=== PATIENT | male | born 1940 | race Caucasian/White ===

== ENCOUNTER → 2018-03-07 13:10 | Outpatient (CLI) | payer MEDICARE, OTHER, SELFPAY ==
[2018-03-07 13:33] LABS: Add Manual Diff / Slide Review NO; Basophils Percent Auto 0.7 % (0-2); Eosinophils Percent Auto 2.9 % (2-4); Hematocrit 34.6 % (41-53); Hemoglobin 11.5 g/dL (13.5-17.5); Lymphocytes Percent Auto 14.9 % (25-40); Mean Corpuscular HGB Conc 33.3 % (30-36); Mean Corpuscular Hemoglobin 30.5 PG (26-34); Mean Corpuscular Volume 91.7 fL (80-100); Monocytes Percent Auto 7.5 % (3-14); Neutrophils Absolute Auto 5100 /uL (3000-5900); Platelet Count 141 X10^3/uL (150-400); Red Blood Cell Count 3.77 X10^6/uL (4.5-5.9); White Blood Cell Count 6.9 X10^3/uL (4.5-11.0)
[2018-03-07 13:42] LABS: Alanine Aminotransferase 25 IU/L (21-72); Albumin 4.3 g/dL (3.5-5.0); Albumin Globulin Ratio 1.4 (1.0-2.8); Alkaline Phosphatase 73 U/L (38-126); Aspartate Aminotransferase 18 IU/L (17-59); BUN Creatinine Ratio 27.7 (6-22); Bilirubin Total 0.7 mg/dL (0.2-1.3); Calcium 9.2 mg/dL (8.4-10.2); Estimated Glomerular Filt Rate 23.9 mL/min (>60); Glucose 133 mg/dL (80-110); HEMOLYSIS < 15 (0-50); Potassium 4.5 mmol/L (3.4-5.1); Sodium 145 mmol/L (137-145); Total Protein 7.3 g/dL (6.3-8.2)
[2018-03-07 14:12] LABS: Prostate Specific Antigen 0.075 ng/mL (0.10-4.00)
== END ==
PROVIDERS: PCP Family Medicine; Visit Provider Internal Medicine Hematology & Oncology
DX: R31.9 Hematuria, unspecified (principal); N13.9 Obstructive and reflux uropathy, unspecified
CPT/HCPCS: 36415; 80053; 84153; 85025

== ENCOUNTER → 2018-04-08 15:14 | Outpatient (CLI) | payer MEDICARE, OTHER, SELFPAY ==
--- NOTE | 2018-04-08 | DI.RAD.S_ITS ---
PROCEDURE: XR CHEST 2V INDICATIONS: 77 year-old male with cough for 2 months. TECHNIQUE: 2 views of the chest were acquired. COMPARISON: [facility], , XR CHEST 2V, 02/22/2018, 10:40. [facility], , CHEST 2 VIEW, 05/31/2017, 7:49. [facility], CR, CHEST 2 VIEW, 12/27/2016, 9:33. FINDINGS: Surgical changes and devices: None. Lungs and pleura: No pleural effusions or pneumothorax. Lungs are clear. Mediastinum: Mediastinal contours are normal. Cardiomegaly is unchanged. There is aortic atherosclerosis. Bones and chest wall: No suspicious bony abnormalities. Soft tissues appear unremarkable. IMPRESSION: Cardiomegaly as before, without acute cardiopulmonary disease. Dictated by: Adam Contreras M.D. on 04/08/2018 at 16:34 Approved by: Adam Contreras M.D. on 04/08/2018 at 16:35
== END ==
PROVIDERS: PCP Family Medicine; Visit Provider Internal Medicine Cardiovascular Disease
DX: R05 Cough (principal); I51.7 Cardiomegaly
CPT/HCPCS: 71046

== ENCOUNTER → 2018-04-11 14:07 | Outpatient (CLI) | payer MEDICARE, OTHER, SELFPAY ==
[2018-04-11 14:25] LABS: Add Manual Diff / Slide Review NO; Basophils Percent Auto 0.9 % (0-2); Eosinophils Percent Auto 4.8 % (2-4); Hematocrit 31.7 % (41-53); Hemoglobin 10.6 g/dL (13.5-17.5); Lymphocytes Percent Auto 17.6 % (25-40); Mean Corpuscular HGB Conc 33.6 % (30-36); Mean Corpuscular Hemoglobin 30.9 PG (26-34); Mean Corpuscular Volume 92.1 fL (80-100); Monocytes Percent Auto 8.4 % (3-14); Neutrophils Absolute Auto 4300 /uL (3000-5900); Neutrophils Percent Auto 68.3 % (50-75); Platelet Count 183 X10^3/uL (150-400); Red Blood Cell Count 3.44 X10^6/uL (4.5-5.9); Red Cell Distribution Width 16.5 % (11.6-14.8); White Blood Cell Count 6.3 X10^3/uL (4.5-11.0)
[2018-04-11 14:40] LABS: Alanine Aminotransferase 26 IU/L (21-72); Albumin 4.3 g/dL (3.5-5.0); Albumin Globulin Ratio 1.5 (1.0-2.8); Alkaline Phosphatase 74 U/L (38-126); Aspartate Aminotransferase 22 IU/L (17-59); BUN Creatinine Ratio 26.7 (6-22); Bilirubin Total 0.7 mg/dL (0.2-1.3); Blood Urea Nitrogen 72 mg/dL (9-20); Carbon Dioxide 21 mmol/L (22-32); Chloride 109 mmol/L (98-107); Estimated Glomerular Filt Rate 22.9 mL/min (>60); Globulin 2.9 g/dL (1.7-4.1); Glucose 143 mg/dL (80-110); HEMOLYSIS < 15 (0-50); Potassium 4.9 mmol/L (3.4-5.1); Sodium 143 mmol/L (137-145); Total Protein 7.2 g/dL (6.3-8.2)
[2018-04-11 15:13] LABS: Prostate Specific Antigen < 0.064 ng/mL (0.10-4.00)
== END ==
PROVIDERS: PCP Family Medicine; Visit Provider Nurse Practitioner Gerontology
DX: C61 Malignant neoplasm of prostate (principal)
CPT/HCPCS: 36415; 80053; 84153; 85025

== ENCOUNTER → 2018-05-30 13:09 | Outpatient (CLI) | payer MEDICARE, OTHER, SELFPAY ==
[2018-05-30 13:35] LABS: Add Manual Diff / Slide Review NO; Basophils Percent Auto 0.7 % (0-2); Eosinophils Percent Auto 4.4 % (2-4); Hematocrit 32.1 % (41-53); Hemoglobin 10.7 g/dL (13.5-17.5); Lymphocytes Percent Auto 16.9 % (25-40); Mean Corpuscular HGB Conc 33.2 % (30-36); Mean Corpuscular Hemoglobin 30.7 PG (26-34); Mean Corpuscular Volume 92.4 fL (80-100); Monocytes Percent Auto 6.5 % (3-14); Neutrophils Absolute Auto 4900 /uL (3000-5900); Neutrophils Percent Auto 71.5 % (50-75); Platelet Count 170 X10^3/uL (150-400); Red Blood Cell Count 3.48 X10^6/uL (4.5-5.9); Red Cell Distribution Width 16.5 % (11.6-14.8); White Blood Cell Count 6.9 X10^3/uL (4.5-11.0)
[2018-05-30 14:09] LABS: Alanine Aminotransferase 19 IU/L (21-72); Albumin 4.5 g/dL (3.5-5.0); Albumin Globulin Ratio 1.5 (1.0-2.8); Alkaline Phosphatase 72 U/L (38-126); Aspartate Aminotransferase 21 IU/L (17-59); BUN Creatinine Ratio 23.2 (6-22); Bilirubin Total 0.7 mg/dL (0.2-1.3); Blood Urea Nitrogen 79 mg/dL (9-20); Calcium 9.3 mg/dL (8.4-10.2); Carbon Dioxide 21 mmol/L (22-32); Chloride 108 mmol/L (98-107); Estimated Glomerular Filt Rate 17.6 mL/min (>60); Glucose 119 mg/dL (80-110); HEMOLYSIS < 15 (0-50); Potassium 4.5 mmol/L (3.4-5.1); Sodium 144 mmol/L (137-145); Total Protein 7.5 g/dL (6.3-8.2)
[2018-05-30 14:44] LABS: Prostate Specific Antigen < 0.064 ng/mL (0.10-4.00)
[2018-05-30 14:56] LABS: Thyroid Stimulating Hormone 2.71 uIU/mL (0.47-4.68)
== END ==
PROVIDERS: PCP Family Medicine; Visit Provider Nurse Practitioner Gerontology
DX: C61 Malignant neoplasm of prostate (principal); C79.9 Secondary malignant neoplasm of unspecified site; R53.83 Other fatigue
CPT/HCPCS: 36415; 80053; 84153; 84443; 85025

== ENCOUNTER → 2018-06-07 12:47 | Outpatient (CLI) | payer MEDICARE, OTHER, SELFPAY ==
--- NOTE | 2018-06-07 | DI.CT.S_ITS ---
PROCEDURE: CT KIDNEY URETER BLADDER (KUB) INDICATIONS: Hydronephrosis. TECHNIQUE: Noncontrast 5 mm thick sections acquired from the diaphragms to the symphysis. 5 mm thick coronal and sagittal reformats were then performed. For radiation dose reduction, the following was used: automated exposure control, adjustment of mA and/or kV according to patient size. COMPARISON: [facility], CT, KIDNEY/ URETER/BLADDER, 12/14/2016, 10:35. [facility], CT, KIDNEY/ URETER/BLADDER, 08/20/2017, 5:47. FINDINGS: Image quality: Excellent. Lung bases: Lung bases are clear. Heart size is mildly enlarged. Urinary system: There is a right ureteral stent with the proximal coil in the right renal pelvis and the distal coil in the pelvis. No hydronephrosis in the right or left kidney. No renal stones. There is renal cortical thinning bilaterally. Mild nonspecific perinephric stranding is redemonstrated, decreased on the right. There are small bilateral renal cysts. The urinary bladder is nondistended with suggestion of wall thickening. There is associated mild fat stranding. Other solid organs: Noncontrast evaluation of the liver demonstrates no focal lesions. There are a few small dependent calcified gallstones in the gallbladder without gallbladder wall thickening. Pancreas is normal in contours. Spleen is normal in size. No adrenal nodules. Peritoneum and bowel: Unenhanced bowel loops demonstrate normal wall thickness and caliber. There is colonic diverticulosis without acute diverticulitis. No free fluid or air. Nodes and vessels: No retroperitoneal or mesenteric adenopathy by size criteria. 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 Abdominal wall: No ventral hernias. Pelvis: No free pelvic fluid. No inguinal hernias or adenopathy. Postsurgical changes are demonstrated at the base of the right inguinal canal. Bones: No suspicious bony lesions. No vertebral body compression fractures. IMPRESSION: 1. Right ureteral stent demonstrated without evidence of hydronephrosis. 2. Probable bladder wall thickening although evaluation is limited by nondistention. Findings are suggestive of an infectious or inflammatory cystitis. Recommend correlation with urinalysis. 3. 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 Dictated by: Preston Parmar M.D. on 06/07/2018 at 16:03 Approved by: Preston Parmar M.D. on 06/07/2018 at 16:21
== END ==
PROVIDERS: PCP Family Medicine; Visit Provider Urology
DX: N13.30 Unspecified hydronephrosis (principal); I71.4 Abdominal aortic aneurysm, without rupture; Z96.0 Presence of urogenital implants
CPT/HCPCS: 74176

== ENCOUNTER → 2018-07-01 14:08 | Outpatient (CLI) | payer MEDICARE, OTHER, SELFPAY ==
[2018-07-01 14:43] LABS: Add Manual Diff / Slide Review NO; Basophils Percent Auto 0.6 % (0-2); Eosinophils Percent Auto 3.9 % (2-4); Hematocrit 34.8 % (41-53); Hemoglobin 11.9 g/dL (13.5-17.5); Lymphocytes Percent Auto 18.8 % (25-40); Mean Corpuscular HGB Conc 34.1 % (30-36); Mean Corpuscular Volume 90.8 fL (80-100); Monocytes Percent Auto 7.4 % (3-14); Neutrophils Absolute Auto 4300 /uL (3000-5900); Neutrophils Percent Auto 69.3 % (50-75); Platelet Count 171 X10^3/uL (150-400); Red Blood Cell Count 3.83 X10^6/uL (4.5-5.9); Red Cell Distribution Width 15.3 % (11.6-14.8); White Blood Cell Count 6.2 X10^3/uL (4.5-11.0)
[2018-07-01 14:51] LABS: Alanine Aminotransferase 26 IU/L (21-72); Albumin 4.5 g/dL (3.5-5.0); Albumin Globulin Ratio 1.5 (1.0-2.8); Alkaline Phosphatase 76 U/L (38-126); Aspartate Aminotransferase 23 IU/L (17-59); BUN Creatinine Ratio 21.6 (6-22); Bilirubin Total 0.5 mg/dL (0.2-1.3); Blood Urea Nitrogen 67 mg/dL (9-20); Calcium 9.7 mg/dL (8.4-10.2); Carbon Dioxide 23 mmol/L (22-32); Chloride 108 mmol/L (98-107); Estimated Glomerular Filt Rate 19.5 mL/min (>60); Globulin 3.1 g/dL (1.7-4.1); Glucose 145 mg/dL (80-110); HEMOLYSIS < 15 (0-50); Potassium 4.3 mmol/L (3.4-5.1); Sodium 146 mmol/L (137-145); Total Protein 7.6 g/dL (6.3-8.2)
[2018-07-01 15:22] LABS: Prostate Specific Antigen < 0.064 ng/mL (0.10-4.00)
== END ==
PROVIDERS: PCP Family Medicine; Visit Provider Nurse Practitioner Gerontology
DX: C61 Malignant neoplasm of prostate (principal)
CPT/HCPCS: 36415; 80053; 84153; 85025

== ENCOUNTER → 2018-08-23 08:35 | Outpatient (CLI) | payer MEDICARE, OTHER, SELFPAY ==
[2018-08-23 08:56] LABS: Add Manual Diff / Slide Review NO; Basophils Percent Auto 0.6 % (0-2); Eosinophils Percent Auto 3.2 % (2-4); Hematocrit 33.3 % (41-53); Hemoglobin 11.1 g/dL (13.5-17.5); Lymphocytes Percent Auto 11.1 % (25-40); Mean Corpuscular HGB Conc 33.3 % (30-36); Mean Corpuscular Hemoglobin 31.1 PG (26-34); Mean Corpuscular Volume 93.4 fL (80-100); Monocytes Percent Auto 6.5 % (3-14); Neutrophils Absolute Auto 5600 /uL (3000-5900); Neutrophils Percent Auto 78.6 % (50-75); Platelet Count 152 X10^3/uL (150-400); Red Blood Cell Count 3.56 X10^6/uL (4.5-5.9); Red Cell Distribution Width 15.3 % (11.6-14.8); White Blood Cell Count 7.1 X10^3/uL (4.5-11.0)
[2018-08-23 09:58] LABS: HEMOLYSIS < 15 (0-50)
[2018-08-23 10:06] LABS: Alanine Aminotransferase 20 IU/L (21-72); Albumin 4.5 g/dL (3.5-5.0); Albumin Globulin Ratio 1.5 (1.0-2.8); Alkaline Phosphatase 72 U/L (38-126); Aspartate Aminotransferase 23 IU/L (17-59); BUN Creatinine Ratio 23.8 (6-22); Bilirubin Total 0.6 mg/dL (0.2-1.3); Blood Urea Nitrogen 81 mg/dL (9-20); Calcium 9.1 mg/dL (8.4-10.2); Carbon Dioxide 18 mmol/L (22-32); Chloride 111 mmol/L (98-107); Estimated Glomerular Filt Rate 17.5 mL/min (>60); Globulin 3.1 g/dL (1.7-4.1); Glucose 169 mg/dL (80-110); Potassium 4.7 mmol/L (3.4-5.1); Sodium 146 mmol/L (137-145); Total Protein 7.6 g/dL (6.3-8.2)
== END ==
PROVIDERS: PCP Family Medicine
DX: C61 Malignant neoplasm of prostate (principal)
CPT/HCPCS: 36415; 80053; 84153; 85025

== ENCOUNTER 2018-08-31 07:23 | Observation (INO) | payer MEDICARE, OTHER, SELFPAY ==
[2018-08-31] VITALS (10 sets, daily range): BP systolic 140–164; BP diastolic 54–87; PULSE 56–79; RESP 14–18; TEMP 36.3–37.3; O2SAT 97–99; BMI 31.0
[2018-08-31 07:53] LABS: Add Manual Diff / Slide Review NO; Basophils Percent Auto 0.5 % (0-2); Eosinophils Percent Auto 4.8 % (2-4); Hematocrit 33.5 % (41-53); Hemoglobin 11.4 g/dL (13.5-17.5); Lymphocytes Percent Auto 16.5 % (25-40); Mean Corpuscular HGB Conc 33.9 % (30-36); Mean Corpuscular Hemoglobin 31.1 PG (26-34); Mean Corpuscular Volume 91.7 fL (80-100); Monocytes Percent Auto 7.6 % (3-14); Neutrophils Absolute Auto 4300 /uL (3000-5900); Neutrophils Percent Auto 70.6 % (50-75); Platelet Count 166 X10^3/uL (150-400); Red Blood Cell Count 3.65 X10^6/uL (4.5-5.9); White Blood Cell Count 6.2 X10^3/uL (4.5-11.0)
--- NOTE | 2018-08-31 07:53 | ED_ITS ---
HPI - Abdominal Pain General Chief Complaint: Abdominal Pain Stated Complaint: blood in bowel movement this morning Time Seen by Provider: 08/31/18 07:34 Source: patient Mode of arrival: ambulatory Limitations: no limitations History of Present Illness HPI narrative: Patient is an 78-year-old male who presents with above bloody bowel movement. He said he had 1 very large bloody bowel movement this morning. He is on Coumadin for atrial fibrillation and has history of prostate cancer. He denies any abdominal pain, nausea, vomiting, dizziness, lightheadedness or syncope. He said he was extremely tired yesterday but thought it was due to multiple errands. He denies any fever or chills. He states he had a colonoscopy this year with Dr. Mcclure 01/21/2018 in he had 2 polyps removed MD complaint: other (Rectal bleeding) Related Data Home Medications Medication Instructions Recorded Confirmed ASPIRIN (Aspirin Low Dose) 81 mg PO QDAY #0 12/11/10 08/31/18 glipizide [Glucotrol XL] 20 [place] [facility] [place] 12/11/10 08/31/18 [COLETTE KRILL] 500 mg PO QDAY #0 07/10/17 08/31/18 [VITAMIN C W/ALONA HIP] 1,000 mg PO QDAY #0 07/10/17 08/31/18 allopurinol 100 mg PO QDAY #0 07/10/17 08/31/18 vitamin B complex [B 1 tab PO QDAY #0 07/10/17 08/31/18 Complex-Vitamin B12] VITAMIN D (Vitamin D3) 1,000 units PO QDAY #0 08/20/17 08/31/18 calcium citrate 600 mg PO BID #0 08/20/17 08/31/18 coenzyme Q10 [Co Q-10] 100 mg PO QDAY #0 08/20/17 08/31/18 warfarin [Coumadin] 5 mg PO QDAY #0 08/20/17 08/31/18 insulin glargine [Lantus U-100 20 unit SQ Q DAY #0 12/11/17 08/31/18 Insulin] furosemide [Lasix] 60 mg PO BID #0 01/08/18 08/31/18 rosuvastatin [Crestor] 5 mg PO QDAY #0 01/08/18 08/31/18 hydrocodone-acetaminophen 1 - 2 tab PO Q6HP PRN #0 01/21/18 08/27/18 amlodipine [Norvasc] 10 mg PO DAILY 03/08/18 08/31/18 terazosin 3 mg PO QDAY 08/31/18 08/31/18 Previous Rx's Medication Instructions Recorded alprazolam [Xanax] 0.5 mg PO QDAYP PRN #30 tab 12/11/17 bicalutamide [Casodex] 50 mg PO QDAY #30 tab 12/11/17 Allergies Allergy/AdvReac Type Severity Reaction Status Date / Time codeine Allergy Unknown NAUSEA Verified 06/04/18 13:13 Iodine and Iodide Containing Allergy Unknown Verified 06/04/18 13:13 Produc [IODINE AND IODIDE CONTAINING PRODUC] iohexol Allergy Unknown Verified 06/04/18 13:13 Review of Systems Review of Systems All systems reviewed & are unremarkable except as noted in HPI and below Constitutional Denies chills, Denies fever(s), Denies lethargy and Denies weakness Eyes Denies change in vision, Denies eye discharge, Denies irritation and Denies loss of vision Cardiovascular Denies chest pain, Denies irregular heart rhythm, Denies lightheadedness, Denies palpitations, Denies dyspnea, Denies dyspnea on exertion and Denies orthopnea Respiratory Denies cough, Denies dyspnea, Denies dyspnea on exertion and Denies wheezing Gastrointestinal Gastrointestinal: Reports as per HPI Genitourinary Denies hematuria, Denies flank pain, Denies urinary incontinence and Denies urinary urgency Musculoskeletal Denies back pain, Denies muscle weakness, Denies numbness and Denies tingling Integumentary/Breasts Denies pruritus, Denies erythema, Denies rash and Denies wounds Neurologic Denies loss of vision, Denies numbness, Denies tingling and Denies weakness Endocrine Denies palpitations Allergic/Immunologic Denies wheezing PFSH Medical History Atrial fibrillation (Acute) Chronic renal insufficiency (Acute) Diabetes (Acute) Prostate cancer (Acute) Surgical History S/P ureteral stent placement (Acute) Social History Smoking Status: Never smoker alcohol intake: never substance use type: does not use Exam Initial Vital Signs Initial Vital Signs: Vital Signs Temperature 98 F 08/31/18 07:33 Pulse Rate 72 08/31/18 07:33 Respiratory Rate 14 08/31/18 07:33 Blood Pressure 156/57 H 08/31/18 07:33 Pulse Oximetry 99 08/31/18 07:33 GENERAL: Well-appearing, well-nourished and in no acute distress. HEENT: Head atraumatic,EOMI, pupils reactive, face symmetric, moist mucous membranes CARDIOVASCULAR: Regular rate and rhythm without murmurs, rubs or gallops. RESPIRATORY: Breath sounds equal bilaterally, no wheezes rales or rhonchi. ABDOMEN: Soft, nontender. Normoactive bowel sounds all 4 quadrants. No guarding or rebound. RECTAL: Grossly positive EXTREMITIES: Normal range of motion, no clubbing or edema. Neurovascularly intact NEUROLOGICAL: Alert and oriented x4.Normal gait and speech. SKIN: Warm, dry, no laceration, no petechiae, no rashes or lesions. Course Orders Ordered: ED Orders 08/31/18 07:45 Complete Blood Count AUTO DIFF Stat Comprehensive Metabolic Panel Stat Fresh Frozen Plasma Stat Lactate (Lactic Acid) Stat Lipase Stat Partial Thromboplastin Time Stat Prothrombin Time INR Stat Type and Screen Stat EKG-12 Lead Stat 08/31/18 09:00 Urine Microscopic Stat Discontinued Medications Pantoprazole Sodium (Protonix) 40 mg IV NOW ONE Stop: 08/31/18 07:46 Last Admin: 08/31/18 08:17 Dose: 40 mg Phytonadione (Mephyton) 5 mg PO NOW ONE Stop: 08/31/18 08:18 Last Admin: 08/31/18 08:23 Dose: 5 mg Vital Signs - 8 hr 08/31/18 07:33 08/31/18 08:20 08/31/18 09:19 Temperature 98 F 97.4 F L Pulse Rate 72 75 72 Respiratory Rate 14 16 16 Blood Pressure 156/57 H 164/59 H Blood Pressure [Left Arm] 147/87 H Pulse Oximetry 99 97 08/31/18 09:25 Temperature Pulse Rate 72 Respiratory Rate 18 Blood Pressure Blood Pressure [Left Arm] 145/54 H Pulse Oximetry 97 MDM - Abdominal Pain Lab Data Attestation: I reviewed the patient's lab results. Result diagrams: 08/31/18 07:45 08/31/18 07:45 Lab Results 08/31/18 08/31/18 08/31/18 Range/Units 07:45 07:45 07:45 WBC 6.2 (4.5-11.0) X10^3/uL RBC 3.65 L (4.5-5.9) X10^6/uL Hgb 11.4 L (13.5-17.5) g/dL Hct 33.5 L (41-53) % MCV 91.7 (80-100) fL MCH 31.1 (26-34) PG MCHC 33.9 (30-36) % RDW 15.0 H (11.6-14.8) % Plt Count 166 (150-400) X10^3/uL Neut % (Auto) 70.6 (50-75) % Lymph % (Auto) 16.5 L (25-40) % [place] % (Auto) 7.6 (3-14) % Eos % (Auto) 4.8 H (2-4) % Baso % (Auto) 0.5 (0-2) % Neut # (Auto) 4300 (1945-6705) /uL PT 24.2 H (10.1-12.7) SECONDS INR 2.2 H (0.9-1.3) APTT 40 H (26.4-36.2) SECONDS Sodium (137-145) mmol/L Potassium (3.4-5.1) mmol/L Chloride (98-107) mmol/L Carbon Dioxide (22-32) mmol/L BUN (9-20) mg/dL Creatinine (0.66-1.25) mg/dL Estimated GFR (>60) mL/min BUN/Creatinine Ratio (6-22) Glucose (80-110) mg/dL Lactate 0.8 (0.7-2.1) mmol/L Calcium (8.4-10.2) mg/dL Total Bilirubin (0.2-1.3) mg/dL AST (17-59) IU/L ALT (21-72) IU/L Alkaline Phosphatase (38-126) U/L Total Protein (6.3-8.2) g/dL Albumin (3.5-5.0) g/dL Globulin (1.7-4.1) g/dL Albumin/Globulin Ratio (1.0-2.8) Lipase (23-300) U/L Urine RBC (0-5/HPF) Urine WBC (0-5/HPF) Ur Squamous Epith Cells Urine Bacteria (None) Ur Culture Indicated? Micro UA Comment Blood Type Antibody Screen 08/31/18 08/31/18 08/31/18 Range/Units 07:45 07:45 09:00 WBC (4.5-11.0) X10^3/uL RBC (4.5-5.9) X10^6/uL Hgb (13.5-17.5) g/dL Hct (41-53) % MCV (80-100) fL MCH (26-34) PG MCHC (30-36) % RDW (11.6-14.8) % Plt Count (150-400) X10^3/uL Neut % (Auto) (50-75) % Lymph % (Auto) (25-40) % [place] % (Auto) (3-14) % Eos % (Auto) (2-4) % Baso % (Auto) (0-2) % Neut # (Auto) (6828-4565) /uL PT (10.1-12.7) SECONDS INR (0.9-1.3) APTT (26.4-36.2) SECONDS Sodium 146 H (137-145) mmol/L Potassium 4.3 (3.4-5.1) mmol/L Chloride 111 H (98-107) mmol/L Carbon Dioxide 21 L (22-32) mmol/L BUN 68 H (9-20) mg/dL Creatinine 3.40 H (0.66-1.25) mg/dL Estimated GFR 17.5 L (>60) mL/min BUN/Creatinine Ratio 20.0 (6-22) Glucose 97 (80-110) mg/dL Lactate (0.7-2.1) mmol/L Calcium 9.2 (8.4-10.2) mg/dL Total Bilirubin 0.6 (0.2-1.3) mg/dL AST 22 (17-59) IU/L ALT 26 (21-72) IU/L Alkaline Phosphatase 85 (38-126) U/L Total Protein 7.4 (6.3-8.2) g/dL Albumin 4.4 (3.5-5.0) g/dL Globulin 3.0 (1.7-4.1) g/dL Albumin/Globulin Ratio 1.5 (1.0-2.8) Lipase 123 (23-300) U/L Urine RBC 5-10/hpf H (0-5/HPF) Urine WBC 0-1/hpf (0-5/HPF) Ur Squamous Epith Cells 0-1 /hpf Urine Bacteria None seen (None) Ur Culture Indicated? Cult not indicated Micro UA Comment Not Reportable Blood Type A Positive Antibody Screen Negative Point of care testing: Urine Dip Bedside Urine Glucose Negative Bedside Urine Bilirubin - Negative Bedside Urine Ketone - Negative Urine Specific [place] 1.015 Bedside Urine Occult Blood ++ Bedside Urine pH 6.0 Bedside Urine Protein ++ 100 Bedside Urine Urobilinogen - Negative Bedside Urine Nitrite - Negative Bedside Urine Leukocytes - Negative Esterase MDM Narrative Medical decision making narrative: Renal insufficiency is stable, not on dialysis. He is given FFP and vitamin K. no indication for Kcentra at this time. He is hemodynamically stable. Only 1 bloody bowel movement. I have spoken with Dr. Garcia who agrees to admission. No surgery consult at this time will monitor. Discharge Plan Departure Patient Disposition: Admitted As Inpatient Clinical Impression: Acute GI bleeding Admit Date/Time: 08/31/18 09:19 Admit Provider: Dago Garcia
--- NOTE | 2018-08-31 07:55 | PC.NURSE ---
had one episode of dark blood with stool, alot no other associated sxs. takes coumadin for afib, dose decrease last week.
[2018-08-31 08:02] LABS: INR 2.2 (0.9-1.3); Prothrombin Time 24.2 SECONDS (10.1-12.7)
[2018-08-31 08:04] LABS: PTT Partial Thromboplastin Tim 40 SECONDS (26.4-36.2)
[2018-08-31 08:05] LABS: Lactate (Lactic Acid) 0.8 mmol/L (0.7-2.1)
[2018-08-31 08:06] LABS: Alanine Aminotransferase 26 IU/L (21-72); Albumin 4.4 g/dL (3.5-5.0); Albumin Globulin Ratio 1.5 (1.0-2.8); Alkaline Phosphatase 85 U/L (38-126); Aspartate Aminotransferase 22 IU/L (17-59); Bilirubin Total 0.6 mg/dL (0.2-1.3); Blood Urea Nitrogen 68 mg/dL (9-20); Calcium 9.2 mg/dL (8.4-10.2); Carbon Dioxide 21 mmol/L (22-32); Chloride 111 mmol/L (98-107); Estimated Glomerular Filt Rate 17.5 mL/min (>60); Glucose 97 mg/dL (80-110); HEMOLYSIS < 15 (0-50); Lipase 123 U/L (23-300); Potassium 4.3 mmol/L (3.4-5.1); Sodium 146 mmol/L (137-145); Total Protein 7.4 g/dL (6.3-8.2)
[2018-08-31] MEDS: PANTOPRAZOLE 40 MG VIAL IV (08:17)
[2018-08-31] MEDS: PHYTONADIONE (VIT K1) 5 MG TABLET PO (08:23)
[2018-08-31 09:02] LABS: Bacteria Urine None Seen
[2018-08-31 09:19] LABS: Culture Indicated Urine Cult Not Indicated; RBC Urine 5-10/HPF (0-5/HPF); Squamous Epithelial Cell Urine 0-1 /HPF; WBC Urine 0-1/HPF (0-5/HPF)
--- NOTE | 2018-08-31 13:03 | PC.ADMIT ---
[email or web address] Tiffany Frank Admission Note: The patient,Noel Allen,78 y/o, was given written information regarding hospital policies, unit procedures and contact persons. Patient's smoking status: Never smoker. Vital Signs - 8 hr 08/31/18 07:33 08/31/18 08:20 08/31/18 09:19 Temperature 98 F 97.4 F L Pulse Rate 72 75 72 Respiratory Rate 14 16 16 Blood Pressure 156/57 H 164/59 H Blood Pressure [Left Arm] 147/87 H Pulse Oximetry 99 97 08/31/18 09:25 08/31/18 09:38 08/31/18 11:30 Temperature 97.6 F 99.2 F Pulse Rate 72 74 71 Respiratory Rate 18 16 17 Blood Pressure 149/69 H 159/74 H Blood Pressure [Left Arm] 145/54 H Pulse Oximetry 97 Rec'd pt from ED at 1000 via stretcher with FFP infusing to patent PIV. VSS. Afebrile. Denying pain. Completed admission assessment and updated med list per pt and . Oriented to room, environment, fall risk, call light. Pt and verbalize understanding. Called to Dr. Umana's office and left message with senior receptionist notifying MD of pt's arrival.
[2018-08-31 14:47] LABS: Hematocrit 31.9 % (41-53); Hemoglobin 10.9 g/dL (13.5-17.5)
--- NOTE | 2018-08-31 15:06 | P.HP_ITS ---
History of Present Illness Date Patient Seen: 08/31/18 Time Patient Seen: 14:47 Chief complaint: blood in bowel movement this morning Narrative: Was in usual state of health until this morning when he had the urge to defecate. Passed a fair volume of stool and only when he wiped he realized that there was clear red on the paper and looking in the toilet noticed a volume of maroon dark red stool. There is no pain involved with a bowel movement no abdominal pain of any kind does not recall anything like this before. He is on warfarin for AFib. Had a colonoscopy within the last year or so that showed no evident cause for this. He was evaluated in the emergency room found with a fairly typical H and H for him with a history of mild anemia chronically. Otherwise evaluation showed no significant findings. He is referred for admission for evidence of GI bleed. It has been a few hours since he came in and he has had 1 more bowel movement which is described as brown, small quantity, weakly positive for guaiac. He continues to feel well no particular concerns at this time. No family history contributes to this admission. Patient History Medical History Anticoagulation adequate with anticoagulant therapy (Acute) BPH loc w urin obs/LUTS (Acute) Edema leg (Acute) Gout (Acute) Hyperlipidemia (Acute) Hypertension (Acute) Obesity (Acute) Atrial fibrillation (Chronic) Chronic kidney disease (CKD) stage G4/A1, severely decreased glomerular filtration rate (GFR) between 15-29 mL/min/1.73 square meter and albuminuria creatinine ratio less than 30 mg/g (Chronic) Diabetes (Chronic) Prostate cancer (Chronic) Surgical History S/P ureteral stent placement (Chronic) Family & Social History Social History: household members spouse Prior Living Arrangements House Safety & Behavioral: Feels Safe in Current Yes Environment Been Physically Hurt or No Threatened By a Person Suicidal Ideation Description None Tobacco & Substance use: Smoking Status Never smoker alcohol intake never Meds Home Medications Medication Instructions Recorded Confirmed Type aspirin [Aspir-81] 81 mg PO BEDTIME #0 12/11/10 08/31/18 History glipizide [Glucotrol XL] 10 mg PO BIDWM #0 12/11/10 08/31/18 History [COLETTE KRILL] 500 mg PO QDAY #0 07/10/17 08/31/18 History [VITAMIN C W/ALONA HIP] 1,000 mg PO QDAY #0 07/10/17 08/31/18 History allopurinol 100 mg PO QDAY #0 07/10/17 08/31/18 History vitamin B complex [B 1 tab PO QDAY #0 07/10/17 08/31/18 History Complex-Vitamin B12] VITAMIN D (Vitamin D3) 1,000 units PO QDAY #0 08/20/17 08/31/18 History calcium citrate 600 mg PO BID #0 08/20/17 08/31/18 History coenzyme Q10 [Co Q-10] 100 mg PO QDAY #0 08/20/17 08/31/18 History warfarin [Coumadin] 2.5 mg PO QDAY #0 08/20/17 08/31/18 History alprazolam [Xanax] 0.5 mg PO QDAYP PRN #30 tab 12/11/17 08/31/18 Rx bicalutamide [Casodex] 50 mg PO QDAY #30 tab 12/11/17 08/31/18 Rx insulin glargine [Lantus U-100 20 unit SQ Q DAY #0 12/11/17 08/31/18 History Insulin] furosemide [Lasix] 40 mg PO DAILY #0 01/08/18 08/31/18 History rosuvastatin [Crestor] 5 mg PO BEDTIME #0 01/08/18 08/31/18 History amlodipine [Norvasc] 10 mg PO DAILY 03/08/18 08/31/18 History Lupron Depot See Label Instructions .ROUTE 08/31/18 08/31/18 History .COMPLEX furosemide [Lasix] 20 mg PO DAILY 08/31/18 08/31/18 History terazosin 1 mg PO BID 08/31/18 08/31/18 History Allergies Allergy/AdvReac Type Severity Reaction Status Date / Time codeine Allergy Unknown NAUSEA Verified 06/04/18 13:13 Iodine and Iodide Containing Allergy Unknown Verified 06/04/18 13:13 Produc [IODINE AND IODIDE CONTAINING PRODUC] iohexol Allergy Unknown Verified 06/04/18 13:13 Review of Systems Review of Systems All systems reviewed & are unremarkable except as noted in HPI and below Constitutional Constitutional: Reports system reviewed and no additional complaints, except as documented Gastrointestinal Gastrointestinal: Reports hematochezia Exam Vital Signs (past 8 hours): - 08/31/18 07:33 08/31/18 08:20 08/31/18 09:19 Temperature 98 F 97.4 F L Pulse Rate 72 75 72 Respiratory Rate 14 16 16 Blood Pressure 156/57 H 164/59 H Blood Pressure [Left Arm] 147/87 H Pulse Oximetry 99 97 08/31/18 09:25 08/31/18 09:38 08/31/18 11:30 Temperature 97.6 F 99.2 F Pulse Rate 72 74 71 Respiratory Rate 18 16 17 Blood Pressure 149/69 H 159/74 H Blood Pressure [Left Arm] 145/54 H Pulse Oximetry 97 Oxygen Delivery Method Room Air Narrative Exam Narrative: Healthy appearing obese male lying quietly in bed. O awake appropriate. H EENT normocephalic atraumatic. Pupils equal round and reactive to light extraocular movements intact. Oropharynx benign neck benign without jugular venous distension knee intact pulses chest is clear to auscultation heart has a an irregular rate without murmur abdomen is soft nontender nondistended normoactive bowel tones no organomegaly or mass extremities with 1 + edema neurologically nonfocal Objective Labs Result Diagrams: 08/31/18 07:45 08/31/18 07:45 Labs: Laboratory Results - last 24 hr 08/31/18 08/31/18 08/31/18 07:45 07:45 07:45 WBC 6.2 RBC 3.65 L Hgb 11.4 L Hct 33.5 L MCV 91.7 MCH 31.1 MCHC 33.9 RDW 15.0 H Plt Count 166 Neut % (Auto) 70.6 Lymph % (Auto) 16.[address] [place] % (Auto) 7.6 Eos % (Auto) 4.8 H Baso % (Auto) 0.5 Neut # (Auto) 4300 PT 24.2 H INR 2.2 H APTT 40 H Sodium Potassium Chloride Carbon Dioxide BUN Creatinine Estimated GFR BUN/Creatinine Ratio Glucose Lactate 0.8 Calcium Total Bilirubin AST ALT Alkaline Phosphatase Total Protein Albumin Globulin Albumin/Globulin Ratio Lipase Urine RBC Urine WBC Ur Squamous Epith Cells Urine Bacteria Ur Culture Indicated? Micro UA Comment Nasal Screen MRSA (PCR) Blood Type Antibody Screen 08/31/18 08/31/18 08/31/18 07:45 07:45 09:00 WBC RBC Hgb Hct MCV MCH MCHC RDW Plt Count Neut % (Auto) Lymph % (Auto) [place] % (Auto) Eos % (Auto) Baso % (Auto) Neut # (Auto) PT INR APTT Sodium 146 H Potassium 4.3 Chloride 111 H Carbon Dioxide 21 L BUN 68 H Creatinine 3.40 H Estimated GFR 17.5 L BUN/Creatinine Ratio 20.0 Glucose 97 Lactate Calcium 9.2 Total Bilirubin 0.6 AST 22 ALT 26 Alkaline Phosphatase 85 Total Protein 7.4 Albumin 4.4 Globulin 3.0 Albumin/Globulin Ratio 1.5 Lipase 123 Urine RBC 5-10/hpf H Urine WBC 0-1/hpf Ur Squamous Epith Cells 0-1 /hpf Urine Bacteria None seen Ur Culture Indicated? Cult not indicated Micro UA Comment Not Reportable Nasal Screen MRSA (PCR) Blood Type A Positive Antibody Screen Negative 08/31/18 10:00 WBC RBC Hgb Hct MCV MCH MCHC RDW Plt Count Neut % (Auto) Lymph % (Auto) [place] % (Auto) Eos % (Auto) Baso % (Auto) Neut # (Auto) PT INR APTT Sodium Potassium Chloride Carbon Dioxide BUN Creatinine Estimated GFR BUN/Creatinine Ratio Glucose Lactate Calcium Total Bilirubin AST ALT Alkaline Phosphatase Total Protein Albumin Globulin Albumin/Globulin Ratio Lipase Urine RBC Urine WBC Ur Squamous Epith Cells Urine Bacteria Ur Culture Indicated? Micro UA Comment Nasal Screen MRSA (PCR) Negative for mrsa Blood Type Antibody Screen Assessment & Plan (1) Lower gastrointestinal bleed: Problem details: Acute and apparently substantial blood loss but no significant change in H&H on admission and 6 hr later down 2 or 3 points. One additional bowel movement since admission that was guaiac positive but not grossly bloody. Will continue to follow labs for now consider general surgery consult if levels dropped significantly. Current visit: Yes Status: Acute (2) Atrial fibrillation: Problem details: Stable currently, sounds like his beta-blaine was stopped recently but his rate is okay today. Current visit: Yes Status: Chronic (3) Anticoagulation adequate: Problem details: Has been reversed due to above with associated risks. Reviewed with patient. Will hold for now. Current visit: Yes Status: Chronic (4) Diabetes type 2, controlled: Problem details: Historically well controlled will follow sugars here. Current visit: Yes Status: Chronic Plan: Assessment/Plan Narrative: Will start PPI, allow him to have full liquid diet follow labs consult as needed. Reviewed code status with him in detail he prefers full code. Time Spent With Patient Time with patient: Greater than 35 minutes Quality VTE Deep Vein Thrombosis/Pulmonary Embolism Present on Admission: No
--- NOTE | 2018-08-31 16:27 | PT.IIE ---
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 (08/31/18) Surgical History (Last Updated 08/31/18 @ 14:52 by Dago Garcia MD) S/P ureteral stent placement (Chronic) Medical History (Last Updated 08/31/18 @ 14:55 by Dago Garcia MD) Anticoagulation adequate with anticoagulant therapy (Acute) BPH loc w urin obs/LUTS (Acute) Edema leg (Acute) Gout (Acute) Hyperlipidemia (Acute) Hypertension (Acute) Obesity (Acute) Atrial fibrillation (Chronic) Chronic kidney disease (CKD) stage G4/A1, severely decreased glomerular filtration rate (GFR) between 15-29 mL/min/1.73 square meter and albuminuria creatinine ratio less than 30 mg/g (Chronic) Diabetes (Chronic) Prostate cancer (Chronic) Physical Therapy Inpatient Evaluation/Re-Eval M1 PT/OT-IP Prior Functional Status Start: 08/31/18 16:26 Freq: NEEDED Status: Active Protocol: Document 08/31/18 16:27 [facility] (Rec: 08/31/18 16:33 [facility] [email or web address]) Medical Review Prior Functional Status Medical History Reviewed Yes Mobility and Gait indep. community ambulator without device Activities of Daily Living and IADL's indep. I/ADLs Social History Household Members spouse Living Arrangements House Number of Floors (Floors) Two Floors Number of Stairs To Enter/Railing? 3 SE rail L ascending Home Environment Tub/Shower Home Equipment Grab Bars In Shower Employment Status Retired Additional Social History Comment able to assist some if needed upon d/c. M2 PT-IP Current Condition Start: 08/31/18 16:26 Freq: NEEDED Status: Active Protocol: Document 08/31/18 16:27 [facility] (Rec: 08/31/18 16:33 [facility] [email or web address]) Physical Therapy Current Condition Current Condition Evaluation Date 08/31/18 Treatment Diagnosis blood in stool, impaired activity tolerance Onset Date 08/31/18 Precautions Other Precautions Chemo precautions M3 PT-IP Subjective Start: 08/31/18 16:26 Freq: NEEDED Status: Active Protocol: Document 08/31/18 16:27 [facility] (Rec: 08/31/18 16:33 [facility] [email or web address]) Subjective Physical Therapy Visit Type Type Initial Evaluation Visit Start Time 14:02 Visit Stop Time 14:27 Total Visit Minutes 25 Number of DIRECTOR OF STUDENT AFFAIRS Visits 0 Physical Therapy Visit Comments Patient Comments pt states that he normally gets around pretty well. Therapy Pain Assessment Pain Present Pain Present Denied Pain M4 PT-IP Mobility and Gait Start: 08/31/18 16:26 Freq: NEEDED Status: Active Protocol: Document 08/31/18 16:27 [facility] (Rec: 08/31/18 16:33 [facility] [email or web address]) PT-Bed Mobility Assessment Supine to Sit Supine to Sit Independent Scooting Scooting to Edge of Bed Independent PT-Transfer Assessment Sit to and From Stand Sit to and from Stand Standby Assistance Equipment Transfer Assistive Device Gait Belt Front Wheeled Walker Transfers Transfer Destination Chair Transfer Technique Stand Step Pivot Transfer Ability Level of Assist Standby Assistance Gait Assessment Gait Gait Assistance Required: Standby Assistance Distance (Feet) 200 Assistive Devices Assistive Device Gait Belt Front Wheeled Walker Gait Deviations General Gait Pattern Flexed Trunk Wide Based Gait Factors Limiting Gait Function Factors Limiting Gait Function Decreased Activity Tolerance Decreased Strength Comments Gait Comments O2 saturation 97% and HR 110 bpm after gait. PT-Balance Assessment Sitting Balance and Reactions Static Sitting Balance Ability Good Dynamic Sitting Balance Ability Good Standing Balance and Reactions Static Standing Balance Ability Good Dynamic Standing Balance Ability Fair Device Used FWW M5 PT-IP Objective Assessments Start: 08/31/18 16:26 Freq: NEEDED Status: Active Protocol: Document 08/31/18 16:27 [facility] (Rec: 08/31/18 16:33 [facility] [email or web address]) Orientation Orientation/Cognition Level of Alertness Alert Language Function Ability No Deficits Noted Memory Description No Deficits Noted Gross Range of Motion Lower Extremity ROM Assessment Within Functional Limits Strength Lower Extremity Strength Assessment Within Functional Limits Coordination Assessment Gross Coordination Gross Coordination WNL Muscle Tone Muscle Tone WNL Yes M6 PT-IP Treatment Start: 08/31/18 16:26 Freq: NEEDED Status: Active Protocol: Document 08/31/18 16:27 [facility] (Rec: 08/31/18 16:33 [facility] [email or web address]) Physical Therapy Treatment Education Education Provided Safety M7 PT-IP Assessment and Plan Start: 08/31/18 16:26 Freq: NEEDED Status: Active Protocol: Document 08/31/18 16:27 [facility] (Rec: 08/31/18 16:33 [facility] [email or web address]) PT Summary Assessment and Plan Potential Rehabilitation Potential Good Status of Condition at Evaluation Stable Summary Impairments Gait Activity Tolerance Assessment Summary Pt used a FWW this session for ambulation 200 ft, minimal fatigue but does progressively get more forward flexed posture as distance increases. Pt was not comfortable progressing to no AD with gait . Pt will need to perform stairs and ambulation with or without least restrictive device prior to d/c. No c/o dizziness, lightheadedness or abdominal discomfort. Expect pt to be able to d/c home when medically stable. Goals Gait Goal Standby Assistance Gait Distance 300 Other Goals up/down 3 steps with L ascending rail and SBA. Frequency of Treatment Frequency Of Treatment Once a Day Treatment Plan Physical Therapy Treatment Plan Gait Training Therapeutic Exercise Recommendations To Nursing Amount of Assist Needed Standby Assistance 1 Person Assist Discharge Recommendations PT Discharge Recommendations Home with Assistance Equipment Needed for Home Before possibly FWW or SPC pending Discharge follow up PT sessions.
[2018-08-31] MEDS: glipiZIDE XL 5 MG TAB 10 MG PO (17:23)
[2018-08-31] MEDS: ASPIRIN EC 81 MG TABLET PO (20:07)
[2018-08-31] MEDS: CALCIUM CITRATE 200 MG TABLET 600 MG PO (20:07)
[2018-08-31] MEDS: ROSUVASTATIN 10 MG TABLET 5 MG PO (20:08)
[2018-08-31] MEDS: TERAZOSIN 1 MG CAPSULE PO (20:08)
[2018-08-31 20:18] LABS: Hematocrit 30.6 % (41-53); Hemoglobin 10.5 g/dL (13.5-17.5)
--- NOTE | 2018-08-31 22:36 | PC.NURSE ---
RISSA shift: BMx1, light brown. no evidence of blood in stool. VSS. Tolerating full liquid diet.
[2018-09-01] VITALS: O2SAT 97
[2018-09-01 03:00] VITALS: BP 147/77; PULSE 61; RESP 16; TEMP 36.6; O2SAT 94
[2018-09-01 06:15] LABS: Add Manual Diff / Slide Review NO; Basophils Percent Auto 0.5 % (0-2); Eosinophils Percent Auto 4.8 % (2-4); Hematocrit 33.1 % (41-53); Hemoglobin 11.2 g/dL (13.5-17.5); Lymphocytes Percent Auto 13.2 % (25-40); Mean Corpuscular Hemoglobin 31.2 PG (26-34); Mean Corpuscular Volume 91.9 fL (80-100); Monocytes Percent Auto 7.4 % (3-14); Neutrophils Absolute Auto 4700 /uL (3000-5900); Neutrophils Percent Auto 74.1 % (50-75); Platelet Count 160 X10^3/uL (150-400); Red Cell Distribution Width 15.4 % (11.6-14.8); White Blood Cell Count 6.3 X10^3/uL (4.5-11.0)
[2018-09-01 06:17] LABS: INR 1.7 (0.9-1.3); Prothrombin Time 18.9 SECONDS (10.1-12.7)
[2018-09-01 06:25] LABS: BUN Creatinine Ratio 18.7 (6-22); Blood Urea Nitrogen 58 mg/dL (9-20); Calcium 9.4 mg/dL (8.4-10.2); Carbon Dioxide 21 mmol/L (22-32); Chloride 112 mmol/L (98-107); Estimated Glomerular Filt Rate 19.5 mL/min (>60); Glucose 91 mg/dL (80-110); HEMOLYSIS < 15 (0-50); Potassium 4.4 mmol/L (3.4-5.1); Sodium 145 mmol/L (137-145)
[2018-09-01 07:30] VITALS: BP 124/80; PULSE 63; RESP 16; TEMP 36.3; O2SAT 97
[2018-09-01 09:00] VITALS: O2SAT 97
[2018-09-01] MEDS: glipiZIDE XL 5 MG TAB 10 MG PO (09:24)
[2018-09-01] MEDS: AMLODIPINE 5 MG TABLET 10 MG PO (09:25)
[2018-09-01] MEDS: ALLOPURINOL 100 MG TABLET PO (09:25)
[2018-09-01] MEDS: BICALUTAMIDE 50 MG TABLET PO (09:25)
[2018-09-01] MEDS: CHOLECALCIFEROL (VITAMIN D3) 1,000 UNIT TABLET 1000 UNIT PO (09:26)
[2018-09-01] MEDS: CALCIUM CITRATE 200 MG TABLET 600 MG PO (09:26)
[2018-09-01] MEDS: FUROSEMIDE 40 MG TABLET PO (09:26)
[2018-09-01] MEDS: VITAMIN B COMPLEX 1 CAPSULE 1 CAP PO (09:27)
[2018-09-01] MEDS: INSULIN GLARGINE 100 UNIT/ML 3ML PEN 20 UNIT SUBCUT (09:28)
[2018-09-01] MEDS: TERAZOSIN 1 MG CAPSULE PO (09:28)
--- NOTE | 2018-09-01 11:44 | PM.DS.1 ---
History of Present Illness Chief complaint: blood in bowel movement this morning Narrative: See H&P Discharge Providers Date of admission: 08/31/18 09:19 Primary care physician: Max Crowell MD Consults: 08/31/18 10:10 Consult to Physician Routine Comment: Consulting Provider: Dago Garcia Reason for consultation: admission Has provider been notified: Yes 08/31/18 14:37 Consult to Physical Therapy Evaluate & Treat Comment: Physician Instructions: Evaluate and Treat Discharge provider: Dago Garcia MD Discharge Date: 09/01/18 Summary Discharge Diagnosis: Large GI bleed suspicious for lower GI source. Single episode, stable hematocrit. Suspect a benign source. History of atrial fibrillation on anticoagulation and rate control Anticoagulation with therapeutic INR Hypertension stable during this hospitalization. Diabetes type 2 historically well controlled Prostate cancer currently under treatment Chronic kidney disease stage 4 Hospital Course: Admitted after a single episode of large maroon stool, but no other symptoms has felt roughly at baseline throughout hospitalization no particular pain breathing has been okay appetite been okay has been up and around without any issues. Did receive some IV fluids the warfarin was held his protime has dropped a bit. No further episodes of same sort of stool although the 1st stool after admission was guaiac positive. Status at Discharge Cognitive/behavioral status at discharge: No changes Functional status at discharge: uses cane/walker Time Spent with Patient Greater than 30 minutes Exam Vital Signs (past 8 hours): - 09/01/18 07:30 09/01/18 09:00 Temperature 97.4 F L Pulse Rate 63 Respiratory Rate 16 Blood Pressure 124/80 Pulse Oximetry 97 97 Oxygen Delivery Method Room Air Oxygen Flow Rate 0 Narrative Exam Narrative: Appearing well sitting up in a chair. Objective Labs Result Diagrams: 09/01/18 05:49 09/01/18 05:49 Labs: Laboratory Results - last 24 hr 08/31/18 08/31/18 09/01/18 14:20 20:05 05:49 WBC 6.3 RBC 3.60 L Hgb 10.9 L 10.5 L 11.2 L Hct 31.9 L 30.6 L 33.1 L MCV 91.9 MCH 31.2 MCHC 34.0 RDW 15.4 H Plt Count 160 Neut % (Auto) 74.1 Lymph % (Auto) 13.2 L [place] % (Auto) 7.4 Eos % (Auto) 4.8 H Baso % (Auto) 0.5 Neut # (Auto) 4700 PT INR Sodium Potassium Chloride Carbon Dioxide BUN Creatinine Estimated GFR BUN/Creatinine Ratio Glucose Calcium 09/01/18 09/01/18 05:49 05:49 WBC RBC Hgb Hct MCV MCH MCHC RDW Plt Count Neut % (Auto) Lymph % (Auto) [place] % (Auto) Eos % (Auto) Baso % (Auto) Neut # (Auto) PT 18.9 H D INR 1.7 H Sodium 145 Potassium 4.4 Chloride 112 H Carbon Dioxide 21 L BUN 58 H Creatinine 3.10 H Estimated GFR 19.5 L BUN/Creatinine Ratio 18.7 Glucose 91 Calcium 9.4 Discharge Plan Discharge Plan Patient Disposition: Home Discharge comment: To hold coumadin until with HEAVEN Crowell, this week Discharge Med Rec/Prescriptions Prescriptions: Continue glipizide [Glucotrol XL] 10 MG tablet extended release 24hr 10 mg PO BIDWM Qty: 0 RF: 0 aspirin [Aspir-81] 81 mg Tablet,Delayed Release (Dr/Ec) 81 mg PO BEDTIME Qty: 0 RF: 0 allopurinol 100 MG tablet 100 mg PO QDAY Qty: 0 RF: 0 vitamin B complex [B Complex-Vitamin B12] 1 EACH tablet 1 tab PO QDAY Qty: 0 RF: 0 [VITAMIN C W/[place] HIP] 1,000 mg PO QDAY Qty: 0 RF: 0 [COLETTE KRILL] 500 mg PO QDAY Qty: 0 RF: 0 calcium citrate 200 MG tablet 600 mg PO BID Qty: 0 RF: 0 VITAMIN D (Vitamin D3) 1,000 units PO QDAY Qty: 0 RF: 0 coenzyme Q10 [Co Q-10] 100 MG capsule 100 mg PO QDAY Qty: 0 RF: 0 insulin glargine [Lantus U-100 Insulin] 100 UNIT/1 ML solution 20 unit SQ Q DAY Qty: 0 RF: 0 alprazolam [Xanax] 0.5 MG tablet 0.5 mg PO QDAYP PRNQty: 30 RF: 1 bicalutamide [Casodex] 50 MG tablet 50 mg PO QDAY Qty: 30 RF: 6 furosemide [Lasix] 20 MG tablet 40 mg PO DAILY Qty: 0 RF: 0 rosuvastatin [Crestor] 5 MG tablet 5 mg PO BEDTIME Qty: 0 RF: 0 amlodipine [Norvasc] 5 mg Tablet 10 mg PO DAILY RF: 0 terazosin 1 MG capsule 1 mg PO BID RF: 0 furosemide [Lasix] 20 mg Tablet 20 mg PO DAILY RF: 0 Lupron [place] See Label Instructions .ROUTE .COMPLEX RF: 0 Discontinued warfarin [Coumadin] 5 MG tablet 2.5 mg PO QDAY Qty: 0 RF: 0 Follow up/Referrals: aMx Crowell MD [Primary Care Provider] - 1 Day Provider Discharge Instructions Diet: Diet as Tolerated Skin/Wound/Dressing Care Report to your healthcare provider any signs of infection, such as:: chills, fever, night sweats, increased pain and unusual drainage Discharge Data Primary Care Provider: Max Crowell Attending Provider: Dago Garcia Admit Date/Time: 08/31/18 09:19 Quality VTE Deep Vein Thrombosis/Pulmonary Embolism Present on Admission: No
[2018-09-01 12:00] VITALS: BP 144/66; PULSE 66; RESP 16; TEMP 36.5; O2SAT 99
--- NOTE | 2018-09-01 12:18 | PT.IPTN ---
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 (08/31/18) Physical Therapy Treatment Note M2 PT-IP Current Condition Start: 08/31/18 16:26 Freq: NEEDED Status: Active Protocol: Document 08/31/18 16:27 [facility] (Rec: 08/31/18 16:33 [facility] [email or web address]) Physical Therapy Current Condition Current Condition Evaluation Date 08/31/18 Treatment Diagnosis blood in stool, impaired activity tolerance Onset Date 08/31/18 Precautions Other Precautions Chemo precautions M3 PT-IP Subjective Start: 08/31/18 16:26 Freq: NEEDED Status: Active Protocol: Document 09/01/18 09:38 [facility] (Rec: 09/01/18 12:18 [facility] [id number]) Subjective Physical Therapy Visit Type Type Treatment Note Visit Start Time 09:38 Visit Stop Time 10:02 Total Visit Minutes 19 Number of PHOTOCOPIER TECHNICIAN Visits 1 Physical Therapy Visit Comments Patient Comments Pt states he feel more comfortable using FWW and uses 4WW when outside in yard and shop when he needs to. M4 PT-IP Mobility and Gait Start: 08/31/18 16:26 Freq: NEEDED Status: Active Protocol: Document 09/01/18 09:38 [facility] (Rec: 09/01/18 12:18 [facility] [id number]) PT-Bed Mobility Assessment Scooting Scooting to Edge of Bed Independent PT-Transfer Assessment Sit to and From Stand Sit to and from Stand Standby Assistance Equipment Transfer Assistive Device Gait Belt Front Wheeled Walker Transfers Transfer Destination Chair Transfer Ability Level of Assist Standby Assistance Gait Assessment Gait Gait Assistance Required: Standby Assistance Distance (Feet) 300 Assistive Devices Assistive Device Gait Belt Front Wheeled Walker Gait Deviations General Gait Pattern Flexed Trunk Wide Based Gait Factors Limiting Gait Function Factors Limiting Gait Function Decreased Activity Tolerance Decreased Strength Stair Climbing Assessment Evaluation Level of Assist On Stairs Standby Assistance Devices Stair Climbing Assistive Devices Left Railing Technique/Endurance Stair Climbing Direction Ascend and Descend Stair Climbing Technique Step Over Step Step to Step Number of Steps Climbed 3 Query Text: Stair Climbing Set # Repetitions (reps) 2 Comments Stair Climbing Comments Pt able to maneuver stairs SBA with use of left ascending rail. Pt used step over for ascending and step to for descending. Daughter present. PT-Balance Assessment Sitting Balance and Reactions Static Sitting Balance Ability Good Dynamic Sitting Balance Ability Good Standing Balance and Reactions Static Standing Balance Ability Good Dynamic Standing Balance Ability Fair M5 PT-IP Objective Assessments Start: 08/31/18 16:26 Freq: NEEDED Status: Active Protocol: Document 08/31/18 16:27 [facility] (Rec: 08/31/18 16:33 [facility] [email or web address]) Orientation Orientation/Cognition Level of Alertness Alert Language Function Ability No Deficits Noted Memory Description No Deficits Noted Gross Range of Motion Lower Extremity ROM Assessment Within Functional Limits Strength Lower Extremity Strength Assessment Within Functional Limits Coordination Assessment Gross Coordination Gross Coordination WNL Muscle Tone Muscle Tone WNL Yes M6 PT-IP Treatment Start: 08/31/18 16:26 Freq: NEEDED Status: Active Protocol: Document 08/31/18 16:27 [facility] (Rec: 08/31/18 16:33 [facility] [email or web address]) Physical Therapy Treatment Education Education Provided Safety M7 PT-IP Assessment and Plan Start: 08/31/18 16:26 Freq: NEEDED Status: Active Protocol: Document 09/01/18 09:38 [facility] (Rec: 09/01/18 12:18 [facility] [id number]) PT Summary Assessment and Plan Potential Status of Condition at Evaluation Stable Summary Impairments Gait Activity Tolerance Assessment Summary Pt able to increase gait to 300ft w/o rest breaks and had good posture throughout session. Pt was able to trial stairs successfully SBA. Pt is SBA for all transfers and gait. Daughter present for entire tx. Spoke with PT as per pt goals and pt seems able to d/c home when medically stable and is able to ambulate with nursing. Pt d/c'd from PT. Goals Gait Goal Standby Assistance Gait Distance 300 Other Goals up/down 3 steps with L ascending rail and SBA. Frequency of Treatment Frequency Of Treatment Discharge Treatment Plan Physical Therapy Treatment Plan Gait Training Therapeutic Exercise Recommendations To Nursing Amount of Assist Needed Standby Assistance 1 Person Assist Discharge Recommendations PT Discharge Recommendations Home with Assistance Equipment Needed for Home Before possibly FWW or SPC pending Discharge follow up PT sessions.
--- NOTE | 2018-09-01 12:25 | PC.NURSE ---
Pt sitting up in chair and visiting with family. Pt states he feels ready to go home and Dr. Garcia has written his discharge. Removed IV . No changes to current home med list except Pt is to hold Coumadin until his follow up with Dr. Crowell next week. Pt denies further questions and was taken out to POV with family and all belongings.
== END 2018-09-01 12:36 | disposition home or self-care (01) ==
LOC: ED 09:00 → AC 09-01 06:29 → ICU 08-04 12:14
PROVIDERS: Admitting Provider Family Medicine; Emergency Provider Emergency Medicine; PCP Family Medicine; Visit Provider Family Medicine
DX: R10.9 Unspecified abdominal pain (principal); K92.2 Gastrointestinal hemorrhage, unspecified; N18.4 Chronic kidney disease, stage 4 (severe); I12.9 Hypertensive chronic kidney disease with stage 1 through stage 4 chronic kidney disease, or unspecified chronic kidney disease; E11.22 Type 2 diabetes mellitus with diabetic chronic kidney disease; Z79.4 Long term (current) use of insulin; I48.2 Chronic atrial fibrillation; Z79.01 Long term (current) use of anticoagulants
CPT/HCPCS: 36415; 36430; 36591; 80048; 80053; 81003; 81015; 82962; 83605; 83690; 85014; 85018; 85025; 85610; 85730; 86850; 86900; 86901; 86927; 87797; 93005; 96374; 97116; 97161; 99283; 99285; G0378; P9016; C9113

== ENCOUNTER → 2018-10-28 08:48 | Outpatient (CLI) | payer MEDICARE, OTHER, SELFPAY ==
[2018-08-31 10:00] VITALS: BMI 31.0
[2018-10-28 10:56] LABS: BUN Creatinine Ratio 21.2 (6-22); Blood Urea Nitrogen 91 mg/dL (9-20); Calcium 8.9 mg/dL (8.4-10.2); Carbon Dioxide 16 mmol/L (22-32); Chloride 113 mmol/L (98-107); Estimated Glomerular Filt Rate 13.4 mL/min (>60); Glucose 189 mg/dL (80-110); HEMOLYSIS < 15 (0-50); Potassium 4.9 mmol/L (3.4-5.1); Sodium 145 mmol/L (137-145)
== END ==
PROVIDERS: PCP Family Medicine; Visit Provider Internal Medicine
DX: N18.4 Chronic kidney disease, stage 4 (severe) (principal)
CPT/HCPCS: 36415; 80048

== ENCOUNTER → 2018-11-07 09:35 | Outpatient (CLI) | payer MEDICARE, OTHER, SELFPAY ==
[2018-08-31 10:00] VITALS: BMI 31.0
--- NOTE | 2018-11-07 | DI.RAD.S_ITS ---
PROCEDURE: XR CHEST 2V INDICATIONS: COUGH TECHNIQUE: 2 views of the chest were acquired. COMPARISON: [facility], CR, XR CHEST 2V, 04/08/2018, 15:01. [facility], CR, XR CHEST 2V, 02/22/2018, 10:40. FINDINGS: Surgical changes and devices: None. Lungs and pleura: No pleural effusions or pneumothorax. Lungs are edematous, hyperexpanded. Mediastinum: Mediastinal contours are normal. Heart size is mildly enlarged. Bones and chest wall: No suspicious bony abnormalities. Soft tissues appear unremarkable. IMPRESSION: COPD, chronic CHF pattern. Dictated by: Kiko Fatima M.D. on 11/07/2018 at 12:20 Approved by: Kiko Fatima M.D. on 11/07/2018 at 12:21
[2018-11-07 10:09] LABS: Add Manual Diff / Slide Review NO; Basophils Absolute Auto 0 /uL (0-100); Basophils Percent Auto 0.3 % (0-2); Eosinophils Absolute Auto 200 /uL (0-450); Eosinophils Percent Auto 1.5 % (2-4); Hematocrit 28.5 % (41-53); Hemoglobin 9.4 g/dL (13.5-17.5); Lymphocytes Absolute Auto 700 /uL (1100-4500); Lymphocytes Percent Auto 6.2 % (25-40); Mean Corpuscular HGB Conc 33.1 % (30-36); Mean Corpuscular Hemoglobin 30.8 PG (26-34); Mean Corpuscular Volume 93.1 fL (80-100); Monocytes Absolute Auto 800 /uL (0-900); Monocytes Percent Auto 7.7 % (3-14); Neutrophils Absolute Auto 8800 /uL (1500-7000); Neutrophils Percent Auto 84.3 % (50-75); Platelet Count 182 X10^3/uL (150-400); Red Blood Cell Count 3.06 X10^6/uL (4.5-5.9); Red Cell Distribution Width 15.2 % (11.6-14.8); White Blood Cell Count 10.5 X10^3/uL (4.5-11.0)
[2018-11-07 10:17] LABS: Alanine Aminotransferase 18 IU/L (21-72); Albumin 4.3 g/dL (3.5-5.0); Albumin Globulin Ratio 1.3 (1.0-2.8); Alkaline Phosphatase 70 U/L (38-126); Aspartate Aminotransferase 18 IU/L (17-59); BUN Creatinine Ratio 20.2 (6-22); Bilirubin Total 0.8 mg/dL (0.2-1.3); Blood Urea Nitrogen 93 mg/dL (9-20); Carbon Dioxide 15 mmol/L (22-32); Chloride 110 mmol/L (98-107); Estimated Glomerular Filt Rate 12.4 mL/min (>60); Globulin 3.3 g/dL (1.7-4.1); Glucose 131 mg/dL (80-110); HEMOLYSIS < 15 (0-50); Phosphorous 4.3 mg/dL (2.3-3.7); Sodium 140 mmol/L (137-145); Total Protein 7.6 g/dL (6.3-8.2)
== END ==
PROVIDERS: Family Provider Family Medicine; PCP Family Medicine; Visit Provider Internal Medicine
DX: N18.4 Chronic kidney disease, stage 4 (severe) (principal); N17.9 Acute kidney failure, unspecified; R05 Cough
CPT/HCPCS: 36415; 71046; 80053; 84100; 85025

== ENCOUNTER 2018-11-11 14:53 | Emergency (ER) | payer MEDICARE, OTHER, SELFPAY ==
[2018-08-31 10:00] VITALS: BMI 31.0
[2018-11-11 14:58] VITALS: BP 159/65; PULSE 54; RESP 22; O2SAT 96
--- NOTE | 2018-11-11 15:10 | DI.RAD.S_ITS ---
PROCEDURE: XR CHEST 1V INDICATIONS: chest pain TECHNIQUE: One view of the chest was acquired. COMPARISON: [facility], CR, XR CHEST 2V, 11/07/2018, 11:44. [facility], CR, XR CHEST 2V, 04/08/2018, 15:01. FINDINGS: Surgical changes and devices: None. Lungs and pleura: Lungs are mildly edematous. No pleural effusions or pneumothorax. Mediastinum: Mediastinal contours appear normal. Heart size is globally enlarged, chronically. Bones and chest wall: No suspicious bony lesions. Overlying soft tissues appear unremarkable. IMPRESSION: Chronic CHF pattern with probable mild acute exacerbation. Dictated by: Kiko Fatima M.D. on 11/11/2018 at 15:57 Approved by: Kiko Fatima M.D. on 11/11/2018 at 15:59
--- NOTE | 2018-11-11 15:29 | ED_ITS ---
Pediatric Review of Systems All systems ED: reviewed and negative except as stated Constitutional: Denies fever Cardiovascular: Reports edema and dyspnea on exertion; Denies chest pain and syncope Respiratory: Reports cough, dyspnea and sputum production (clear); Denies wheezing and stridor Gastrointestinal: Denies abdominal pain, nausea, vomiting, diarrhea and constipation Genitourinary: Reports other (still makes urine); Denies dysuria Musculoskeletal: Reports back pain (started with cough) [facility] Medical History Anticoagulation adequate with anticoagulant therapy (Acute) BPH loc w urin obs/LUTS (Acute) Edema leg (Acute) Gout (Acute) Hyperlipidemia (Acute) Hypertension (Acute) Obesity (Acute) Atrial fibrillation (Chronic) Chronic kidney disease (CKD) stage G4/A1, severely decreased glomerular filtration rate (GFR) between 15-29 mL/min/1.73 square meter and albuminuria creatinine ratio less than 30 mg/g (Chronic) Diabetes (Chronic) Prostate cancer (Chronic) Surgical History S/P ureteral stent placement (Chronic) Social History household members: spouse Smoking Status: Never smoker alcohol intake: never substance use type: does not use Pediatric Exam GENERAL: Alert and oriented x three, well-nourished, well-appearing male in mild distress. HEENT: Head normocephalic, atraumatic, EOMI, pupils reactive, face symmetric, moist mucous membranes, nares are clear. NECK: Supple, full range of motion CARDIOVASCULAR: Bradycardic but regular rate and rhythm without murmurs, rubs or gallops. RESPIRATORY: Breath sounds equal bilaterally, no wheezes rales or rhonchi. No tachypnea, no accessory muscle use. ABDOMEN: Soft, nontender. Normoactive bowel sounds all 4 quadrants. No guarding or rebound, rigidity, no mass : No CVA tenderness EXTREMITIES: Normal range of motion, no clubbing. 2+ pulses bilateral lower extremities. Neurovascularly intact NEUROLOGICAL: Cranial nerves II through XII grossly intact. Moving all extremities SKIN: Warm, dry, no petechiae, no rashes or lesions. Initial Vital Signs Initial Vital Signs: Vital Signs Pulse Rate 54 L 11/11/18 14:58 Respiratory Rate 22 11/11/18 14:58 Blood Pressure 159/65 H 11/11/18 14:58 Pulse Oximetry 96 11/11/18 14:58 General Limitations: no limitations Course Orders Ordered: ED Orders 11/11/18 15:10 XR chest 1V Stat EKG-12 Lead Stat 11/11/18 15:35 BNP [B Type Natriuretic Peptide] Stat Complete Blood Count AUTO DIFF Stat Comprehensive Metabolic Panel Stat Lipase Stat Partial Thromboplastin Time Stat Prothrombin Time INR Stat Troponin & CK Cardiac Panel Stat Discontinued Medications Furosemide (Lasix) 80 mg IV NOW ONE Stop: 11/11/18 17:45 Last Admin: 11/11/18 17:57 Dose: 80 mg Metolazone (Metolazone) 5 mg PO NOW ONE Stop: 11/11/18 17:51 Last Admin: 11/11/18 17:56 Dose: 5 mg Vital Signs - 8 hr 11/11/18 14:58 11/11/18 17:27 11/11/18 17:28 Pulse Rate 54 L 52 L 54 L Respiratory Rate 22 16 Blood Pressure 159/65 H Blood Pressure [Right Arm] 137/51 L Pulse Oximetry 96 93 94 11/11/18 18:28 Pulse Rate 55 L Respiratory Rate 19 Blood Pressure Blood Pressure [Right Arm] 135/49 L Pulse Oximetry 93 Medical Decision Making Lab Data Lab results reviewed: Yes I reviewed the patient's lab results. Result diagrams: 11/11/18 15:35 11/11/18 15:35 Lab Results 11/11/18 11/11/18 11/11/18 Range/Units 15:35 15:35 15:35 WBC 9.6 (4.5-11.0) X10^3/uL RBC 3.07 L (4.5-5.9) X10^6/uL Hgb 9.2 L (13.5-17.5) g/dL Hct 28.1 L (41-53) % MCV 91.6 (80-100) fL MCH 30.0 (26-34) PG MCHC 32.7 (30-36) % RDW 15.2 H (11.6-14.8) % Plt Count 245 (150-400) X10^3/uL Neut % (Auto) 80.3 H (50-75) % Lymph % (Auto) 9.1 L (25-40) % Major % (Auto) 6.6 (3-14) % Eos % (Auto) 3.1 (2-4) % Baso % (Auto) 0.9 (0-2) % Neut # (Auto) 7700 H (5161-2167) /uL Lymph # (Auto) 900 L (5106-7232) /uL Major # (Auto) 600 (0-900) /uL Eos # (Auto) 300 (0-450) /uL Baso # (Auto) 100 (0-100) /uL PT 26.8 H (10.1-12.7) SECONDS INR 2.3 H (0.9-1.3) APTT 38 H (26.4-36.2) SECONDS Sodium 140 (137-145) mmol/L Potassium 4.5 (3.4-5.1) mmol/L Chloride 109 H (98-107) mmol/L Carbon Dioxide 15 L (22-32) mmol/L BUN 102 H (9-20) mg/dL Creatinine 4.50 H (0.66-1.25) mg/dL Estimated GFR 12.7 L (>60) mL/min BUN/Creatinine Ratio 22.7 H (6-22) Glucose 165 H (80-110) mg/dL Calcium 9.0 (8.4-10.2) mg/dL Total Bilirubin 0.6 (0.2-1.3) mg/dL AST 20 (17-59) IU/L ALT 19 L (21-72) IU/L Alkaline Phosphatase 77 (38-126) U/L Total Creatine Kinase 66 (55-170) U/L CK-MB (CK-2) TNP CK-MB (CK-2) Rel Index TNP Troponin I 0.015 (0.01-0.034) ng/mL B-Natriuretic Peptide 1500 H (<100) Total Protein 7.6 (6.3-8.2) g/dL Albumin 4.4 (3.5-5.0) g/dL Globulin 3.2 (1.7-4.1) g/dL Albumin/Globulin Ratio 1.4 (1.0-2.8) Lipase 188 (23-300) U/L Imaging Data Chest x-ray: Radiologist's impression: [address] [address] XRay Report Signed Patient: Noel Allen HMR#: [id number] : 8Acct:[id number] Age/Sex: 78 / MDate of Service: 11/11/18 Loc: ED Accession Number: [id number] Procedure: XR chest 1V Ordering Provider: Marta Gabriel D.O. PROCEDURE: XR CHEST 1V INDICATIONS: chest pain TECHNIQUE: One view of the chest was acquired. COMPARISON: [facility], CR, XR CHEST 2V, 11/07/2018, 11:44. [facility], CR, XR CHEST 2V, 04/08/2018, 15:01. FINDINGS: Surgical changes and devices: None. Lungs and pleura: Lungs are mildly edematous. No pleural effusions or pneumothorax. Mediastinum: Mediastinal contours appear normal. Heart size is globally enlarged, chronically. Bones and chest wall: No suspicious bony lesions. Overlying soft tissues appear unremarkable. IMPRESSION: Chronic CHF pattern with probable mild acute exacerbation. Dictated by: Kiko Fatima M.D. on 11/11/2018 at 15:57 Approved by: Kiko Fatima M.D. on 11/11/2018 at 15:59 ECG Data Attestation: I personally reviewed and interpreted this ECG as follows: Prior ECG tracings: available for review Interpretation: Sinus bradycardia with a 1st degree AV block. Occasional supraventricular beat, there does appear to be p wave with majority of QRS complexes so would not call afib. Patient has nonspecific ST change. Rate of 52 with a P are interval of 317, QRS of 100 and QTC of 433. Patient is a prior EKG from 08/31/2018 that shows atrial fibrillation with no ST changes. [facility] Narrative Medical decision making narrative: Patient's BNP is 1500 ice expect congestive heart failure although more related to his renal function. His creatinine is stable at baseline but he does have end-stage renal disease. Patient's troponin is negative, EKG does not show any new changes. His electrolytes are in normal range he is slightly down from his baseline from earlier in the year but consistent with his most recent lab. Patient was ambulated here in the emergency department a but ambulatory oxygen was 93%. I spoke with Nephrology, he sees Dr. Reynolds through [facility]. I spoke with Dr. Anderson , they recommend giving a additional dose of Lasix in the department he is currently on 80 mg b.i.d. and adding metolazone 5 mg 3 days and then changing to every other day. And they would like to see the patient in the office. Discussed with patient and plan for discharge home but to return if he is having any worsening symptoms as he does have some mild pulmonary edema on his chest x-ray. Discharge Plan Departure Patient Disposition: Home Clinical Impression: Acute exacerbation of congestive heart failure, End-stage renal disease (ESRD) Instructions: DI for Heart Failure Activity Restrictions/Additional Instructions: Follow-up with your hse manager this week, call tomorrow for an appointment. Continue your Lasix 80 mg twice daily. Your prescription was sent to [facility] in [place]. Start metolazone 5 mg once daily x3 days then began taking it once every other day. return to the emergency department for worsening symptoms, increasing shortness of breath, chest pressure or pain, lightheadedness, passing out, persistent vomiting, worsening swelling or or other new or concerning symptoms. Prescriptions: New metolazone 5 mg tablet 5 mg PO DAILY Qty: 14 RF: 0 No Action aspirin [Aspir-81] 81 mg Tablet,Delayed Release (Dr/Ec) 81 mg PO BEDTIME Qty: 0 RF: 0 allopurinol 100 MG tablet 100 mg PO DAILY Qty: 0 RF: 0 vitamin B complex [B Complex-Vitamin B12] 1 EACH tablet 1 tab PO DAILY Qty: 0 RF: 0 [VITAMIN C W/ALONA HIP] 1,000 mg PO DAILY Qty: 0 RF: 0 cholecalciferol (vitamin D3) [Vitamin D3] 1,000 unit Capsule 1,000 unit PO DAILY Qty: 0 RF: 0 coenzyme Q10 [Co Q-10] 100 MG capsule 100 mg PO DAILY Qty: 0 RF: 0 furosemide [Lasix] 20 MG tablet 80 mg PO BID Qty: 0 RF: 0 rosuvastatin [Crestor] 5 MG tablet 5 mg PO BEDTIME Qty: 0 RF: 0 terazosin 1 MG capsule 1 mg PO QAM RF: 0 furosemide [Lasix] 20 mg Tablet 20 mg PO DAILY RF: 0 Lupron Depot See Label Instructions .ROUTE .COMPLEX RF: 0 azithromycin 250 mg tablet 1 dose PO DIRECTED RF: 0 glipizide 10 mg tablet 10 mg PO BID RF: 0 levofloxacin 250 mg tablet 250 mg PO DAILY RF: 0 triamcinolone acetonide 0.1 % cream 1 applic Topical DIRECTED RF: 0 bisoprolol fumarate 5 mg tablet 5 mg PO DAILY RF: 0 amlodipine 10 mg tablet 10 mg PO DAILY RF: 0 hydrocortisone 2.5 % cream 1 applic Topical BID-TID RF: 0 warfarin 1 mg tablet 4 mg PO DAILY RF: 0 insulin detemir U-100 [Levemir U-100 Insulin] 100 unit/mL solution 20 units subcut QAM RF: 0 bicalutamide [Casodex] 50 MG tablet 50 mg PO DAILY RF: 0 terazosin 1 mg Capsule 2 mg PO BEDTIME RF: 0 calcium carbonate-vitamin D3 [Calcium 600 + D(3)] 600-125 mg-unit Tablet 1 tab PO BID RF: 0 [id number] [MegaKrill] 402-69-74-50 mg Capsule 1 tab PO DAILY RF: 0 Referrals: Raphael Cardozo MD [Non-Staff] - Max Crowell MD [Primary Care Provider] -
[2018-11-11 15:45] LABS: Add Manual Diff / Slide Review NO; Basophils Absolute Auto 100 /uL (0-100); Basophils Percent Auto 0.9 % (0-2); Eosinophils Absolute Auto 300 /uL (0-450); Eosinophils Percent Auto 3.1 % (2-4); Hemoglobin 9.2 g/dL (13.5-17.5); Lymphocytes Absolute Auto 900 /uL (1100-4500); Lymphocytes Percent Auto 9.1 % (25-40); Mean Corpuscular HGB Conc 32.7 % (30-36); Mean Corpuscular Volume 91.6 fL (80-100); Monocytes Absolute Auto 600 /uL (0-900); Monocytes Percent Auto 6.6 % (3-14); Neutrophils Absolute Auto 7700 /uL (1500-7000); Neutrophils Percent Auto 80.3 % (50-75); Platelet Count 245 X10^3/uL (150-400); Red Blood Cell Count 3.07 X10^6/uL (4.5-5.9); Red Cell Distribution Width 15.2 % (11.6-14.8); White Blood Cell Count 9.6 X10^3/uL (4.5-11.0)
[2018-11-11 15:48] LABS: Hematocrit 28.1 % (41-53)
[2018-11-11 15:57] LABS: INR 2.3 (0.9-1.3); Prothrombin Time 26.8 SECONDS (10.1-12.7)
[2018-11-11 15:59] LABS: PTT Partial Thromboplastin Tim 38 SECONDS (26.4-36.2)
[2018-11-11 16:08] LABS: Alanine Aminotransferase 19 IU/L (21-72); Albumin 4.4 g/dL (3.5-5.0); Albumin Globulin Ratio 1.4 (1.0-2.8); Alkaline Phosphatase 77 U/L (38-126); Aspartate Aminotransferase 20 IU/L (17-59); BUN Creatinine Ratio 22.7 (6-22); Bilirubin Total 0.6 mg/dL (0.2-1.3); Blood Urea Nitrogen 102 mg/dL (9-20); Carbon Dioxide 15 mmol/L (22-32); Chloride 109 mmol/L (98-107); Creatine Kinase 66 U/L (55-170); Estimated Glomerular Filt Rate 12.7 mL/min (>60); Globulin 3.2 g/dL (1.7-4.1); Glucose 165 mg/dL (80-110); HEMOLYSIS < 15 (0-50); Lipase 188 U/L (23-300); Potassium 4.5 mmol/L (3.4-5.1); Sodium 140 mmol/L (137-145); Total Protein 7.6 g/dL (6.3-8.2)
[2018-11-11 16:20] LABS: Troponin I 0.015 ng/mL (0.01-0.034)
[2018-11-11 16:22] LABS: B Type Natriuretic Peptide 1500 (<100)
[2018-11-11 17:27] VITALS: PULSE 52; O2SAT 93
[2018-11-11 17:28] VITALS: BP 137/51; PULSE 54; RESP 16; O2SAT 94
[2018-11-11] MEDS: metOLazone 2.5 MG TABLET 5 MG PO (17:56)
[2018-11-11] MEDS: FUROSEMIDE 100 MG/10 ML VIAL 80 MG IV (17:57)
[2018-11-11 18:28] VITALS: BP 135/49; PULSE 55; RESP 19; O2SAT 93
== END 2018-11-11 19:00 | disposition home or self-care (01) ==
PROVIDERS: Emergency Provider Emergency Medicine; Family Provider Family Medicine; PCP Family Medicine
DX: I50.9 Heart failure, unspecified (principal); N18.6 End stage renal disease
CPT/HCPCS: 36591; 71045; 80053; 82550; 82962; 83690; 83880; 84484; 85025; 85610; 85730; 93005; 96374; 99283; 99285; J1940

== ENCOUNTER 2018-11-30 04:00 | Emergency (ER) | payer MEDICARE, OTHER, SELFPAY ==
[2018-08-31 10:00] VITALS: BMI 31.0
[2018-11-30 04:10] VITALS: BP 170/80; PULSE 58; RESP 18; TEMP 36.6; O2SAT 99; BMI 29.4
--- NOTE | 2018-11-30 04:13 | DI.RAD.S_ITS ---
PROCEDURE: XR CHEST 1V INDICATIONS: Dyspnea TECHNIQUE: One view of the chest was acquired. COMPARISON: [facility], CR, XR CHEST 1V, 11/11/2018, 15:20. FINDINGS: Surgical changes and devices: Interval placement of right IJ dialysis catheter with the tip at the cavoatrial junction. Lungs and pleura: Lungs are clear. No pleural effusions or pneumothorax. Mediastinum: Mediastinal contours appear normal. Heart size is enlarged, chronic. No significant central venous congestion. Bones and chest wall: No suspicious bony lesions. Overlying soft tissues appear unremarkable. IMPRESSION: 1. No acute process. 2. Chronic cardiomegaly. 3. Right IJ dialysis catheter in position. Dictated by: Jessica Rodriguez M.D. on 11/30/2018 at 8:28 Approved by: Jessica Rodriguez M.D. on 11/30/2018 at 8:29
--- NOTE | 2018-11-30 04:13 | ED.SOB ---
HPI - SOB/Dyspnea General Chief Complaint: Shortness of Breath/Dyspnea Stated Complaint: ringing in ears, trouble speaking Time Seen by Provider: 11/30/18 04:01 Source: patient Mode of arrival: ambulatory Limitations: no limitations History of Present Illness The patient has apnea. He has been on a CPAP unit for 2 years. He has had trouble breathing the last couple nights. He is having no chest pain. He arrives here after awakening with the mask in place, feeling like he could not breathe. He was able take the mask off and caught his 's name, he was able to talk. However, he tells me he felt he could not talk initially and was somewhat confused. His thought he was confused. He is alert and oriented now. There are no motor or sensory deficits. He has no cough, or fever. He denies headache. He has no visual changes. He has no history of stroke or TIA. He is anticoagulated for AFib. He has not been having palpitations or syncopal type episodes. He has no history of stroke or TIA. He does have renal failure and has been on dialysis for a short period of time. He did undergo dialysis yesterday. He feels well at this time, after arriving by EMS from home. Related Data Home Medications Medication Instructions Recorded Confirmed aspirin [Aspir-81] 81 mg PO BEDTIME #0 12/11/10 11/30/18 [VITAMIN C W/ALONA HIP] 1,000 mg PO DAILY #0 07/10/17 11/11/18 allopurinol 100 mg PO DAILY #0 07/10/17 11/30/18 vitamin B complex [B 1 tab PO DAILY #0 07/10/17 11/11/18 Complex-Vitamin B12] cholecalciferol (vitamin D3) 5,000 unit PO DAILY #0 08/20/17 11/11/18 [Vitamin D3] coenzyme Q10 [Co Q-10] 100 mg PO DAILY #0 08/20/17 11/11/18 furosemide [Lasix] 40 mg PO QAM #0 01/08/18 11/11/18 rosuvastatin [Crestor] 5 mg PO BEDTIME #0 01/08/18 11/11/18 Lupron Depot See Rx Instructions .ROUTE .COMPLEX 08/31/18 11/11/18 furosemide [Lasix] 20 mg PO QPM 08/31/18 11/11/18 terazosin 1 mg PO QAM 08/31/18 11/11/18 amlodipine 5 mg PO DAILY 11/11/18 11/30/18 azithromycin 1 dose PO DIRECTED 11/11/18 11/11/18 bicalutamide [Casodex] 50 mg PO DAILY 11/11/18 11/30/18 bisoprolol fumarate 10 mg PO DAILY 11/11/18 11/30/18 calcium carbonate-vitamin D3 1 tab PO BID 11/11/18 11/30/18 [Calcium 600 + D(3)] glipizide 10 mg PO QAM 11/11/18 11/11/18 hydrocortisone 1 applic TOPICAL BID-TID 11/11/18 11/30/18 insulin detemir U-100 [Levemir 20 units SUBCUT QAM 11/11/18 11/11/18 U-100 Insulin] [id number] 1 tab PO DAILY 11/11/18 11/11/18 [MegaKrill] levofloxacin 250 mg PO DAILY 11/11/18 11/11/18 terazosin 2 mg PO BID 11/11/18 11/11/18 triamcinolone acetonide 1 applic TOPICAL DIRECTED 11/11/18 11/11/18 warfarin 5 mg PO DAILY 11/11/18 11/11/18 ascorbic acid (vitamin C) 250 mg PO DAILY 11/30/18 11/30/18 Previous Rx's Medication Instructions Recorded metolazone 5 mg PO DAILY #14 tab 11/11/18 Allergies Allergy/AdvReac Type Severity Reaction Status Date / Time codeine Allergy Unknown NAUSEA Verified 11/30/18 04:40 Iodine and Iodide Containing Allergy Unknown Verified 11/30/18 04:40 Produc [IODINE AND IODIDE CONTAINING PRODUC] iohexol Allergy Unknown Verified 11/30/18 04:40 Review of Systems Review of Systems ROS Unobtainable: All systems reviewed & are unremarkable except as noted in HPI and below Constitutional Denies chills, Denies fever(s), Denies lethargy and Denies weakness Eyes Denies change in vision, Denies eye discharge, Denies dry eyes, Denies irritation and Denies loss of vision ENT Ears, Nose, Mouth, and Throat: Denies change in voice, Denies neck pain, Denies disequilibrium and Denies sore throat Cardiovascular Denies chest pain, Denies irregular heart rhythm, Denies lightheadedness, Denies palpitations, Reports dyspnea and Denies orthopnea Respiratory Denies cough, Reports dyspnea, Denies wheezing and Reports other (Dyspnea has resolved.) Gastrointestinal Gastrointestinal: Denies abdominal pain, Denies change in bowel habits, Denies diarrhea, Denies nausea and Denies vomiting Musculoskeletal Denies neck pain and Denies numbness Integumentary/Breasts Denies pruritus, Denies erythema, Denies rash and Denies wounds Neurologic Reports as per HPI, Denies abnormal movements, Denies abnormal speech, Denies behavioral changes, Denies loss of vision, Denies numbness, Denies sensory deficit, Denies disequilibrium and Denies weakness Psychiatric Denies behavioral changes Endocrine Denies palpitations Allergic/Immunologic Denies wheezing [facility] Medical History Anticoagulation adequate with anticoagulant therapy (Acute) BPH loc w urin obs/LUTS (Acute) Edema leg (Acute) Gout (Acute) Hyperlipidemia (Acute) Hypertension (Acute) Obesity (Acute) Atrial fibrillation (Chronic) Chronic kidney disease (CKD) stage G4/A1, severely decreased glomerular filtration rate (GFR) between 15-29 mL/min/1.73 square meter and albuminuria creatinine ratio less than 30 mg/g (Chronic) Diabetes (Chronic) Prostate cancer (Chronic) Surgical History S/P ureteral stent placement (Chronic) Social History household members: spouse Smoking Status: Never smoker alcohol intake: never substance use type: does not use Social History household members: spouse Smoking Status: Never smoker alcohol intake: never substance use type: does not use Exam Initial Vital Signs Initial Vital Signs: Vital Signs Temperature 97.8 F 11/30/18 04:10 Pulse Rate 58 L 11/30/18 04:10 Respiratory Rate 18 11/30/18 04:10 Blood Pressure 170/80 H 11/30/18 04:10 Pulse Oximetry 99 11/30/18 04:10 Const General: cooperative and well developed Nutritional Appearance: well nourished Orientation: alert, awake, oriented x3 and not confused [facility] Head: normocephalic and atraumatic Nose: external nose normal Mouth: oral mucosae normal and moist mucous membranes Throat: posterior oropharynx normal, tonsils normal and uvula midline Eyes General: appearance normal, both eyes and all related structures Eyelids: eyelids normal Conjunctivae: conjunctivae normal Sclera: sclerae normal Pupils: PERRL EOM: EOM intact bilaterally Neck Neck: No JVD Lymphatic: No lymphadenopathy Chest Chest: normal inspection of the chest Resp Effort & Inspection: normal respiratory effort, able to speak in complete sentences and no respiratory distress Auscultation: clear to auscultation bilaterally, no rales, no rhonchi and no wheezes Cardio Rate: regular rate Rhythm: regular rhythm Heart Sounds: S1 normal, S2 normal, no click, no gallops, no murmurs and no rubs Pulses: normal peripheral pulses GI Inspection: non-distended Palpation: soft, no hepatosplenomegaly, No guarding and No tender Auscultation: normal bowel sounds Skin General: no rashes or lesions noted and No petechiae Neuro General: alert, oriented x3, gait normal and no focal motor deficits Speech: speech normal Extrem General: full ROM, no clubbing, cyanosis or edema, no pedal edema and no calf tenderness Scores NIH Stroke Scale Level of Conciousness: Alert, keenly responsive Ask month/age: Answers both questions correctly. Open/close eyes, close hand: Performs both tasks correctly Best gaze horizontal: Normal Visual wilde: No visual loss Facial palsy: Normal symetrical movement Left arm drift: No drift for full 10 sec Right arm drift: No drift for full 10 sec Left leg drift: No drift for full 10 sec Right leg drift: No drift for full 10 sec Limb ataxia: Absent Sensory on face/arms/legs: Normal, no sensory loss Best language: No aphasia, normal Dysarthria: Normal Extinction or inattention: No abnormality Total NIH Stroke scale score: 0 Course Orders Ordered: ED Orders 11/30/18 04:13 XR chest 1V Stat EKG-12 Lead Stat 11/30/18 04:15 CT head/brain wo con Stat 11/30/18 04:16 Complete Blood Count AUTO DIFF Stat Comprehensive Metabolic Panel Stat Lipase Stat Magnesium Stat Partial Thromboplastin Time Stat Prothrombin Time INR Stat Troponin & CK Cardiac Panel Stat Vital Signs - 8 hr 11/30/18 04:10 11/30/18 05:33 Temperature 97.8 F Pulse Rate 58 L 58 L Respiratory Rate 18 16 Blood Pressure 170/80 H Blood Pressure [Right Arm] 151/60 H Pulse Oximetry 99 100 MDM - SOB/Dyspnea Lab Data Result diagrams: 11/30/18 04:16 11/30/18 04:16 Lab Results 11/30/18 11/30/18 11/30/18 Range/Units 04:16 04:16 04:16 WBC 5.9 (4.5-11.0) X10^3/uL RBC 3.45 L (4.5-5.9) X10^6/uL Hgb 10.6 L (13.5-17.5) g/dL Hct 31.8 L (41-53) % MCV 92.2 (80-100) fL MCH 30.6 (26-34) PG MCHC 33.2 (30-36) % RDW 15.5 H (11.6-14.8) % Plt Count 134 L (150-400) X10^3/uL Neut % (Auto) 66.4 (50-75) % Lymph % (Auto) 17.4 L (25-40) % [place] % (Auto) 10.8 (3-14) % Eos % (Auto) 4.5 H (2-4) % Baso % (Auto) 0.9 (0-2) % Neut # (Auto) 3900 (1278-5203) /uL Lymph # (Auto) 1000 L (6353-6869) /uL [place] # (Auto) 600 (0-900) /uL Eos # (Auto) 300 (0-450) /uL Baso # (Auto) 100 (0-100) /uL PT 18.8 H (10.1-12.7) SECONDS INR 1.6 H (0.9-1.3) APTT 30 D (26.4-36.2) SECONDS Sodium 138 (137-145) mmol/L Potassium 3.9 (3.4-5.1) mmol/L Chloride 96 L (98-107) mmol/L Carbon Dioxide 31 (22-32) mmol/L BUN 18 (9-20) mg/dL Creatinine 2.30 H (0.66-1.25) mg/dL Estimated GFR 27.5 L (>60) mL/min BUN/Creatinine Ratio 7.8 (6-22) Glucose 115 H (80-110) mg/dL Calcium 9.2 (8.4-10.2) mg/dL Magnesium (1.6-2.3) mg/dL Total Bilirubin 0.5 (0.2-1.3) mg/dL AST 29 (17-59) IU/L ALT 34 (21-72) IU/L Alkaline Phosphatase 77 (38-126) U/L Total Creatine Kinase 32 L (55-170) U/L CK-MB (CK-2) TNP CK-MB (CK-2) Rel Index TNP Troponin I 0.037 H (0.01-0.034) ng/mL Total Protein 7.2 (6.3-8.2) g/dL Albumin 4.2 (3.5-5.0) g/dL Globulin 3.0 (1.7-4.1) g/dL Albumin/Globulin Ratio 1.4 (1.0-2.8) Lipase 94 (23-300) U/L 11/30/18 Range/Units 04:16 WBC (4.5-11.0) X10^3/uL RBC (4.5-5.9) X10^6/uL Hgb (13.5-17.5) g/dL Hct (41-53) % MCV (80-100) fL MCH (26-34) PG MCHC (30-36) % RDW (11.6-14.8) % Plt Count (150-400) X10^3/uL Neut % (Auto) (50-75) % Lymph % (Auto) (25-40) % [place] % (Auto) (3-14) % Eos % (Auto) (2-4) % Baso % (Auto) (0-2) % Neut # (Auto) (8846-3343) /uL Lymph # (Auto) (2882-2931) /uL [place] # (Auto) (0-900) /uL Eos # (Auto) (0-450) /uL Baso # (Auto) (0-100) /uL PT (10.1-12.7) SECONDS INR (0.9-1.3) APTT (26.4-36.2) SECONDS Sodium (137-145) mmol/L Potassium (3.4-5.1) mmol/L Chloride (98-107) mmol/L Carbon Dioxide (22-32) mmol/L BUN (9-20) mg/dL Creatinine (0.66-1.25) mg/dL Estimated GFR (>60) mL/min BUN/Creatinine Ratio (6-22) Glucose (80-110) mg/dL Calcium (8.4-10.2) mg/dL Magnesium 1.9 (1.6-2.3) mg/dL Total Bilirubin (0.2-1.3) mg/dL AST (17-59) IU/L ALT (21-72) IU/L Alkaline Phosphatase (38-126) U/L Total Creatine Kinase (55-170) U/L CK-MB (CK-2) CK-MB (CK-2) Rel Index Troponin I (0.01-0.034) ng/mL Total Protein (6.3-8.2) g/dL Albumin (3.5-5.0) g/dL Globulin (1.7-4.1) g/dL Albumin/Globulin Ratio (1.0-2.8) Lipase (23-300) U/L Imaging Data Chest x-ray: Attestation: I personally reviewed and interpreted this imaging study as follows: My impression: Normal, no acute findings. CT scan - head: Radiologist's impression: Mild diffuse atrophy, no acute findings. ECG Data Attestation: I personally reviewed and interpreted this ECG as follows: (Normal sinus rhythm rate 61 bpm. First-degree AV block. Moderate ST depression, possibly related to motion artifact. No acute ST elevation. No significant ectopy.) Discharge Plan Departure Patient Disposition: Home Clinical Impression: Acute dyspnea, Obstructive sleep apnea of adult Discharge Date/Time: 11/30/18 05:51 Interventions: ED Discharge Assessment Last Done: 11/30/18 05:51 Activity Restrictions/Additional Instructions: No obvious reason for your event earlier tonight at home were found. Your clinical findings Rosi no evidence of infection, breathing problems, cardiac problems, or stroke when he arrived. Respiratory therapy evaluated her CPAP machine, no abnormalities were noted. I would suggest she follow-up with her doctor, and consider follow-up with your sleep apnea specialist. Return to the ER as needed. Prescriptions: No Action aspirin [Aspir-81] 81 mg Tablet,Delayed Release (Dr/Ec) 81 mg PO BEDTIME Qty: 0 RF: 0 allopurinol 100 MG tablet 100 mg PO DAILY Qty: 0 RF: 0 vitamin B complex [B Complex-Vitamin B12] 1 EACH tablet 1 tab PO DAILY Qty: 0 RF: 0 [VITAMIN C W/ALONA HIP] 1,000 mg PO DAILY Qty: 0 RF: 0 cholecalciferol (vitamin D3) [Vitamin D3] 1,000 unit Capsule 5,000 unit PO DAILY Qty: 0 RF: 0 coenzyme Q10 [Co Q-10] 100 MG capsule 100 mg PO DAILY Qty: 0 RF: 0 furosemide [Lasix] 20 MG tablet 40 mg PO QAM Qty: 0 RF: 0 rosuvastatin [Crestor] 5 MG tablet 5 mg PO BEDTIME Qty: 0 RF: 0 terazosin 1 MG capsule 1 mg PO QAM RF: 0 furosemide [Lasix] 20 mg Tablet 20 mg PO QPM RF: 0 Lupron Depot See Rx Instructions .ROUTE .COMPLEX RF: 0 ascorbic acid (vitamin C) 250 mg PO DAILY RF: 0 azithromycin 250 mg tablet 1 dose PO DIRECTED RF: 0 glipizide 10 mg tablet 10 mg PO QAM RF: 0 levofloxacin 250 mg tablet 250 mg PO DAILY RF: 0 triamcinolone acetonide 0.1 % cream 1 applic Topical DIRECTED RF: 0 bisoprolol fumarate 5 mg tablet 10 mg PO DAILY RF: 0 amlodipine 10 mg tablet 5 mg PO DAILY RF: 0 hydrocortisone 2.5 % cream 1 applic Topical BID-TID RF: 0 warfarin 1 mg tablet 5 mg PO DAILY RF: 0 Levemir U-100 Insulin 100 unit/mL solution 20 units subcut QAM RF: 0 bicalutamide [Casodex] 50 MG tablet 50 mg PO DAILY RF: 0 terazosin 1 mg Capsule 2 mg PO BID RF: 0 Calcium 600 + D(3) 600-125 mg-unit Tablet 1 tab PO BID RF: 0 [id number] [MegaKrill] 830-07-72-50 mg Capsule 1 tab PO DAILY RF: 0 metolazone 5 mg tablet 5 mg PO DAILY Qty: 14 RF: 0 Referrals: Max Crowell MD [Primary Care Provider] -
--- NOTE | 2018-11-30 04:15 | DI.CT.S_ITS ---
PROCEDURE: CT HEAD/BRAIN WO CON INDICATIONS: Confusion upon awakening. Anticoagulated. TECHNIQUE: Noncontrast 4.5 mm thick angled axial sections acquired from the foramen magnum to the vertex, with coronal and sagittal reformats. For radiation dose reduction, the following was used: automated exposure control, adjustment of mA and/or kV according to patient size. COMPARISON: None. FINDINGS: Image quality: Excellent. CSF spaces: Basal cisterns are patent. No extra-axial fluid collections. The ventricles are symmetric in size and shape. Brain: No intracranial bleeds or masses. There is cerebral volume loss for age, with resultant ventricular and sulcal prominence. There are periventricular and deep white matter chronic small vessel ischemic changes. 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 There is mild to moderate intracranial internal carotid artery atherosclerosis. Skull and face: Calvarium and visualized facial bones appear intact, without suspicious lesions. Sinuses: Visualized sinuses and mastoids are clear. IMPRESSION: 1. No CT evidence of acute intracranial process. 2. Age-related and chronic microvascular ischemic changes in the white matter. Preliminary interpretation is consistent with final interpretation. Dictated by: Jessica Rodriguez M.D. on 11/30/2018 at 8:23 Approved by: Jessica Rodriguez M.D. on 11/30/2018 at 8:28
[2018-11-30 04:38] LABS: Add Manual Diff / Slide Review NO; Basophils Absolute Auto 100 /uL (0-100); Basophils Percent Auto 0.9 % (0-2); Eosinophils Absolute Auto 300 /uL (0-450); Eosinophils Percent Auto 4.5 % (2-4); Hematocrit 31.8 % (41-53); Hemoglobin 10.6 g/dL (13.5-17.5); INR 1.6 (0.9-1.3); Lymphocytes Absolute Auto 1000 /uL (1100-4500); Lymphocytes Percent Auto 17.4 % (25-40); Mean Corpuscular HGB Conc 33.2 % (30-36); Mean Corpuscular Hemoglobin 30.6 PG (26-34); Mean Corpuscular Volume 92.2 fL (80-100); Monocytes Absolute Auto 600 /uL (0-900); Monocytes Percent Auto 10.8 % (3-14); Neutrophils Absolute Auto 3900 /uL (1500-7000); Neutrophils Percent Auto 66.4 % (50-75); Platelet Count 134 X10^3/uL (150-400); Prothrombin Time 18.8 SECONDS (10.1-12.7); Red Blood Cell Count 3.45 X10^6/uL (4.5-5.9); Red Cell Distribution Width 15.5 % (11.6-14.8); White Blood Cell Count 5.9 X10^3/uL (4.5-11.0)
[2018-11-30 04:43] LABS: Alanine Aminotransferase 34 IU/L (21-72); Albumin 4.2 g/dL (3.5-5.0); Albumin Globulin Ratio 1.4 (1.0-2.8); Alkaline Phosphatase 77 U/L (38-126); Aspartate Aminotransferase 29 IU/L (17-59); BUN Creatinine Ratio 7.8 (6-22); Bilirubin Total 0.5 mg/dL (0.2-1.3); Blood Urea Nitrogen 18 mg/dL (9-20); Calcium 9.2 mg/dL (8.4-10.2); Carbon Dioxide 31 mmol/L (22-32); Chloride 96 mmol/L (98-107); Creatine Kinase 32 U/L (55-170); Estimated Glomerular Filt Rate 27.5 mL/min (>60); Glucose 115 mg/dL (80-110); HEMOLYSIS < 15 (0-50); Lipase 94 U/L (23-300); Potassium 3.9 mmol/L (3.4-5.1); Sodium 138 mmol/L (137-145); Total Protein 7.2 g/dL (6.3-8.2)
[2018-11-30 04:55] LABS: Troponin I 0.037 ng/mL (0.01-0.034)
[2018-11-30 04:56] LABS: Magnesium 1.9 mg/dL (1.6-2.3)
[2018-11-30 05:17] LABS: PTT Partial Thromboplastin Tim 30 SECONDS (26.4-36.2)
--- NOTE | 2018-11-30 05:30 | PC.NURSE ---
Pt's brought pt's Bipap machine from home. Pt applied the mask of the Bipap effectively and RT called to evaluate whether the machine is working effective. Able to hear the air flow/pressure and pt reports the air pressure/flow via mask.
[2018-11-30 05:33] VITALS: BP 151/60; PULSE 58; RESP 16; O2SAT 100
== END 2018-11-30 05:51 | disposition home or self-care (01) ==
PROVIDERS: Emergency Provider Emergency Medicine; Family Provider Family Medicine; PCP Family Medicine
DX: G47.33 Obstructive sleep apnea (adult) (pediatric) (principal); R06.00 Dyspnea, unspecified; R41.0 Disorientation, unspecified; Z79.01 Long term (current) use of anticoagulants; I48.91 Unspecified atrial fibrillation
CPT/HCPCS: 36591; 70450; 71045; 80053; 82550; 83690; 83735; 84484; 85025; 85610; 85730; 93005; 99283; 99285; 99291

== ENCOUNTER → 2018-12-09 15:49 | Outpatient (CLI) | payer MEDICARE, OTHER, SELFPAY ==
[2018-08-31 10:00] VITALS: BMI 31.0
[2018-12-09 16:19] LABS: Add Manual Diff / Slide Review NO; Basophils Absolute Auto 100 /uL (0-100); Basophils Percent Auto 0.9 % (0-2); Eosinophils Absolute Auto 200 /uL (0-450); Eosinophils Percent Auto 2.6 % (2-4); Hematocrit 35.4 % (41-53); Hemoglobin 11.8 g/dL (13.5-17.5); Lymphocytes Absolute Auto 1000 /uL (1100-4500); Lymphocytes Percent Auto 14.3 % (25-40); Mean Corpuscular HGB Conc 33.2 % (30-36); Mean Corpuscular Volume 93.4 fL (80-100); Monocytes Absolute Auto 500 /uL (0-900); Monocytes Percent Auto 7.1 % (3-14); Neutrophils Absolute Auto 5300 /uL (1500-7000); Neutrophils Percent Auto 75.1 % (50-75); Platelet Count 125 X10^3/uL (150-400); Red Blood Cell Count 3.79 X10^6/uL (4.5-5.9); Red Cell Distribution Width 16.5 % (11.6-14.8); White Blood Cell Count 7.1 X10^3/uL (4.5-11.0)
[2018-12-09 16:40] LABS: Alanine Aminotransferase 34 IU/L (21-72); Albumin 4.4 g/dL (3.5-5.0); Albumin Globulin Ratio 1.6 (1.0-2.8); Alkaline Phosphatase 80 U/L (38-126); Aspartate Aminotransferase 26 IU/L (17-59); BUN Creatinine Ratio 8.1 (6-22); Bilirubin Total 0.6 mg/dL (0.2-1.3); Blood Urea Nitrogen 17 mg/dL (9-20); Calcium 8.9 mg/dL (8.4-10.2); Carbon Dioxide 29 mmol/L (22-32); Chloride 97 mmol/L (98-107); Estimated Glomerular Filt Rate 30.5 mL/min (>60); Globulin 2.8 g/dL (1.7-4.1); Glucose 136 mg/dL (80-110); Sodium 137 mmol/L (137-145); Total Protein 7.2 g/dL (6.3-8.2)
[2018-12-09 17:37] LABS: HEMOLYSIS < 15 (0-50); Prostate Specific Antigen 0.109 ng/mL (0.10-4.00)
== END ==
PROVIDERS: PCP Family Medicine
DX: C61 Malignant neoplasm of prostate (principal); C79.9 Secondary malignant neoplasm of unspecified site
CPT/HCPCS: 36415; 80053; 84153; 85025

== ENCOUNTER → 2018-12-23 15:28 | Outpatient (REF) | payer MEDICARE, OTHER, SELFPAY ==
[2018-08-31 10:00] VITALS: BMI 31.0
[2018-12-23 15:50] LABS: INR 1.5 (0.9-1.3); Prothrombin Time 17.9 SECONDS (10.1-12.7)
== END ==
LOC: LAB 15:28
PROVIDERS: PCP Family Medicine; Visit Provider Family Medicine
DX: Z79.01 Long term (current) use of anticoagulants (principal)
CPT/HCPCS: 85610

== ENCOUNTER → 2019-01-07 14:22 | Outpatient (REF) | payer MEDICARE, OTHER, SELFPAY ==
[2018-08-31 10:00] VITALS: BMI 31.0
[2019-01-07 15:18] LABS: INR 1.8 (0.9-1.3); Prothrombin Time 20.8 SECONDS (10.1-12.7)
== END ==
LOC: LAB 14:22
PROVIDERS: PCP Family Medicine; Visit Provider Family Medicine
DX: Z79.01 Long term (current) use of anticoagulants (principal)
CPT/HCPCS: 85610

== ENCOUNTER → 2019-01-28 07:57 | Outpatient (CLI) | payer MEDICARE, OTHER, SELFPAY ==
[2018-08-31 10:00] VITALS: BMI 31.0
--- NOTE | 2019-01-28 | DI.NM.S_ITS ---
PROCEDURE: NM WANDA PERF SPECT R&S PHARM Rest and pharmacological stress myocardial perfusion SPECT with gated imaging and ejection fraction RADIOPHARMACEUTICAL: 23.9 mCi Tc-99m tetrafosmin IV at rest and 25.3 mCi Tc-99m tetrafosmin IV at peak effect of pharmacological stress. [id number]-[id number] was performed. INDICATIONS: SYNCOPE AND COLLAPSE TECHNIQUE: Radiopharmaceutical was injected at peak stress test, and also at rest. SPECT images were obtained. SPECT myocardial perfusion images were displayed in short axis, horizontal long axis, and vertical long axis views. Gated images were reviewed using [employer] software. COMPARISON: This study was compared to the report of the prior stress test on08/05/2013. CARDIAC STRESS: A pharmacologic stress test was performed under the supervision of an attending staff, using an infusion of Lexiscan. Hemodynamic data: There is normal blood pressure and heart rate response to pharmacologic stress. Symptoms: The patient denied anginal chest pain. Aminophylline: Not used. EKG: Baseline sinus rhythm with first-degree AV block. No diagnostic changes of ischemia; no ectopy. FINDINGS: Raw data: There is good myocardial uptake of radiotracer. No significant motion artifacts. Wlos-to-nzsyb ratio is 0.33 (normal is less than 0.38 for tetrafosmin tracer). Left ventricle function: Gated images demonstrate normal left ventricular wall thickening. No segmental wall motion abnormalities. No transient ischemic dilation; TID is 0.84 (normal less than 1.3). Left ventricle resting end diastolic volume is 132 mL. Left ventricle stress ejection fraction is 73%; normal range is above 45%. Myocardial perfusion: There is a tiny perfusion defect in the apical inferolateral wall both on supine rest and stress images which completely resolves on prone imaging, consistent with artifact. Otherwise normal distribution of activity in the eft ventricular myocardium without fixed or reversible perfusion defects. IMPRESSION: Normal pharmacological myocardial perfusion study with no evidence of ischemia or scar. The previous study on 08/05/2013 was an exercise perfusion study which did not show any ischemia or scar either. Dictated by: Parker Knowles M.D. on 01/30/2019 at 21:38 Approved by: Parker Knowles M.D. on 01/30/2019 at 21:46
--- NOTE | 2019-01-28 09:34 | PM.TREADMILL ---
Cardiac Stress Test Report Referral & Results Date Patient Seen: 01/28/19 Requesting provider: Lul Tsang Indication: Syncope and collapse Rest ECG: Unremarkable Procedure Note: After both written and verbal informed consent the patient had an IV started by the diagnostic imaging RN and then was hooked up to the treadmill monitoring system. The patient was placed on the treadmill at 1 mile an hour with no elevation and was then injected with the Romi scan material. The Cardiolite was then immediately administered. The patient spent an additional 2-3 minutes on the treadmill before being returned to the [facility] in the supine position. The patient had a normal response to all infused materials. Impression: Normal response as above Please see perfusion imaging for details regarding possible ischemia Please note: Actual ECG tracings can be found in the PACS system.
== END ==
PROVIDERS: PCP Family Medicine; Visit Provider Internal Medicine Cardiovascular Disease
DX: R55 Syncope and collapse (principal)
CPT/HCPCS: 78452; 93016; 93017; 93018; A9502; J2785

== ENCOUNTER → 2019-02-06 10:11 | Outpatient (REF) | payer MEDICARE, OTHER, SELFPAY ==
[2018-08-31 10:00] VITALS: BMI 31.0
[2019-02-06 10:22] LABS: INR 1.5 (0.9-1.3); Prothrombin Time 17.5 SECONDS (10.1-12.7)
== END ==
LOC: LAB 10:11
PROVIDERS: PCP Family Medicine; Visit Provider Family Medicine
DX: Z79.01 Long term (current) use of anticoagulants (principal)
CPT/HCPCS: 85610

== ENCOUNTER → 2019-03-06 06:43 | Outpatient (CLI) | payer MEDICARE, OTHER, SELFPAY ==
[2018-08-31 10:00] VITALS: BMI 31.0
--- NOTE | 2019-03-06 | DI.ECHO.S_ITS ---
[facility] +---------+ : : [address] : [place] : : : : [id number] : : : : Phone: [phone]---------+ Echocardiogram Report + + :Name: KAYLIN JEFFRIES Study Date: 03/06/2019 Height: 76 in : :[facility] Weight: 240 lb : : Gender: Male BSA: 2.4 m2 : :: 1940 Age: 78 yrs BP: 132/40 mmHg: :Reason For Study: Pericarditis : :Ordering Physician: Jeyson He : :Hayde Performed By: Carrie Elaine : :Referring: Lul Tsang : + + Interpretation Summary The left ventricle is grossly normal size.The ejection fraction is estimated to be 60-65%. The right ventricle is grossly normal size. The right ventricular systolic function is normal. There is a pacemaker lead in the right ventricle. There is mild to moderate mitral regurgitation. Compared to the prior echo study, there has been no change in the severity of mitral regurgitation. There is mild tricuspid regurgitation. The right ventricular systolic pressure is estimated to be at least 48 mmHg based on an estimated right atrial pressure of 15 mm Hg. The ascending aorta is mildly enlarged. There is a trivial pericardial effusion noted. This is decreased compared to the previous study. There are no echocardiographic indications of cardiac tamponade. Procedure: A two-dimensional transthoracic echocardiogram with color flow and Doppler was performed. The study quality was technically adequate. Comparison is made with the echocardiogram of 02-12-19. The patient was in atrial flutter with heart rates between 56-64 bpm during the exam. Left Ventricle: The left ventricle is grossly normal size. Left ventricular wall thickness is mildly increased. There is no thrombus. The ejection fraction is estimated to be 60-65%. There has been no significant change since the previous study. There are no focal wall motion abnormalities. MV E/A: 5.4 Med Peak E' Elmer: 10.4 cm/sec E/E' med: 14.2. Right Ventricle: The right ventricle is grossly normal size. There is a pacemaker lead in the right ventricle. The right ventricular systolic function is normal. Atria: The left atrium is severely dilated. The left atrium has mildly increased in size since the prior echo exam. The right atrium is mildly dilated. The interatrial septum is intact with no evidence for an atrial septal defect. Mitral Valve: There is mild mitral annular calcification. There is mild to moderate mitral regurgitation. Compared to the prior echo study, there has been no change in the severity of mitral regurgitation. Aortic Valve: The aortic valve is trileaflet. The aortic valve opens well. The aortic valve is slightly calcified. There is no aortic valve stenosis. There is trace aortic regurgitation. Tricuspid Valve: The tricuspid valve is normal. There is mild tricuspid regurgitation. The right ventricular systolic pressure is estimated to be at least 48 mmHg based on an estimated right atrial pressure of 15 mm Hg. Pulmonic Valve: The pulmonic valve is not well seen, but is grossly normal. There is trace pulmonic regurgitation. Great Vessels: The aortic root is normal size. The ascending aorta is mildly enlarged. The aortic arch is at the upper limits of normal in size. The IVC is dilated (diameter is greater than 2.1 cm) and it collapses less than 50% with a sniff. This suggests a high right atrial pressure of 15 mm Hg. Pericardium/ Pleura There is a trivial pericardial effusion noted. This is decreased compared to the previous study. There are no echocardiographic indications of cardiac tamponade. There is no pleural effusion. MMode/2D Measurements & Calculations LVIDd: 5.4 cm Ao root diam: 3.9 cm LVIDs: 3.1 cm Aortic Jxn: 2.7 cm FS: 42.9 % asc Aorta Diam: 3.7 cm EPSS: 0.54 cm Ao Arch Diam (Prox Trans): 3.3 cm IVSd: 1.3 cm LVPWd: 0.95 cm LV bro. diameter/BSA (cm/m^2): 2.2 LV sys. diameter/BSA (cm/m^2): 1.3 LA dimension: 5.2 cm RA long axis: 7.2 cm LA A2 area: 34.0 cm2 RA area: 28.5 cm2 LA A4 area: 35.6 cm2 RA vol: 96.2 ml LA length (vol): 7.2 cm RA : 40.2 ml/m2 LA vol: 141.8 ml IVC diam: 2.2 cm LA vol index: 59.2 ml/m2 RVDd major: 6.7 cm RVD1 (basal): 4.2 cm RVD2 (mid): 3.2 cm Doppler Measurements & Calculations Ao V2 max: 158.1 cm/sec MV E max elmer: 147.9 cm/sec Ao V2 mean: 104.7 cm/sec MV A max elmer: 27.4 cm/sec Ao max P.0 mmHg MV E/A: 5.4 Ao mean P.4 mmHg Med Peak E' Elmer: 10.4 cm/sec Ao V2 VTI: 37.9 cm E/E' med: 14.2 Lat Peak E' Elmer: 12.0 cm/sec E/E' lat: 12.3 E/e' average: 13.3 MV dec time: 0.21 sec MV P1/2t: 63.5 msec TR max elmer: 285.0 cm/sec MV P1/2t max elmer: 149.5 cm/sec TR max P.5 mmHg MVA(P1/2t): 3.5 cm2 PA V2 max: 98.3 cm/sec PA V2 mean: 72.6 cm/sec PA mean P.3 mmHg PA Accel Time: 0.15 sec Reading Physician:LISA
[2019-03-06 17:44] LABS: INR 1.1 (0.9-1.3); Prothrombin Time 12.4 SECONDS (10.1-12.7)
== END ==
PROVIDERS: PCP Family Medicine; Visit Provider Internal Medicine Cardiovascular Disease
DX: I08.1 Rheumatic disorders of both mitral and tricuspid valves (principal); I31.1 Chronic constrictive pericarditis; I48.91 Unspecified atrial fibrillation; I77.89 Other specified disorders of arteries and arterioles; Z95.0 Presence of cardiac pacemaker; Z79.01 Long term (current) use of anticoagulants
CPT/HCPCS: 36415; 85610; 93306

== ENCOUNTER → 2019-04-01 08:52 | Outpatient (ROUT) | payer MEDICARE, OTHER, SELFPAY ==
[2018-08-31 10:00] VITALS: BMI 31.0
[2019-04-01 08:58] LABS: INR 1.3 (0.9-1.3); Prothrombin Time 15.4 SECONDS (10.1-12.7)
== END ==
PROVIDERS: PCP Family Medicine; Visit Provider Family Medicine
DX: I48.91 Unspecified atrial fibrillation (principal)
CPT/HCPCS: 85610

== ENCOUNTER → 2019-04-08 09:30 | Outpatient (ROUT) | payer MEDICARE, OTHER, SELFPAY ==
[2018-08-31 10:00] VITALS: BMI 31.0
[2019-04-08 10:09] LABS: INR 1.4 (0.9-1.3); Prothrombin Time 16.1 SECONDS (10.1-12.7)
== END ==
PROVIDERS: PCP Family Medicine; Visit Provider Family Medicine
DX: I48.91 Unspecified atrial fibrillation (principal)
CPT/HCPCS: 85610

== ENCOUNTER → 2019-04-29 11:12 | Outpatient (ROUT) | payer MEDICARE, OTHER, SELFPAY ==
[2018-08-31 10:00] VITALS: BMI 31.0
[2019-04-29 11:25] LABS: INR 1.4 (0.9-1.3); Prothrombin Time 16.5 SECONDS (10.1-12.7)
== END ==
PROVIDERS: PCP Family Medicine; Visit Provider Family Medicine
DX: I48.91 Unspecified atrial fibrillation (principal)
CPT/HCPCS: 85610

== ENCOUNTER → 2019-06-12 10:15 | Outpatient (ROUT) | payer MEDICARE, OTHER, SELFPAY ==
[2018-08-31 10:00] VITALS: BMI 31.0
[2019-06-12 10:38] LABS: INR 1.3 (0.9-1.3); Prothrombin Time 15.5 SECONDS (10.1-12.7)
== END ==
PROVIDERS: PCP Family Medicine; Visit Provider Family Medicine
DX: I48.91 Unspecified atrial fibrillation (principal)
CPT/HCPCS: 85610

== ENCOUNTER → 2019-09-30 10:22 | Outpatient (ROUT) | payer MEDICARE, OTHER, SELFPAY ==
[2018-08-31 10:00] VITALS: BMI 31.0
[2019-09-30 11:12] LABS: INR 1.5 (0.9-1.3); Prothrombin Time 17.5 SECONDS (10.1-12.7)
== END ==
PROVIDERS: PCP Family Medicine; Visit Provider Family Medicine
DX: I48.91 Unspecified atrial fibrillation (principal)
CPT/HCPCS: 85610

== ENCOUNTER → 2019-11-06 11:51 | Outpatient (ROUT) | payer MEDICARE, OTHER, SELFPAY ==
[2018-08-31 10:00] VITALS: BMI 31.0
[2019-11-06 12:03] LABS: INR 1.5 (0.9-1.3); Prothrombin Time 17.7 SECONDS (10.1-12.7)
== END ==
PROVIDERS: PCP Family Medicine; Visit Provider Family Medicine
DX: I48.91 Unspecified atrial fibrillation (principal)
CPT/HCPCS: 85610

== ENCOUNTER → 2020-03-04 07:38 | Outpatient (CLI) | payer MEDICARE, OTHER, SELFPAY ==
[2018-08-31 10:00] VITALS: BMI 31.0
[2020-03-04 08:29] LABS: Cholesterol 139 mg/dL (140-199); HDL Cholesterol 27 mg/dL (40-60); LDL Cholesterol Calculated 85 mg/dL (<100); Triglycerides 134 mg/dL (35-150)
== END ==
PROVIDERS: PCP Family Medicine; Referring Provider Internal Medicine Cardiovascular Disease; Visit Provider Internal Medicine Cardiovascular Disease
DX: E78.5 Hyperlipidemia, unspecified (principal)
CPT/HCPCS: 36415; 80061

== ENCOUNTER → 2020-03-18 10:43 | Outpatient (CLI) | payer MEDICARE, OTHER, SELFPAY ==
[2018-08-31 10:00] VITALS: BMI 31.0
[2020-03-18 12:54] LABS: INR 1.8 (0.9-1.3)
== END ==
PROVIDERS: PCP Family Medicine; Referring Provider Family Medicine; Visit Provider Family Medicine
DX: I48.91 Unspecified atrial fibrillation (principal)
CPT/HCPCS: 36415; 85610

== ENCOUNTER → 2020-04-22 11:04 | Outpatient (ROUT) | payer MEDICARE, OTHER, SELFPAY ==
[2018-08-31 10:00] VITALS: BMI 31.0
[2020-04-22 11:45] LABS: INR 1.7 (0.9-1.3); Prothrombin Time 19.1 SECONDS (10.1-12.7)
== END ==
PROVIDERS: PCP Family Medicine; Visit Provider Family Medicine
DX: I48.91 Unspecified atrial fibrillation (principal)
CPT/HCPCS: 85610

== ENCOUNTER → 2020-06-03 10:16 | Outpatient (ROUT) | payer MEDICARE, OTHER, SELFPAY ==
[2018-08-31 10:00] VITALS: BMI 31.0
[2020-06-03 10:31] LABS: INR 1.6 (0.9-1.3); Prothrombin Time 18.8 SECONDS (10.1-12.7)
== END ==
PROVIDERS: PCP Family Medicine; Visit Provider Family Medicine
DX: I48.91 Unspecified atrial fibrillation (principal)
CPT/HCPCS: 85610

== ENCOUNTER → 2020-07-01 10:33 | Outpatient (ROUT) | payer MEDICARE, OTHER, SELFPAY ==
[2018-08-31 10:00] VITALS: BMI 31.0
[2020-07-01 10:56] LABS: INR 1.9 (0.9-1.3); Prothrombin Time 21.5 SECONDS (10.1-12.7)
== END ==
PROVIDERS: PCP Family Medicine; Visit Provider Family Medicine
DX: I48.91 Unspecified atrial fibrillation (principal)
CPT/HCPCS: 85610

== ENCOUNTER → 2020-08-24 12:33 | Outpatient (CLI) | payer MEDICARE, OTHER, SELFPAY ==
[2018-08-31 10:00] VITALS: BMI 31.0
--- NOTE | 2020-08-24 12:36 | DI.US.S_ITS ---
PROCEDURE: US CAROTID DOPPLER BI INDICATIONS: OCCLUSION AND STENOSIS OF BILATERAL CAROTID ARTERIES TECHNIQUE: Color and pulse Doppler interrogation was performed of both carotid systems, with image documentation and velocity measurements. COMPARISON: [facility], , CAROTID ARTERY DOPPLER BIL, 08/05/2013, 10:33. FINDINGS: Stenosis calculations are based on SRU (Society of Radiologists in Ultrasound) criteria. The flow velocities and the arterial waveforms are normal within both carotid arterial systems. Atherosclerotic plaque is seen on both sides. The estimated degree of internal carotid artery stenosis is less than 50%. Antegrade flow is confirmed within both vertebral arteries. IMPRESSION: No hemodynamically significant stenosis is seen. No significant change from the prior. Atherosclerotic plaque is noted bilaterally. Dictated by: Rufus Worthy M.D. on 08/24/2020 at 12:58 Approved by: Rufus Worthy M.D. on 08/24/2020 at 12:59
== END ==
PROVIDERS: PCP Family Medicine; Referring Provider Internal Medicine Cardiovascular Disease; Visit Provider Internal Medicine Cardiovascular Disease
DX: I65.23 Occlusion and stenosis of bilateral carotid arteries (principal)
CPT/HCPCS: 93880

== ENCOUNTER → 2020-09-06 10:05 | Outpatient (ROUT) | payer MEDICARE, OTHER, SELFPAY ==
[2018-08-31 10:00] VITALS: BMI 31.0
[2020-09-06 10:31] LABS: INR 1.5 (0.9-1.3); Prothrombin Time 16.6 SECONDS (10.1-12.7)
== END ==
PROVIDERS: PCP Family Medicine; Visit Provider Family Medicine
DX: I48.91 Unspecified atrial fibrillation (principal)
CPT/HCPCS: 85610

== ENCOUNTER → 2020-09-30 14:21 | Outpatient (ROUT) | payer MEDICARE, OTHER, SELFPAY ==
[2018-08-31 10:00] VITALS: BMI 31.0
[2020-09-30 14:44] LABS: Prothrombin Time 34.1 SECONDS (10.1-12.7)
== END ==
PROVIDERS: PCP Family Medicine; Visit Provider Family Medicine
DX: I48.91 Unspecified atrial fibrillation (principal)
CPT/HCPCS: 85610

== ENCOUNTER → 2020-10-11 13:02 | Outpatient (CLI) | payer MEDICARE, OTHER, SELFPAY ==
[2018-08-31 10:00] VITALS: BMI 31.0
[2020-10-11 13:56] LABS: COVID19 -Nasal RAPID Negative (Negative)
== END ==
PROVIDERS: Visit Provider Physician Assistant
DX: Z01.812 Encounter for preprocedural laboratory examination (principal); Z20.828 Contact with and (suspected) exposure to other viral communicable diseases
CPT/HCPCS: 87635; C9803

== ENCOUNTER → 2020-11-08 13:10 | Outpatient (CLI) | payer MEDICARE, OTHER, SELFPAY ==
[2018-08-31 10:00] VITALS: BMI 31.0
[2020-11-08 15:09] LABS: COVID19 -Nasal RAPID Negative (Negative)
== END ==
PROVIDERS: PCP Student in an Organized Health Care Education/Training Program; Visit Provider Physician Assistant
DX: Z20.822 Contact with and (suspected) exposure to COVID-19 (principal)
CPT/HCPCS: 87635; C9803

== ENCOUNTER → 2020-11-09 09:39 | Outpatient (CLI) | payer MEDICARE, OTHER, SELFPAY ==
[2018-08-31 10:00] VITALS: BMI 31.0
--- NOTE | 2020-11-09 09:43 | DI.NM.S_ITS ---
PROCEDURE: NM WANDA PERF SPECT R&S PHARM Rest and pharmacological stress myocardial perfusion SPECT with gated imaging and ejection fraction RADIOPHARMACEUTICAL: 14.0 mCi Tc-99m tetrafosmin IV at rest and 25.4 mCi Tc-99m tetrafosmin IV at peak effect of pharmacological stress. Mza-cna-fzmtlmlf was performed. INDICATIONS: Shortness of breath TECHNIQUE: Radiopharmaceutical was injected at peak stress test, and also at rest. SPECT images were obtained. SPECT myocardial perfusion images were displayed in short axis, horizontal long axis, and vertical long axis views. Gated images were reviewed using [email or web address] software. COMPARISON: None. CARDIAC STRESS: A pharmacologic stress test was performed under the supervision of an attending staff, using an infusion of lexiscan 0.4mg IV X1. Hemodynamic data: There is normal blood pressure and heart rate response to pharmacologic stress. Symptoms: The patient denied anginal chest pain. Aminophylline: none EKG: No diagnostic changes of ischemia with lexiscan; occasional PVCs at rest. FINDINGS: Raw data: There is good myocardial uptake of radiotracer. No significant motion artifacts. Jtep-yr-gywkv ratio is 0.37 (normal is less than 0.38 for tetrafosmin tracer). Left ventricle function: Gated images demonstrate normal left ventricular wall thickening. No segmental wall motion abnormalities. No transient ischemic dilation; TID is 1.12 (normal less than 1.3). Left ventricle resting end diastolic volume is 201 mL. Left ventricle stress ejection fraction is 57%; normal range is above 45%. Myocardial perfusion: There are a midly intense fixed inferior and moderately intense apical defects that are probably attenuation artifacts but old prior infarction can't be excluded. Prone imaging couldn't be done due physical limitations. IMPRESSION: Low risk, possibly normal pharmaceutical nuclear stress test. 1) There are a midly intense fixed inferior and moderately intense apical defects that are possibly attenuation artifacts but old prior infarction can't be excluded. Prone imaging couldn't be done due physical limitations. 2) Enlarged left ventricle (resting EDV 201cc) with normal wall motion and normal systolic function (EF post stress 57%). 3) No ECG evidence of ischemia. 4) No angina during the study. 5) Compared to the nuclear stress test 01/28/2019, the defects described above are more prominent on this study but prone images are not available on this study for complete comparison. Dictated by: Pamela Bergman MD on 11/09/2020 at 16:38 Approved by: Pamela Bergman MD on 11/09/2020 at 16:43
--- NOTE | 2020-11-09 09:44 | DI.ECHO.S_ITS ---
[facility]---------+ [facility] +---------+ : : [address] : [place] : : : : [id number] : : : : Phone: [phone] : : [phone] +---------+ Echocardiogram Report + + :Name: KAYLIN JEFFRIES Study Date: 11/09/2020 Height: 76 in : :[facility] ReadingLocation: Weight: 257 lb : : Gender: Male BSA: 2.5 m2 : :: 1940 Age: 80 yrs BP: 170/89 mmHg: :Reason For Study: SHORTNESS OF BREATH : :Ordering Physician: ABIEL, : :EMMETT Performed By: Zaria Clay : :Referring: EMMETT BEEBE : + + Interpretation Summary 1) Mildly enlarged left ventricle (LVEDD 6.5cm) with normal systolic function (EF 55-60%). 2) The right ventricle is mildly dilated. The right ventricular systolic function is normal. There is a pacemaker lead in the right ventricle. 3) There is mild to moderate mitral regurgitation. 4) The right ventricular systolic pressure is estimated to be at least 48 mmHg based on an estimated right atrial pressure of 8 mm Hg. 5) Hypertension present during the study (BP 170/89mmHg). 6) Compared to the Echo done 03/06/2019, no significant change. Procedure: A two-dimensional transthoracic echocardiogram with color flow and Doppler was performed. The study quality was technically adequate. Comparison is made with the echocardiogram of 03/06/2019. The patient has a paced rhythm. The patient had frequent PVCs during the exam. The heart rate ranged between 48-76 bpm during the study. Left Ventricle: The estimated left ventricular end diastolic volume is 133 ml. The left ventricle is mildly dilated. There is mild concentric left ventricular hypertrophy. The ejection fraction is estimated to be 55-60%. Diastolic function could not be accurately assessed due to paced rhythm. Right Ventricle: The right ventricle is mildly dilated. There is a pacemaker lead in the right ventricle. The right ventricular systolic function is normal. Atria: The left atrium is moderately dilated. The right atrium is severely dilated. There is no Doppler evidence for an interatrial shunt. Mitral Valve: The mitral valve leaflets appear mildly thickened, but open well. There is mild mitral annular calcification. There is mild to moderate mitral regurgitation. Aortic Valve: The aortic valve is slightly calcified. The aortic valve is trileaflet. The aortic valve opens well. There is no aortic valve stenosis. No aortic regurgitation is present. Tricuspid Valve: The right ventricular systolic pressure is estimated to be at least 48 mmHg based on an estimated right atrial pressure of 8 mm Hg. There is mild tricuspid regurgitation. Pulmonic Valve: The pulmonic valve leaflets are thin and pliable; valve motion is normal. There is trace pulmonic regurgitation. Great Vessels: The aortic root is normal size. The ascending aorta is at the upper limits of normal in size. The IVC is of normal diameter and collapses less than 50% with a sniff. This suggests a right atrial pressure of 8 mm Hg. Pericardium/ Pleura There is no pericardial effusion. There is no pleural effusion. MMode/2D Measurements & Calculations LVIDd: 6.5 cm LVOT diam: 2.2 cm LVIDs: 4.6 cm Ao root diam: 3.8 cm FS: 28.8 % asc Aorta Diam: 3.8 cm EPSS: 1.3 cm Ao Arch Diam (Prox Trans): 3.3 cm IVSd: 1.1 cm LVPWd: 1.1 cm LV bro. diameter/BSA (cm/m^2): 2.6 LV sys. diameter/BSA (cm/m^2): 1.9 LA A2 area: 27.4 cm2 RA long axis: 7.3 cm LA A4 area: 32.7 cm2 RA area: 34.6 cm2 LA length (vol): 7.5 cm RA vol: 140.3 ml LA vol: 101.2 ml RA : 56.9 ml/m2 LA vol index: 41.0 ml/m2 IVC diam: 1.9 cm RVD1 (basal): 4.1 cm TAPSE: 2.0 cm Doppler Measurements & Calculations Ao V2 max: 149.4 cm/sec LVOT Max Elmer: 83.2 cm/sec Ao V2 mean: 101.5 cm/sec LV V1 max P.8 mmHg Ao max P.9 mmHg LV V1 VTI: 17.9 cm Ao mean P.6 mmHg LAW(I,D): 2.2 cm2 Ao V2 VTI: 30.5 cm LAW(V,D): 2.1 cm2 sev ratio: 0.58 LAW indexed to BSA (cm^2/m^2): 0.88 MV E max elmer: 145.8 cm/sec TR max elmer: 315.0 cm/sec MV A max elmer: 51.3 cm/sec TR max P.7 mmHg MV E/A: 2.8 PA V2 max: 65.5 cm/sec Med Peak E' Elmer: 7.7 cm/sec PA V2 mean: 45.7 cm/sec E/E' med: 18.9 PA mean P.94 mmHg Lat Peak E' Elmer: 11.8 cm/sec PA pr(Accel): 27.6 mmHg E/E' lat: 12.3 E/e' average: 15.6 MV dec time: 0.17 sec MR ERO: 0.32 cm2 MR PISA: 4.7 cm2 SV(LVOT): 66.0 ml MR flow rate: 174.6 cm3/sec MR PISA radius: 0.87 cm Reading Physician:09:31 AM
--- NOTE | 2020-11-09 15:17 | PM.TREADMILL ---
Cardiac Stress Test Report Referral & Results Date Patient Seen: 11/09/20 Time Patient Seen: 15:17 Requesting provider: Llu Tsang Indication: shortness of breath Rest ECG: sinus rhythm with frequent PVCs Procedure Note: After Lexiscan injection had minimal dyspnea; No chest discomfort No significant ST changes on ECG after Lexiscan injection No ectopy Impression: Normal lexiscan stress test Please note: Actual ECG tracings can be found in the PACS system.
== END ==
PROVIDERS: PCP Student in an Organized Health Care Education/Training Program; Referring Provider Internal Medicine Cardiovascular Disease; Visit Provider Internal Medicine Cardiovascular Disease
DX: I08.1 Rheumatic disorders of both mitral and tricuspid valves (principal); R06.02 Shortness of breath; Z95.0 Presence of cardiac pacemaker
CPT/HCPCS: 78452; 93017; 93306; A9502; J2785; M1145

== ENCOUNTER → 2020-12-02 08:49 | Outpatient (CLI) | payer MEDICARE, OTHER, SELFPAY ==
[2020-11-11 11:16] VITALS: BMI 31.0
--- NOTE | 2020-12-02 | DI.CT.S_ITS ---
PROCEDURE: CT ANGIO ABDOMEN PELVIS INDICATIONS: generalized abdominal pain TECHNIQUE: Patient was pre-medicated for iodine allergy prior to the examination. After the administration of intravenous contrast, 2.5 mm sections acquired from the diaphragm to the iliac crests. 10 mm maximum intensity projection (MIP) coronal and sagittal reformats were then performed. For radiation dose reduction, the following was used: automated exposure control. COMPARISON: None. FINDINGS: Image quality: Excellent. Extravascular tissues: Lung bases are clear. Heart size is enlarged. There is calcification of the coronary vasculature. Liver is normal in size and enhancement. Gallbladder is within normal limits . Biliary system is non dilated. Pancreas enhances normally. Spleen is normal in size and enhancement. No adrenal nodules. Kidneys are moderately atrophic bilaterally, and are otherwise normal in size and enhancement, without hydronephrosis. Non-opacified bowel loops demonstrate normal wall thickness and caliber. No free fluid or air. No retroperitoneal or mesenteric adenopathy. No ventral hernias. No suspicious bony abnormalities. No vertebral body compression fractures. Abdominal aorta: A 38 mm diameter saccular aneurysm of the infrarenal abdominal aorta is present. Mesenteric arteries: There is a moderate calcific origin stenosis of the celiac artery origin. There is a mild calcific origin stenosis of the superior mesenteric artery origin. Inferior mesenteric artery demonstrates a high-grade calcific origin stenosis. Renal arteries: There are 3 left renal arteries, the superior 2 of which are adjacent, and demonstrate moderate to high-grade calcific origin stenosis. The inferior left renal artery is grossly patent. There are 3 right renal arteries, each of which demonstrate high-grade calcific origin stenosis. IMPRESSION: 1. Mesenteric and renal artery origin stenosis as described above. 2. Non oral contrast enhanced evaluation of the bowel demonstrates no evidence of wall thickening to indicate active ischemia. 3. Small hiatal hernia. 4. Cardiomegaly. Coronary artery disease. 5. Infrarenal abdominal aortic aneurysm. Dictated by: Kindra Ramirez M.D. on 12/02/2020 at 15:59 Approved by: Kindra Ramirez M.D. on 12/02/2020 at 16:02
[2020-12-02 09:30] LABS: Alanine Aminotransferase 22 IU/L (<50); Albumin 4.6 g/dL (3.5-5.0); Albumin Globulin Ratio 1.4 (1.0-2.8); Alkaline Phosphatase 85 U/L (38-126); Aspartate Aminotransferase 24 IU/L (17-59); BUN Creatinine Ratio 10.1 (6-22); Bilirubin Total 0.7 mg/dL (0.2-1.3); Blood Urea Nitrogen 45 mg/dL (9-20); Calcium 9.2 mg/dL (8.4-10.2); Carbon Dioxide 29 mmol/L (22-32); Chloride 101 mmol/L (98-107); Estimated Glomerular Filt Rate 12.8 mL/min (>60); Globulin 3.4 g/dL (1.7-4.1); Glucose 198 mg/dL (80-110); HEMOLYSIS < 15 (0-50); Sodium 140 mmol/L (137-145)
[2020-12-02 09:32] LABS: Potassium 5.8 mmol/L (3.4-5.1)
== END ==
PROVIDERS: Internal Medicine Hematology & Oncology; PCP Student in an Organized Health Care Education/Training Program; Referring Provider Internal Medicine Nephrology; Visit Provider Internal Medicine Nephrology
DX: C61 Malignant neoplasm of prostate (principal); C79.9 Secondary malignant neoplasm of unspecified site; R10.84 Generalized abdominal pain; I71.4 Abdominal aortic aneurysm, without rupture; I70.1 Atherosclerosis of renal artery; K44.9 Diaphragmatic hernia without obstruction or gangrene; I25.10 Atherosclerotic heart disease of native coronary artery without angina pectoris; I51.7 Cardiomegaly
CPT/HCPCS: 36415; 74174; 80053; Q9967

== ENCOUNTER → 2020-12-30 10:06 | Outpatient (ROUT) | payer MEDICARE, OTHER, SELFPAY ==
[2020-11-11 11:16] VITALS: BMI 31.0
[2020-12-30 10:18] LABS: INR 1.8 (0.9-1.3); Prothrombin Time 20.5 SECONDS (10.1-12.7)
== END ==
PROVIDERS: PCP Student in an Organized Health Care Education/Training Program; Visit Provider Nurse Practitioner Family
DX: I48.91 Unspecified atrial fibrillation (principal)
CPT/HCPCS: 85610

== ENCOUNTER → 2021-02-08 09:53 | Outpatient (ROUT) | payer MEDICARE, OTHER, SELFPAY ==
[2020-11-11 11:16] VITALS: BMI 31.0
[2021-02-08 10:15] LABS: INR 1.5 (0.9-1.3); Prothrombin Time 16.7 SECONDS (10.1-12.7)
== END ==
PROVIDERS: PCP Student in an Organized Health Care Education/Training Program
DX: I48.91 Unspecified atrial fibrillation (principal)
CPT/HCPCS: 85610

== ENCOUNTER → 2021-03-31 12:01 | Outpatient (ROUT) | payer MEDICARE, OTHER, SELFPAY ==
[2020-11-11 11:16] VITALS: BMI 31.0
[2021-03-31 12:07] LABS: INR 1.5 (0.9-1.3); Prothrombin Time 16.8 SECONDS (10.1-12.7)
== END ==
PROVIDERS: PCP Student in an Organized Health Care Education/Training Program; Visit Provider Family Medicine
DX: Z79.01 Long term (current) use of anticoagulants (principal); I48.91 Unspecified atrial fibrillation
CPT/HCPCS: 85610

== ENCOUNTER 2021-04-15 17:45 | Emergency (ER) | payer MEDICARE, OTHER, SELFPAY ==
[2020-11-11 11:16] VITALS: BMI 31.0
--- NOTE | 2021-04-15 18:10 | DI.RAD.S_ITS ---
PROCEDURE: XR RIBS LT MIN 3V W CXR1V INDICATIONS: fell into the easy chair arm. one week ago. TECHNIQUE: Two views of the left ribs were acquired, along with a single view chest. COMPARISON: [facility], CR, XR CHEST 2 VIEWS, 02/11/2019, 6:46. FINDINGS: Surgical changes and devices: A leadless pacer device is redemonstrated. Bones and chest wall: There are mildly displaced fractures of the left 8th and 9th ribs anterolaterally. No suspicious bony lesions. Overlying soft tissues appear unremarkable. Lungs and pleura: No evidence of pneumothorax. There is asymmetric mild blunting of the left costophrenic angle suggestive of small left pleural effusion. There is hyperinflation of the lungs with flattening of the hemidiaphragms compatible with COPD. There are linear opacities in the lung bases likely representing atelectasis. Mediastinum: Mediastinal contours are unchanged. Heart size is enlarged. IMPRESSION: 1. Mildly displaced fractures of the left 8th and 9th ribs. 2. Suspected small left pleural effusion. 3. Probable bibasilar atelectasis. 4. Findings compatible with COPD redemonstrated. Dictated by: Preston Parmar M.D. on 04/15/2021 at 20:40 Approved by: Preston Parmar M.D. on 04/15/2021 at 20:43
[2021-04-15 18:12] VITALS: BP 162/72; PULSE 54; RESP 18; TEMP 35.9; O2SAT 97; BMI 30.4
--- NOTE | 2021-04-15 22:07 | ED.CHESTPAIN ---
HPI - Chest Pain General Chief Complaint: Chest Pain Stated Complaint: lt rib pain s/p fall last week Time Seen by Provider: 04/15/21 18:02 Source: patient Mode of arrival: Family Vehicle Limitations: no limitations History of Present Illness HPI narrative: 80-year-old male nonsmoker with history of hypertension, AFib on anticoagulation presents with his in the chief complaint of some left-sided rib pain after a ground level fall a few days ago. He absolutely is certain that he did not strike his head and has no neck or back pain. He has full recall of the event and has had no altered sensorium, focal neurologic findings or symptoms other than left-sided rib pain. He denies any shortness of breath or hemoptysis. He has no abdominal pain,, dysuria or blood. his pain is worse with motion and deep breaths. Improves with rest. It is sharp and stabbing, moderate in intensity and has been present since his fall Related Data Home Medications Medication Instructions Recorded Confirmed aspirin 81 mg tablet,delayed 81 mg PO BEDTIME #0 12/11/10 01/20/21 release (Aspir-) [VITAMIN C W/ALONA HIP] 1,000 mg PO DAILY #0 07/10/17 01/20/21 allopurinol 100 mg tablet 100 mg PO DAILY #0 07/10/17 01/20/21 vitamin B complex (B 1 tab PO DAILY #0 07/10/17 01/20/21 Complex-Vitamin B12) cholecalciferol (vitamin D3) 25 5,000 unit PO DAILY #0 08/20/17 01/20/21 mcg (1,000 unit) capsule (Vitamin D3) coenzyme Q10 100 mg capsule (Co 100 mg PO DAILY #0 08/20/17 01/20/21 Q-10) rosuvastatin 5 mg tablet (Crestor) 5 mg PO BEDTIME #0 01/08/18 01/20/21 Lupron Depot See Rx Instructions .ROUTE .COMPLEX 08/31/18 01/20/21 terazosin 1 mg capsule 1 mg PO BID 08/31/18 01/20/21 calcium carbonate-vitamin D3 600 1 tab PO BID 11/11/18 01/20/21 mg-125 unit tablet (Calcium) glipizide 10 mg tablet 10 mg PO QAM 11/11/18 01/20/21 hydrocortisone 2.5 % topical cream 1 applic TOPICAL BID-TID 11/11/18 01/20/21 insulin detemir U-100 100 unit/mL 20 units SUBCUT QAM 11/11/18 01/20/21 subcutaneous solution krill 1 tab PO DAILY 11/11/18 01/20/21 rqi-he-0-luw-gem-vksoemtttjbpz 300 mg-90 mg-24 mg-50 mg capsule (MegaKrill) triamcinolone acetonide 0.1 % 1 applic TOPICAL DIRECTED 11/11/18 01/20/21 topical cream warfarin 1 mg tablet 5 mg PO DAILY 11/11/18 01/20/21 ascorbic acid (vitamin C) 250 mg PO DAILY 11/30/18 01/20/21 citalopram 10 mg tablet 20 mg DAILY 12/11/18 01/20/21 lisinopril 10 mg tablet 10 mg PO BID 12/11/18 01/20/21 amlodipine 5 mg tablet 5 mg DAILY 10/28/20 01/20/21 Previous Rx's Medication Instructions Recorded bicalutamide 50 mg tablet (Casodex) 50 mg PO DAILY #90 tab 11/06/19 Allergies Allergy/AdvReac Type Severity Reaction Status Date / Time codeine Allergy Unknown NAUSEA Verified 01/07/19 14:55 Iodine and Iodide Containing Allergy Unknown Verified 01/07/19 14:55 Produc [IODINE AND IODIDE CONTAINING PRODUC] iohexol Allergy Unknown Verified 01/07/19 14:55 Review of Systems Review of Systems Narrative: GENERAL: Denies chills, fatigue, malaise, fever, sweats. HEENT: Denies sinus pain, ear pain, sore throat, difficulty swallowing, dizziness. RESPIRATORY: Denies dyspnea, cough, wheezing, hemoptysis, sputum. CARDIOVASCULAR: admits to left lower chest wall pain but denies, palpitations, orthopnea, edema, GASTROINTESTINAL: Denies nausea, vomiting, abdominal pain, diarrhea, constipation, melena. : Denies dysuria, frequency, incontinence, hematuria, urinary retention. MUSCULOSKELETAL: denies weakness, joint pain, or bony pain SKIN: Denies rash, skin lesions, or other NEUROLOGIC: Denies weakness, headache, numbness, change in speech, confusion, seizures, incoordination. PSYCHIATRIC: No concerning psychosocial issues. 12 point review of systems is negative except for those stated above Patient History Medical History Anticoagulation adequate with anticoagulant therapy Atrial fibrillation 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, severely decreased glomerular filtration rate (GFR) between 15-29 mL/min/1.73 square meter and albuminuria creatinine ratio less than 30 mg/g Complex sleep apnea syndrome Diabetes Edema leg Excessive daytime sleepiness Gout Hyperlipidemia Hypertension Obesity Obstructive sleep apnea of adult Prostate cancer Surgical History S/P ureteral stent placement Social History household members: spouse Smoking Status: Never smoker alcohol intake: never substance use type: does not use Smoking Status: Never smoker alcohol intake frequency: 0-2 drinks per day Substance Use Type: does not use Exam Narrative Exam Narrative: GENERAL: [80] year old patient appears stated age. Well-developed patient, in mild distress.GCS 15 HEAD: Atraumatic. Normocephalic. EYES: Pupils equal round and reactive. Extraocular motions intact. No scleral icterus. No injection or drainage. ENT: Nose without bleeding, purulent drainage. Throat without erythema, tonsillar hypertrophy or exudate. Airway patent. NECK: Trachea midline. Non tender CARDIOVASCULAR: Regular rate and rhythm without murmurs, gallops, or rubs. RESPIRATORY: Clear to auscultation. Breath sounds equal bilaterally. No wheezes, rales, or rhonchi. good work of breathing, left-sided rib pain tender to palpation, no significant swelling, ecchymosis crepitance or subcutaneous emphysema GASTROINTESTINAL: Abdomen soft, non-tender, nondistended. EXTREMITIES: No edema or joint tenderness. BACK: Nontender without deformity or crepitance. No flank tenderness. NEURO: AOx3. SKIN: No rash or erythema of visible areas Initial Vital Signs Initial Vital Signs: Vital Signs Temperature 96.7 F L 04/15/21 18:12 Pulse Rate 54 L 04/15/21 18:12 Respiratory Rate 18 04/15/21 18:12 Blood Pressure 162/72 H 04/15/21 18:12 Pulse Oximetry 97 04/15/21 18:12 Course Orders Ordered: Discontinued Medications Hydrocodone Bitart/Acetaminophen (Hydrocodone/Acet 5/325 Prepack) 1 bottle [facility] [place] SEEINSTR ONE Stop: 04/15/21 22:14 Last Admin: 04/15/21 22:21 Dose: 1 bottle Documented by: ROBBIN Vital Signs Vital signs: Vital Signs - 8 hr 04/15/21 18:12 Temperature 96.7 F L Pulse Rate 54 L Respiratory Rate 18 Blood Pressure 162/72 H Pulse Oximetry 97 MDM - Chest Pain Medical Records Data Medical records narrative: anticoagulated patient with mechanical fall and left-sided rib pain. He admits that he feels quite well on the whole and complains only of some pain. He has no shortness of breath or fatigue. He is adamant he did not strike his head therefore head CT not ordered and trauma not activated. He is given return precautions and questions answered to his apparent satisfaction Imaging Data Chest x-ray: Radiologist's Impression: Noel Allen 80 M 1940 [address] [id number] ReportSigned Patient: Noel Allen R#: [id number]: 1940cct:[id number]/Sex: 80 / MDate of Service: 04/15/21Loc: EDAccession Number: [id number] Procedure: XR ribs LT min 3V w CXR1V Ordering Provider: Milton Mix D.O. PROCEDURE: XR RIBS LT MIN 3V W CXR1V INDICATIONS: fell into the easy chair arm. one week ago. TECHNIQUE: Two views of the left ribs were acquired, along with a single view chest. COMPARISON: Located Within [facility], , XR CHEST 2 VIEWS, 02/11/2019, 6:46. FINDINGS: Surgical changes and devices: A leadless pacer device is redemonstrated. Bones and chest wall: There are mildly displaced fractures of the left 8th and 9th ribs anterolaterally. No suspicious bony lesions. Overlying soft tissues appear unremarkable. Lungs and pleura: No evidence of pneumothorax. There is asymmetric mild blunting of the left costophrenic angle suggestive of small left pleural effusion. There is hyperinflation of the lungs with flattening of the hemidiaphragms compatible with COPD. There are linear opacities in the lung bases likely representing atelectasis. Mediastinum: Mediastinal contours are unchanged. Heart size is enlarged. IMPRESSION: 1. Mildly displaced fractures of the left 8th and 9th ribs. 2. Suspected small left pleural effusion. 3. Probable bibasilar atelectasis. 4. Findings compatible with COPD redemonstrated. Dictated by: Preston Parmar M.D. on 04/15/2021 at 20:40 Approved by: Preston Parmar M.D. on 04/15/2021 at 20:43 Discharge Plan Departure Patient Disposition: Home Clinical Impression: Fracture, ribs Qualifiers: Encounter type: initial encounter Fracture type: closed Laterality: left Qualified Code(s): S22.42XA - Multiple fractures of ribs, left side, initial encounter for closed fracture Instructions: DI for Rib Fracture Activity Restrictions/Additional Instructions: *You have been diagnosed with [fall with minimally displaced left 8th and 9th rib fracture] *What to do: *Please continue to take your regular medications as directed. [ ] New medication prescriptions sent to your pharmacy: [ ] [ ] New medication written as a paper prescription [ x] No new medications given *Please follow up with your primary care provider in 2-3 days, call for an appointment. Let them know you were seen in the Emergency Department and that we ask that you be seen in follow up. We will electronically transmit a record of today's note if your PCP is in our system *If you do not have a primary care provider please contact the [facility] Resource line at [phone]. They will ask some questions about your medical history and help get you set up with a doctor in the community. *Return to Emergency Department if you should have any new, worsening or concerning symptoms, such as [fever greater than 101 F, shaking chills, worsening pain, persistent vomiting or other bothersome symptoms] You have been prescribed narcotic medications. While on these medications you cannot drive or operate heavy machinery. Additionally you cannot sign legal documents or perform any duties such as this. Many people get constipated on narcotic medications so it would be advisable to discuss stool softeners with the pharmacist when you order picker your prescription. Please understand that we cannot provide further refills of narcotics or controlled substances through the ED and your pain management will need to be through your Primary Care Provider Prescriptions: No Action aspirin [Aspir-81] 81 mg Tablet,Delayed Release (Dr/Ec) 81 mg PO BEDTIME Qty: 0 RF: 0 allopurinol 100 MG tablet 100 mg PO DAILY Qty: 0 RF: 0 vitamin B complex [B Complex-Vitamin B12] 1 EACH tablet 1 tab PO DAILY Qty: 0 RF: 0 [VITAMIN C W/ALONA HIP] 1,000 mg PO DAILY Qty: 0 RF: 0 cholecalciferol (vitamin D3) [Vitamin D3] 1,000 unit Capsule 5,000 unit PO DAILY Qty: 0 RF: 0 coenzyme Q10 [Co Q-10] 100 MG capsule 100 mg PO DAILY Qty: 0 RF: 0 rosuvastatin [Crestor] 5 MG tablet 5 mg PO BEDTIME Qty: 0 RF: 0 citalopram 10 mg Tablet 20 mg DAILY RF: 0 lisinopril 10 mg Tablet 10 mg PO BID RF: 0 bicalutamide [Casodex] 50 MG tablet 50 mg PO DAILY Qty: 90 RF: 3 amlodipine 5 mg tablet 5 mg DAILY RF: 0 terazosin 1 MG capsule 1 mg PO BID RF: 0 Lupron Depot See Rx Instructions .ROUTE .COMPLEX RF: 0 ascorbic acid (vitamin C) 250 mg PO DAILY RF: 0 glipizide 10 mg tablet 10 mg PO QAM RF: 0 triamcinolone acetonide 0.1 % cream 1 applic Topical DIRECTED RF: 0 hydrocortisone 2.5 % cream 1 applic Topical BID-TID RF: 0 warfarin 1 mg tablet 5 mg PO DAILY RF: 0 Levemir U-100 Insulin 100 unit/mL solution 20 units subcut QAM RF: 0 Calcium 600 + D(3) 600-125 mg-unit Tablet 1 tab PO BID RF: 0 ertmg-ewzcf-7-hui-mci-dvjqdn [MegaKrill] 296-41-19-50 mg Capsule 1 tab PO DAILY RF: 0 Referrals: Mandy Bright MD [Primary Care Provider] -
[2021-04-15 22:09] VITALS: BP 156/68; PULSE 59; RESP 20; O2SAT 97
[2021-04-15] MEDS: HYDROCODONE/ACET 5/325 PREPACK 1 BOTTLE MISC (22:21)
== END 2021-04-15 22:27 | disposition home or self-care (01) ==
PROVIDERS: Emergency Provider Emergency Medicine; PCP Student in an Organized Health Care Education/Training Program
DX: S22.42XA Multiple fractures of ribs, left side, initial encounter for closed fracture (principal); W18.30XA Fall on same level, unspecified, initial encounter; Z79.01 Long term (current) use of anticoagulants
CPT/HCPCS: 71101; 99283

== ENCOUNTER → 2021-05-05 09:39 | Outpatient (ROUT) | payer MEDICARE, OTHER, SELFPAY ==
[2020-11-11 11:16] VITALS: BMI 31.0
[2021-05-05 09:45] LABS: INR 2.6 (0.9-1.3); Prothrombin Time 29.8 SECONDS (10.1-12.7)
== END ==
PROVIDERS: PCP Student in an Organized Health Care Education/Training Program; Visit Provider Family Medicine
DX: I48.91 Unspecified atrial fibrillation (principal)
CPT/HCPCS: 85610

== ENCOUNTER → 2021-05-19 10:13 | Outpatient (ROUT) | payer MEDICARE, OTHER, SELFPAY ==
[2020-11-11 11:16] VITALS: BMI 31.0
[2021-05-19 10:21] LABS: INR 2.2 (0.9-1.3)
== END ==
PROVIDERS: PCP Student in an Organized Health Care Education/Training Program; Visit Provider Family Medicine
DX: Z79.01 Long term (current) use of anticoagulants (principal)
CPT/HCPCS: 85610

== ENCOUNTER → 2021-07-12 11:22 | Outpatient (ROUT) | payer MEDICARE, OTHER, SELFPAY ==
[2020-11-11 11:16] VITALS: BMI 31.0
[2021-07-12 12:34] LABS: INR 1.7 (0.9-1.3)
== END ==
PROVIDERS: PCP Student in an Organized Health Care Education/Training Program; Visit Provider Family Medicine
DX: Z79.01 Long term (current) use of anticoagulants (principal)
CPT/HCPCS: 85610

== ENCOUNTER 2021-07-26 08:51 | Emergency (ER) | payer MEDICARE, OTHER, SELFPAY ==
[2020-11-11 11:16] VITALS: BMI 31.0
[2021-07-26] VITALS (8 sets, daily range): BP systolic 160–193; BP diastolic 72–86; PULSE 49–59; RESP 13–32; TEMP 36.1; O2SAT 97–98; BMI 31.1
--- NOTE | 2021-07-26 09:14 | ED_ITS ---
HPI - General Adult General Chief complaint: GI Bleed Stated complaint: RECTAL BLEEDING Time Seen by Provider: 07/26/21 08:56 Source: patient Mode of arrival: Ambulatory Limitations: no limitations History of Present Illness HPI narrative: 81-year-old Male. History of AFib. Has a pacemaker in place. Is on Coumadin. Insulin-dependent diabetic. End-stage renal disease on dialysis. Receives dialysis Sunday. Received a full dialysis treatment yesterday. Last colonoscopy approximately 5 years ago. Had 2 polyps removed. Here for evaluation because he woke up this morning with blood in his adult diaper. He states that it was not coming from his urine. He still produces a small amount a urine on a daily basis. Had a bowel movement yesterday he states was somewhat hard but had no blood in it. Has not had a bowel movement since the event overnight. Abdominal pain. No nausea vomiting. No fevers. No headache. No lightheadedness. No chest pain. No shortness of breath Related Data Home Medications Medication Instructions Recorded Confirmed aspirin 81 mg tablet,delayed 81 mg PO BEDTIME #0 12/11/10 07/07/21 release (Aspir-) [VITAMIN C W/ALONA HIP] 1,000 mg PO DAILY #0 07/10/17 07/07/21 allopurinol 100 mg tablet 100 mg PO DAILY #0 07/10/17 07/07/21 vitamin B complex (B 1 tab PO DAILY #0 07/10/17 07/07/21 Complex-Vitamin B12) cholecalciferol (vitamin D3) 25 5,000 unit PO DAILY #0 08/20/17 07/07/21 mcg (1,000 unit) capsule (Vitamin D3) coenzyme Q10 100 mg capsule (Co 100 mg PO DAILY #0 08/20/17 07/07/21 Q-10) rosuvastatin 5 mg tablet (Crestor) 5 mg PO BEDTIME #0 01/08/18 07/07/21 Lupron Depot See Rx Instructions .ROUTE .COMPLEX 08/31/18 07/07/21 terazosin 1 mg capsule 1 mg PO BID 08/31/18 07/07/21 calcium carbonate-vitamin D3 600 1 tab PO BID 11/11/18 07/07/21 mg-125 unit tablet (Calcium) glipizide 10 mg tablet 10 mg PO QAM 11/11/18 07/07/21 hydrocortisone 2.5 % topical cream 1 applic TOPICAL BID-TID 11/11/18 07/07/21 insulin detemir U-100 100 unit/mL 20 units SUBCUT QAM 11/11/18 07/07/21 subcutaneous solution krill 1 tab PO DAILY 11/11/18 07/07/21 cjl-aq-5-dge-lfu-ppebqdshdybrr 300 mg-90 mg-24 mg-50 mg capsule (MegaKrill) triamcinolone acetonide 0.1 % 1 applic TOPICAL DIRECTED 11/11/18 07/07/21 topical cream warfarin 1 mg tablet 5 mg PO DAILY 11/11/18 07/07/21 ascorbic acid (vitamin C) 250 mg PO DAILY 11/30/18 07/07/21 citalopram 10 mg tablet 20 mg DAILY 12/11/18 07/07/21 lisinopril 10 mg tablet 10 mg PO BID 12/11/18 07/07/21 amlodipine 5 mg tablet 5 mg DAILY 10/28/20 07/07/21 alprazolam 0.25 mg tablet 0.25 mg PO Q OTHER DAY 07/07/21 07/07/21 Previous Rx's Medication Instructions Recorded bicalutamide 50 mg tablet (Casodex) 50 mg PO DAILY #90 tab 11/06/19 Allergies Allergy/AdvReac Type Severity Reaction Status Date / Time codeine Allergy Unknown NAUSEA Verified 07/26/21 09:18 Iodine and Iodide Containing Allergy Unknown Verified 07/26/21 09:18 Produc [IODINE AND IODIDE CONTAINING PRODUC] iohexol Allergy Unknown Verified 07/26/21 09:18 Review of Systems Constitutional Constitutional: Reports as per HPI and Reports system reviewed and no additional complaints, except as documented Cardiovascular Cardiovascular: Reports system reviewed and no additional complaints, except as documented Respiratory Respiratory: Reports system reviewed and no additional complaints, except as documented Gastrointestinal Gastrointestinal: Reports system reviewed and no additional complaints, except as documented Genitourinary Genitourinary: Reports system reviewed and no additional complaints, except as documented Integumentary/Breasts Skin/Breast: Reports system reviewed and no additional complaints, except as documented Neurologic Neurologic: Reports system reviewed and no additional complaints, except as documented Hematologic/Lymphatic On Anticoagulants: Yes Patient History Medical History Anticoagulation adequate with anticoagulant therapy Atrial fibrillation 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, severely decreased glomerular filtration rate (GFR) between 15-29 mL/min/1.73 square meter and albuminuria creatinine ratio less than 30 mg/g Complex sleep apnea syndrome Diabetes Edema leg Excessive daytime sleepiness Gout Hyperlipidemia Hypertension Obesity Obstructive sleep apnea of adult Prostate cancer Surgical History S/P ureteral stent placement Social History household members: spouse Smoking Status: Never smoker alcohol intake: never substance use type: does not use Smoking Status: Never smoker alcohol intake frequency: 0-2 drinks per day Substance Use Type: does not use Exam Initial Vital Signs Initial Vital Signs: Vital Signs Temperature 97.0 F L 07/26/21 09:05 Pulse Rate 59 L 07/26/21 09:05 Respiratory Rate 18 07/26/21 09:05 Blood Pressure 193/82 H 07/26/21 09:05 Pulse Oximetry 97 07/26/21 09:05 Const General: cooperative, healthy appearing and comfortable Limitations: mental status not altered HENMT Head: normal to inspection and normocephalic Resp Effort & Inspection: normal respiratory effort Auscultation: clear to auscultation bilaterally Cardio Rate: regular rate Rhythm: regular rhythm GI Inspection: normal to inspection Palpation: soft, No firm and No tender Rectal Exam: heme positive stool and hemorrhoids (Internal hemorrhoid) Skin General: no rashes or lesions noted Neuro General: patient alert and patient awake Extrem General: normal to inspection Psych Appearance: grossly normal and well kempt Course Orders Ordered: ED Orders 07/26/21 09:10 Complete Blood Count AUTO DIFF Stat Comprehensive Metabolic Panel Stat Prothrombin Time INR Stat Type and Screen Stat Vital Signs Vital signs: Vital Signs - 8 hr 07/26/21 09:05 Temperature 97.0 F L Pulse Rate 59 L Respiratory Rate 18 Blood Pressure 193/82 H Pulse Oximetry 97 Medical Decision Making Lab Data Lab results reviewed: Yes I reviewed the patient's lab results. Result diagrams: 07/26/21 09:10 07/26/21 09:10 Labs: Lab Results 07/26/21 07/26/21 07/26/21 Range/Units 09:10 09:10 09:10 WBC 6.5 (4.5-11.0) X10^3/uL RBC 3.75 L (4.5-5.9) X10^6/uL Hgb 12.2 L (13.5-17.5) g/dL Hct 36.9 L (41-53) % MCV 98.5 (80-100) fL MCH 32.7 (26-34) PG MCHC 33.2 (30-36) % RDW 15.3 H (11.6-14.8) % Plt Count 135 L (150-400) X10^3/uL Neut % (Auto) 74.9 (50-75) % Lymph % (Auto) 13.9 L (25-40) % [place] % (Auto) 7.6 (3-14) % Eos % (Auto) 2.9 (2-4) % Baso % (Auto) 0.7 (0-2) % Neut # (Auto) 4800 (5664-7495) /uL Lymph # (Auto) 900 L (6752-6087) /uL [place] # (Auto) 500 (0-900) /uL Eos # (Auto) 200 (0-450) /uL Baso # (Auto) 0 (0-100) /uL PT 37.1 H (10.1-12.7) SECONDS INR 3.2 H (0.9-1.3) Sodium 138 (137-145) mmol/L Potassium 4.4 (3.4-5.1) mmol/L Chloride 99 (98-107) mmol/L Carbon Dioxide 28 (22-32) mmol/L BUN 37 H (9-20) mg/dL Creatinine 4.74 H (0.66-1.25) mg/dL Estimated GFR 11.8 L (>60) mL/min BUN/Creatinine Ratio 7.8 (6-22) Glucose 93 (80-110) mg/dL Calcium 9.0 (8.4-10.2) mg/dL Total Bilirubin 0.6 (0.2-1.3) mg/dL AST 26 (17-59) IU/L ALT 21 (<50) IU/L Alkaline Phosphatase 88 (38-126) U/L Total Protein 7.7 (6.3-8.2) g/dL Albumin 4.6 (3.5-5.0) g/dL Globulin 3.1 (1.7-4.1) g/dL Albumin/Globulin Ratio 1.5 (1.0-2.8) Blood Type Antibody Screen 07/26/21 Range/Units 09:10 WBC (4.5-11.0) X10^3/uL RBC (4.5-5.9) X10^6/uL Hgb (13.5-17.5) g/dL Hct (41-53) % MCV (80-100) fL MCH (26-34) PG MCHC (30-36) % RDW (11.6-14.8) % Plt Count (150-400) X10^3/uL Neut % (Auto) (50-75) % Lymph % (Auto) (25-40) % [place] % (Auto) (3-14) % Eos % (Auto) (2-4) % Baso % (Auto) (0-2) % Neut # (Auto) (2302-4753) /uL Lymph # (Auto) (3341-7941) /uL [place] # (Auto) (0-900) /uL Eos # (Auto) (0-450) /uL Baso # (Auto) (0-100) /uL PT (10.1-12.7) SECONDS INR (0.9-1.3) Sodium (137-145) mmol/L Potassium (3.4-5.1) mmol/L Chloride (98-107) mmol/L Carbon Dioxide (22-32) mmol/L BUN (9-20) mg/dL Creatinine (0.66-1.25) mg/dL Estimated GFR (>60) mL/min BUN/Creatinine Ratio (6-22) Glucose (80-110) mg/dL Calcium (8.4-10.2) mg/dL Total Bilirubin (0.2-1.3) mg/dL AST (17-59) IU/L ALT (<50) IU/L Alkaline Phosphatase (38-126) U/L Total Protein (6.3-8.2) g/dL Albumin (3.5-5.0) g/dL Globulin (1.7-4.1) g/dL Albumin/Globulin Ratio (1.0-2.8) Blood Type A Positive Antibody Screen Negative MDM Narrative Medical decision making narrative: Patient is not hypotensive. His INR today is 3.2. Will have him decrease his Coumadin from 6 a day to 5 a day. He will get another INR check in 2 weeks by his primary doctor. He does have what appears to be an internal hemorrhoid. Not anemic. No indication for admission to the hospital. Will have him continue his Coumadin secondary to his underlying issues. He was given return precautions and follow-up instructions. He expres sed understanding agreement. Discharge Plan Departure Patient Disposition: Home Clinical Impression: Rectal bleeding, Internal hemorrhoid Instructions: DI for Hemorrhoids, DI for Rectal Bleeding Activity Restrictions/Additional Instructions: Will have you continue your Coumadin however decrease it to 5 mg a day. Have your INR checked again in 2 weeks. Recommend you contact the [facility] at the number provided below for a follow-up. I would not be surprised if you continue to have some rectal bleeding over the next couple days. Return to the emergency department for any new or worsening symptoms. Prescriptions: No Action aspirin [Aspir-81] 81 mg Tablet,Delayed Release (Dr/Ec) 81 mg PO BEDTIME Qty: 0 RF: 0 allopurinol 100 MG tablet 100 mg PO DAILY Qty: 0 RF: 0 vitamin B complex [B Complex-Vitamin B12] 1 EACH tablet 1 tab PO DAILY Qty: 0 RF: 0 [VITAMIN C W/ALONA HIP] 1,000 mg PO DAILY Qty: 0 RF: 0 cholecalciferol (vitamin D3) [Vitamin D3] 1,000 unit Capsule 5,000 unit PO DAILY Qty: 0 RF: 0 coenzyme Q10 [Co Q-10] 100 MG capsule 100 mg PO DAILY Qty: 0 RF: 0 rosuvastatin [Crestor] 5 MG tablet 5 mg PO BEDTIME Qty: 0 RF: 0 citalopram 10 mg Tablet 20 mg DAILY RF: 0 lisinopril 10 mg Tablet 10 mg PO BID RF: 0 bicalutamide [Casodex] 50 MG tablet 50 mg PO DAILY Qty: 90 RF: 3 amlodipine 5 mg tablet 5 mg DAILY RF: 0 alprazolam 0.25 mg Tablet 0.25 mg PO Q OTHER DAY RF: 0 terazosin 1 MG capsule 1 mg PO BID RF: 0 Lupron Depot See Rx Instructions .ROUTE .COMPLEX RF: 0 ascorbic acid (vitamin C) 250 mg PO DAILY RF: 0 glipizide 10 mg tablet 10 mg PO QAM RF: 0 triamcinolone acetonide 0.1 % cream 1 applic Topical DIRECTED RF: 0 hydrocortisone 2.5 % cream 1 applic Topical BID-TID RF: 0 warfarin 1 mg tablet 5 mg PO DAILY RF: 0 Levemir U-100 Insulin 100 unit/mL solution 20 units subcut QAM RF: 0 Calcium 600 + D(3) 600-125 mg-unit Tablet 1 tab PO BID RF: 0 hqigt-caerx-8-kjz-qmw-wlznun [MegaKrill] 374-87-15-50 mg Capsule 1 tab PO DAILY RF: 0 Referrals: Radha Loza MD [Physician] - Emmett Escalera MD [Primary Care Provider] -
[2021-07-26 09:29] LABS: Add Manual Diff / Slide Review NO; Basophils Absolute Auto 0 /uL (0-100); Basophils Percent Auto 0.7 % (0-2); Eosinophils Absolute Auto 200 /uL (0-450); Eosinophils Percent Auto 2.9 % (2-4); Hematocrit 36.9 % (41-53); Hemoglobin 12.2 g/dL (13.5-17.5); INR 3.2 (0.9-1.3); Lymphocytes Absolute Auto 900 /uL (1100-4500); Lymphocytes Percent Auto 13.9 % (25-40); Mean Corpuscular HGB Conc 33.2 % (30-36); Mean Corpuscular Hemoglobin 32.7 PG (26-34); Mean Corpuscular Volume 98.5 fL (80-100); Monocytes Absolute Auto 500 /uL (0-900); Monocytes Percent Auto 7.6 % (3-14); Neutrophils Absolute Auto 4800 /uL (1500-7000); Neutrophils Percent Auto 74.9 % (50-75); Platelet Count 135 X10^3/uL (150-400); Prothrombin Time 37.1 SECONDS (10.1-12.7); Red Blood Cell Count 3.75 X10^6/uL (4.5-5.9); Red Cell Distribution Width 15.3 % (11.6-14.8); White Blood Cell Count 6.5 X10^3/uL (4.5-11.0)
[2021-07-26 09:33] LABS: Alanine Aminotransferase 21 IU/L (<50); Albumin 4.6 g/dL (3.5-5.0); Albumin Globulin Ratio 1.5 (1.0-2.8); Alkaline Phosphatase 88 U/L (38-126); Aspartate Aminotransferase 26 IU/L (17-59); BUN Creatinine Ratio 7.8 (6-22); Bilirubin Total 0.6 mg/dL (0.2-1.3); Blood Urea Nitrogen 37 mg/dL (9-20); Carbon Dioxide 28 mmol/L (22-32); Chloride 99 mmol/L (98-107); Estimated Glomerular Filt Rate 11.8 mL/min (>60); Globulin 3.1 g/dL (1.7-4.1); Glucose 93 mg/dL (80-110); HEMOLYSIS < 15 (0-50); Potassium 4.4 mmol/L (3.4-5.1); Sodium 138 mmol/L (137-145); Total Protein 7.7 g/dL (6.3-8.2)
== END 2021-07-26 10:49 | disposition home or self-care (01) ==
PROVIDERS: Emergency Provider Emergency Medicine; PCP Family Medicine
DX: K64.8 Other hemorrhoids (principal); K62.5 Hemorrhage of anus and rectum
CPT/HCPCS: 36415; 80053; 85025; 85610; 86850; 86900; 86901; 99283

== ENCOUNTER → 2021-08-04 13:55 | Outpatient (ROUT) | payer MEDICARE, OTHER, SELFPAY ==
[2020-11-11 11:16] VITALS: BMI 31.0
[2021-08-04 14:08] LABS: INR 3.2 (0.9-1.3); Prothrombin Time 37.1 SECONDS (10.1-12.7)
== END ==
PROVIDERS: PCP Family Medicine; Visit Provider Family Medicine
DX: Z79.01 Long term (current) use of anticoagulants (principal)
CPT/HCPCS: 85610

== ENCOUNTER → 2021-08-09 10:55 | Outpatient (CLI) | payer MEDICARE, OTHER, SELFPAY ==
[2020-11-11 11:16] VITALS: BMI 31.0
[2021-08-09 12:19] LABS: Bilirubin Urine UA NEGATIVE (NEGATIVE); Color Urine UA YELLOW; Glucose Urine UA NEGATIVE (Negative); Ketones Urine UA NEGATIVE (NEGATIVE); Leukocyte Esterase Urine UA 3+ (NEGATIVE); Nitrite Urine UA NEGATIVE (Negative); Occult Blood Urine UA 3+ (Negative); Protein Urine UA 2+ (Negative); Urobilinogen Urine UA 0.2 E.U./dL (0.2); pH Urine UA 7.5 (4.5-8.0)
[2021-08-09 12:26] LABS: Appearance Urine UA CLOUDY
[2021-08-09 12:27] LABS: Bacteria Urine None Seen; RBC Urine 10-30/HPF (0-5/HPF); WBC Urine 10-30/HPF (0-5/HPF)
[2021-08-09 12:28] LABS: Culture Indicated Urine Specimen Cultured
== END ==
PROVIDERS: PCP Family Medicine; Referring Provider Internal Medicine Nephrology; Visit Provider Internal Medicine Nephrology
DX: R30.0 Dysuria (principal)
CPT/HCPCS: 81001; 87077; 87086; 87186

== ENCOUNTER → 2021-09-12 14:15 | Outpatient (ROUT) | payer MEDICARE, OTHER, SELFPAY ==
[2020-11-11 11:16] VITALS: BMI 31.0
[2021-09-12 14:30] LABS: Prothrombin Time 23.1 SECONDS (10.1-12.7)
== END ==
PROVIDERS: PCP Family Medicine; Visit Provider Family Medicine
DX: Z79.01 Long term (current) use of anticoagulants (principal)
CPT/HCPCS: 85610

== ENCOUNTER → 2021-11-14 16:03 | Outpatient (ROUT) | payer MEDICARE, OTHER, SELFPAY ==
[2020-11-11 11:16] VITALS: BMI 31.0
[2021-11-14 16:15] LABS: INR 2.3 (0.9-1.3)
== END ==
PROVIDERS: PCP Family Medicine; Visit Provider Family Medicine
DX: I48.91 Unspecified atrial fibrillation (principal); Z79.01 Long term (current) use of anticoagulants
CPT/HCPCS: 85610

== ENCOUNTER → 2021-12-21 10:09 | Outpatient (CLI) | payer MEDICARE, OTHER, SELFPAY ==
[2020-11-11 11:16] VITALS: BMI 31.0
--- NOTE | 2021-12-21 10:12 | DI.RAD.S_ITS ---
PROCEDURE: XR CHEST 2V INDICATIONS: COUGH TECHNIQUE: 2 views of the chest were acquired. COMPARISON: [facility], CR, XR CHEST 2 VIEWS, 02/11/2019, 6:46. FINDINGS: Surgical changes and devices: pvc monitor. Lungs and pleura: Mild central bronchial wall thickening. Prominence of the central pulmonary vasculature. Mild increased interstitial prominence. No pleural effusions or pneumothorax. Mediastinum: Mediastinal contours are normal. Heart size is normal. Bones and chest wall: No suspicious bony abnormalities. Soft tissues appear unremarkable. IMPRESSION: 1. Mild central pulmonary vascular and bilateral lung interstitial prominence concerning for CHF. Please correlate with clinical and laboratory data. 2. Central bronchial wall thickening which could be due to pulmonary edema or bronchitis. Dictated by: Priscilla Constantino MD, PhD on 12/21/2021 at 11:31 Approved by: Priscilla Constantino MD, PhD on 12/21/2021 at 11:33
== END ==
PROVIDERS: PCP Family Medicine; Referring Provider Internal Medicine Nephrology; Visit Provider Internal Medicine Nephrology
DX: R05.9 Cough, unspecified (principal)
CPT/HCPCS: 71046

== ENCOUNTER 2022-03-14 14:38 | Emergency (ER) | payer MEDICARE, OTHER, SELFPAY ==
[2022-03-08 14:55] VITALS: BMI 31.0
[2022-03-14] VITALS (19 sets, daily range): BP systolic 139–180; BP diastolic 66–96; PULSE 68–95; RESP 24; TEMP 38.1; O2SAT 85–100; BMI 31.0
--- NOTE | 2022-03-14 15:21 | DI.RAD.S_ITS ---
PROCEDURE: XR CHEST 2V INDICATIONS: shortness of breath TECHNIQUE: 2 views of the chest were acquired. COMPARISON: [facility], CR, XR CHEST 2 VIEWS, 02/11/2019, 6:46. FINDINGS: Surgical changes and devices: Lead-less cardiac pacer. Lungs and pleura: There is mild cephalization of pulmonary vasculature. No pleural effusions or pneumothorax. Mediastinum: Mediastinal contours are normal. Heart is enlarged. Bones and chest wall: No suspicious bony abnormalities. Soft tissues appear unremarkable. IMPRESSION: Cardiomegaly with mild cephalization of pulmonary vasculature concerning for CHF. Dictated by: Priscilla Constantino MD, PhD on 03/14/2022 at 16:48 Approved by: Priscilla Constantino MD, PhD on 03/14/2022 at 16:49
[2022-03-14 15:36] LABS: COVID19 -Nasal RAPID POSITIVE (Negative)
[2022-03-14 15:52] LABS: Add Manual Diff / Slide Review NO; Basophils Absolute Auto 0 /uL (0-100); Basophils Percent Auto 0.4 % (0-2); Eosinophils Absolute Auto 200 /uL (0-450); Eosinophils Percent Auto 3.6 % (2-4); Hematocrit 29.6 % (41-53); Lymphocytes Absolute Auto 300 /uL (1100-4500); Lymphocytes Percent Auto 5.4 % (25-40); Mean Corpuscular HGB Conc 33.7 % (30-36); Mean Corpuscular Hemoglobin 30.7 PG (26-34); Mean Corpuscular Volume 91.2 fL (80-100); Monocytes Absolute Auto 500 /uL (0-900); Monocytes Percent Auto 8.1 % (3-14); Neutrophils Absolute Auto 4700 /uL (1500-7000); Neutrophils Percent Auto 82.5 % (50-75); Platelet Count 164 X10^3/uL (150-400); Red Blood Cell Count 3.24 X10^6/uL (4.5-5.9); White Blood Cell Count 5.7 X10^3/uL (4.5-11.0)
[2022-03-14 15:54] LABS: INR 2.3 (0.9-1.3); Prothrombin Time 26.5 SECONDS (10.1-12.7)
[2022-03-14 15:58] LABS: Alanine Aminotransferase 12 IU/L (<50); Albumin 4.3 g/dL (3.5-5.0); Albumin Globulin Ratio 1.3 (1.0-2.8); Alkaline Phosphatase 86 U/L (38-126); Aspartate Aminotransferase 19 IU/L (17-59); BUN Creatinine Ratio 4.7 (6-22); Bilirubin Total 0.7 mg/dL (0.2-1.3); Blood Urea Nitrogen 15 mg/dL (9-20); Calcium 8.2 mg/dL (8.4-10.2); Carbon Dioxide 28 mmol/L (22-32); Chloride 97 mmol/L (98-107); Estimated Glomerular Filt Rate 18 mL/min (>60); Globulin 3.4 g/dL (1.7-4.1); Glucose 129 mg/dL (80-110); HEMOLYSIS < 15 (0-50); Potassium 3.4 mmol/L (3.4-5.1); Sodium 135 mmol/L (137-145); Total Protein 7.7 g/dL (6.3-8.2)
[2022-03-14 16:22] LABS: NT-proBNP (BNP-Adult 18+) 53400 pg/mL (<450)
--- NOTE | 2022-03-14 17:06 | ED_ITS ---
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 He has had subjective low-grade fever and increasing fatigue and weakness which has progressed to the point of requiring assistance to even get out of the chair at home. He was hoping that after going to d ialysis today he would feel much better however, if anything he felt worse. He states that normally after a full run of dialysis he is able to go home and walking. And today he could not even get out the chair. He has had nausea but denies any vomiting, he has had poor appetite and minimal oral intake. He becomes significantly short of breath with minimal exertion and will eventually stabilize to a pulse ox in the mid 90s. He is fully vaccinated against COVID and denies any obvious exposures Related Data Home Medications Medication Instructions Recorded Confirmed aspirin 81 mg tablet,delayed 81 mg PO BEDTIME #0 12/11/10 03/14/22 release (Aspir-) allopurinol 100 mg tablet 100 mg PO PRN PRN #0 07/10/17 03/14/22 vitamin B complex (B 1 tab PO DAILY #0 07/10/17 03/14/22 Complex-Vitamin B12) coenzyme Q10 100 mg capsule (Co 100 mg PO DAILY #0 08/20/17 03/14/22 Q-10) rosuvastatin 5 mg tablet (Crestor) 5 mg PO BEDTIME #0 01/08/18 03/14/22 terazosin 1 mg capsule 1 mg PO BID 08/31/18 03/14/22 calcium carbonate-vitamin D3 600 1 tab PO BID 11/11/18 03/14/22 mg-125 unit tablet (Calcium) glipizide 10 mg tablet 10 mg PO QAM 11/11/18 03/14/22 insulin detemir U-100 100 unit/mL [address] [facility] 11/11/18 03/14/22 subcutaneous solution warfarin 1 mg tablet 4 mg PO DAILY 11/11/18 03/14/22 amlodipine 5 mg tablet 5 mg DAILY 10/28/20 03/14/22 alprazolam 0.25 mg tablet 0.25 mg PO Q OTHER DAY 07/07/21 03/14/22 albuterol sulfate 90 mcg/actuation 90 mcg INHALATION PRN 03/14/22 aerosol inhaler carvedilol 6.25 mg tablet 6.25 mg PO BID 03/14/22 03/14/22 guaifenesin 100 mg/5 mL oral mg 03/14/22 liquid (Siltussin SA) pantoprazole 40 mg tablet,delayed 40 mg PO 03/14/22 release Previous Rx's Medication Instructions Recorded bicalutamide 50 mg tablet (Casodex) 50 mg PO DAILY #90 tab 10/06/21 Allergies Allergy/AdvReac Type Severity Reaction Status Date / Time codeine Allergy Unknown NAUSEA Verified 03/14/22 15:21 Iodine and Iodide Containing Allergy Unknown Verified 03/14/22 15:21 Produc [IODINE AND IODIDE CONTAINING PRODUC] iohexol Allergy Unknown Verified 03/14/22 15:21 Review of Systems <Milton Mix DO - Last Filed: 03/19/22 04:07> Review of Systems Narrative: GENERAL: See HPI HEENT: Denies sinus pain, ear pain, sore throat, difficulty swallowing, dizziness. RESPIRATORY: See HPI CARDIOVASCULAR: See HPI GASTROINTESTINAL: Denies nausea, vomiting, abdominal pain, diarrhea, constipation, melena. : See HPI MUSCULOSKELETAL: denies weakness, joint pain, or bony pain SKIN: Denies rash, skin lesions, or other NEUROLOGIC: Denies weakness, headache, numbness, change in speech, confusion, seizures, incoordination. PSYCHIATRIC: No concerning psychosocial issues. 12 point review of systems is negative except for those stated above Patient History <Milton Mix DO - Last Filed: 03/19/22 04:07> Medical History Anticoagulation adequate with anticoagulant therapy Atrial fibrillation 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, severely decreased glomerular fi ltration rate (GFR) between 15-29 mL/min/1.73 square meter and albuminuria creatinine ratio less than 30 mg/g Complex sleep apnea syndrome Diabetes Edema leg Excessive daytime sleepiness Gout Hyperlipidemia Hypertension Obesity Obstructive sleep apnea of adult Prostate cancer Surgical History S/P ureteral stent placement Social History household members: spouse Smoking Status: Never smoker alcohol intake: never substance use type: does not use Smoking Status: Never smoker alcohol intake frequency: 0-2 drinks per day Substance Use Type: does not use Exam <Milton Mix DO - Last Filed: 03/19/22 04:07> Narrative Exam Narrative: GENERAL: [81] year old patient appears stated age. Well-developed patient, in mild distress. Minimal exertion results in increased work of breathing and hy poxemia that eventually resolves with time HEAD: Atraumatic. Normocephalic. EYES: Pupils equal round and reactive. Extraocular motions intact. No scleral icterus. No injection or drainage. ENT: Nose without bleeding, purulent drainage. Throat without erythema, tonsillar hypertrophy or exudate. Airway patent. NECK: Trachea midline. Non tender CARDIOVASCULAR: Regular rate and rhythm without murmurs, gallops, or rubs. RESPIRATORY: No significant work of breathing at rest, however faint crackles noted in bilateral bases. As stated above, minimal exertion results in increased shortness of breath GASTROINTESTINAL: Abdomen soft, non-tender, nondistended. EXTREMITIES: No edema or joint tenderness. BACK: Nontender without deformity or crepitance. No flank tenderness. NEURO: AOx3. SKIN: No rash or erythema of visible areas Initial Vital Signs Initial Vital Signs: Vital Signs Temperature 100.6 F H 03/14/22 15:19 Pulse Rate 95 H 03/14/22 15:19 Respiratory Rate 24 03/14/22 15:19 Blood Pressure 139/96 H 03/14/22 15:19 Pulse Oximetry 94 03/14/22 15:19 <Essie Reeves MD - Last Filed: 03/15/22 01:49> Initial Vital Signs Initial Vital Signs: Vital Signs Temperature 100.6 F H 03/14/22 15:19 Pulse Rate 95 H 03/14/22 15:19 Respiratory Rate 24 03/14/22 15:19 Blood Pressure 139/96 H 03/14/22 15:19 Pulse Oximetry 94 03/14/22 15:19 Course <Milton Mix DO - Last Filed: 03/19/22 04:07> Course Course Narrative: Patient requires significant assistance to get out of the wheelchair, this is a significant departure from his baseline Orders Ordered: ED Orders 03/14/22 15:18 COVID19 -Nasal RAPID/Pre-Proc Stat 03/14/22 15:21 XR chest 2V Stat Measure peak expiratory flow ONCE RT Consult Eval and Treat Now Vital Signs Vital signs: Vital Signs - 8 hr 03/14/22 18:00 03/14/22 18:01 03/14/22 18:30 Pulse Rate 79 80 80 Respiratory Rate Blood Pressure 141/66 H 161/74 H Pulse Oximetry 93 93 94 03/14/22 19:00 03/14/22 19:30 03/14/22 19:31 Pulse Rate 73 83 75 Respiratory Rate Blood Pressure 161/82 H 164/71 H Pulse Oximetry 95 94 94 03/14/22 21:25 03/14/22 21:30 03/14/22 21:33 Pulse Rate 69 71 73 Respiratory Rate Blood Pressure 161/71 H Pulse Oximetry 88 L 85 L 91 03/14/22 22:00 03/14/22 22:30 03/14/22 22:31 Pulse Rate 68 87 86 Respiratory Rate Blood Pressure 162/74 H 152/76 H 152/76 H Pulse Oximetry 94 99 99 03/14/22 23:00 03/14/22 23:30 03/15/22 00:00 Pulse Rate 75 80 76 Respiratory Rate 24 Blood Pressure Pulse Oximetry 100 99 97 <Essie Reeves MD - Last Filed: 03/15/22 01:49> Orders Ordered: ED Orders 03/14/22 15:18 COVID19 -Nasal RAPID/Pre-Proc Stat 03/14/22 15:21 XR chest 2V Stat Measure peak expiratory flow ONCE RT Consult Eval and Treat Now Vital Signs Vital signs: Vital Signs - 8 hr 03/14/22 18:00 03/14/22 18:01 03/14/22 18:30 Pulse Rate 79 80 80 Respiratory Rate Blood Pressure 141/66 H 161/74 H Pulse Oximetry 93 93 94 03/14/22 19:00 03/14/22 19:30 05/31/22 19:31 Pulse Rate 73 83 75 Respiratory Rate Blood Pressure 161/82 H 164/71 H Pulse Oximetry 95 94 94 03/14/22 21:25 03/14/22 21:30 03/14/22 21:33 Pulse Rate 69 71 73 Respiratory Rate Blood Pressure 161/71 H Pulse Oximetry 88 L 85 L 91 03/14/22 22:00 03/14/22 22:30 03/14/22 22:31 Pulse Rate 68 87 86 Respiratory Rate Blood Pressure 162/74 H 152/76 H 152/76 H Pulse Oximetry 94 99 99 03/14/22 23:00 03/14/22 23:30 03/15/22 00:00 Pulse Rate 75 80 76 Respiratory Rate 24 Blood Pressure Pulse Oximetry 100 99 97 MDM - SOB/Dyspnea <Milton Mix DO - Last Filed: 03/19/22 04:07> Lab Data Result diagrams: 03/14/22 13:38 03/14/22 13:38 Labs: Lab Results 03/14/22 03/14/22 03/14/22 Range/Units 13:38 13:38 13:38 WBC 5.7 (4.5-11.0) X10^3/uL RBC 3.24 L (4.5-5.9) X10^6/uL Hgb 10.0 L (13.5-17.5) g/dL Hct 29.6 L (41-53) % MCV 91.2 (80-100) fL MCH 30.7 (26-34) PG MCHC 33.7 (30-36) % RDW 17.0 H (11.6-14.8) % Plt Count 164 (150-400) X10^3/uL Neut % (Auto) 82.5 H (50-75) % Lymph % (Auto) 5.4 L (25-40) % [place] % (Auto) 8.1 (3-14) % Eos % (Auto) 3.6 (2-4) % Baso % (Auto) 0.4 (0-2) % Neut # (Auto) 4700 (7893-0271) /uL Lymph # (Auto) 300 L (5079-8861) /uL [place] # (Auto) 500 (0-900) /uL Eos # (Auto) 200 (0-450) /uL Baso # (Auto) 0 (0-100) /uL PT 26.5 H (10.1-12.7) SECONDS INR 2.3 H (0.9-1.3) Sodium 135 L (137-145) mmol/L Potassium 3.4 (3.4-5.1) mmol/L Chloride 97 L (98-107) mmol/L Carbon Dioxide 28 (22-32) mmol/L BUN 15 (9-20) mg/dL Creatinine 3.21 H (0.66-1.25) mg/dL Estimated GFR 18 L (>60) mL/min BUN/Creatinine Ratio 4.7 L (6-22) Glucose 129 H (80-110) mg/dL Lactate (0.7-2.1) mmol/L Calcium 8.2 L (8.4-10.2) mg/dL Total Bilirubin 0.7 (0.2-1.3) mg/dL AST 19 (17-59) IU/L ALT 12 (<50) IU/L Alkaline Phosphatase 86 (38-126) U/L NT-Pro-B Natriuret Pep 76867 H (<450) pg/mL Total Protein 7.7 (6.3-8.2) g/dL Albumin 4.3 (3.5-5.0) g/dL Globulin 3.4 (1.7-4.1) g/dL Albumin/Globulin Ratio 1.3 (1.0-2.8) SARS-CoV-2 (PCR) (Negative) 03/14/22 03/14/22 Range/Units 13:38 15:18 WBC (4.5-11.0) X10^3/uL RBC (4.5-5.9) X10^6/uL Hgb (13.5-17.5) g/dL Hct (41-53) % MCV (80-100) fL MCH (26-34) PG MCHC (30-36) % RDW (11.6-14.8) % Plt Count (150-400) X10^3/uL Neut % (Auto) (50-75) % Lymph % (Auto) (25-40) % [place] % (Auto) (3-14) % Eos % (Auto) (2-4) % Baso % (Auto) (0-2) % Neut # (Auto) (4559-8996) /uL Lymph # (Auto) (5651-0386) /uL [place] # (Auto) (0-900) /uL Eos # (Auto) (0-450) /uL Baso # (Auto) (0-100) /uL PT (10.1-12.7) SECONDS INR (0.9-1.3) Sodium (137-145) mmol/L Potassium (3.4-5.1) mmol/L Chloride (98-107) mmol/L Carbon Dioxide (22-32) mmol/L BUN (9-20) mg/dL Creatinine (0.66-1.25) mg/dL Estimated GFR (>60) mL/min BUN/Creatinine Ratio (6-22) Glucose (80-110) mg/dL Lactate 1.0 (0.7-2.1) mmol/L Calcium (8.4-10.2) mg/dL Total Bilirubin (0.2-1.3) mg/dL AST (17-59) IU/L ALT (<50) IU/L Alkaline Phosphatase (38-126) U/L NT-Pro-B Natriuret Pep (<450) pg/mL Total Protein (6.3-8.2) g/dL Albumin (3.5-5.0) g/dL Globulin (1.7-4.1) g/dL Albumin/Globulin Ratio (1.0-2.8) SARS-CoV-2 (PCR) Positive H (Negative) Point of Care Testing Glucose POC 107 Imaging Data Chest x-ray: Radiologist's Impression: [address] [address] XRay Report Signed Patient: Noel Allen MR#: [id number] : 1940 Acct:[id number] Age/Sex: 81 / M Date of Service: 03/14/22 Loc: ED Accession Number: [id number] ?? Procedure: XR chest 2V Ordering Provider: Milton Mix D.O. PROCEDURE:? XR CHEST 2V ? INDICATIONS:? shortness of breath ? TECHNIQUE:? 2 views of the chest were acquired.? ? COMPARISON:? Merged With [facility], CR, XR CHEST 2 VIEWS, 02/11/2019, 6:46. ? FINDINGS:? ? Surgical changes and devices:? Lead-less cardiac pacer. ? Lungs and pleura:? There is mild cephalization of pulmonary vasculature.? No pleural effusions or pneumothorax.? ? Mediastinum:? Mediastinal contours are normal.? Heart is enlarged. ? Bones and chest wall:? No suspicious bony abnormalities.? Soft tissues appear unremarkable.? ? IMPRESSION:? Cardiomegaly with mild cephalization of pulmonary vasculature concerning for CHF. ? ? Dictated by: Priscilla Constantino MD, PhD on 03/14/2022 at 16:48 ? ? Approved by: Priscilla Constantino MD, PhD on 03/14/2022 at 16:49 ? MDM Narrative Medical decision making narrative: Patient with multiple comorbidities his had gradually increasing symptoms over what sounds like about 1 week. He is found to be COVID positive other lab evaluation is largely at his baseline. He is not in any significant respiratory distress or requiring supplemental oxygen while at rest but is sufficiently de conditioned that he is remarkably we can requiring 2 person assistance to even get out of wheelchair, furthermore minimal exertion creates rather impressive shortness of breath and hypoxemia that does resolve over a few minutes. He is unable to go home as this is a significant change from his baseline, as he does not require supplemental oxygen typical COVID therapies such as steroids, remdesivir and others are not employed. Patient does require hospitalization for stabilization of his condition, however secondary to our institutional policy against the admission of dialysis patients he will require transfer. as of 1899 - calls placed to [facility] (no beds), [facility] (boarding 13, no beds) , [facility] (no beds), [facility] (tentative acceptance by Dr. Collins, but no beds) 1944 - care signed out to Dr. Reeves for final disposition <Essie Reeves MD - Last Filed: 03/15/22 01:49> Lab Data Labs: Lab Results 03/14/22 03/14/22 03/14/22 Range/Units 13:38 13:38 13:38 WBC 5.7 (4.5-11.0) X10^3/uL RBC 3.24 L (4.5-5.9) X10^6/uL Hgb 10.0 L (13.5-17.5) g/dL Hct 29.6 L (41-53) % MCV 91.2 (80-100) fL MCH 30.7 (26-34) PG MCHC 33.7 (30-36) % RDW 17.0 H (11.6-14.8) % Plt Count 164 (150-400) X10^3/uL Neut % (Auto) 82.5 H (50-75) % Lymph % (Auto) 5.4 L (25-40) % [place] % (Auto) 8.1 (3-14) % Eos % (Auto) 3.6 (2-4) % Baso % (Auto) 0.4 (0-2) % Neut # (Auto) 4700 (9147-3133) /uL Lymph # (Auto) 300 L (4765-5439) /uL [place] # (Auto) 500 (0-900) /uL Eos # (Auto) 200 (0-450) /uL Baso # (Auto) 0 (0-100) /uL PT 26.5 H (10.1-12.7) SECONDS INR 2.3 H (0.9-1.3) Sodium 135 L (137-145) mmol/L Potassium 3.4 (3.4-5.1) mmol/L Chloride 97 L (98-107) mmol/L Carbon Dioxide 28 (22-32) mmol/L BUN 15 (9-20) mg/dL Creatinine 3.21 H (0.66-1.25) mg/dL Estimated GFR 18 L (>60) mL/min BUN/Creatinine Ratio 4.7 L (6-22) Glucose 129 H (80-110) mg/dL Lactate (0.7-2.1) mmol/L Calcium 8.2 L (8.4-10.2) mg/dL Total Bilirubin 0.7 (0.2-1.3) mg/dL AST 19 (17-59) IU/L ALT 12 (<50) IU/L Alkaline Phosphatase 86 (38-126) U/L NT-Pro-B Natriuret Pep 28592 H (<450) pg/mL Total Protein 7.7 (6.3-8.2) g/dL Albumin 4.3 (3.5-5.0) g/dL Globulin 3.4 (1.7-4.1) g/dL Albumin/Globulin Ratio 1.3 (1.0-2.8) SARS-CoV-2 (PCR) (Negative) 03/14/22 03/14/22 Range/Units 13:38 15:18 WBC (4.5-11.0) X10^3/uL RBC (4.5-5.9) X10^6/uL Hgb (13.5-17.5) g/dL Hct (41-53) % MCV (80-100) fL MCH (26-34) PG MCHC (30-36) % RDW (11.6-14.8) % Plt Count (150-400) X10^3/uL Neut % (Auto) (50-75) % Lymph % (Auto) (25-40) % [place] % (Auto) (3-14) % Eos % (Auto) (2-4) % Baso % (Auto) (0-2) % Neut # (Auto) (0590-7331) /uL Lymph # (Auto) (4731-6236) /uL [place] # (Auto) (0-900) /uL Eos # (Auto) (0-450) /uL Baso # (Auto) (0-100) /uL PT (10.1-12.7) SECONDS INR (0.9-1.3) Sodium (137-145) mmol/L Potassium (3.4-5.1) mmol/L Chloride (98-107) mmol/L Carbon Dioxide (22-32) mmol/L BUN (9-20) mg/dL Creatinine (0.66-1.25) mg/dL Estimated GFR (>60) mL/min BUN/Creatinine Ratio (6-22) Glucose (80-110) mg/dL Lactate 1.0 (0.7-2.1) mmol/L Calcium (8.4-10.2) mg/dL Total Bilirubin (0.2-1.3) mg/dL AST (17-59) IU/L ALT (<50) IU/L Alkaline Phosphatase (38-126) U/L NT-Pro-B Natriuret Pep (<450) pg/mL Total Protein (6.3-8.2) g/dL Albumin (3.5-5.0) g/dL Globulin (1.7-4.1) g/dL Albumin/Globulin Ratio (1.0-2.8) SARS-CoV-2 (PCR) Positive H (Negative) Point of Care Testing Glucose POC 107 MDM Narrative Medical decision making narrative: Patient with multiple comorbidities his had gradually increasing symptoms over what sounds like about 1 week. He is found to be COVID positive other lab evaluation is largely at his baseline. He is not in any significant respiratory distress or requiring supplemental oxygen while at rest but is sufficiently deconditioned that he is remarkably we can requiring 2 person assistance to even get out of wheelchair, furthermore minimal exertion creates rather impressive shortness of breath and hypoxemia that does resolve over a few minutes. He is unable to go home as this is a significant change from his baseline, as he does not require supplemental oxygen typical COVID therapies such as steroids, remdesivir and others are not employed. Patient does require hospitalization for stabilization of his condition, however secondary to our institutional policy against the admission of dialysis patients he will require transfer. as of 1899 - calls placed to [facility] (no beds), [facility] (no beds), [facility] (tentative acceptance by Dr. Collins, but no beds) 1944 - care signed out to Dr. Reeves for final disposition Patient was eventually transferred to [facility] at 1:00 a.m.. He is in stable condition at time of transfer. Discharge Plan Departure Patient Disposition: [facility] Clinical Impression: Weakness, Dialysis patient, COVID, COVID-19 Prescriptions: No Action aspirin [Aspir-81] 81 mg Tablet,Delayed Release (Dr/Ec) 81 mg PO BEDTIME Qty: 0 0RF allopurinol 100 MG tablet 100 mg PO PRN PRN (Reason: Gout) Qty: 0 0RF Label Comments: not taken in a while vitamin B complex [B Complex-Vitamin B12] 1 EACH tablet 1 tab PO DAILY Qty: 0 0RF coenzyme Q10 [Co Q-10] 100 MG capsule 100 mg PO DAILY Qty: 0 0RF rosuvastatin [Crestor] 5 MG tablet 5 mg PO BEDTIME Qty: 0 0RF amlodipine 5 mg tablet 5 mg DAILY 0RF alprazolam 0.25 mg Tablet 0.25 mg PO Q OTHER DAY 0RF Label Comments: taken only at dialysis bicalutamide [Casodex] 50 MG tablet 50 mg PO DAILY Qty: 90 3RF terazosin 1 MG capsule 1 mg PO BID 0RF Label Comments: takes 1 mg in am, 2 mg in PM glipizide 10 mg tablet 10 mg PO QAM 0RF Label Comments: TK 1 T PO BID warfarin 1 mg tablet 4 mg PO DAILY 0RF Rx Instructions: Take 6mg on Mon, Wed, Fri and 5mg on Sun, , , Saturdays Levemir U-100 Insulin 100 unit/mL solution 20 units subcut QAM 0RF Label Comments: INJECT 20 UNITS QAM Calcium 600 + D(3) 600-125 mg-unit Tablet 1 tab PO BID 0RF carvedilol 6.25 mg tablet 6.25 mg PO BID 0RF Label Comments: TAKE 1 TABLET BY MOUTH TWICE DAILY guaifenesin [Siltussin SA] 100 mg/5 mL liquid 0RF Label Comments: take 5ml Q12hrs for cough pantoprazole 40 mg tablet,delayed release (DR/EC) 40 mg PO 0RF albuterol sulfate 90 mcg/actuation HFA aerosol inhaler 90 mcg INHALATION PRN (Reason: Shortness Of Breath Or Wheezing) 0RF Label Comments: INHALE 1 TO 2 PUFFS INTO THE LUNGS EVERY 4 HOURS WHILE AWAKE Referrals: Emmett Escalera MD [Primary Care Provider] -
--- NOTE | 2022-03-14 18:51 | PC.NURSE ---
Provider Dr. Mix asked me to try and get this patient transferred. [facility] and [facility] patient on their transfer list. I called [facility] at 1814 and placed this patient on their transfer list. I called [facility] at 1822 and placed this patient on their transfer list. I called [facility] at 1834 and placed this patient on their transfer list I called [facility] at 1839 and they said their transfer list was full and to call back at 2300. This was passed on to the overnight LITIGATION CLAIM REPRESENTATIVE. I called [facility] at 1846 and placed this patient on their list. I called [facility] and placed this patient on their list at 1855
[2022-03-15] VITALS: PULSE 76; RESP 24; O2SAT 97
== END 2022-03-15 00:47 | disposition short-term general hospital (02) ==
PROVIDERS: Emergency Medicine; Emergency Provider Emergency Medicine; PCP Family Medicine
DX: U07.1 COVID-19 (principal); R53.1 Weakness; N18.6 End stage renal disease; Z99.2 Dependence on renal dialysis
CPT/HCPCS: 36415; 71046; 80053; 82962; 83605; 83880; 85025; 85610; 87635; 99284; C9803

== ENCOUNTER 2022-03-21 13:48 | Emergency (ER) | payer MEDICARE, OTHER, SELFPAY ==
[2022-03-08 14:55] VITALS: BMI 31.0
[2022-03-21] VITALS (25 sets, daily range): BP systolic 135–183; BP diastolic 63–77; PULSE 50–68; RESP 19–31; TEMP 35.9; O2SAT 91–100
--- NOTE | 2022-03-21 14:03 | DI.RAD.S_ITS ---
PROCEDURE: XR CHEST 1V INDICATIONS: suspected sepsis TECHNIQUE: One view of the chest was acquired. COMPARISON: [facility], CR, XR CHEST 2V, 03/14/2022, 15:48. [facility], CR, XR CHEST 2V, 12/21/2021, 10:02. [facility], CR, XR CHEST 1V, 11/30/2018, 4:18. FINDINGS: Surgical changes and devices: None. Lungs and pleura: Mild bilateral interstitial prominence. No pleural effusions or pneumothorax. Mediastinum: Mediastinal contours appear normal. Heart size is moderately increased. Bones and chest wall: No suspicious bony lesions. Overlying soft tissues appear unremarkable. Moderate right shoulder joint degeneration. IMPRESSION: 1. Moderate cardiomegaly and mild bilateral interstitial prominence suspicious for mild pulmonary edema. Dictated by: Jill Brandt M.D. on 03/21/2022 at 15:41 Approved by: Jill Brandt M.D. on 03/21/2022 at 15:42
--- NOTE | 2022-03-21 14:23 | ED_ITS ---
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 Patient makes little to no urine, type 2 diabetes on insulin, AFib and recent COVID infection. Patient was hospitalized at [facility] he states he was on oxygen, was discharged home off oxygen never was intubated and is unsure if he received antivirals. Since then he has felt ?icky? and describes himself as feeling ?icky or just sick today.Patient has been afebrile he denies headache, no chest pain or shortness of breath. He had some nausea and had reported vomiting after dialysis today. He was able to complete his dialysis today. Patient has had bowel movements, no diarrhea, no black or bloody stools. He makes minimal to no urine. No dysuria with a small amount he makes. Patient denies new or worsening swelling of his extremities. He does have a history of a leg, he has had cardiac stents, he has a pacemaker but no cardiac ablations in the past. Patient's states his mentation is at his normal baseline. Related Data Home Medications Medication Instructions Recorded Confirmed aspirin 81 mg tablet,delayed 81 mg PO BEDTIME ##0 12/11/10 03/14/22 release (Aspir-) allopurinol 100 mg tablet 100 mg PO PRN PRN Gout ##0 07/10/17 03/14/22 vitamin B complex (B 1 tab PO DAILY ##0 07/10/17 03/14/22 Complex-Vitamin B12) coenzyme Q10 100 mg capsule (Co 100 mg PO DAILY ##0 08/20/17 03/14/22 Q-10) rosuvastatin 5 mg tablet (Crestor) 5 mg PO BEDTIME ##0 01/08/18 03/14/22 terazosin 1 mg capsule 1 mg PO BID 08/31/18 03/14/22 calcium carbonate-vitamin D3 600 1 tab PO BID 11/11/18 03/14/22 mg-125 unit tablet (Calcium) glipizide 10 mg tablet 10 mg PO QAM 11/11/18 03/14/22 insulin detemir U-100 100 unit/mL 20 units SUBCUT QAM 11/11/18 03/14/22 subcutaneous solution warfarin 1 mg tablet 4 mg PO DAILY 11/11/18 03/14/22 amlodipine 5 mg tablet 5 mg DAILY 10/28/20 03/14/22 alprazolam 0.25 mg tablet 0.25 mg PO Q OTHER DAY 07/07/21 03/14/22 albuterol sulfate 90 mcg/actuation 90 mcg inhalation PRN Shortness Of 03/14/22 aerosol inhaler Breath Or Wheezing carvedilol 6.25 mg tablet 6.25 mg PO BID 03/14/22 03/14/22 guaifenesin 100 mg/5 mL oral mg 03/14/22 liquid (Siltussin SA) pantoprazole 40 mg tablet,delayed 40 mg PO 03/14/22 release Previous Rx's Medication Instructions Recorded bicalutamide 50 mg tablet (Casodex) 50 mg PO DAILY prostate cancer #90 10/06/21 tabs Allergies Allergy/AdvReac Type Severity Reaction Status Date / Time codeine Allergy Unknown NAUSEA Verified 03/14/22 15:21 Iodine and Iodide Containing Allergy Unknown Verified 03/14/22 15:21 Produc [IODINE AND IODIDE CONTAINING PRODUC] iohexol Allergy Unknown Verified 03/14/22 15:21 Review of Systems <Marta Gabriel DO - Last Filed: 03/25/22 17:04> Review of Systems ROS Unobtainable: All systems reviewed & are unremarkable except as noted in HPI and below Patient History <Marta Gabriel DO - Last Filed: 03/25/22 17:04> Medical History Anticoagulation adequate with anticoagulant therapy Atrial fibrillation 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, severely decreased glomerular filtr ation rate (GFR) between 15-29 mL/min/1.73 square meter and albuminuria creatinine ratio less than 30 mg/g Complex sleep apnea syndrome Diabetes Edema leg Excessive daytime sleepiness Gout Hyperlipidemia Hypertension Obesity Obstructive sleep apnea of adult Prostate cancer Surgical History S/P ureteral stent placement Social History household members: spouse Smoking Status: Never smoker alcohol intake: never substance use type: does not use Smoking Status: Never smoker alcohol intake frequency: 0-2 drinks per day Substance Use Type: does not use Exam <DO Valorie Yancey Last Filed: 03/25/22 17:04> Narrative Exam Narrative: GENERAL: Alert and oriented x three, elderly obese male in mild distress. HEENT: Head normocephalic, atraumatic, EOMI, pupils reactive, face symmetric, moist mucous membranes NECK: Supple, full range of motion CARDIOVASCULAR: Bradycardic but regular rate and rhythm without murmurs, rubs or gallops. No JVD. Mild swelling bilateral lower extremities. RESPIRATORY: Breath sounds equal bilaterally, no wheezes rales or rhonchi. ABDOMEN: Soft, nontender. Normoactive bowel sounds all 4 quadrants. No guarding or rebound, rigidity, no mass : No CVA tenderness EXTREMITIES: Normal range of motion, no clubbing or edema. Neurovascularly intact NEUROLOGICAL: Cranial nerves II through XII grossly intact. Moving all extremities SKIN: Warm, dry, no petechiae, no rashes or lesions. Initial Vital Signs Initial Vital Signs: Vital Signs Temperature 96.7 F L 03/21/22 13:53 Pulse Rate 60 03/21/22 13:53 Respiratory Rate 22 03/21/22 13:53 Blood Pressure 166/77 H 03/21/22 13:53 Pulse Oximetry 94 03/21/22 13:53 Oxygen Delivery Method 03/21/22 13:53 <Milton Mix DO - Last Filed: 03/22/22 05:05> Initial Vital Signs Initial Vital Signs: Vital Signs Temperature 96.7 F L 03/21/22 13:53 Pulse Rate 60 03/21/22 13:53 Respiratory Rate 22 03/21/22 13:53 Blood Pressure 166/77 H 03/21/22 13:53 Pulse Oximetry 94 03/21/22 13:53 Oxygen Delivery Method 03/21/22 13:53 Course <DO Valorie Yancey Last Filed: 03/25/22 17:04> Orders Ordered: Discontinued Medications Albuterol (Albuterol Hfa Mdi 60 Puff/8 Gm Inhaler) 2 puff INH RTQ4HR PRN PRN Reason: Shortness Of Breath Last Admin: 03/21/22 21:17 Dose: 2 puff Documented By: TIM Amlodipine Besylate (Amlodipine 5 Mg Tablet) 5 mg PO DAILY [facility] Aspirin (Aspirin 81 Mg Chew Tab) 81 mg PO DAILY [facility] Atorvastatin Calcium (Atorvastatin 20 Mg Tablet) 40 mg PO NOW ONE Stop: 03/21/22 21:01 Last Admin: 03/21/22 21:04 Dose: 40 mg Documented By: MLM Bicalutamide (Bicalutamide 50 Mg Tablet) 50 mg PO DAILY [facility] Carvedilol (Carvedilol 3.125 Mg Tablet) 6.25 mg PO BID [facility] Last Admin: 03/21/22 21:04 Dose: 6.25 mg Documented By: MLMelba Glipizide (Glipizide Xl 2.5 Mg Tab) 10 mg PO NOW ONE Stop: 03/21/22 20:09 Last Admin: 03/22/22 05:03 Dose: Not Given Documented By: HUYEN Insulin Glargine (Insulin Glargine 100 Unit/Ml 3ml Pen) 20 unit SUBCUT DAILY [facility] Ondansetron HCl (Ondansetron 4 Mg/2 Ml Inj) 4 mg IV NOW ONE Stop: 03/21/22 15:45 Last Admin: 03/21/22 16:08 Dose: 4 mg Documented By: MLM Pantoprazole Sodium (Pantoprazole Dr 40 Mg Tablet) 40 mg PO 0700 [facility] Terazosin HCl (Terazosin 1 Mg Capsule) 2 mg PO BID [facility] Last Admin: 03/21/22 21:05 Dose: 2 mg Documented By: MLMelba Warfarin Sodium (Warfarin 2 Mg Tablet) 4 mg PO DAILY [facility] Reevaluation(s) Reevaluation #1: Patient feels unwell still but states he just feels icky. He has had occasional drops into the upper 80s in the room. He does not express any chest pain or shortness of breath. Patient and I reviewed his findings today. Consultations Consultation #1: Dr. Justina Wolff at [facility] accepts for transfer. Discussed todays findings. Possibility of PE seemed less likely patient has been therapeutic on warfarin since Jun 2021. Deferred PE study currently. Time: 19:10 Vital Signs Vital signs: Vital Signs - 8 hr 03/21/22 21:00 03/21/22 21:04 03/21/22 21:30 Pulse Rate 62 51 L 51 L Respiratory Rate 20 22 Blood Pressure 145/75 H 145/75 H 175/72 H Pulse Oximetry 99 03/21/22 22:00 03/21/22 22:01 03/21/22 22:30 Pulse Rate 50 L 54 L 51 L Respiratory Rate 21 19 20 Blood Pressure 153/69 H 168/70 H Pulse Oximetry 03/21/22 23:17 03/21/22 23:30 03/22/22 00:00 Pulse Rate 52 L 53 L 53 L Respiratory Rate 21 20 Blood Pressure 155/69 H 135/63 Pulse Oximetry 97 96 95 03/22/22 00:01 03/22/22 00:30 03/22/22 00:31 Pulse Rate 52 L 51 L 50 L Respiratory Rate 20 17 Blood Pressure 141/67 H 144/65 H Pulse Oximetry 95 92 86 L 03/22/22 01:00 03/22/22 01:01 03/22/22 01:30 Pulse Rate 51 L 50 L 50 L Respiratory Rate 18 17 22 Blood Pressure 145/68 H Pulse Oximetry 97 96 95 03/22/22 01:31 03/22/22 02:00 03/22/22 02:01 Pulse Rate 50 L 52 L 51 L Respiratory Rate 17 17 18 Blood Pressure 144/64 H 137/68 Pulse Oximetry 98 96 96 03/22/22 02:30 03/22/22 02:31 03/22/22 03:00 Pulse Rate 53 L 52 L 50 L Respiratory Rate 19 19 19 Blood Pressure 130/61 Pulse Oximetry 97 97 96 03/22/22 03:01 03/22/22 03:30 03/22/22 04:00 Pulse Rate 51 L 56 L 59 L Respiratory Rate 18 19 27 H Blood Pressure 124/59 L Pulse Oximetry 96 96 96 03/22/22 04:01 Pulse Rate 60 Respiratory Rate 22 Blood Pressure 162/68 H Pulse Oximetry 96 <Milton Mix DO - Last Filed: 03/22/22 05:05> Orders Ordered: Discontinued Medications Albuterol (Albuterol Hfa Mdi 60 Puff/8 Gm Inhaler) 2 puff INH RTQ4HR PRN PRN Reason: Shortness Of Breath Last Admin: 03/21/22 21:17 Dose: 2 puff Documented By: TIM Amlodipine Besylate (Amlodipine 5 Mg Tablet) 5 mg PO DAILY [facility] Aspirin (Aspirin 81 Mg Chew Tab) 81 mg PO DAILY [facility] Atorvastatin Calcium (Atorvastatin 20 Mg Tablet) 40 mg PO NOW ONE Stop: 03/21/22 21:01 Last Admin: 03/21/22 21:04 Dose: 40 mg Documented By: MLMelba Bicalutamide (Bicalutamide 50 Mg Tablet) 50 mg PO DAILY [facility] Carvedilol (Carvedilol 3.125 Mg Tablet) 6.25 mg PO BID [facility] Last Admin: 03/21/22 21:04 Dose: 6.25 mg Documented By: ITZEL Glipizide (Glipizide Xl 2.5 Mg Tab) 10 mg PO NOW ONE Stop: 03/21/22 20:09 Last Admin: 03/22/22 05:03 Dose: Not Given Documented By: HUYEN Insulin Glargine (Insulin Glargine 100 Unit/Ml 3ml Pen) 20 unit SUBCUT DAILY [facility] Ondansetron HCl (Ondansetron 4 Mg/2 Ml Inj) 4 mg IV NOW ONE Stop: 03/21/22 15:45 Last Admin: 03/21/22 16:08 Dose: 4 mg Documented By: ITZEL Pantoprazole Sodium (Pantoprazole Dr 40 Mg Tablet) 40 mg PO 0700 [facility] Terazosin HCl (Terazosin 1 Mg Capsule) 2 mg PO BID [facility] Last Admin: 03/21/22 21:05 Dose: 2 mg Documented By: ITZEL Warfarin Sodium (Warfarin 2 Mg Tablet) 4 mg PO DAILY [facility] Vital Signs Vital signs: Vital Signs - 8 hr 03/21/22 21:00 03/21/22 21:04 03/21/22 21:30 Pulse Rate 62 51 L 51 L Respiratory Rate 20 22 Blood Pressure 145/75 H 145/75 H 175/72 H Pulse Oximetry 99 03/21/22 22:00 03/21/22 22:01 03/21/22 22:30 Pulse Rate 50 L 54 L 51 L Respiratory Rate 21 19 20 Blood Pressure 153/69 H 168/70 H Pulse Oximetry 03/21/22 23:17 03/21/22 23:30 03/22/22 00:00 Pulse Rate 52 L 53 L 53 L Respiratory Rate 21 20 Blood Pressure 155/69 H 135/63 Pulse Oximetry 97 96 95 03/22/22 00:01 03/22/22 00:30 03/22/22 00:31 Pulse Rate 52 L 51 L 50 L Respiratory Rate 20 17 Blood Pressure 141/67 H 144/65 H Pulse Oximetry 95 92 86 L 03/22/22 01:00 03/22/22 01:01 03/22/22 01:30 Pulse Rate 51 L 50 L 50 L Respiratory Rate 18 17 22 Blood Pressure 145/68 H Pulse Oximetry 97 96 95 03/22/22 01:31 03/22/22 02:00 03/22/22 02:01 Pulse Rate 50 L 52 L 51 L Respiratory Rate 17 17 18 Blood Pressure 144/64 H 137/68 Pulse Oximetry 98 96 96 03/22/22 02:30 03/22/22 02:31 03/22/22 03:00 Pulse Rate 53 L 52 L 50 L Respiratory Rate 19 19 19 Blood Pressure 130/61 Pulse Oximetry 97 97 96 03/22/22 03:01 03/22/22 03:30 03/22/22 04:00 Pulse Rate 51 L 56 L 59 L Respiratory Rate 18 19 27 H Blood Pressure 124/59 L Pulse Oximetry 96 96 96 03/22/22 04:01 Pulse Rate 60 Respiratory Rate 22 Blood Pressure 162/68 H Pulse Oximetry 96 MDM - Nausea/Vomiting/Diarrhea <Marta Gabriel, DO - Last Filed: 03/25/22 17:04> Lab Data Result diagrams: 03/21/22 14:10 03/21/22 14:10 Labs: Lab Results 03/21/22 03/21/22 03/21/22 Range/Units 14:03 14:10 14:10 WBC 8.0 (4.5-11.0) X10^3/uL RBC 3.75 L (4.5-5.9) X10^6/uL Hgb 11.3 L (13.5-17.5) g/dL Hct 34.1 L (41-53) % MCV 90.8 (80-100) fL MCH 30.1 (26-34) PG MCHC 33.1 (30-36) % RDW 17.8 H (11.6-14.8) % Plt Count 161 (150-400) X10^3/uL Neut % (Auto) 80.3 H (50-75) % Lymph % (Auto) 9.0 L (25-40) % Cowley % (Auto) 6.0 (3-14) % Eos % (Auto) 4.5 H (2-4) % Baso % (Auto) 0.2 (0-2) % Neut # (Auto) 6500 (7451-5771) /uL Lymph # (Auto) 700 L (0178-6554) /uL Cowley # (Auto) 500 (0-900) /uL Eos # (Auto) 400 (0-450) /uL Baso # (Auto) 0 (0-100) /uL PT (10.1-12.7) SECONDS INR (0.9-1.3) Sodium 135 L (137-145) mmol/L Potassium 3.3 L (3.4-5.1) mmol/L Chloride 97 L (98-107) mmol/L Carbon Dioxide 29 (22-32) mmol/L BUN 22 H (9-20) mg/dL Creatinine 3.15 H (0.66-1.25) mg/dL Estimated GFR 19 L (>60) mL/min BUN/Creatinine Ratio 7.0 (6-22) Glucose 105 (80-110) mg/dL Lactate 1.1 (0.7-2.1) mmol/L Calcium 7.6 L (8.4-10.2) mg/dL Total Bilirubin 0.5 (0.2-1.3) mg/dL AST 26 (17-59) IU/L ALT 20 (<50) IU/L Alkaline Phosphatase 79 (38-126) U/L Total Creatine Kinase (55-170) U/L CK-MB (CK-2) CK-MB (CK-2) Rel Index Troponin I (0.01-0.034) ng/mL NT-Pro-B Natriuret Pep (<450) pg/mL Total Protein 7.2 (6.3-8.2) g/dL Albumin 3.9 (3.5-5.0) g/dL Globulin 3.3 (1.7-4.1) g/dL Albumin/Globulin Ratio 1.2 (1.0-2.8) Lipase 224 (23-300) U/L Procalcitonin 0.18 (<0.5) ng/mL Chlamy pneumoniae PCR (Not Detect) Adenovirus (PCR) (Not Detect) B. pertussis DNA (PCR) (Not Detecte) B.parapertussis DNA PCR (Not Detecte) Coronavirus OC43 (PCR) (Not Detect) Coronavirus HKU1 (PCR) (Not Detect) Coronavirus 229E (PCR) (Not Detect) SARS-CoV-2 (PCR) (Negative) Coronavirus NL63 (PCR) (Not Detect) Human Metapneumovir PCR (Not Detect) Influenza Type A (PCR) (Not Detect) Influenza Type B (PCR) (Not Detect) M. pneumoniae (PCR) (Not Detect) Parainfluenza 1 (PCR) (Not Detect) Parainfluenza 2 (PCR) (Not Detect) Parainfluenza 3 (PCR) (Not Detect) Parainfluenza 4 (PCR) (Not Detect) RSV (PCR) (Not Detect) Entero/Rhino (PCR) (Not Detect) 03/21/22 03/21/22 03/21/22 Range/Units 14:10 14:10 16:00 WBC (4.5-11.0) X10^3/uL RBC (4.5-5.9) X10^6/uL Hgb (13.5-17.5) g/dL Hct (41-53) % MCV (80-100) fL MCH (26-34) PG MCHC (30-36) % RDW (11.6-14.8) % Plt Count (150-400) X10^3/uL Neut % (Auto) (50-75) % Lymph % (Auto) (25-40) % Cowley % (Auto) (3-14) % Eos % (Auto) (2-4) % Baso % (Auto) (0-2) % Neut # (Auto) (2173-2775) /uL Lymph # (Auto) (1193-2392) /uL Cowley # (Auto) (0-900) /uL Eos # (Auto) (0-450) /uL Baso # (Auto) (0-100) /uL PT 32.9 H D (10.1-12.7) SECONDS INR 2.9 H (0.9-1.3) Sodium (137-145) mmol/L Potassium (3.4-5.1) mmol/L Chloride (98-107) mmol/L Carbon Dioxide (22-32) mmol/L BUN (9-20) mg/dL Creatinine (0.66-1.25) mg/dL Estimated GFR (>60) mL/min BUN/Creatinine Ratio (6-22) Glucose (80-110) mg/dL Lactate (0.7-2.1) mmol/L Calcium (8.4-10.2) mg/dL Total Bilirubin (0.2-1.3) mg/dL AST (17-59) IU/L ALT (<50) IU/L Alkaline Phosphatase (38-126) U/L Total Creatine Kinase 30 L (55-170) U/L CK-MB (CK-2) TNP CK-MB (CK-2) Rel Index TNP Troponin I 0.031 (0.01-0.034) ng/mL NT-Pro-B Natriuret Pep 59817 H (<450) pg/mL Total Protein (6.3-8.2) g/dL Albumin (3.5-5.0) g/dL Globulin (1.7-4.1) g/dL Albumin/Globulin Ratio (1.0-2.8) Lipase (23-300) U/L Procalcitonin (<0.5) ng/mL Chlamy pneumoniae PCR (Not Detect) Adenovirus (PCR) (Not Detect) B. pertussis DNA (PCR) (Not Detecte) B.parapertussis DNA PCR (Not Detecte) Coronavirus OC43 (PCR) (Not Detect) Coronavirus HKU1 (PCR) (Not Detect) Coronavirus 229E (PCR) (Not Detect) SARS-CoV-2 (PCR) Positive H (Negative) Coronavirus NL63 (PCR) (Not Detect) Human Metapneumovir PCR (Not Detect) Influenza Type A (PCR) (Not Detect) Influenza Type B (PCR) (Not Detect) M. pneumoniae (PCR) (Not Detect) Parainfluenza 1 (PCR) (Not Detect) Parainfluenza 2 (PCR) (Not Detect) Parainfluenza 3 (PCR) (Not Detect) Parainfluenza 4 (PCR) (Not Detect) RSV (PCR) (Not Detect) Entero/Rhino (PCR) (Not Detect) 03/21/22 Range/Units 18:00 WBC (4.5-11.0) X10^3/uL RBC (4.5-5.9) X10^6/uL Hgb (13.5-17.5) g/dL Hct (41-53) % MCV (80-100) fL MCH (26-34) PG MCHC (30-36) % RDW (11.6-14.8) % Plt Count (150-400) X10^3/uL Neut % (Auto) (50-75) % Lymph % (Auto) (25-40) % Cowley % (Auto) (3-14) % Eos % (Auto) (2-4) % Baso % (Auto) (0-2) % Neut # (Auto) (5214-9558) /uL Lymph # (Auto) (5875-7796) /uL Cowley # (Auto) (0-900) /uL Eos # (Auto) (0-450) /uL Baso # (Auto) (0-100) /uL PT (10.1-12.7) SECONDS INR (0.9-1.3) Sodium (137-145) mmol/L Potassium (3.4-5.1) mmol/L Chloride (98-107) mmol/L Carbon Dioxide (22-32) mmol/L BUN (9-20) mg/dL Creatinine (0.66-1.25) mg/dL Estimated GFR (>60) mL/min BUN/Creatinine Ratio (6-22) Glucose (80-110) mg/dL Lactate (0.7-2.1) mmol/L Calcium (8.4-10.2) mg/dL Total Bilirubin (0.2-1.3) mg/dL AST (17-59) IU/L ALT (<50) IU/L Alkaline Phosphatase (38-126) U/L Total Creatine Kinase (55-170) U/L CK-MB (CK-2) CK-MB (CK-2) Rel Index Troponin I (0.01-0.034) ng/mL NT-Pro-B Natriuret Pep (<450) pg/mL Total Protein (6.3-8.2) g/dL Albumin (3.5-5.0) g/dL Globulin (1.7-4.1) g/dL Albumin/Globulin Ratio (1.0-2.8) Lipase (23-300) U/L Procalcitonin (<0.5) ng/mL Chlamy pneumoniae PCR Not detected (Not Detect) Adenovirus (PCR) Not detected (Not Detect) B. pertussis DNA (PCR) Not detected (Not Detecte) B.parapertussis DNA PCR Not detected (Not Detecte) Coronavirus OC43 (PCR) Not detected (Not Detect) Coronavirus HKU1 (PCR) Not detected (Not Detect) Coronavirus 229E (PCR) Not detected (Not Detect) SARS-CoV-2 (PCR) Detected H (Negative) Coronavirus NL63 (PCR) Not detected (Not Detect) Human Metapneumovir PCR Not detected (Not Detect) Influenza Type A (PCR) Not detected (Not Detect) Influenza Type B (PCR) Not detected (Not Detect) M. pneumoniae (PCR) Not detected (Not Detect) Parainfluenza 1 (PCR) Not detected (Not Detect) Parainfluenza 2 (PCR) Not detected (Not Detect) Parainfluenza 3 (PCR) Not detected (Not Detect) Parainfluenza 4 (PCR) Not detected (Not Detect) RSV (PCR) Not detected (Not Detect) Entero/Rhino (PCR) Not detected (Not Detect) Imaging Data CT scan - abdomen/pelvis: Radiologist's Impression: [place] [address] CT Scan Report Signed Patient: Noel Allen MR#: [id number] : 1940 Acct:[id number] Age/Sex: 81 / M Date of Service: 03/21/22 Loc: ED Accession Number: [id number] ?? Procedure: CT kidney ureter bladder (KUB) Ordering Provider: Marta Gabriel D.O. PROCEDURE:? CT KIDNEY URETER BLADDER (KUB) ? INDICATIONS:? n/v ? TECHNIQUE:? Axial sections were acquired from the lung bases to the pubic symphysis.? Coronal and sagittal reformats were performed.? For radiation dose reduction, the following was used: ?automated exposure control, adjustment of mA and/or kV according to patient size.? ? COMPARISON:? [facility], CT, CT KIDNEY URETER BLADDER (KUB), 06/07/2018, 12:45. ? FINDINGS:? Image quality:? Excellent.? ? Lung bases:? Unremarkable.? ? Heart:? N mildly enlarged, as before. ? URINARY: Right Kidney:? There is severe right renal atrophy, increased in extent when compared with the CT from 2018. No hydronephrosis or nephrolithiasis.? There is an intermediate density cystic lesion at the upper pole of the right kidney which measures 1.3 cm in diameter.? Right Ureter:? No hydroureter or nephrolithiasis. ? Left Kidney:? There is severe left renal atrophy, increased in extent from 2018. No nephrolithiasis or hydronephrosis. Left Ureter:? No hydroureter or ureterolithiasis.? ? Bladder:? The bladder is decompressed.? No bladder stones. ? ABDOMEN: Liver:? Unremarkable.? ? Gallbladder:? Trace sludge is layered in the gallbladder fundus.? No gallbladder wall thickening or pericholecystic fluid.? ? Biliary ducts:? Unremarkable.? ? Pancreas:? Unremarkable.? ? Spleen:? Unremarkable.? ? Adrenal Glands:? Unremarkable.? ? ? Stomach and Bowel:? Stomach, small bowel loops, and colon are unremarkable.? There are scattered sigmoid diverticula. No evidence for diverticulitis.? The appendix is thin walled. Peritoneum:? No abnormal intraperitoneal fluid.? No free air.? ? Ventral Wall: ? No hernia.? Abdominal Nodes:? No enlarged retroperitoneal or mesenteric lymph nodes.? Vessels:? Inferior vena cava is normal in size.? There is fusiform dilatation of the abdominal aorta measuring 3.6 cm in diameter (measured 3.[address] dated June 07, 2018).? Scattered atheromatous calcifications are present throughout the aorta and iliac arteries. ? PELVIS: Pelvic Organs:? Unremarkable.? ? Pelvic Nodes: Unremarkable. Miscellaneous: No inguinal hernias are seen. ? ? ? Bones:? Unremarkable. ? IMPRESSION:? ? 1. No hydronephrosis, nephrolithiasis, ureterolithiasis, or hydroureter. ? 2. Hyperdense renal cystic lesion at the upper pole of the right kidney which is new when compared with the [address] CT.? Consider nonemergent ultrasound of this region to further characterize this finding and exclude cystic neoplasm. ? 3.? No acute intra-abdominal findings.? Diverticulosis.? No acute diverticulitis.? Normal appendix. ? ? ? Dictated by: Emily Montemayor M.D. on 03/21/2022 at 16:35 ? ? Approved by: Emily Montemayor M.D. on 03/21/2022 at 16:42?? Chest x-ray: Radiologist's Impression: [address] [address] XRay Report Signed Patient: Noel Allen MR#: [id number] : 1940 Acct:[id number] Age/Sex: 81 / M Date of Service: 03/21/22 Loc: ED Accession Number: [id number] ?? Procedure: XR chest 1V Ordering Provider: Marta Gabriel D.O. PROCEDURE:? XR CHEST 1V ? INDICATIONS:? suspected sepsis ? TECHNIQUE:? One view of the chest was acquired.? ? COMPARISON:? [facility], CR, XR CHEST 2V, 03/14/2022, 15:48.? [facility], CR, XR CHEST 2V, 12/21/2021, 10:02.? [facility], CR, XR CHEST 1V, 11/30/2018, 4:18. ? FINDINGS:? ? Surgical changes and devices:? None.? ? Lungs and pleura:? Mild bilateral interstitial prominence.? No pleural effusions or pneumothorax.? ? Mediastinum:? Mediastinal contours appear normal.? Heart size is moderately increased.? ? Bones and chest wall:? No suspicious bony lesions.? Overlying soft tissues appear unremarkable.? Moderate right shoulder joint degeneration. ? IMPRESSION:? ? 1. Moderate cardiomegaly and mild bilateral interstitial prominence suspicious for mild pulmonary edema. ? ? Dictated by: Jill Brandt M.D. on 03/21/2022 at 15:41 ? ? Approved by: Jill Brandt M.D. on 03/21/2022 at 15:42?? ECG Data Attestation: I personally reviewed and interpreted this ECG as follows: Prior ECG tracings: available for review Interpretation: Flutter, rate 59 QRS of 94 QTC [address] No acute ST changes noted. Patient has prior EKG from 11/30/[address] changes. He has priors with atrial f ib and flutter on intermittently. MDM Narrative Medical decision making narrative: This is an 81-year-old male with end-stage renal disease who was able to complete his dialysis today but developed nausea and vomiting at the end of dialysis. He has felt ? Icky and really does not have any other positive review of symptoms otherwise. Patient's labs show baseline renal function with normal electrolytes which is expected post dialysis. Troponin is not elevated initially, he does not describe shortness breath chest x-ray shows interstitial prominence possible pulmonary edema in BNP is elevated but also not unexpected i n a renal failure patient but patient may be fluid overloaded as part of his issues, he has been hypoxic intermittently, he had a recent COVID infection was seen at [facility] so was not intubated states he was on oxygen but was discharged home without it. He continues to feel unwell but has not had tachypnea, been hypertensive in the 160 range. Bradycardic with occasional atrial flutter he is appropriately anticoagulated on warfarin and has been rate controlled. Patient was COVID positive on initial rapid swab but did patient has known recent infection in the past week so could still be related to covid. Respiratory panel with more sensitive PCR Is pending. PE was considered but INR is therapeutic since Jun 2021 making it seem less likely. He does have new possible renal carcinoma on CT which needs work up and patient was made aware. Patient transferred secondary to lack of dialysis available at our facility and hypoxia. Beds are very limited regionally. Called all local facilities including [facility], [place], [place], , [facility]. [facility] did accept and I spoke with Dr. Justina Wolff. I did review patient's DNR status with him and his and he is DNR/DNI but open to medical treatment but no heroic measures. <Milton Mix, - Last Filed: 03/22/22 05:05> Lab Data Labs: Lab Results 03/21/22 03/21/22 03/21/22 Range/Units 14:03 14:10 14:10 WBC 8.0 (4.5-11.0) X10^3/uL RBC 3.75 L (4.5-5.9) X10^6/uL Hgb 11.3 L (13.5-17.5) g/dL Hct 34.1 L (41-53) % MCV 90.8 (80-100) fL MCH 30.1 (26-34) PG MCHC 33.1 (30-36) % RDW 17.8 H (11.6-14.8) % Plt Count 161 (150-400) X10^3/uL Neut % (Auto) 80.3 H (50-75) % Lymph % (Auto) 9.0 L (25-40) % Cowley % (Auto) 6.0 (3-14) % Eos % (Auto) 4.5 H (2-4) % Baso % (Auto) 0.2 (0-2) % Neut # (Auto) 6500 (8575-8208) /uL Lymph # (Auto) 700 L (2733-1987) /uL Cowley # (Auto) 500 (0-900) /uL Eos # (Auto) 400 (0-450) /uL Baso # (Auto) 0 (0-100) /uL PT (10.1-12.7) SECONDS INR (0.9-1.3) Sodium 135 L (137-145) mmol/L Potassium 3.3 L (3.4-5.1) mmol/L Chloride 97 L (98-107) mmol/L Carbon Dioxide 29 (22-32) mmol/L BUN 22 H (9-20) mg/dL Creatinine 3.15 H (0.66-1.25) mg/dL Estimated GFR 19 L (>60) mL/min BUN/Creatinine Ratio 7.0 (6-22) Glucose 105 (80-110) mg/dL Lactate 1.1 (0.7-2.1) mmol/L Calcium 7.6 L (8.4-10.2) mg/dL Total Bilirubin 0.5 (0.2-1.3) mg/dL AST 26 (17-59) IU/L ALT 20 (<50) IU/L Alkaline Phosphatase 79 (38-126) U/L Total Creatine Kinase (55-170) U/L CK-MB (CK-2) CK-MB (CK-2) Rel Index Troponin I (0.01-0.034) ng/mL NT-Pro-B Natriuret Pep (<450) pg/mL Total Protein 7.2 (6.3-8.2) g/dL Albumin 3.9 (3.5-5.0) g/dL Globulin 3.3 (1.7-4.1) g/dL Albumin/Globulin Ratio 1.2 (1.0-2.8) Lipase 224 (23-300) U/L Procalcitonin 0.18 (<0.5) ng/mL Chlamy pneumoniae PCR (Not Detect) Adenovirus (PCR) (Not Detect) B. pertussis DNA (PCR) (Not Detecte) B.parapertussis DNA PCR (Not Detecte) Coronavirus OC43 (PCR) (Not Detect) Coronavirus HKU1 (PCR) (Not Detect) Coronavirus 229E (PCR) (Not Detect) SARS-CoV-2 (PCR) (Negative) Coronavirus NL63 (PCR) (Not Detect) Human Metapneumovir PCR (Not Detect) Influenza Type A (PCR) (Not Detect) Influenza Type B (PCR) (Not Detect) M. pneumoniae (PCR) (Not Detect) Parainfluenza 1 (PCR) (Not Detect) Parainfluenza 2 (PCR) (Not Detect) Parainfluenza 3 (PCR) (Not Detect) Parainfluenza 4 (PCR) (Not Detect) RSV (PCR) (Not Detect) Entero/Rhino (PCR) (Not Detect) 03/21/22 03/21/22 03/21/22 Range/Units 14:10 14:10 16:00 WBC (4.5-11.0) X10^3/uL RBC (4.5-5.9) X10^6/uL Hgb (13.5-17.5) g/dL Hct (41-53) % MCV (80-100) fL MCH (26-34) PG MCHC (30-36) % RDW (11.6-14.8) % Plt Count (150-400) X10^3/uL Neut % (Auto) (50-75) % Lymph % (Auto) (25-40) % Cowley % (Auto) (3-14) % Eos % (Auto) (2-4) % Baso % (Auto) (0-2) % Neut # (Auto) (5975-1839) /uL Lymph # (Auto) (1277-6142) /uL Cowley # (Auto) (0-900) /uL Eos # (Auto) (0-450) /uL Baso # (Auto) (0-100) /uL PT 32.9 H D (10.1-12.7) SECONDS INR 2.9 H (0.9-1.3) Sodium (137-145) mmol/L Potassium (3.4-5.1) mmol/L Chloride (98-107) mmol/L Carbon Dioxide (22-32) mmol/L BUN (9-20) mg/dL Creatinine (0.66-1.25) mg/dL Estimated GFR (>60) mL/min BUN/Creatinine Ratio (6-22) Glucose (80-110) mg/dL Lactate (0.7-2.1) mmol/L Calcium (8.4-10.2) mg/dL Total Bilirubin (0.2-1.3) mg/dL AST (17-59) IU/L ALT (<50) IU/L Alkaline Phosphatase (38-126) U/L Total Creatine Kinase 30 L (55-170) U/L CK-MB (CK-2) TNP CK-MB (CK-2) Rel Index TNP Troponin I 0.031 (0.01-0.034) ng/mL NT-Pro-B Natriuret Pep 43679 H (<450) pg/mL Total Protein (6.3-8.2) g/dL Albumin (3.5-5.0) g/dL Globulin (1.7-4.1) g/dL Albumin/Globulin Ratio (1.0-2.8) Lipase (23-300) U/L Procalcitonin (<0.5) ng/mL Chlamy pneumoniae PCR (Not Detect) Adenovirus (PCR) (Not Detect) B. pertussis DNA (PCR) (Not Detecte) B.parapertussis DNA PCR (Not Detecte) Coronavirus OC43 (PCR) (Not Detect) Coronavirus HKU1 (PCR) (Not Detect) Coronavirus 229E (PCR) (Not Detect) SARS-CoV-2 (PCR) Positive H (Negative) Coronavirus NL63 (PCR) (Not Detect) Human Metapneumovir PCR (Not Detect) Influenza Type A (PCR) (Not Detect) Influenza Type B (PCR) (Not Detect) M. pneumoniae (PCR) (Not Detect) Parainfluenza 1 (PCR) (Not Detect) Parainfluenza 2 (PCR) (Not Detect) Parainfluenza 3 (PCR) (Not Detect) Parainfluenza 4 (PCR) (Not Detect) RSV (PCR) (Not Detect) Entero/Rhino (PCR) (Not Detect) 03/21/22 Range/Units 18:00 WBC (4.5-11.0) X10^3/uL RBC (4.5-5.9) X10^6/uL Hgb (13.5-17.5) g/dL Hct (41-53) % MCV (80-100) fL MCH (26-34) PG MCHC (30-36) % RDW (11.6-14.8) % Plt Count (150-400) X10^3/uL Neut % (Auto) (50-75) % Lymph % (Auto) (25-40) % Cowley % (Auto) (3-14) % Eos % (Auto) (2-4) % Baso % (Auto) (0-2) % Neut # (Auto) (3641-1208) /uL Lymph # (Auto) (4187-0013) /uL Cowley # (Auto) (0-900) /uL Eos # (Auto) (0-450) /uL Baso # (Auto) (0-100) /uL PT (10.1-12.7) SECONDS INR (0.9-1.3) Sodium (137-145) mmol/L Potassium (3.4-5.1) mmol/L Chloride (98-107) mmol/L Carbon Dioxide (22-32) mmol/L BUN (9-20) mg/dL Creatinine (0.66-1.25) mg/dL Estimated GFR (>60) mL/min BUN/Creatinine Ratio (6-22) Glucose (80-110) mg/dL Lactate (0.7-2.1) mmol/L Calcium (8.4-10.2) mg/dL Total Bilirubin (0.2-1.3) mg/dL AST (17-59) IU/L ALT (<50) IU/L Alkaline Phosphatase (38-126) U/L Total Creatine Kinase (55-170) U/L CK-MB (CK-2) CK-MB (CK-2) Rel Index Troponin I (0.01-0.034) ng/mL NT-Pro-B Natriuret Pep (<450) pg/mL Total Protein (6.3-8.2) g/dL Albumin (3.5-5.0) g/dL Globulin (1.7-4.1) g/dL Albumin/Globulin Ratio (1.0-2.8) Lipase (23-300) U/L Procalcitonin (<0.5) ng/mL Chlamy pneumoniae PCR Not detected (Not Detect) Adenovirus (PCR) Not detected (Not Detect) B. pertussis DNA (PCR) Not detected (Not Detecte) B.parapertussis DNA PCR Not detected (Not Detecte) Coronavirus OC43 (PCR) Not detected (Not Detect) Coronavirus HKU1 (PCR) Not detected (Not Detect) Coronavirus 229E (PCR) Not detected (Not Detect) SARS-CoV-2 (PCR) Detected H (Negative) Coronavirus NL63 (PCR) Not detected (Not Detect) Human Metapneumovir PCR Not detected (Not Detect) Influenza Type A (PCR) Not detected (Not Detect) Influenza Type B (PCR) Not detected (Not Detect) M. pneumoniae (PCR) Not detected (Not Detect) Parainfluenza 1 (PCR) Not detected (Not Detect) Parainfluenza 2 (PCR) Not detected (Not Detect) Parainfluenza 3 (PCR) Not detected (Not Detect) Parainfluenza 4 (PCR) Not detected (Not Detect) RSV (PCR) Not detected (Not Detect) Entero/Rhino (PCR) Not detected (Not Detect) MDM Narrative Medical decision making narrative: This is an 81-year-old male with end-stage renal disease who was able to co mplete his dialysis today but developed nausea and vomiting at the end of dialysis. He has felt ? Icky and really does not have any other positive review of symptoms otherwise. Patient's labs show baseline renal function with normal electrolytes which is expected post dialysis. Troponin is not elevated initially, he does not describe shortness breath chest x-ray shows interstitial prominence possible pulmonary edema in BNP is elevated but also not unexpected in a renal failure patient but patient may be fluid overloaded as part of his issues, he has been hypoxic intermittently, he had a recent COVID infection was seen at [facility] so was not intubated states he was on oxygen but was discharged home without it. He continues to feel unwell but has not had tachypnea, been hypertensive in the 160 range. Bradycardic with occasional atrial flutter he is appropriately anticoagulated on warfarin and has been rate controlled. Patient was COVID positive on initial rapid swab but did patient has known recent infection in the past week so could still be related to covid. Respiratory panel with more sensitive PCR Is pending. PE was considered but INR is therapeutic since Jun 2021 making it seem less likely. He does have new possible renal carcinoma on CT which needs work up and patient was made aware. Patient transferred secondary to lack of dialysis available at our facility and hypoxia. Beds are very limited regionally. Called all local facilities including [facility], [place], [facility], [facility]. [facility] did accept and I spoke with Dr. Justina Wolff. I did review patient's DNR status with him and his and he is DNR/DNI but open to medical treatment but no heroic measures. [1930] (Dominguez) Patient received in sign out from [Harvey]. I have reviewed the clinical course and performed an independent history and physical exam. Patient has been accepted as [facility], pending bed availability [id number] - call from [facility]. Bed is available. [facility] contacted <Milton Mix DO - Last Filed: 03/22/22 05:05> Critical Care Time Critical Care Time: Yes Total Critical Care Time: 30 Attestation: The high probability of a clinically significant, sudden or life threatening deterioration of the [CV] system(s) required my full and direct attention, intervention and personal management. The aggregate critical care time was [30] minutes. This time is in addition to time spent performing reported procedures b ut includes the following: [x] Data Review and interpretation [x] Patient assessment and monitoring of vital signs [x] Documentation x[] Medication orders and management Discharge Plan Departure Patient Disposition: [facility] Clinical Impression: CHF (congestive heart failure), Hypoxia, Mass of right kidney, ESRD (end stage renal disease) on dialysis Prescriptions: No Action aspirin [Aspir-81] 81 mg Tablet,Delayed Release (Dr/Ec) 81 mg PO BEDTIME Qty: 0 allopurinol 100 MG tablet 100 mg PO PRN PRN (Reason: Gout) Qty: 0 Label Comments: not taken in a while vitamin B complex [B Complex-Vitamin B12] 1 EACH tablet 1 tab PO DAILY Qty: 0 coenzyme Q10 [Co Q-10] 100 MG capsule 100 mg PO DAILY Qty: 0 rosuvastatin [Crestor] 5 MG tablet 5 mg PO BEDTIME Qty: 0 amlodipine 5 mg tablet 5 mg DAILY alprazolam 0.25 mg Tablet 0.25 mg PO Q OTHER DAY Label Comments: taken only at dialysis bicalutamide [Casodex] 50 MG tablet 50 mg PO DAILY Qty: 90 3RF terazosin 1 MG capsule 1 mg PO BID Label Comments: takes 1 mg in am, 2 mg in PM glipizide 10 mg tablet 10 mg PO QAM Label Comments: TK 1 T PO BID warfarin 1 mg tablet 4 mg PO DAILY Rx Instructions: Take 6mg on Mon, Wed, Fri and 5mg on Sun, , , Saturdays Levemir U-100 Insulin 100 unit/mL solution 20 units subcut QAM Label Comments: INJECT 20 UNITS QAM Calcium 600 + D(3) 600-125 mg-unit Tablet 1 tab PO BID carvedilol 6.25 mg tablet 6.25 mg PO BID Label Comments: TAKE 1 TABLET BY MOUTH TWICE DAILY guaifenesin [Siltussin SA] 100 mg/5 mL liquid Label Comments: take 5ml Q12hrs for cough pantoprazole 40 mg tablet,delayed release (DR/EC) 40 mg PO albuterol sulfate 90 mcg/actuation HFA aerosol inhaler 90 mcg INHALATION PRN (Reason: Shortness Of Breath Or Wheezing) Label Comments: INHALE 1 TO 2 PUFFS INTO THE LUNGS EVERY 4 HOURS WHILE AWAKE Referrals: Emmett Escalera MD [Primary Care Provider] -
[2022-03-21 14:37] LABS: Add Manual Diff / Slide Review NO; Basophils Absolute Auto 0 /uL (0-100); Basophils Percent Auto 0.2 % (0-2); Eosinophils Absolute Auto 400 /uL (0-450); Eosinophils Percent Auto 4.5 % (2-4); Hematocrit 34.1 % (41-53); Hemoglobin 11.3 g/dL (13.5-17.5); Lymphocytes Absolute Auto 700 /uL (1100-4500); Mean Corpuscular HGB Conc 33.1 % (30-36); Mean Corpuscular Hemoglobin 30.1 PG (26-34); Mean Corpuscular Volume 90.8 fL (80-100); Monocytes Absolute Auto 500 /uL (0-900); Neutrophils Absolute Auto 6500 /uL (1500-7000); Neutrophils Percent Auto 80.3 % (50-75); Platelet Count 161 X10^3/uL (150-400); Red Blood Cell Count 3.75 X10^6/uL (4.5-5.9); Red Cell Distribution Width 17.8 % (11.6-14.8)
[2022-03-21 14:42] LABS: INR 2.9 (0.9-1.3); Prothrombin Time 32.9 SECONDS (10.1-12.7)
[2022-03-21 14:49] LABS: Alanine Aminotransferase 20 IU/L (<50); Albumin 3.9 g/dL (3.5-5.0); Albumin Globulin Ratio 1.2 (1.0-2.8); Alkaline Phosphatase 79 U/L (38-126); Aspartate Aminotransferase 26 IU/L (17-59); Bilirubin Total 0.5 mg/dL (0.2-1.3); Blood Urea Nitrogen 22 mg/dL (9-20); Calcium 7.6 mg/dL (8.4-10.2); Carbon Dioxide 29 mmol/L (22-32); Chloride 97 mmol/L (98-107); Estimated Glomerular Filt Rate 19 mL/min (>60); Globulin 3.3 g/dL (1.7-4.1); Glucose 105 mg/dL (80-110); Potassium 3.3 mmol/L (3.4-5.1); Sodium 135 mmol/L (137-145); Total Protein 7.2 g/dL (6.3-8.2)
[2022-03-21 14:50] LABS: HEMOLYSIS < 15 (0-50); Lipase 224 U/L (23-300)
[2022-03-21 15:03] LABS: Procalcitonin 0.18 ng/mL (<0.5)
[2022-03-21 15:05] LABS: Creatine Kinase 30 U/L (55-170)
[2022-03-21 15:18] LABS: NT-proBNP (BNP-Adult 18+) 29400 pg/mL (<450); Troponin I 0.031 ng/mL (0.01-0.034)
--- NOTE | 2022-03-21 15:33 | DI.CT.S_ITS ---
PROCEDURE: CT KIDNEY URETER BLADDER (KUB) INDICATIONS: n/v TECHNIQUE: Axial sections were acquired from the lung bases to the pubic symphysis. Coronal and sagittal reformats were performed. For radiation dose reduction, the following was used: automated exposure control, adjustment of mA and/or kV according to patient size. COMPARISON: [facility], CT, CT KIDNEY URETER BLADDER (KUB), 06/07/2018, 12:45. FINDINGS: Image quality: Excellent. Lung bases: Unremarkable. Heart: N mildly enlarged, as before. URINARY: Right Kidney: There is severe right renal atrophy, increased in extent when compared with the CT from 2018. No hydronephrosis or nephrolithiasis. There is an intermediate density cystic lesion at the upper pole of the right kidney which measures 1.3 cm in diameter. Right Ureter: No hydroureter or nephrolithiasis. Left Kidney: There is severe left renal atrophy, increased in extent from 2018. No nephrolithiasis or hydronephrosis. Left Ureter: No hydroureter or ureterolithiasis. Bladder: The bladder is decompressed. No bladder stones. ABDOMEN: Liver: Unremarkable. Gallbladder: Trace sludge is layered in the gallbladder fundus. No gallbladder wall thickening or pericholecystic fluid. Biliary ducts: Unremarkable. Pancreas: Unremarkable. Spleen: Unremarkable. Adrenal Glands: Unremarkable. Stomach and Bowel: Stomach, small bowel loops, and colon are unremarkable. There are scattered sigmoid diverticula. No evidence for diverticulitis. The appendix is thin walled. Peritoneum: No abnormal intraperitoneal fluid. No free air. Ventral Wall: No hernia. Abdominal Nodes: No enlarged retroperitoneal or mesenteric lymph nodes. Vessels: Inferior vena cava is normal in size. There is fusiform dilatation of the abdominal aorta measuring 3.6 cm in diameter (measured 3.[address] dated June 07, 2018). Scattered atheromatous calcifications are present throughout the aorta and iliac arteries. PELVIS: Pelvic Organs: Unremarkable. Pelvic Nodes: Unremarkable. Miscellaneous: No inguinal hernias are seen. Bones: Unremarkable. IMPRESSION: 1. No hydronephrosis, nephrolithiasis, ureterolithiasis, or hydroureter. 2. Hyperdense renal cystic lesion at the upper pole of the right kidney which is new when compared with the [address] CT. Consider nonemergent ultrasound of this region to further characterize this finding and exclude cystic neoplasm. 3. No acute intra-abdominal findings. Diverticulosis. No acute diverticulitis. Normal appendix. Dictated by: Emily Montemayor M.D. on 03/21/2022 at 16:35 Approved by: Emily Montemayor M.D. on 03/21/2022 at 16:42
[2022-03-21 15:35] LABS: Lactate (Lactic Acid) 1.1 mmol/L (0.7-2.1)
[2022-03-21] MEDS: ONDANSETRON 4 MG/2 ML INJ IV (16:08)
[2022-03-21 16:26] LABS: COVID19 -Nasal RAPID POSITIVE (Negative)
[2022-03-21 19:04] LABS: Adenovirus Not Detected (Not Detect); B. parapertussis Not Detected (Not Detecte); Bordetella pertussis Not Detected (Not Detecte); Chlamydophila pneumoniae Not Detected (Not Detect); Coronavirus 229E Not Detected (Not Detect); Coronavirus HKU1 Not Detected (Not Detect); Coronavirus NL 63 Not Detected (Not Detect); Coronavirus OC43 Not Detected (Not Detect); Human Metapneumovirus Not Detected (Not Detect); Human Rhinovirus/Enterovirus Not Detected (Not Detect); Influenza A Not Detected (Not Detect); Influenza B Not Detected (Not Detect); Mycoplasma pneumoniae Not Detected (Not Detect); Parainfluenza Virus 1 Not Detected (Not Detect); Parainfluenza Virus 2 Not Detected (Not Detect); Parainfluenza Virus 3 Not Detected (Not Detect); Parainfluenza Virus 4 Not Detected (Not Detect); Respiratory Syncytial Virus Not Detected (Not Detect)
[2022-03-21 19:05] LABS: SARS- CoV-2 Detected (Not Detecte)
[2022-03-21] MEDS: carvediloL 3.125 MG TABLET 6.25 MG PO (21:04)
[2022-03-21] MEDS: ATORVASTATIN 20 MG TABLET 40 MG PO (21:04)
[2022-03-21] MEDS: TERAZOSIN 1 MG CAPSULE 2 MG PO (21:05)
[2022-03-21] MEDS: ALBUTEROL HFA MDI 60 PUFF/8 GM INHALER INH (21:17)
[2022-03-22] VITALS (24 sets, daily range): BP systolic 124–168; BP diastolic 59–111; PULSE 49–61; RESP 17–31; TEMP 36.8; O2SAT 90–98
[2022-03-22] MEDS: ONDANSETRON 4 MG/2 ML INJ (05:44)
== END 2022-03-22 05:50 | disposition short-term general hospital (02) ==
PROVIDERS: Emergency Medicine; Emergency Provider Emergency Medicine; PCP Family Medicine
DX: I50.9 Heart failure, unspecified (principal); R09.02 Hypoxemia; N18.6 End stage renal disease; Z99.2 Dependence on renal dialysis; N28.89 Other specified disorders of kidney and ureter; U07.1 COVID-19
CPT/HCPCS: 36415; 71045; 74176; 80053; 82550; 83605; 83690; 83880; 84145; 84484; 85025; 85610; 87040; 87633; 87635; 93005; 93010; 94640; 96374; 99285; 99291; C9803; A9270; J2405

== ENCOUNTER → 2022-03-31 10:08 | Outpatient (ROUT) | payer MEDICARE, OTHER, SELFPAY ==
[2022-03-08 14:55] VITALS: BMI 31.0
[2022-03-31 10:23] LABS: INR 2.1 (0.9-1.3); Prothrombin Time 23.3 SECONDS (10.1-12.7)
== END ==
PROVIDERS: PCP Family Medicine; Visit Provider Family Medicine
DX: I50.23 Acute on chronic systolic (congestive) heart failure (principal)
CPT/HCPCS: 85610

== ENCOUNTER 2022-05-07 04:29 | Emergency (ER) | payer MEDICARE, OTHER, SELFPAY ==
[2022-03-08 14:55] VITALS: BMI 31.0
[2022-05-07] VITALS (70 sets, daily range): BP systolic 117–214; BP diastolic 57–93; PULSE 57–92; RESP 12–34; TEMP 27.4–36.4; O2SAT 89–100; BMI 29.2
--- NOTE | 2022-05-07 04:35 | DI.RAD.S_ITS ---
PROCEDURE: XR CHEST 2V INDICATIONS: Short of breath TECHNIQUE: 2 views of the chest were acquired. COMPARISON: [facility], CR, XR CHEST 2 VIEWS, 04/22/2022, 17:51. [facility], CR, XR CHEST 2V, 03/14/2022, 15:48. [facility], CR, XR CHEST 1V, 03/21/2022, 14:10. FINDINGS: Surgical changes and devices: A leadless pacer can be seen. Lungs and pleura: Mild perihilar infiltrates are seen. Mild interstitial prominence can be seen. Mediastinum: Mediastinal contours are normal. Heart size is normal. Bones and chest wall: No suspicious bony abnormalities. Age-appropriate bony degenerative changes are seen. Soft tissues appear unremarkable. IMPRESSION: Cardiomegaly and interstitial prominence. Please correlate with patient presentation, physical examination findings, and laboratory values for congestive heart failure. Note: No significant discrepancy from the preliminary report. Dictated by: Rufus Worthy M.D. on 05/07/2022 at 7:24 Approved by: Rufus Worthy M.D. on 05/07/2022 at 7:27
--- NOTE | 2022-05-07 04:35 | ED_ITS ---
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 Patient makes little to no urine, type 2 diabetes on insulin, AFib and recent COVID infection (february 2022) presents by EMS for evaluation of increasing shortness of breath over the course of the day. He states he feels more short of breath when he lays flat and more short of breath with exertion. He admits to swelling in his lower extremities but denies any weight gain. He feels nause ated and though he has no abdominal pain feels very queasy. He is not dizzy nor weak or lightheaded. He had his full run of dialysis yesterday. He denies any change in medications or diet. He does not routinely use oxygen at home and arrives on 6 L by nasal cannula Related Data Home Medications Medication Instructions Recorded Confirmed aspirin 81 mg tablet,delayed 81 mg PO BEDTIME ##0 12/11/10 05/07/22 release (Aspir-) allopurinol 100 mg tablet 100 mg PO PRN PRN Gout ##0 07/10/17 05/07/22 rosuvastatin 5 mg tablet (Crestor) 5 mg PO BEDTIME ##0 01/08/18 05/07/22 terazosin 1 mg capsule 1 mg PO BID 08/31/18 05/07/22 glipizide 10 mg tablet 10 mg PO QAM 11/11/18 05/07/22 insulin detemir U-100 100 unit/mL 20 units SUBCUT QAM 11/11/18 05/07/22 subcutaneous solution amlodipine 5 mg tablet 5 mg DAILY 10/28/20 05/07/22 alprazolam 0.25 mg tablet 0.25 mg PO Q OTHER DAY 07/07/21 05/07/22 albuterol sulfate 90 mcg/actuation 90 mcg inhalation PRN PRN 03/14/22 05/07/22 aerosol inhaler Shortness Of Breath Or Wheezing carvedilol 6.25 mg tablet 6.25 mg PO BID 03/14/22 05/07/22 benzonatate 100 mg capsule 100 mg PO TID 04/10/22 05/07/22 codeine 10 mg-guaifenesin 100 mg/5 10 ml PO Q4-6H PRN Cough 04/10/22 05/07/22 mL Syrup sertraline 100 mg tablet 100 mg PO DAILY 04/10/22 05/07/22 Previous Rx's Medication Instructions Recorded bicalutamide 50 mg tablet (Casodex) 50 mg PO DAILY prostate cancer #90 10/06/21 tabs Allergies Allergy/AdvReac Type Severity Reaction Status Date / Time codeine Allergy Unknown NAUSEA Verified 03/14/22 15:21 Iodine and Iodide Containing Allergy Unknown Verified 03/14/22 15:21 Produc [IODINE AND IODIDE CONTAINING PRODUC] iohexol Allergy Unknown Verified 03/14/22 15:21 Review of Systems <Milton Mix DO - Last Filed: 05/10/22 02:53> Review of Systems Narrative: GENERAL: Denies chills, fatigue, malaise, fever, sweats. HEENT: Denies sinus pain, ear pain, sore throat, difficulty swallowing, dizziness. RESPIRATORY: See HPI CARDIOVASCULAR: Denies chest pain, palpitations, orthopnea, edema, GASTROINTESTINAL: See HPI : Denies dysuria, frequency, incontinence, hematuria, urinary retention. MUSCULOSKELETAL: denies weakness, joint pain, or bony pain SKIN: Denies rash, skin lesions, or other NEUROLOGIC: Denies weakness, headache, numbness, change in speech, confusion, seizures, incoordination. PSYCHIATRIC: No concerning psychosocial issues. 12 point review of systems is negative except for those stated above Patient History <Milton Mix DO - Last Filed: 05/10/22 02:53> Medical History Anticoagulation adequate with anticoagulant therapy Atrial fibrillation 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, severely decreased glomerular filtration rate (GFR) between 15-29 mL/min/1.73 square meter and albuminuria creatinine ratio less than 30 mg/g Complex sleep apnea syndrome Diabetes Edema leg Excessive daytime sleepiness Gout Hyperlipidemia Hypertension Obesity Obstructive sleep apnea of adult Prostate cancer Surgical History S/P ureteral stent placement Social History household members: spouse Smoking Status: Never smoker alcohol intake: never substance use type: does not use Smoking Status: Never smoker alcohol intake frequency: 0-2 drinks per day Substance Use Type: does not use Exam <Milton Mix DO - Last Filed: 05/10/22 02:53> Narrative Exam Narrative: GENERAL: [81] year old patient appears stated age. Well-developed patient, in mild distress. Actively vomiting, on 6 L by nasal cannula. HEAD: Atraumatic. Normocephalic. EYES: Pupils equal round and reactive. Extraocular motions intact. No scleral icterus. No injection or drainage. ENT: Nose without bleeding, purulent drainage. Throat without erythema, tonsillar hypertrophy or exudate. Airway patent. NECK: Trachea midline. Non tender CARDIOVASCULAR: Regular rate and rhythm without murmurs, gallops, or rubs. RESPIRATORY: Increased work of breathing, faint crackles and expiratory wheeze throughout GASTROINTESTINAL: Abdomen soft, non-tender, nondistended. EXTREMITIES: 1+ edema bilateral lower extremities. Fistula in left upper arm has recently been accessed, palpable thrill noted BACK: Nontender without deformity or crepitance. No flank tenderness. NEURO: AOx3. SKIN: No rash or erythema of visible areas Initial Vital Signs Initial Vital Signs: Vital Signs Pulse Oximetry 89 L 05/07/22 04:40 Oxygen Delivery Method 05/07/22 04:40 <Carolina Mcgarry DO - Last Filed: 05/09/22 08:45> Initial Vital Signs Initial Vital Signs: Vital Signs Pulse Oximetry 89 L 05/07/22 04:40 Oxygen Delivery Method 05/07/22 04:40 Course <Milton Mix DO - Last Filed: 05/10/22 02:53> Orders Ordered: Discontinued Medications Albuterol (Albuterol 2.5 Mg/3 Ml Neb (Adult)) 2.5 mg INH RTQ2HR PRN PRN Reason: Shortness Of Breath Last Admin: 05/08/22 14:05 Dose: 2.5 mg Documented By: Admin: 05/07/22 21:27 Dose: 2.5 mg Documented By: Admin: 05/07/22 19:36 Dose: 2.5 mg Documented By: DARY Albuterol (Albuterol 2.5 Mg/3 Ml Neb (Adult)) 2.5 mg INH NOW ONE Stop: 05/08/22 13:48 Last Admin: 05/08/22 15:11 Dose: Not Given Documented By: BRENNAN Amlodipine Besylate (Amlodipine 5 Mg Tablet) 5 mg PO DAILY [facility] Last Admin: 05/08/22 08:19 Dose: 5 mg Documented By: EVER Benzonatate (Benzonatate 100 Mg Capsule) 100 mg PO NOW ONE Stop: 05/08/22 23:24 Last Admin: 05/09/22 00:24 Dose: 100 mg Documented By: JUAN Carvedilol (Carvedilol 3.125 Mg Tablet) 6.25 mg PO BID [facility] Last Admin: 05/08/22 21:01 Dose: 6.25 mg Documented By: Admin: 05/08/22 08:19 Dose: 6.25 mg Documented By: EVER Glipizide (Glipizide 5 Mg Tablet) 5 mg PO DAILY [facility] Last Admin: 05/08/22 08:19 Dose: 5 mg Documented By: EVER Piperacillin Sod/Tazobactam (Sod 4.5 gm/ Sodium Chloride) 100 mls @ 200 mls/hr IV NOW ONE Stop: 05/07/22 07:29 Last Infusion: 05/07/22 08:38 Dose: 0 mls/hr Documented By: Admin: 05/07/22 07:41 Dose: 200 mls/hr Documented By: JAROD Ondansetron HCl (Ondansetron 4 Mg/2 Ml Inj) 4 mg IV NOW ONE Stop: 05/07/22 04:34 Last Admin: 05/07/22 04:39 Dose: 4 mg Documented By: ITZEL Reevaluation(s) Reevaluation #1: patient taken off 6L on arrival and quickly dropped to 88-89% and was then put on 3L Reevaluation #2: ABG notes respiratory acidosis with PO2 of 160 and PC02 of 65.5. O2 turned down from 3L to 1L repeat ABG 30 minutes later with worsening acidosis, patient feels worse. RT to place [facility]NC. Consultations Consultation #1: call to [facility] Nephrology (Mccormick) agrees that patient is fluid overloaded and needs an extra run, he called pilot supervisor and they are boarding 17, we need to find another option Vital Signs Vital signs: Vital Signs - 8 hr 05/09/22 06:26 05/09/22 07:00 Temperature 98.4 F Pulse Rate 60 63 Respiratory Rate 18 19 Blood Pressure 194/88 H Pulse Oximetry 100 98 Oxygen Delivery Method Room Air <Carolina Mcgarry, DO - Last Filed: 05/09/22 08:45> Orders Ordered: Discontinued Medications Albuterol (Albuterol 2.5 Mg/3 Ml Neb (Adult)) 2.5 mg INH RTQ2HR PRN PRN Reason: Shortness Of Breath Last Admin: 05/08/22 14:05 Dose: 2.5 mg Documented By: Admin: 05/07/22 21:27 Dose: 2.5 mg Documented By: Admin: 05/07/22 19:36 Dose: 2.5 mg Documented By: DARY Albuterol (Albuterol 2.5 Mg/3 Ml Neb (Adult)) 2.5 mg INH NOW ONE Stop: 05/08/22 13:48 Last Admin: 05/08/22 15:11 Dose: Not Given Documented By: BRENNAN Amlodipine Besylate (Amlodipine 5 Mg Tablet) 5 mg PO DAILY [facility] Last Admin: 05/08/22 08:19 Dose: 5 mg Documented By: EVER Benzonatate (Benzonatate 100 Mg Capsule) 100 mg PO NOW ONE Stop: 05/08/22 23:24 Last Admin: 05/09/22 00:24 Dose: 100 mg Documented By: JUAN Carvedilol (Carvedilol 3.125 Mg Tablet) 6.25 mg PO BID [facility] Last Admin: 05/08/22 21:01 Dose: 6.25 mg Documented By: Admin: 05/08/22 08:19 Dose: 6.25 mg Documented By: EVER Glipizide (Glipizide 5 Mg Tablet) 5 mg PO DAILY [facility] Last Admin: 05/08/22 08:19 Dose: 5 mg Documented By: EVER Piperacillin Sod/Tazobactam (Sod 4.5 gm/ Sodium Chloride) 100 mls @ 200 mls/hr IV NOW ONE Stop: 05/07/22 07:29 Last Infusion: 05/07/22 08:38 Dose: 0 mls/hr Documented By: Admin: 05/07/22 07:41 Dose: 200 mls/hr Documented By: JAROD Ondansetron HCl (Ondansetron 4 Mg/2 Ml Inj) 4 mg IV NOW ONE Stop: 05/07/22 04:34 Last Admin: 05/07/22 04:39 Dose: 4 mg Documented By: ITZEL Vital Signs Vital signs: Vital Signs - 8 hr 05/09/22 06:26 05/09/22 07:00 Temperature 98.4 F Pulse Rate 60 63 Respiratory Rate 18 19 Blood Pressure 194/88 H Pulse Oximetry 100 98 Oxygen Delivery Method Room Air MDM - SOB/Dyspnea <Milton Mix DO - Last Filed: 05/10/22 02:53> Lab Data Result diagrams: 05/08/22 04:46 05/08/22 04:46 Labs: Lab Results 05/07/22 05/07/22 05/07/22 Range/Units 04:30 04:40 04:40 WBC 11.0 (4.5-11.0) X10^3/uL RBC 3.83 L (4.5-5.9) X10^6/uL Hgb 11.7 L (13.5-17.5) g/dL Hct 36.2 L (41-53) % MCV 94.7 (80-100) fL MCH 30.6 (26-34) PG MCHC 32.3 (30-36) % RDW 20.0 H (11.6-14.8) % Plt Count 146 L (150-400) X10^3/uL Neut % (Auto) 77.2 H (50-75) % Lymph % (Auto) 7.9 L (25-40) % [place] % (Auto) 4.6 (3-14) % Eos % (Auto) 9.7 H (2-4) % Baso % (Auto) 0.6 (0-2) % Neut # (Auto) 8500 H (0461-9662) /uL Lymph # (Auto) 900 L (4397-1662) /uL [place] # (Auto) 500 (0-900) /uL Eos # (Auto) 1100 H (0-450) /uL Baso # (Auto) 100 (0-100) /uL RBC Morphology Anisocytosis PT (10.1-12.7) SECONDS INR (0.9-1.3) ABG pH (7.35-7.45) ABG pCO2 (35-45) mmHg ABG pO2 (80-100) mmHg ABG HCO3 (22-26) mmol/L ABG Total CO2 (21-31) mmol/L ABG O2 Saturation (95-100) % ABG Base Excess (-2-2) mmol/L FiO2 Sodium 135 L (137-145) mmol/L Potassium 4.0 (3.4-5.1) mmol/L Chloride 99 (98-107) mmol/L Carbon Dioxide 27 (22-32) mmol/L BUN 19 (9-20) mg/dL Creatinine 3.70 H (0.66-1.25) mg/dL Estimated GFR 16 L (>60) mL/min BUN/Creatinine Ratio 5.1 L (6-22) Glucose 226 H D (80-110) mg/dL Lactate (0.7-2.1) mmol/L Calcium 8.3 L (8.4-10.2) mg/dL Phosphorus (2.3-3.7) mg/dL Magnesium (1.6-2.3) mg/dL Total Bilirubin 0.5 (0.2-1.3) mg/dL AST 17 (17-59) IU/L ALT 14 (<50) IU/L Alkaline Phosphatase 92 (38-126) U/L Total Creatine Kinase (55-170) U/L CK-MB (CK-2) CK-MB (CK-2) Rel Index Troponin I (0.01-0.034) ng/mL NT-Pro-B Natriuret Pep 85018 H (<450) pg/mL Total Protein 6.6 (6.3-8.2) g/dL Albumin 4.1 (3.5-5.0) g/dL Globulin 2.5 (1.7-4.1) g/dL Albumin/Globulin Ratio 1.6 (1.0-2.8) Lipase (23-300) U/L Procalcitonin (<0.5) ng/mL SARS-CoV-2 (PCR) Positive H (Negative) 05/07/22 05/07/22 05/07/22 Range/Units 04:40 04:40 04:40 WBC (4.5-11.0) X10^3/uL RBC (4.5-5.9) X10^6/uL Hgb (13.5-17.5) g/dL Hct (41-53) % MCV (80-100) fL MCH (26-34) PG MCHC (30-36) % RDW (11.6-14.8) % Plt Count (150-400) X10^3/uL Neut % (Auto) (50-75) % Lymph % (Auto) (25-40) % [place] % (Auto) (3-14) % Eos % (Auto) (2-4) % Baso % (Auto) (0-2) % Neut # (Auto) (2373-6847) /uL Lymph # (Auto) (8287-8665) /uL [place] # (Auto) (0-900) /uL Eos # (Auto) (0-450) /uL Baso # (Auto) (0-100) /uL RBC Morphology Anisocytosis PT (10.1-12.7) SECONDS INR (0.9-1.3) ABG pH (7.35-7.45) ABG pCO2 (35-45) mmHg ABG pO2 (80-100) mmHg ABG HCO3 (22-26) mmol/L ABG Total CO2 (21-31) mmol/L ABG O2 Saturation (95-100) % ABG Base Excess (-2-2) mmol/L FiO2 Sodium (137-145) mmol/L Potassium (3.4-5.1) mmol/L Chloride (98-107) mmol/L Carbon Dioxide (22-32) mmol/L BUN (9-20) mg/dL Creatinine (0.66-1.25) mg/dL Estimated GFR (>60) mL/min BUN/Creatinine Ratio (6-22) Glucose (80-110) mg/dL Lactate 0.8 (0.7-2.1) mmol/L Calcium (8.4-10.2) mg/dL Phosphorus (2.3-3.7) mg/dL Magnesium (1.6-2.3) mg/dL Total Bilirubin (0.2-1.3) mg/dL AST (17-59) IU/L ALT (<50) IU/L Alkaline Phosphatase (38-126) U/L Total Creatine Kinase 27 L (55-170) U/L CK-MB (CK-2) TNP CK-MB (CK-2) Rel Index TNP Troponin I 0.020 (0.01-0.034) ng/mL NT-Pro-B Natriuret Pep (<450) pg/mL Total Protein (6.3-8.2) g/dL Albumin (3.5-5.0) g/dL Globulin (1.7-4.1) g/dL Albumin/Globulin Ratio (1.0-2.8) Lipase (23-300) U/L Procalcitonin 0.26 (<0.5) ng/mL SARS-CoV-2 (PCR) (Negative) 05/07/22 05/07/22 05/07/22 Range/Units 05:32 06:35 09:05 WBC (4.5-11.0) X10^3/uL RBC (4.5-5.9) X10^6/uL Hgb (13.5-17.5) g/dL Hct (41-53) % MCV (80-100) fL MCH (26-34) PG MCHC (30-36) % RDW (11.6-14.8) % Plt Count (150-400) X10^3/uL Neut % (Auto) (50-75) % Lymph % (Auto) (25-40) % [place] % (Auto) (3-14) % Eos % (Auto) (2-4) % Baso % (Auto) (0-2) % Neut # (Auto) (0015-2891) /uL Lymph # (Auto) (9848-9949) /uL [place] # (Auto) (0-900) /uL Eos # (Auto) (0-450) /uL Baso # (Auto) (0-100) /uL RBC Morphology Anisocytosis PT (10.1-12.7) SECONDS INR (0.9-1.3) ABG pH 7.27 L* 7.25 L* 7.29 L* (7.35-7.45) ABG pCO2 65.5 H* 68.8 H* 62.5 H* (35-45) mmHg ABG pO2 160 H 73 L 73 L (80-100) mmHg ABG HCO3 30 H 30 H 31 H (22-26) mmol/L ABG Total CO2 32 H 32 H 32 H (21-31) mmol/L ABG O2 Saturation 99 91 L 92 L (95-100) % ABG Base Excess 3.0 H 3.0 H 4.0 H (-2-2) mmol/L FiO2 32 24 24 Sodium (137-145) mmol/L Potassium (3.4-5.1) mmol/L Chloride (98-107) mmol/L Carbon Dioxide (22-32) mmol/L BUN (9-20) mg/dL Creatinine (0.66-1.25) mg/dL Estimated GFR (>60) mL/min BUN/Creatinine Ratio (6-22) Glucose (80-110) mg/dL Lactate (0.7-2.1) mmol/L Calcium (8.4-10.2) mg/dL Phosphorus (2.3-3.7) mg/dL Magnesium (1.6-2.3) mg/dL Total Bilirubin (0.2-1.3) mg/dL AST (17-59) IU/L ALT (<50) IU/L Alkaline Phosphatase (38-126) U/L Total Creatine Kinase (55-170) U/L CK-MB (CK-2) CK-MB (CK-2) Rel Index Troponin I (0.01-0.034) ng/mL NT-Pro-B Natriuret Pep (<450) pg/mL Total Protein (6.3-8.2) g/dL Albumin (3.5-5.0) g/dL Globulin (1.7-4.1) g/dL Albumin/Globulin Ratio (1.0-2.8) Lipase (23-300) U/L Procalcitonin (<0.5) ng/mL SARS-CoV-2 (PCR) (Negative) 05/07/22 05/07/22 05/07/22 Range/Units 11:00 12:31 17:31 WBC (4.5-11.0) X10^3/uL RBC (4.5-5.9) X10^6/uL Hgb (13.5-17.5) g/dL Hct (41-53) % MCV (80-100) fL MCH (26-34) PG MCHC (30-36) % RDW (11.6-14.8) % Plt Count (150-400) X10^3/uL Neut % (Auto) (50-75) % Lymph % (Auto) (25-40) % [place] % (Auto) (3-14) % Eos % (Auto) (2-4) % Baso % (Auto) (0-2) % Neut # (Auto) (5530-3522) /uL Lymph # (Auto) (0732-0261) /uL [place] # (Auto) (0-900) /uL Eos # (Auto) (0-450) /uL Baso # (Auto) (0-100) /uL RBC Morphology Anisocytosis PT 13.0 H (10.1-12.7) SECONDS INR 1.2 (0.9-1.3) ABG pH 7.32 L 7.37 (7.35-7.45) ABG pCO2 57.8 H 51.8 H (35-45) mmHg ABG pO2 75 L 127 H (80-100) mmHg ABG HCO3 30 H 30 H (22-26) mmol/L ABG Total CO2 32 H 31 (21-31) mmol/L ABG O2 Saturation 93 L 99 (95-100) % ABG Base Excess 4.0 H 5.0 H (-2-2) mmol/L FiO2 24 24 Sodium (137-145) mmol/L Potassium (3.4-5.1) mmol/L Chloride (98-107) mmol/L Carbon Dioxide (22-32) mmol/L BUN (9-20) mg/dL Creatinine (0.66-1.25) mg/dL Estimated GFR (>60) mL/min BUN/Creatinine Ratio (6-22) Glucose (80-110) mg/dL Lactate (0.7-2.1) mmol/L Calcium (8.4-10.2) mg/dL Phosphorus (2.3-3.7) mg/dL Magnesium (1.6-2.3) mg/dL Total Bilirubin (0.2-1.3) mg/dL AST (17-59) IU/L ALT (<50) IU/L Alkaline Phosphatase (38-126) U/L Total Creatine Kinase (55-170) U/L CK-MB (CK-2) CK-MB (CK-2) Rel Index Troponin I (0.01-0.034) ng/mL NT-Pro-B Natriuret Pep (<450) pg/mL Total Protein (6.3-8.2) g/dL Albumin (3.5-5.0) g/dL Globulin (1.7-4.1) g/dL Albumin/Globulin Ratio (1.0-2.8) Lipase (23-300) U/L Procalcitonin (<0.5) ng/mL SARS-CoV-2 (PCR) (Negative) 05/08/22 05/08/22 Range/Units 04:46 04:46 WBC 7.9 (4.5-11.0) X10^3/uL RBC 3.61 L (4.5-5.9) X10^6/uL Hgb 11.0 L (13.5-17.5) g/dL Hct 33.8 L (41-53) % MCV 93.6 (80-100) fL MCH 30.4 (26-34) PG MCHC 32.5 (30-36) % RDW 20.1 H (11.6-14.8) % Plt Count 143 L (150-400) X10^3/uL Neut % (Auto) 67.8 (50-75) % Lymph % (Auto) 9.8 L (25-40) % [place] % (Auto) 6.0 (3-14) % Eos % (Auto) 15.7 H (2-4) % Baso % (Auto) 0.7 (0-2) % Neut # (Auto) 5300 (3335-6928) /uL Lymph # (Auto) 800 L (4034-6382) /uL [place] # (Auto) 500 (0-900) /uL Eos # (Auto) 1200 H (0-450) /uL Baso # (Auto) 100 (0-100) /uL RBC Morphology See below Anisocytosis 2+ H PT (10.1-12.7) SECONDS INR (0.9-1.3) ABG pH (7.35-7.45) ABG pCO2 (35-45) mmHg ABG pO2 (80-100) mmHg ABG HCO3 (22-26) mmol/L ABG Total CO2 (21-31) mmol/L ABG O2 Saturation (95-100) % ABG Base Excess (-2-2) mmol/L FiO2 Sodium 135 L (137-145) mmol/L Potassium 4.0 (3.4-5.1) mmol/L Chloride 100 (98-107) mmol/L Carbon Dioxide 28 (22-32) mmol/L BUN 29 H (9-20) mg/dL Creatinine 5.04 H (0.66-1.25) mg/dL Estimated GFR 11 L (>60) mL/min BUN/Creatinine Ratio 5.8 L (6-22) Glucose 134 H (80-110) mg/dL Lactate (0.7-2.1) mmol/L Calcium 8.3 L (8.4-10.2) mg/dL Phosphorus 4.6 H (2.3-3.7) mg/dL Magnesium 1.7 (1.6-2.3) mg/dL Total Bilirubin 0.6 (0.2-1.3) mg/dL AST 15 L (17-59) IU/L ALT 11 (<50) IU/L Alkaline Phosphatase 76 (38-126) U/L Total Creatine Kinase 20 L (55-170) U/L CK-MB (CK-2) TNP CK-MB (CK-2) Rel Index TNP Troponin I 0.028 (0.01-0.034) ng/mL NT-Pro-B Natriuret Pep 72111 H (<450) pg/mL Total Protein 6.2 L (6.3-8.2) g/dL Albumin 3.5 (3.5-5.0) g/dL Globulin 2.7 (1.7-4.1) g/dL Albumin/Globulin Ratio 1.3 (1.0-2.8) Lipase 36 (23-300) U/L Procalcitonin (<0.5) ng/mL SARS-CoV-2 (PCR) (Negative) Point of Care Testing Glucose POC 183 ABG Data Interpretation: Respiratory acidosis <Carolina Mcgarry, - Last Filed: 05/09/22 08:45> Lab Data Labs: Lab Results 05/07/22 05/07/22 05/07/22 Range/Units 04:30 04:40 04:40 WBC 11.0 (4.5-11.0) X10^3/uL RBC 3.83 L (4.5-5.9) X10^6/uL Hgb 11.7 L (13.5-17.5) g/dL Hct 36.2 L (41-53) % MCV 94.7 (80-100) fL MCH 30.6 (26-34) PG MCHC 32.3 (30-36) % RDW 20.0 H (11.6-14.8) % Plt Count 146 L (150-400) X10^3/uL Neut % (Auto) 77.2 H (50-75) % Lymph % (Auto) 7.9 L (25-40) % [place] % (Auto) 4.6 (3-14) % Eos % (Auto) 9.7 H (2-4) % Baso % (Auto) 0.6 (0-2) % Neut # (Auto) 8500 H (5581-3406) /uL Lymph # (Auto) 900 L (0976-9620) /uL [place] # (Auto) 500 (0-900) /uL Eos # (Auto) 1100 H (0-450) /uL Baso # (Auto) 100 (0-100) /uL RBC Morphology Anisocytosis PT (10.1-12.7) SECONDS INR (0.9-1.3) ABG pH (7.35-7.45) ABG pCO2 (35-45) mmHg ABG pO2 (80-100) mmHg ABG HCO3 (22-26) mmol/L ABG Total CO2 (21-31) mmol/L ABG O2 Saturation (95-100) % ABG Base Excess (-2-2) mmol/L FiO2 Sodium 135 L (137-145) mmol/L Potassium 4.0 (3.4-5.1) mmol/L Chloride 99 (98-107) mmol/L Carbon Dioxide 27 (22-32) mmol/L BUN 19 (9-20) mg/dL Creatinine 3.70 H (0.66-1.25) mg/dL Estimated GFR 16 L (>60) mL/min BUN/Creatinine Ratio 5.1 L (6-22) Glucose 226 H D (80-110) mg/dL Lactate (0.7-2.1) mmol/L Calcium 8.3 L (8.4-10.2) mg/dL Phosphorus (2.3-3.7) mg/dL Magnesium (1.6-2.3) mg/dL Total Bilirubin 0.5 (0.2-1.3) mg/dL AST 17 (17-59) IU/L ALT 14 (<50) IU/L Alkaline Phosphatase 92 (38-126) U/L Total Creatine Kinase (55-170) U/L CK-MB (CK-2) CK-MB (CK-2) Rel Index Troponin I (0.01-0.034) ng/mL NT-Pro-B Natriuret Pep 72165 H (<450) pg/mL Total Protein 6.6 (6.3-8.2) g/dL Albumin 4.1 (3.5-5.0) g/dL Globulin 2.5 (1.7-4.1) g/dL Albumin/Globulin Ratio 1.6 (1.0-2.8) Lipase (23-300) U/L Procalcitonin (<0.5) ng/mL SARS-CoV-2 (PCR) Positive H (Negative) 05/07/22 05/07/22 05/07/22 Range/Units 04:40 04:40 04:40 WBC (4.5-11.0) X10^3/uL RBC (4.5-5.9) X10^6/uL Hgb (13.5-17.5) g/dL Hct (41-53) % MCV (80-100) fL MCH (26-34) PG MCHC (30-36) % RDW (11.6-14.8) % Plt Count (150-400) X10^3/uL Neut % (Auto) (50-75) % Lymph % (Auto) (25-40) % [place] % (Auto) (3-14) % Eos % (Auto) (2-4) % Baso % (Auto) (0-2) % Neut # (Auto) (9919-8719) /uL Lymph # (Auto) (7538-5302) /uL [place] # (Auto) (0-900) /uL Eos # (Auto) (0-450) /uL Baso # (Auto) (0-100) /uL RBC Morphology Anisocytosis PT (10.1-12.7) SECONDS INR (0.9-1.3) ABG pH (7.35-7.45) ABG pCO2 (35-45) mmHg ABG pO2 (80-100) mmHg ABG HCO3 (22-26) mmol/L ABG Total CO2 (21-31) mmol/L ABG O2 Saturation (95-100) % ABG Base Excess (-2-2) mmol/L FiO2 Sodium (137-145) mmol/L Potassium (3.4-5.1) mmol/L Chloride (98-107) mmol/L Carbon Dioxide (22-32) mmol/L BUN (9-20) mg/dL Creatinine (0.66-1.25) mg/dL Estimated GFR (>60) mL/min BUN/Creatinine Ratio (6-22) Glucose (80-110) mg/dL Lactate 0.8 (0.7-2.1) mmol/L Calcium (8.4-10.2) mg/dL Phosphorus (2.3-3.7) mg/dL Magnesium (1.6-2.3) mg/dL Total Bilirubin (0.2-1.3) mg/dL AST (17-59) IU/L ALT (<50) IU/L Alkaline Phosphatase (38-126) U/L Total Creatine Kinase 27 L (55-170) U/L CK-MB (CK-2) TNP CK-MB (CK-2) Rel Index TNP Troponin I 0.020 (0.01-0.034) ng/mL NT-Pro-B Natriuret Pep (<450) pg/mL Total Protein (6.3-8.2) g/dL Albumin (3.5-5.0) g/dL Globulin (1.7-4.1) g/dL Albumin/Globulin Ratio (1.0-2.8) Lipase (23-300) U/L Procalcitonin 0.26 (<0.5) ng/mL SARS-CoV-2 (PCR) (Negative) 05/07/22 05/07/22 05/07/22 Range/Units 05:32 06:35 09:05 WBC (4.5-11.0) X10^3/uL RBC (4.5-5.9) X10^6/uL Hgb (13.5-17.5) g/dL Hct (41-53) % MCV (80-100) fL MCH (26-34) PG MCHC (30-36) % RDW (11.6-14.8) % Plt Count (150-400) X10^3/uL Neut % (Auto) (50-75) % Lymph % (Auto) (25-40) % [place] % (Auto) (3-14) % Eos % (Auto) (2-4) % Baso % (Auto) (0-2) % Neut # (Auto) (6441-7790) /uL Lymph # (Auto) (8396-4091) /uL [place] # (Auto) (0-900) /uL Eos # (Auto) (0-450) /uL Baso # (Auto) (0-100) /uL RBC Morphology Anisocytosis PT (10.1-12.7) SECONDS INR (0.9-1.3) ABG pH 7.27 L* 7.25 L* 7.29 L* (7.35-7.45) ABG pCO2 65.5 H* 68.8 H* 62.5 H* (35-45) mmHg ABG pO2 160 H 73 L 73 L (80-100) mmHg ABG HCO3 30 H 30 H 31 H (22-26) mmol/L ABG Total CO2 32 H 32 H 32 H (21-31) mmol/L ABG O2 Saturation 99 91 L 92 L (95-100) % ABG Base Excess 3.0 H 3.0 H 4.0 H (-2-2) mmol/L FiO2 32 24 24 Sodium (137-145) mmol/L Potassium (3.4-5.1) mmol/L Chloride (98-107) mmol/L Carbon Dioxide (22-32) mmol/L BUN (9-20) mg/dL Creatinine (0.66-1.25) mg/dL Estimated GFR (>60) mL/min BUN/Creatinine Ratio (6-22) Glucose (80-110) mg/dL Lactate (0.7-2.1) mmol/L Calcium (8.4-10.2) mg/dL Phosphorus (2.3-3.7) mg/dL Magnesium (1.6-2.3) mg/dL Total Bilirubin (0.2-1.3) mg/dL AST (17-59) IU/L ALT (<50) IU/L Alkaline Phosphatase (38-126) U/L Total Creatine Kinase (55-170) U/L CK-MB (CK-2) CK-MB (CK-2) Rel Index Troponin I (0.01-0.034) ng/mL NT-Pro-B Natriuret Pep (<450) pg/mL Total Protein (6.3-8.2) g/dL Albumin (3.5-5.0) g/dL Globulin (1.7-4.1) g/dL Albumin/Globulin Ratio (1.0-2.8) Lipase (23-300) U/L Procalcitonin (<0.5) ng/mL SARS-CoV-2 (PCR) (Negative) 05/07/22 05/07/22 05/07/22 Range/Units 11:00 12:31 17:31 WBC (4.5-11.0) X10^3/uL RBC (4.5-5.9) X10^6/uL Hgb (13.5-17.5) g/dL Hct (41-53) % MCV (80-100) fL MCH (26-34) PG MCHC (30-36) % RDW (11.6-14.8) % Plt Count (150-400) X10^3/uL Neut % (Auto) (50-75) % Lymph % (Auto) (25-40) % [place] % (Auto) (3-14) % Eos % (Auto) (2-4) % Baso % (Auto) (0-2) % Neut # (Auto) (1995-0235) /uL Lymph # (Auto) (9625-7601) /uL [place] # (Auto) (0-900) /uL Eos # (Auto) (0-450) /uL Baso # (Auto) (0-100) /uL RBC Morphology Anisocytosis PT 13.0 H (10.1-12.7) SECONDS INR 1.2 (0.9-1.3) ABG pH 7.32 L 7.37 (7.35-7.45) ABG pCO2 57.8 H 51.8 H (35-45) mmHg ABG pO2 75 L 127 H (80-100) mmHg ABG HCO3 30 H 30 H (22-26) mmol/L ABG Total CO2 32 H 31 (21-31) mmol/L ABG O2 Saturation 93 L 99 (95-100) % ABG Base Excess 4.0 H 5.0 H (-2-2) mmol/L FiO2 24 24 Sodium (137-145) mmol/L Potassium (3.4-5.1) mmol/L Chloride (98-107) mmol/L Carbon Dioxide (22-32) mmol/L BUN (9-20) mg/dL Creatinine (0.66-1.25) mg/dL Estimated GFR (>60) mL/min BUN/Creatinine Ratio (6-22) Glucose (80-110) mg/dL Lactate (0.7-2.1) mmol/L Calcium (8.4-10.2) mg/dL Phosphorus (2.3-3.7) mg/dL Magnesium (1.6-2.3) mg/dL Total Bilirubin (0.2-1.3) mg/dL AST (17-59) IU/L ALT (<50) IU/L Alkaline Phosphatase (38-126) U/L Total Creatine Kinase (55-170) U/L CK-MB (CK-2) CK-MB (CK-2) Rel Index Troponin I (0.01-0.034) ng/mL NT-Pro-B Natriuret Pep (<450) pg/mL Total Protein (6.3-8.2) g/dL Albumin (3.5-5.0) g/dL Globulin (1.7-4.1) g/dL Albumin/Globulin Ratio (1.0-2.8) Lipase (23-300) U/L Procalcitonin (<0.5) ng/mL SARS-CoV-2 (PCR) (Negative) 05/08/22 05/08/22 Range/Units 04:46 04:46 WBC 7.9 (4.5-11.0) X10^3/uL RBC 3.61 L (4.5-5.9) X10^6/uL Hgb 11.0 L (13.5-17.5) g/dL Hct 33.8 L (41-53) % MCV 93.6 (80-100) fL MCH 30.4 (26-34) PG MCHC 32.5 (30-36) % RDW 20.1 H (11.6-14.8) % Plt Count 143 L (150-400) X10^3/uL Neut % (Auto) 67.8 (50-75) % Lymph % (Auto) 9.8 L (25-40) % [place] % (Auto) 6.0 (3-14) % Eos % (Auto) 15.7 H (2-4) % Baso % (Auto) 0.7 (0-2) % Neut # (Auto) 5300 (7466-0486) /uL Lymph # (Auto) 800 L (6897-7319) /uL [place] # (Auto) 500 (0-900) /uL Eos # (Auto) 1200 H (0-450) /uL Baso # (Auto) 100 (0-100) /uL RBC Morphology See below Anisocytosis 2+ H PT (10.1-12.7) SECONDS INR (0.9-1.3) ABG pH (7.35-7.45) ABG pCO2 (35-45) mmHg ABG pO2 (80-100) mmHg ABG HCO3 (22-26) mmol/L ABG Total CO2 (21-31) mmol/L ABG O2 Saturation (95-100) % ABG Base Excess (-2-2) mmol/L FiO2 Sodium 135 L (137-145) mmol/L Potassium 4.0 (3.4-5.1) mmol/L Chloride 100 (98-107) mmol/L Carbon Dioxide 28 (22-32) mmol/L BUN 29 H (9-20) mg/dL Creatinine 5.04 H (0.66-1.25) mg/dL Estimated GFR 11 L (>60) mL/min BUN/Creatinine Ratio 5.8 L (6-22) Glucose 134 H (80-110) mg/dL Lactate (0.7-2.1) mmol/L Calcium 8.3 L (8.4-10.2) mg/dL Phosphorus 4.6 H (2.3-3.7) mg/dL Magnesium 1.7 (1.6-2.3) mg/dL Total Bilirubin 0.6 (0.2-1.3) mg/dL AST 15 L (17-59) IU/L ALT 11 (<50) IU/L Alkaline Phosphatase 76 (38-126) U/L Total Creatine Kinase 20 L (55-170) U/L CK-MB (CK-2) TNP CK-MB (CK-2) Rel Index TNP Troponin I 0.028 (0.01-0.034) ng/mL NT-Pro-B Natriuret Pep 04697 H (<450) pg/mL Total Protein 6.2 L (6.3-8.2) g/dL Albumin 3.5 (3.5-5.0) g/dL Globulin 2.7 (1.7-4.1) g/dL Albumin/Globulin Ratio 1.3 (1.0-2.8) Lipase 36 (23-300) U/L Procalcitonin (<0.5) ng/mL SARS-CoV-2 (PCR) (Negative) Point of Care Testing Glucose POC 183 MDM Narrative Medical decision making narrative: Patient signed out to me by Dr. Mix and seen evaluated patient myself. P bashir is chronic kidney disease on hemodialysis Sunday normally at [facility] he got dialysis yesterday however the last 2 days he still continued to have increasing shortness of breath. May have had a slight cough denies fever. Initially was quite hypoxic requiring 6 L however that has been down to 1 he is now 96% however ABG reports that he is hypercapnic with a CO2 of 68 and a pH of 7.2. Patient is is tachypneic with rales bilaterally and tight. He is able to speak in full sentences but appears uncomfortable. He says he is doing a little bit better. He denies any chest pain. Blood cultures are pending lactate procalcitonin are also pending. Will start him on antibiotics prophylactically. But likely fluid overloaded BNP of 40,000 chest x-ray appears to have pulmonary congestion. Patient does not make any urine. Dr. Mix spoke with Nephrology Dr. Bay, he states [facility]'s boarding 17 patient's and unlikely to be transferred Patient is trialed on BiPAP he seems to be tolerating well. ABGs improved. He is given breaks on BiPAP to eat and drink. During breaks no O2 does drop to about 91 92%. Still waiting for bed placement possibility of [facility]. 05/08/22 Angelita Patient seen evaluated this morning. He has been off BiPAP my he is on 1-2 L of oxygen he overall is feeling significantly better. He has no complaints of shortness of breath. Blood work does reveal that BNP is slightly more elevated creatinine has increased from 3.7-5.0 number potassium remains within normal limits. Patient has not had any fevers, blood cultures are negative this is unlikely to be infectious. Still waiting for bed placement. Gen: Awake alert oriented male no acute distress HEENT: EOMI, face symmetric NECK: No JVD Cardio: Irregularly irregular Resp: Rales throughout no tachypnea speaks in full sentences Ab: Soft nontender ex: Peripheral pulses intact no significant edema Neuro: A&Ox4 A/P 1. Acute respiratory failure -previously hypercapnic now seems to be resolved after being on BiPAP. Repeat chest x-ray. Continue to monitor. Probable fluid overload vs asthma, he is on albuterol. PE is considered however patient is dialysis and he is allergic to iodine. Clinically seems wet and fluid overload rather than pulmonary embolism 2. Acute on chronic kidney disease: Needs dialysis Sunday awaiting for placement 3. Atrial fibrillation not on anticoagulation secondary to bleeding does take aspirin 4. 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 Either transfer versus discharge home if he does not require oxygen with dialysis intent tomorrow as scheduled for outpatient. 05/09/22 ANGELITA: The patient seen and evaluated this morning. He has been off BiPAP for over 24 hours. Requires 1-2 L of oxygen. Overall feels better he still does have decreased oxygenation mildly with exertion. However at this time he is safe to discharge to dialysis. Patient has no complaints this morning. Transfer has been arranged for him to go to dialysis. GENERAL: Alert pleasant 81-year-old male sitting at bedside no acute distress HEENT: Head atraumatic,EOMI, pupils reactive, face symmetric, [moist] mucous membranes CARDIOVASCULAR: Regular rate and rhythm without murmurs, rubs or gallops. RESPIRATORY: Mild wheezing bilaterally speaks in full sentences EXTREMITIES: Normal range of motion, no clubbing or edema. Neurovascularly intact NEUROLOGICAL: Alert and oriented x4 SKIN: Warm, dry, no laceration, no petechiae, no rashes or lesions. A/P 1. Acute respiratory failure -previously hypoxic he still does have some decreased oxygenation and gets short of breath with exertion however at rest he appears comfortable. Asthma exacerbation versus pulmonary edema 2. Chronic kidney disease plan for dialysis today which will hopefully improve his breathing status 3. Acute on chronic kidney disease-getting dialysis today transport has been arranged At this time patient is safe for discharge. He is instructed to return to the ED if he should have new or worsening symptoms despite dialysis Discharge Plan Departure Patient Disposition: Home Clinical Impression: Chronic kidney disease, Pulmonary edema, Asthma Instructions: Asthma -- Adult Activity Restrictions/Additional Instructions: *You have been diagnosed with chronic kidney disease, pulmonary edema asthma exacerbation *What to do: Glad you are feeling better. Go straight to dialysis, he likely need extra fluid removed. As long as you are feeling good after dialysis you may go home *Continue to take medications as directed *Follow up with your primary care provider in 2-3 days or call [phone] *Return to ER if you should have increasing shortness of breath chest pain, fever or any new, worsening or concerning symptoms Prescriptions: No Action aspirin [Aspir-81] 81 mg Tablet,Delayed Release (Dr/Ec) 81 mg PO BEDTIME Qty: 0 allopurinol 100 MG tablet 100 mg PO PRN PRN (Reason: Gout) Qty: 0 Label Comments: not taken in a while rosuvastatin [Crestor] 5 MG tablet 5 mg PO BEDTIME Qty: 0 amlodipine 5 mg tablet 5 mg DAILY alprazolam 0.25 mg Tablet 0.25 mg PO Q OTHER DAY Label Comments: taken only at dialysis bicalutamide [Casodex] 50 MG tablet 50 mg PO DAILY Qty: 90 3RF sertraline 100 mg Tablet 100 mg PO DAILY benzonatate 100 mg Capsule 100 mg PO TID codeine-guaifenesin 10-100 mg/5 mL Syrup 10 ml PO Q4-6H PRN (Reason: Cough) terazosin 1 MG capsule 1 mg PO BID Label Comments: takes 1 mg in am, 2 mg in PM glipizide 10 mg tablet 10 mg PO QAM Label Comments: TK 1 T PO BID Levemir U-100 Insulin 100 unit/mL solution 20 units subcut QAM Label Comments: INJECT 20 UNITS QAM carvedilol 6.25 mg tablet 6.25 mg PO BID Label Comments: TAKE 1 TABLET BY MOUTH TWICE DAILY albuterol sulfate 90 mcg/actuation HFA aerosol inhaler 90 mcg INHALATION PRN PRN (Reason: Shortness Of Breath Or Wheezing) Label Comments: INHALE 1 TO 2 PUFFS INTO THE LUNGS EVERY 4 HOURS WHILE AWAKE Referrals: Emmett Escalera MD [Primary Care Provider] - Visit Report Forms: Patient Portal/API
[2022-05-07] MEDS: ONDANSETRON 4 MG/2 ML INJ IV (04:39)
[2022-05-07 04:51] LABS: COVID19 -Nasal RAPID POSITIVE (Negative)
[2022-05-07 05:10] LABS: Add Manual Diff / Slide Review NO; Basophils Absolute Auto 100 /uL (0-100); Basophils Percent Auto 0.6 % (0-2); Eosinophils Absolute Auto 1100 /uL (0-450); Eosinophils Percent Auto 9.7 % (2-4); Hematocrit 36.2 % (41-53); Hemoglobin 11.7 g/dL (13.5-17.5); Lymphocytes Absolute Auto 900 /uL (1100-4500); Lymphocytes Percent Auto 7.9 % (25-40); Mean Corpuscular HGB Conc 32.3 % (30-36); Mean Corpuscular Hemoglobin 30.6 PG (26-34); Mean Corpuscular Volume 94.7 fL (80-100); Monocytes Absolute Auto 500 /uL (0-900); Monocytes Percent Auto 4.6 % (3-14); Neutrophils Absolute Auto 8500 /uL (1500-7000); Neutrophils Percent Auto 77.2 % (50-75); Platelet Count 146 X10^3/uL (150-400); Red Blood Cell Count 3.83 X10^6/uL (4.5-5.9)
[2022-05-07 05:24] LABS: Alanine Aminotransferase 14 IU/L (<50); Albumin 4.1 g/dL (3.5-5.0); Albumin Globulin Ratio 1.6 (1.0-2.8); Alkaline Phosphatase 92 U/L (38-126); Aspartate Aminotransferase 17 IU/L (17-59); BUN Creatinine Ratio 5.1 (6-22); Bilirubin Total 0.5 mg/dL (0.2-1.3); Blood Urea Nitrogen 19 mg/dL (9-20); Calcium 8.3 mg/dL (8.4-10.2); Carbon Dioxide 27 mmol/L (22-32); Chloride 99 mmol/L (98-107); Creatine Kinase 27 U/L (55-170); Estimated Glomerular Filt Rate 16 mL/min (>60); Globulin 2.5 g/dL (1.7-4.1); Glucose 226 mg/dL (80-110); HEMOLYSIS < 15 (0-50); Sodium 135 mmol/L (137-145); Total Protein 6.6 g/dL (6.3-8.2)
[2022-05-07 05:48] LABS: NT-proBNP (BNP-Adult 18+) 40000 pg/mL (<450)
[2022-05-07 06:25] LABS: HCO3 ABG 30 mmol/L (22-26); PCO2 ABG 65.5 mmHg (35-45); PO2 ABG 160 mmHg (80-100); TCO2 ABG 32 mmol/L (21-31); pH ABG 7.27 (7.35-7.45)
[2022-05-07 06:26] LABS: Fractionated Inspired Oxygen 32; Oxygen Saturation ABG 99 % (95-100)
[2022-05-07 07:07] LABS: PCO2 ABG 68.8 mmHg (35-45)
[2022-05-07 07:08] LABS: Fractionated Inspired Oxygen 24; HCO3 ABG 30 mmol/L (22-26); Oxygen Saturation ABG 91 % (95-100); PO2 ABG 73 mmHg (80-100); TCO2 ABG 32 mmol/L (21-31); pH ABG 7.25 (7.35-7.45)
[2022-05-07 07:26] LABS: Lactate (Lactic Acid) 0.8 mmol/L (0.7-2.1)
[2022-05-07 07:34] LABS: Procalcitonin 0.26 ng/mL (<0.5)
[2022-05-07] MEDS: PIPERACILLIN/TAZO 4.5 GM in SODIUM CHLORIDE 0.9% 100 ML IV (07:41)
--- NOTE | 2022-05-07 07:57 | PC.NURSE ---
Pt placed on bi-pap at 0748, epap 05/22, ipap 05/30 per RT
[2022-05-07 09:55] LABS: HCO3 ABG 31 mmol/L (22-26); PCO2 ABG 62.5 mmHg (35-45); PO2 ABG 73 mmHg (80-100); TCO2 ABG 32 mmol/L (21-31); pH ABG 7.29 (7.35-7.45)
[2022-05-07 09:56] LABS: Fractionated Inspired Oxygen 24; Oxygen Saturation ABG 92 % (95-100)
--- NOTE | 2022-05-07 10:50 | PC.NURSE ---
I was asked to place this patient on transfer list. I placed this patient on [facility], [facility] and [facility]. I was denied placing this patient on the waiting lists at [facility] and [facility]. I was able to place this patient on [facility] list.
[2022-05-07 11:34] LABS: Fractionated Inspired Oxygen 24; HCO3 ABG 30 mmol/L (22-26); Oxygen Saturation ABG 93 % (95-100); PCO2 ABG 57.8 mmHg (35-45); PO2 ABG 75 mmHg (80-100); TCO2 ABG 32 mmol/L (21-31)
[2022-05-07 11:35] LABS: pH ABG 7.32 (7.35-7.45)
[2022-05-07 12:55] LABS: Fractionated Inspired Oxygen 24; HCO3 ABG 30 mmol/L (22-26); Oxygen Saturation ABG 99 % (95-100); PCO2 ABG 51.8 mmHg (35-45); PO2 ABG 127 mmHg (80-100); TCO2 ABG 31 mmol/L (21-31)
[2022-05-07 12:56] LABS: pH ABG 7.37 (7.35-7.45)
--- NOTE | 2022-05-07 14:01 | PC.NURSE ---
Pt is alternating bipap: on 1 hr then off 1 hr, per RT.
--- NOTE | 2022-05-07 15:04 | PC.NURSE ---
[facility] called at [phone] stating they are working on accepting this patient for transfer to their facility. Transfer center will call back to update us about placement for patient.
--- NOTE | 2022-05-07 15:46 | PC.NURSE ---
Pt was given a sandwich and juice. Okay with Dr. Mcgarry
[2022-05-07 17:44] LABS: INR 1.2 (0.9-1.3)
[2022-05-07] MEDS: ALBUTEROL 2.5 MG/3 ML NEB (ADULT) INH ×2 (19:36→21:27)
--- NOTE | 2022-05-07 21:11 | PC.NURSE ---
2034 while pt was on his one hour break from BiPAP and sleeping his SpO2 dropped to 86% RA. RT notified and pt placed onto BiPAP for while he is sleeping.
--- NOTE | 2022-05-07 21:37 | PC.NURSE ---
Pt refusing bipap. Respiratory aware.
[2022-05-08] VITALS (72 sets, daily range): BP systolic 136–203; BP diastolic 61–158; PULSE 52–86; RESP 9–41; TEMP 36.7; O2SAT 91–100
--- NOTE | 2022-05-08 02:27 | PC.NURSE ---
Pt hadrun of 8 beats V-tach on monitor then returned to a-fib rhythm he has been in during the day. Pt remained asleep during episode and still is asleep but arouses to verbal stimulation. Pt denies complaints or chest pain at this time. Provider witness to run of vtach. Will continue to closely monitor pt.
[2022-05-08 05:09] LABS: Add Manual Diff / Slide Review NO; Basophils Absolute Auto 100 /uL (0-100); Basophils Percent Auto 0.7 % (0-2); Eosinophils Absolute Auto 1200 /uL (0-450); Hematocrit 33.8 % (41-53); Lymphocytes Absolute Auto 800 /uL (1100-4500); Lymphocytes Percent Auto 9.8 % (25-40); Mean Corpuscular HGB Conc 32.5 % (30-36); Mean Corpuscular Hemoglobin 30.4 PG (26-34); Mean Corpuscular Volume 93.6 fL (80-100); Monocytes Absolute Auto 500 /uL (0-900); Neutrophils Absolute Auto 5300 /uL (1500-7000); Neutrophils Percent Auto 67.8 % (50-75); Platelet Count 143 X10^3/uL (150-400); Red Blood Cell Count 3.61 X10^6/uL (4.5-5.9); Red Cell Distribution Width 20.1 % (11.6-14.8); White Blood Cell Count 7.9 X10^3/uL (4.5-11.0)
[2022-05-08 05:10] LABS: Eosinophils Percent Auto 15.7 % (2-4)
[2022-05-08 05:12] LABS: Alanine Aminotransferase 11 IU/L (<50); Albumin 3.5 g/dL (3.5-5.0); Albumin Globulin Ratio 1.3 (1.0-2.8); Alkaline Phosphatase 76 U/L (38-126); Aspartate Aminotransferase 15 IU/L (17-59); BUN Creatinine Ratio 5.8 (6-22); Bilirubin Total 0.6 mg/dL (0.2-1.3); Blood Urea Nitrogen 29 mg/dL (9-20); Calcium 8.3 mg/dL (8.4-10.2); Carbon Dioxide 28 mmol/L (22-32); Chloride 100 mmol/L (98-107); Creatine Kinase 20 U/L (55-170); Estimated Glomerular Filt Rate 11 mL/min (>60); Globulin 2.7 g/dL (1.7-4.1); Glucose 134 mg/dL (80-110); HEMOLYSIS < 15 (0-50); Lipase 36 U/L (23-300); Magnesium 1.7 mg/dL (1.6-2.3); Phosphorous 4.6 mg/dL (2.3-3.7); Sodium 135 mmol/L (137-145); Total Protein 6.2 g/dL (6.3-8.2)
[2022-05-08 05:24] LABS: Troponin I 0.028 ng/mL (0.01-0.034)
[2022-05-08 05:28] LABS: Anisocytosis 2+
[2022-05-08 05:37] LABS: NT-proBNP (BNP-Adult 18+) 47500 pg/mL (<450)
--- NOTE | 2022-05-08 07:25 | PC.NURSE ---
report received, care assumed. pt in hosp bed, R side lying, eyes closed, RR even, appears unlabored.
--- NOTE | 2022-05-08 07:44 | DI.RAD.S_ITS ---
PROCEDURE: XR CHEST 1V INDICATIONS: short of breath TECHNIQUE: One view of the chest was acquired. COMPARISON: [facility], CR, XR CHEST 2V, 05/07/2022, 5:24. [facility], CR, XR CHEST 1V, 03/21/2022, 14:10. FINDINGS: Surgical changes and devices: None. Lungs and pleura: Hazy central and perihilar opacities are present. No pleural effusion or pneumothorax. Mediastinum: Cardiac silhouette is mildly enlarged. Mediastinal and hilar contours appear similar to before. Bones and chest wall: No suspicious bony lesions. Overlying soft tissues appear unremarkable. IMPRESSION: Mild bilateral central/perihilar opacities suggestive of edema, viral or atypical infection are also possible. This report is concordant with the preliminary report. Dictated by: Jatin Toure M.D. on 05/08/2022 at 8:20 Approved by: Jatin Toure M.D. on 05/08/2022 at 8:25
--- NOTE | 2022-05-08 07:50 | PC.NURSE ---
pt awake, alert, denies pain/discomfort. requesting fresh water, provided. BP elevated at baseline. denies cp/dizziness. on 3 L NC continuously, saturation 96-100%. reports feeling better than yesterday. requesting breakfast, ordered, waiting for tray. call light in reach.
--- NOTE | 2022-05-08 07:56 | PC.NURSE ---
at bedside; took pt off O2, trial RA. x-ray at bedside.
[2022-05-08] MEDS: carvediloL 3.125 MG TABLET 6.25 MG PO ×2 (08:19→21:01)
[2022-05-08] MEDS: AMLODIPINE 5 MG TABLET PO (08:19)
[2022-05-08] MEDS: glipiZIDE 5 MG TABLET PO (08:19)
--- NOTE | 2022-05-08 08:22 | PC.NURSE ---
pt awake, alert, eating breakfast. on RA saturation 94-96%. MD aware.
--- NOTE | 2022-05-08 08:46 | PC.NURSE ---
Got pt up and ambulated the omalley on room air per Dr. Mcgarry's request. Pt states his normal O2 sat at home is 88-90% at home on RA. Pt was 90-94% on RA before ambulation and pt dropped to 87% with no distress while walking. Pt states he felt really good ambulating. Dr. Mcgarry witnessed ambulation trial.
--- NOTE | 2022-05-08 09:07 | DI.ECHO.S_ITS ---
[facility]---------+ [facility] +---------+ : : [address] : : : : [id number] : : : : Phone: [phone]+ Echocardiogram Report + + :Name: KAYLIN JEFFRIES Study Date: 05/08/2022 Height: 76 in : :[facility] ReadingLocation: Weight: 240 lb : : Gender: Male BSA: 2.4 m2 : :: 1940 Age: 81 yrs BP: 157/78 mmHg: :Reason For Study: ELEVATED BNP, POSSIBLE CHF : :Ordering Physician: ANGELITA, : :MARTA Performed By: Zaria Clay : :Referring: MARTA GOLDSTEIN D.O. : + + Interpretation Summary Limited study to evaluate ejection fraction. Mild concentric left ventricular hypertrophy with ejection fraction 55-60%. Mildly dilated right ventricle with normal right ventricular systolic function. Mild biatrial enlargement. Comparison is made with the echocardiogram of 11/09/2020, there has been no significant change. Procedure: A two-dimensional transthoracic echocardiogram with color flow and Doppler was performed in limited views only. The study quality was technically adequate. Comparison is made with the echocardiogram of 11/09/2020. Left Ventricle: The left ventricle is normal in size. There is mild concentric left ventricular hypertrophy. The ejection fraction is estimated to be 55-60%. There are no focal wall motion abnormalities. Right Ventricle: The right ventricle is mildly dilated. The right ventricular systolic function is normal. Atria: There is mild biatrial enlargement. Aortic Valve: The aortic valve is trileaflet. Tricuspid Valve: The tricuspid valve is not well visualized, but is grossly normal. There is mild tricuspid regurgitation. The right ventricular systolic pressure is estimated to be at least 45 mmHg based on an estimated right atrial pressure of 8 mm Hg. Great Vessels: The IVC is dilated (diameter is greater than 2.1 cm) yet it collapses greater than 50% with a sniff. This suggests a right atrial pressure of 8 mm Hg. Pericardium/ Pleura There is no pericardial effusion. There is no pleural effusion. MMode/2D Measurements & Calculations LVIDd: 5.5 cm LA A2 area: 25.5 cm2 LVIDs: 3.9 cm LA A4 area: 37.0 cm2 FS: 28.5 % LA length (vol): 8.1 cm EPSS: 1.4 cm LA vol: 98.4 ml IVSd: 1.1 cm LA vol index: 41.1 ml/m2 LVPWd: 0.99 cm LV bro. diameter/BSA (cm/m^2): 2.3 LV sys. diameter/BSA (cm/m^2): 1.6 RA long axis: 7.0 cm RVD1 (basal): 4.5 cm RA area: 28.7 cm2 RVD2 (mid): 3.4 cm RA vol: 100.1 ml TAPSE: 2.1 cm RA : 41.8 ml/m2 IVC diam: 2.1 cm Doppler Measurements & Calculations TR max long: 302.7 cm/sec TR max P.6 mmHg Electronically signed by: Saida Kendrick on Reading Physician:05/08/2022 12:09 PM
[2022-05-08] MEDS: ALBUTEROL 2.5 MG/3 ML NEB (ADULT) INH (14:05)
[2022-05-09] VITALS: PULSE 60; RESP 21; O2SAT 98
[2022-05-09] MEDS: BENZONATATE 100 MG CAPSULE PO (00:24)
[2022-05-09 06:26] VITALS: BP 194/88; PULSE 60; RESP 18; TEMP 36.9; O2SAT 100
[2022-05-09 07:00] VITALS: PULSE 63; RESP 19; O2SAT 98
== END 2022-05-09 08:00 | disposition home or self-care (01) ==
PROVIDERS: Emergency Medicine; Emergency Provider Emergency Medicine; PCP Family Medicine
DX: N18.9 Chronic kidney disease, unspecified (principal); Z99.2 Dependence on renal dialysis; J81.1 Chronic pulmonary edema; J45.909 Unspecified asthma, uncomplicated; Z86.16 Personal history of COVID-19; Z20.822 Contact with and (suspected) exposure to COVID-19
CPT/HCPCS: 36415; 36600; 71045; 71046; 80053; 82550; 82805; 82962; 83605; 83690; 83735; 83880; 84100; 84145; 84484; 85025; 85610; 87040; 87635; 93005; 93307; 94640; 94660; 96365; 96375; 99285; C9803; J2405; J2543; J7613

== ENCOUNTER 2022-05-11 11:57 | Emergency (ER) | payer MEDICARE, OTHER, SELFPAY ==
[2022-03-08 14:55] VITALS: BMI 31.0
[2022-05-07 20:45] VITALS: PULSE 58; RESP 15; O2SAT 95
[2022-05-11] VITALS (53 sets, daily range): BP systolic 119–217; BP diastolic 56–135; PULSE 67–106; RESP 12–34; TEMP 31–36.2; O2SAT 87–100; BMI 29.9
--- NOTE | 2022-05-11 12:25 | DI.RAD.S_ITS ---
PROCEDURE: XR CHEST 1V INDICATIONS: sob, on dialysis TECHNIQUE: One view of the chest was acquired. COMPARISON: [facility], CR, XR CHEST 1V, 05/08/2022, 7:50. FINDINGS: Surgical changes and devices: None. Lungs and pleura: Mild basilar predominant reticulonodular pulmonary opacity. No pleural effusions or pneumothorax. Mediastinum: Mediastinal contours appear normal. Heart size is normal. Bones and chest wall: No suspicious bony lesions. Overlying soft tissues appear unremarkable. IMPRESSION: Mild edema versus atypical pneumonia. Dictated by: Kindra Ramirez M.D. on 05/11/2022 at 14:56 Approved by: Kindra Ramirez M.D. on 05/11/2022 at 14:56
--- NOTE | 2022-05-11 12:25 | ED_ITS ---
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 Patient was at his regular dialysis today and became increasingly short of breath with cough. Patient states he was up all night with cough. He denies any syncope, no chest pain or pressure he does feel short of breath. He denies any increasing swelling in extremities. No abdominal pain. He is nauseated today, no vomiting except for possibly a small amount EN route. He had diarrhea yesterday. Denies any melanotic or hematochezia in his stool. Does not make urine. 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 Patient states he has been at his recent dialysis without missed doses but according to his chart he was there on the , and but I do not see a note for the 09 of May. Patient was recently in the emergency department on the for asthma/COPD vs. pulmonary edema. He was discharged from the emergency department directly to dialysis on the 09 of May as there is regional bed shortage unable to find a bed and patient's hypoxia had resolved at that time. Patient was requiring oxygen today he does not use oxygen at home. Related Data Home Medications Medication Instructions Recorded Confirmed aspirin 81 mg tablet,delayed 81 mg PO BEDTIME ##0 12/11/10 05/07/22 release (Aspir-) allopurinol 100 mg tablet 100 mg PO PRN PRN Gout ##0 07/10/17 05/07/22 rosuvastatin 5 mg tablet (Crestor) 5 mg PO BEDTIME ##0 01/08/18 05/07/22 terazosin 1 mg capsule 1 mg PO BID 08/31/18 05/07/22 glipizide 10 mg tablet 10 mg PO QAM 11/11/18 05/07/22 insulin detemir U-100 100 unit/mL 20 units SUBCUT QAM 11/11/18 05/07/22 subcutaneous solution amlodipine 5 mg tablet 5 mg DAILY 10/28/20 05/07/22 alprazolam 0.25 mg tablet 0.25 mg PO Q OTHER DAY 07/07/21 05/07/22 albuterol sulfate 90 mcg/actuation 90 mcg inhalation PRN PRN 03/14/22 05/07/22 aerosol inhaler Shortness Of Breath Or Wheezing carvedilol 6.25 mg tablet 6.25 mg PO BID 03/14/22 05/07/22 benzonatate 100 mg capsule 100 mg PO TID 04/10/22 05/07/22 codeine 10 mg-guaifenesin 100 mg/5 10 ml PO Q4-6H PRN Cough 04/10/22 05/07/22 mL Syrup sertraline 100 mg tablet 100 mg PO DAILY 04/10/22 05/07/22 Previous Rx's Medication Instructions Recorded bicalutamide 50 mg tablet (Casodex) 50 mg PO DAILY prostate cancer #90 10/06/21 tabs Allergies Allergy/AdvReac Type Severity Reaction Status Date / Time codeine Allergy Unknown NAUSEA Verified 03/14/22 15:21 Iodine and Iodide Containing Allergy Unknown Verified 03/14/22 15:21 Produc [IODINE AND IODIDE CONTAINING PRODUC] iohexol Allergy Unknown Verified 03/14/22 15:21 Review of Systems <Marta Gabriel DO - Last Filed: 05/12/22 19:25> Review of Systems ROS Unobtainable: All systems reviewed & are unremarkable except as noted in HPI and below Patient History <Marta Gabriel DO - Last Filed: 05/12/22 19:25> Medical History Anticoagulation adequate with anticoagulant therapy Atrial fibrillation 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, severely decreased glomerular filtration rate (GFR) between 15-29 mL/min/1.73 square meter and albuminuria creatinine ratio less than 30 mg/g Complex sleep apnea syndrome Diabetes Edema leg Excessive daytime sleepiness Gout Hyperlipidemia Hypertension Obesity Obstructive sleep apnea of adult Prostate cancer Surgical History S/P ureteral stent placement Social History household members: spouse Smoking Status: Never smoker alcohol intake: never substance use type: does not use Smoking Status: Never smoker alcohol intake frequency: 0-2 drinks per day Substance Use Type: does not use Exam <Marta Gabriel DO - Last Filed: 05/12/22 19:25> Narrative Exam Narrative: GEN: Elderly male, alert and oriented x 3, patient appears to be in moderate distress. HEENT: Atraumatic, pupils are equal round reactive to light, extraocular movements are intact, nares are clear. Throat is clear without any exudates, erythema, tonsillar enlargement or uvular deviation HEART: Regular rate and rhythm without murmur, clicks, rubs. No carotid bruits, pulses are equal in upper and lower extremities. Patient has clamp on his left upper extremity from dialysis in place. 2+ radial pulses bilaterally. LUNGS:Lungs decreased bilateral anterior lungs, patient has positive wheezes bilateral bases, no rales, chest moves symmetrically, mild tachypnea. Patient is speaking in 3-4 word sentences. ABD:bowel sounds normal, soft, non-tender, no guarding, rebound, rigidity, no masses noted, no hepatosplenomegaly :No CVA tenderness MSCL: Non-tender, full range of motion, normal gait NEURO:CN 2-12 intact, sensation normal SKIN: No rash, erythema or other skin changes Initial Vital Signs Initial Vital Signs: Vital Signs Temperature 97.2 F L 05/11/22 12:04 Pulse Rate 97 H 05/11/22 12:04 Respiratory Rate 05/11/22 12:04 Blood Pressure 180/85 H 05/11/22 12:04 Pulse Oximetry 100 05/11/22 12:04 Oxygen Delivery Method 05/11/22 12:04 <Milton Mix DO - Last Filed: 05/13/22 05:27> Initial Vital Signs Initial Vital Signs: Vital Signs Temperature 97.2 F L 05/11/22 12:04 Pulse Rate 97 H 05/11/22 12:04 Respiratory Rate 05/11/22 12:04 Blood Pressure 180/85 H 05/11/22 12:04 Pulse Oximetry 100 05/11/22 12:04 Oxygen Delivery Method 05/11/22 12:04 Course <Marta Gabriel DO - Last Filed: 05/12/22 19:25> Orders Ordered: Discontinued Medications Albuterol (Albuterol 2.5 Mg/3 Ml Neb (Adult)) 20 mg INH NOW ONE Stop: 05/11/22 12:29 Last Admin: 05/11/22 13:01 Dose: 20 mg Documented By: EVER Albuterol/Ipratropium (Albuterol/Ipratropium 3 Ml Ampul) 3 ml INH NOW ONE Stop: 05/11/22 12:27 Last Admin: 05/11/22 13:01 Dose: 3 ml Documented By: EVER Diphenhydramine HCl (Diphenhydramine 50 Mg/Ml Vial) 25 mg IV NOW ONE Stop: 05/11/22 18:25 Last Admin: 05/11/22 18:38 Dose: 25 mg Documented By: JAROD Famotidine (Famotidine 20 Mg/2 Ml Vial) 20 mg IV NOW NEVIN Last Admin: 05/11/22 18:38 Dose: 20 mg Documented By: JAROD Azithromycin 500 mg/ Dextrose 250 mls @ 250 mls/hr IV NOW ONE Stop: 05/11/22 18:18 Last Infusion: 05/11/22 22:00 Dose: 0 mls/hr Documented By: Admin: 05/11/22 20:04 Dose: 250 mls/hr Documented By: RAO Methylprednisolone (Methylprednisolone 125 Mg/2 Ml Vial) 125 mg IV NOW ONE Stop: 05/11/22 12:26 Last Admin: 05/11/22 12:34 Dose: 125 mg Documented By: JAROD Ondansetron HCl (Ondansetron 4 Mg/2 Ml Inj) 4 mg IV NOW ONE Stop: 05/11/22 12:26 Last Admin: 05/11/22 12:34 Dose: 4 mg Documented By: JAROD Vital Signs Vital signs: Vital Signs - 8 hr 05/11/22 21:00 05/11/22 21:01 05/11/22 21:01 Pulse Rate 90 90 Respiratory Rate 31 H 34 H Blood Pressure 155/63 H Pulse Oximetry 96 96 05/11/22 21:15 05/11/22 21:15 05/11/22 21:30 Pulse Rate 84 92 H Respiratory Rate Blood Pressure 151/97 H Pulse Oximetry 95 05/11/22 21:31 05/11/22 21:31 05/11/22 21:45 Pulse Rate 93 H Respiratory Rate Blood Pressure 161/109 H 151/117 H Pulse Oximetry 96 05/11/22 21:45 05/11/22 22:00 05/11/22 22:01 Pulse Rate 77 81 75 Respiratory Rate Blood Pressure Pulse Oximetry 96 95 94 05/11/22 22:01 05/11/22 22:15 05/11/22 22:15 Pulse Rate 83 Respiratory Rate Blood Pressure 149/66 H 170/74 H Pulse Oximetry 95 05/11/22 22:30 05/11/22 22:30 05/11/22 22:45 Pulse Rate 91 H Respiratory Rate Blood Pressure 156/70 H 177/68 H Pulse Oximetry 95 05/11/22 22:45 05/11/22 23:00 05/11/22 23:00 Pulse Rate 81 72 Respiratory Rate Blood Pressure 165/74 H Pulse Oximetry 96 95 05/11/22 23:15 05/11/22 23:15 05/11/22 23:30 Pulse Rate 72 Respiratory Rate Blood Pressure 155/68 H 165/70 H Pulse Oximetry 97 05/11/22 23:30 05/11/22 23:45 05/11/22 23:45 Pulse Rate 78 67 Respiratory Rate Blood Pressure 144/65 H Pulse Oximetry 96 94 05/12/22 00:00 05/12/22 00:00 05/12/22 00:15 Pulse Rate 69 Respiratory Rate Blood Pressure 138/63 168/73 H Pulse Oximetry 93 05/12/22 00:15 05/12/22 00:30 05/12/22 00:30 Pulse Rate 84 67 Respiratory Rate Blood Pressure 156/72 H Pulse Oximetry 95 98 05/12/22 00:45 05/12/22 00:45 05/12/22 00:50 Pulse Rate 70 76 Respiratory Rate Blood Pressure 157/67 H Pulse Oximetry 90 L 88 L 05/12/22 01:00 05/12/22 01:15 05/12/22 01:30 Pulse Rate Respiratory Rate Blood Pressure 189/77 H 188/81 H 159/70 H Pulse Oximetry 05/12/22 01:45 05/12/22 02:00 05/12/22 02:09 Pulse Rate 78 Respiratory Rate Blood Pressure 139/63 141/63 H Pulse Oximetry 94 <Milton Mix, DO - Last Filed: 05/13/22 05:27> Orders Ordered: Discontinued Medications Albuterol (Albuterol 2.5 Mg/3 Ml Neb (Adult)) 20 mg INH NOW ONE Stop: 05/11/22 12:29 Last Admin: 05/11/22 13:01 Dose: 20 mg Documented By: EVER Albuterol/Ipratropium (Albuterol/Ipratropium 3 Ml Ampul) 3 ml INH NOW ONE Stop: 05/11/22 12:27 Last Admin: 05/11/22 13:01 Dose: 3 ml Documented By: EVER Diphenhydramine HCl (Diphenhydramine 50 Mg/Ml Vial) 25 mg IV NOW ONE Stop: 05/11/22 18:25 Last Admin: 05/11/22 18:38 Dose: 25 mg Documented By: JAROD Famotidine (Famotidine 20 Mg/2 Ml Vial) 20 mg IV NOW NEVNI Last Admin: 05/11/22 18:38 Dose: 20 mg Documented By: JAROD Azithromycin 500 mg/ Dextrose 250 mls @ 250 mls/hr IV NOW ONE Stop: 05/11/22 18:18 Last Infusion: 05/11/22 22:00 Dose: 0 mls/hr Documented By: Admin: 05/11/22 20:04 Dose: 250 mls/hr Documented By: RAO Methylprednisolone (Methylprednisolone 125 Mg/2 Ml Vial) 125 mg IV NOW ONE Stop: 05/11/22 12:26 Last Admin: 05/11/22 12:34 Dose: 125 mg Documented By: JAROD Ondansetron HCl (Ondansetron 4 Mg/2 Ml Inj) 4 mg IV NOW ONE Stop: 05/11/22 12:26 Last Admin: 05/11/22 12:34 Dose: 4 mg Documented By: JAROD Vital Signs Vital signs: Vital Signs - 8 hr 05/11/22 21:00 05/11/22 21:01 05/11/22 21:01 Pulse Rate 90 90 Respiratory Rate 31 H 34 H Blood Pressure 155/63 H Pulse Oximetry 96 96 05/11/22 21:15 05/11/22 21:15 05/11/22 21:30 Pulse Rate 84 92 H Respiratory Rate Blood Pressure 151/97 H Pulse Oximetry 95 05/11/22 21:31 05/11/22 21:31 05/11/22 21:45 Pulse Rate 93 H Respiratory Rate Blood Pressure 161/109 H 151/117 H Pulse Oximetry 96 05/11/22 21:45 05/11/22 22:00 05/11/22 22:01 Pulse Rate 77 81 75 Respiratory Rate Blood Pressure Pulse Oximetry 96 95 94 05/11/22 22:01 05/11/22 22:15 05/11/22 22:15 Pulse Rate 83 Respiratory Rate Blood Pressure 149/66 H 170/74 H Pulse Oximetry 95 05/11/22 22:30 05/11/22 22:30 05/11/22 22:45 Pulse Rate 91 H Respiratory Rate Blood Pressure 156/70 H 177/68 H Pulse Oximetry 95 05/11/22 22:45 05/11/22 23:00 05/11/22 23:00 Pulse Rate 81 72 Respiratory Rate Blood Pressure 165/74 H Pulse Oximetry 96 95 05/11/22 23:15 05/11/22 23:15 05/11/22 23:30 Pulse Rate 72 Respiratory Rate Blood Pressure 155/68 H 165/70 H Pulse Oximetry 97 05/11/22 23:30 05/11/22 23:45 05/11/22 23:45 Pulse Rate 78 67 Respiratory Rate Blood Pressure 144/65 H Pulse Oximetry 96 94 05/12/22 00:00 05/12/22 00:00 05/12/22 00:15 Pulse Rate 69 Respiratory Rate Blood Pressure 138/63 168/73 H Pulse Oximetry 93 05/12/22 00:15 05/12/22 00:30 05/12/22 00:30 Pulse Rate 84 67 Respiratory Rate Blood Pressure 156/72 H Pulse Oximetry 95 98 05/12/22 00:45 05/12/22 00:45 05/12/22 00:50 Pulse Rate 70 76 Respiratory Rate Blood Pressure 157/67 H Pulse Oximetry 90 L 88 L 05/12/22 01:00 05/12/22 01:15 05/12/22 01:30 Pulse Rate Respiratory Rate Blood Pressure 189/77 H 188/81 H 159/70 H Pulse Oximetry 05/12/22 01:45 05/12/22 02:00 05/12/22 02:09 Pulse Rate 78 Respiratory Rate Blood Pressure 139/63 141/63 H Pulse Oximetry 94 MDM - SOB/Dyspnea <Martaamanda Gabriel, DO - Last Filed: 05/12/22 19:25> Lab Data Result diagrams: 05/11/22 12:29 05/11/22 12:29 Labs: Lab Results 05/11/22 05/11/22 05/11/22 Range/Units 12:29 12:29 12:29 WBC 8.9 (4.5-11.0) X10^3/uL RBC 3.90 L (4.5-5.9) X10^6/uL Hgb 12.1 L (13.5-17.5) g/dL Hct 36.4 L (41-53) % MCV 93.4 (80-100) fL MCH 31.1 (26-34) PG MCHC 33.3 (30-36) % RDW 20.0 H (11.6-14.8) % Plt Count 115 L (150-400) X10^3/uL Neut % (Auto) 70.3 (50-75) % Lymph % (Auto) 9.0 L (25-40) % [place] % (Auto) 4.2 (3-14) % Eos % (Auto) 16.1 H (2-4) % Baso % (Auto) 0.4 (0-2) % Neut # (Auto) 6300 (3897-0718) /uL Lymph # (Auto) 800 L (9836-6717) /uL [place] # (Auto) 400 (0-900) /uL Eos # (Auto) 1400 H (0-450) /uL Baso # (Auto) 0 (0-100) /uL PT 11.9 (10.1-12.7) SECONDS INR 1.1 (0.9-1.3) APTT 32 (26.4-36.2) SECONDS ABG pH (7.35-7.45) ABG pCO2 (35-45) mmHg ABG pO2 (80-100) mmHg ABG HCO3 (22-26) mmol/L ABG Total CO2 (21-31) mmol/L ABG O2 Saturation (95-100) % ABG Base Excess (-2-2) mmol/L FiO2 Sodium 137 (137-145) mmol/L Potassium 3.2 L (3.4-5.1) mmol/L Chloride 97 L (98-107) mmol/L Carbon Dioxide 30 (22-32) mmol/L BUN 15 (9-20) mg/dL Creatinine 2.94 H (0.66-1.25) mg/dL Estimated GFR 20 L (>60) mL/min BUN/Creatinine Ratio 5.1 L (6-22) Glucose 150 H (80-110) mg/dL Calcium 8.2 L (8.4-10.2) mg/dL Total Bilirubin 0.9 (0.2-1.3) mg/dL AST 21 (17-59) IU/L ALT 13 (<50) IU/L Alkaline Phosphatase 108 (38-126) U/L Total Creatine Kinase 29 L (55-170) U/L CK-MB (CK-2) TNP CK-MB (CK-2) Rel Index TNP Troponin I 0.036 H (0.01-0.034) ng/mL NT-Pro-B Natriuret Pep 32698 H (<450) pg/mL Total Protein 7.7 (6.3-8.2) g/dL Albumin 4.6 (3.5-5.0) g/dL Globulin 3.1 (1.7-4.1) g/dL Albumin/Globulin Ratio 1.5 (1.0-2.8) Lipase 73 D (23-300) U/L Procalcitonin 0.26 (<0.5) ng/mL Chlamy pneumoniae PCR (Not Detect) Adenovirus (PCR) (Not Detect) B. pertussis DNA (PCR) (Not Detecte) B.parapertussis DNA PCR (Not Detecte) Coronavirus OC43 (PCR) (Not Detect) Coronavirus HKU1 (PCR) (Not Detect) Coronavirus 229E (PCR) (Not Detect) SARS-CoV-2 (PCR) (Not Detecte) Coronavirus NL63 (PCR) (Not Detect) Human Metapneumovir PCR (Not Detect) Influenza Type A (PCR) (Not Detect) Influenza Type B (PCR) (Not Detect) M. pneumoniae (PCR) (Not Detect) Parainfluenza 1 (PCR) (Not Detect) Parainfluenza 2 (PCR) (Not Detect) Parainfluenza 3 (PCR) (Not Detect) Parainfluenza 4 (PCR) (Not Detect) RSV (PCR) (Not Detect) Entero/Rhino (PCR) (Not Detect) 05/11/22 05/11/22 05/11/22 Range/Units 12:37 12:42 14:19 WBC (4.5-11.0) X10^3/uL RBC (4.5-5.9) X10^6/uL Hgb (13.5-17.5) g/dL Hct (41-53) % MCV (80-100) fL MCH (26-34) PG MCHC (30-36) % RDW (11.6-14.8) % Plt Count (150-400) X10^3/uL Neut % (Auto) (50-75) % Lymph % (Auto) (25-40) % [place] % (Auto) (3-14) % Eos % (Auto) (2-4) % Baso % (Auto) (0-2) % Neut # (Auto) (5941-1360) /uL Lymph # (Auto) (6088-7554) /uL [place] # (Auto) (0-900) /uL Eos # (Auto) (0-450) /uL Baso # (Auto) (0-100) /uL PT (10.1-12.7) SECONDS INR (0.9-1.3) APTT (26.4-36.2) SECONDS ABG pH 7.27 L* (7.35-7.45) ABG pCO2 62.0 H* (35-45) mmHg ABG pO2 130 H (80-100) mmHg ABG HCO3 29 H (22-26) mmol/L ABG Total CO2 31 (21-31) mmol/L ABG O2 Saturation 98 (95-100) % ABG Base Excess 2.0 (-2-2) mmol/L FiO2 40 Sodium (137-145) mmol/L Potassium (3.4-5.1) mmol/L Chloride (98-107) mmol/L Carbon Dioxide (22-32) mmol/L BUN (9-20) mg/dL Creatinine (0.66-1.25) mg/dL Estimated GFR (>60) mL/min BUN/Creatinine Ratio (6-22) Glucose (80-110) mg/dL Calcium (8.4-10.2) mg/dL Total Bilirubin (0.2-1.3) mg/dL AST (17-59) IU/L ALT (<50) IU/L Alkaline Phosphatase (38-126) U/L Total Creatine Kinase (55-170) U/L CK-MB (CK-2) CK-MB (CK-2) Rel Index Troponin I 0.035 H (0.01-0.034) ng/mL NT-Pro-B Natriuret Pep (<450) pg/mL Total Protein (6.3-8.2) g/dL Albumin (3.5-5.0) g/dL Globulin (1.7-4.1) g/dL Albumin/Globulin Ratio (1.0-2.8) Lipase (23-300) U/L Procalcitonin (<0.5) ng/mL Chlamy pneumoniae PCR Not detected (Not Detect) Adenovirus (PCR) Not detected (Not Detect) B. pertussis DNA (PCR) Not detected (Not Detecte) B.parapertussis DNA PCR Not detected (Not Detecte) Coronavirus OC43 (PCR) Not detected (Not Detect) Coronavirus HKU1 (PCR) Not detected (Not Detect) Coronavirus 229E (PCR) Not detected (Not Detect) SARS-CoV-2 (PCR) Detected H (Not Detecte) Coronavirus NL63 (PCR) Not detected (Not Detect) Human Metapneumovir PCR Not detected (Not Detect) Influenza Type A (PCR) Not detected (Not Detect) Influenza Type B (PCR) Not detected (Not Detect) M. pneumoniae (PCR) Not detected (Not Detect) Parainfluenza 1 (PCR) Not detected (Not Detect) Parainfluenza 2 (PCR) Not detected (Not Detect) Parainfluenza 3 (PCR) Not detected (Not Detect) Parainfluenza 4 (PCR) Not detected (Not Detect) RSV (PCR) Not detected (Not Detect) Entero/Rhino (PCR) Not detected (Not Detect) 05/11/22 Range/Units 16:45 WBC (4.5-11.0) X10^3/uL RBC (4.5-5.9) X10^6/uL Hgb (13.5-17.5) g/dL Hct (41-53) % MCV (80-100) fL MCH (26-34) PG MCHC (30-36) % RDW (11.6-14.8) % Plt Count (150-400) X10^3/uL Neut % (Auto) (50-75) % Lymph % (Auto) (25-40) % [place] % (Auto) (3-14) % Eos % (Auto) (2-4) % Baso % (Auto) (0-2) % Neut # (Auto) (7517-3602) /uL Lymph # (Auto) (7834-5375) /uL [place] # (Auto) (0-900) /uL Eos # (Auto) (0-450) /uL Baso # (Auto) (0-100) /uL PT (10.1-12.7) SECONDS INR (0.9-1.3) APTT (26.4-36.2) SECONDS ABG pH 7.35 (7.35-7.45) ABG pCO2 46.2 H (35-45) mmHg ABG pO2 87 (80-100) mmHg ABG HCO3 26 (22-26) mmol/L ABG Total CO2 27 (21-31) mmol/L ABG O2 Saturation 96 (95-100) % ABG Base Excess 0.0 (-2-2) mmol/L FiO2 28 Sodium (137-145) mmol/L Potassium (3.4-5.1) mmol/L Chloride (98-107) mmol/L Carbon Dioxide (22-32) mmol/L BUN (9-20) mg/dL Creatinine (0.66-1.25) mg/dL Estimated GFR (>60) mL/min BUN/Creatinine Ratio (6-22) Glucose (80-110) mg/dL Calcium (8.4-10.2) mg/dL Total Bilirubin (0.2-1.3) mg/dL AST (17-59) IU/L ALT (<50) IU/L Alkaline Phosphatase (38-126) U/L Total Creatine Kinase (55-170) U/L CK-MB (CK-2) CK-MB (CK-2) Rel Index Troponin I (0.01-0.034) ng/mL NT-Pro-B Natriuret Pep (<450) pg/mL Total Protein (6.3-8.2) g/dL Albumin (3.5-5.0) g/dL Globulin (1.7-4.1) g/dL Albumin/Globulin Ratio (1.0-2.8) Lipase (23-300) U/L Procalcitonin (<0.5) ng/mL Chlamy pneumoniae PCR (Not Detect) Adenovirus (PCR) (Not Detect) B. pertussis DNA (PCR) (Not Detecte) B.parapertussis DNA PCR (Not Detecte) Coronavirus OC43 (PCR) (Not Detect) Coronavirus HKU1 (PCR) (Not Detect) Coronavirus 229E (PCR) (Not Detect) SARS-CoV-2 (PCR) (Not Detecte) Coronavirus NL63 (PCR) (Not Detect) Human Metapneumovir PCR (Not Detect) Influenza Type A (PCR) (Not Detect) Influenza Type B (PCR) (Not Detect) M. pneumoniae (PCR) (Not Detect) Parainfluenza 1 (PCR) (Not Detect) Parainfluenza 2 (PCR) (Not Detect) Parainfluenza 3 (PCR) (Not Detect) Parainfluenza 4 (PCR) (Not Detect) RSV (PCR) (Not Detect) Entero/Rhino (PCR) (Not Detect) Imaging Data Chest x-ray: Radiologist's Impression: [address] [address] XRay Report Signed Patient: Noel Allen MR#: [id number] : 1940 Acct:[id number] Age/Sex: 81 / M Date of Service: 05/11/22 Loc: ED Accession Number: [id number] ?? Procedure: XR chest 1V Ordering Provider: Marta Gabriel D.O. PROCEDURE:? XR CHEST 1V ? INDICATIONS:? sob, on dialysis ? TECHNIQUE:? One view of the chest was acquired.? ? COMPARISON:? , CR, XR CHEST 1V, 05/08/2022, 7:50. ? FINDINGS:? ? Surgical changes and devices:? None.? ? Lungs and pleura:? Mild basilar predominant reticulonodular pulmonary opacity.? No pleural effusions or pneumothorax.? ? Mediastinum:? Mediastinal contours appear normal.? Heart size is normal.? ? Bones and chest wall:? No suspicious bony lesions.? Overlying soft tissues appear unremarkable.? ? IMPRESSION:? Mild edema versus atypical pneumonia.? ? ? Dictated by: Kindra Ramirez M.D. on 05/11/2022 at 14:56 ? ? Approved by: Kindra Ramirez M.D. on 05/11/2022 at 14:56?? CT scan - chest: Radiologist's Impression: [address] [address] [address] Scan Report Signed Patient: Noel Allen MR#: [id number] : 1940 Acct:[id number] Age/Sex: 81 / M Date of Service: 05/11/22 Loc: ED Accession Number: [id number] ?? Procedure: CT angio chest PE protocol Ordering Provider: Milton Mix D.O. PROCEDURE:? CT ANGIO CHEST PE PROTOCOL ? INDICATIONS:? SOB, hypoxemia ? TECHNIQUE:? After the administration of intravenous contrast, 2 mm thick sections acquired from the pulmonary apices to the posterior costophrenic angles.? 3-dimensional maximum intensity projection (MIP) coronal and sagittal reformats were then acquired through the thorax.? For radiation dose reduction, the following was used:? automated exposure control, adjustment of mA and/or kV according to patient size.? ? COMPARISON:? None. ? FINDINGS:? Image quality:? Excellent.? ? Pulmonary arteries:? Pulmonary arteries are normal in size, and demonstrate no intraluminal filling defects to suggest central pulmonary embolism.? ? Lungs and pleura:? Lungs are clear.? No pleural effusions or pneumothorax.? Central and peripheral airways are patent.? ? Mediastinum:? Normal heart size.? No pericardial effusion.? Heavy four-vessel coronary calcification. ? Bones and chest wall:? No suspicious lytic or blastic osseous lesion. ? Abdomen:? Visualized upper abdominal solid organs appear normal in the early arterial phase of enhancement.? ? IMPRESSION:? No findings of pulmonary embolism or other acute finding in the chest. ? ? Dictated by: Yuval Rgoers M.D. on 05/11/2022 at 20:33 ? ? Approved by: Yuval Rogers M.D. on 05/11/2022 at 20:35? ECG Data Attestation: I personally reviewed and interpreted this ECG as follows: Prior ECG tracings: available for review Interpretation: Sinus rhythm with sinus arrhythmia rate 80 [place] 320 QRS of [address] No acute ST elevation. Patient has depression in V4 but there is [id number] variability. Patient has prior from 05/08/2022 which appears similar. MDM Narrative Medical decision making narrative: This is an 81-year-old male with known end-stage renal disease on dialysis patient comes in with complaint of cough, shortness of breath and was sent from dialysis had partial dialysis but does not believe he is able to complete the entire portion he arrived on 10 L nasal cannula had 2 DuoNebs EN route. Patient was here with either asthma/reactive airway and or pulmonary edema on May 07 boarded for approximately 24-48 hours and discharged directly to dialysis suspected to be more fluid overloaded. At that time he was not requiring oxygen. He states that he did have dialysis on the 09 of May. Labs, EKG, chest x-ray and ABG show [2044] (Dominguez) Patient received in sign out from [Harvey]. I have reviewed the clinical course and performed an independent history and physical exam. Patient continues to do quite well, he has been off oxygen for many hours. CT angiogram obtained and there is no evidence of any pulmonary embolism or other ominous finding. Patient able to ambulate through the department without supplemental oxygen while maintaining sats in the mid 90s. He is appropriate for discharge, however does not require BLS transport and his is sleeping, we will have to wait until she wakes up to get him a ride home. Harvey 05/12/22: 0800 Patient signed out to myself while awaiting ride home. He has been on room air, symptoms have significantly improved from yesterday when I initially saw him. arrived and patient is stable and appropriate for discharge. <Milton Mix, DO - Last Filed: 05/13/22 05:27> Lab Data Labs: Lab Results 05/11/22 05/11/22 05/11/22 Range/Units 12:29 12:29 12:29 WBC 8.9 (4.5-11.0) X10^3/uL RBC 3.90 L (4.5-5.9) X10^6/uL Hgb 12.1 L (13.5-17.5) g/dL Hct 36.4 L (41-53) % MCV 93.4 (80-100) fL MCH 31.1 (26-34) PG MCHC 33.3 (30-36) % RDW 20.0 H (11.6-14.8) % Plt Count 115 L (150-400) X10^3/uL Neut % (Auto) 70.3 (50-75) % Lymph % (Auto) 9.0 L (25-40) % [place] % (Auto) 4.2 (3-14) % Eos % (Auto) 16.1 H (2-4) % Baso % (Auto) 0.4 (0-2) % Neut # (Auto) 6300 (5912-5479) /uL Lymph # (Auto) 800 L (9700-2196) /uL [place] # (Auto) 400 (0-900) /uL Eos # (Auto) 1400 H (0-450) /uL Baso # (Auto) 0 (0-100) /uL PT 11.9 (10.1-12.7) SECONDS INR 1.1 (0.9-1.3) APTT 32 (26.4-36.2) SECONDS ABG pH (7.35-7.45) ABG pCO2 (35-45) mmHg ABG pO2 (80-100) mmHg ABG HCO3 (22-26) mmol/L ABG Total CO2 (21-31) mmol/L ABG O2 Saturation (95-100) % ABG Base Excess (-2-2) mmol/L FiO2 Sodium 137 (137-145) mmol/L Potassium 3.2 L (3.4-5.1) mmol/L Chloride 97 L (98-107) mmol/L Carbon Dioxide 30 (22-32) mmol/L BUN 15 (9-20) mg/dL Creatinine 2.94 H (0.66-1.25) mg/dL Estimated GFR 20 L (>60) mL/min BUN/Creatinine Ratio 5.1 L (6-22) Glucose 150 H (80-110) mg/dL Calcium 8.2 L (8.4-10.2) mg/dL Total Bilirubin 0.9 (0.2-1.3) mg/dL AST 21 (17-59) IU/L ALT 13 (<50) IU/L Alkaline Phosphatase 108 (38-126) U/L Total Creatine Kinase 29 L (55-170) U/L CK-MB (CK-2) TNP CK-MB (CK-2) Rel Index TNP Troponin I 0.036 H (0.01-0.034) ng/mL NT-Pro-B Natriuret Pep 77826 H (<450) pg/mL Total Protein 7.7 (6.3-8.2) g/dL Albumin 4.6 (3.5-5.0) g/dL Globulin 3.1 (1.7-4.1) g/dL Albumin/Globulin Ratio 1.5 (1.0-2.8) Lipase 73 D (23-300) U/L Procalcitonin 0.26 (<0.5) ng/mL Chlamy pneumoniae PCR (Not Detect) Adenovirus (PCR) (Not Detect) B. pertussis DNA (PCR) (Not Detecte) B.parapertussis DNA PCR (Not Detecte) Coronavirus OC43 (PCR) (Not Detect) Coronavirus HKU1 (PCR) (Not Detect) Coronavirus 229E (PCR) (Not Detect) SARS-CoV-2 (PCR) (Not Detecte) Coronavirus NL63 (PCR) (Not Detect) Human Metapneumovir PCR (Not Detect) Influenza Type A (PCR) (Not Detect) Influenza Type B (PCR) (Not Detect) M. pneumoniae (PCR) (Not Detect) Parainfluenza 1 (PCR) (Not Detect) Parainfluenza 2 (PCR) (Not Detect) Parainfluenza 3 (PCR) (Not Detect) Parainfluenza 4 (PCR) (Not Detect) RSV (PCR) (Not Detect) Entero/Rhino (PCR) (Not Detect) 05/11/22 05/11/22 05/11/22 Range/Units 12:37 12:42 14:19 WBC (4.5-11.0) X10^3/uL RBC (4.5-5.9) X10^6/uL Hgb (13.5-17.5) g/dL Hct (41-53) % MCV (80-100) fL MCH (26-34) PG MCHC (30-36) % RDW (11.6-14.8) % Plt Count (150-400) X10^3/uL Neut % (Auto) (50-75) % Lymph % (Auto) (25-40) % [place] % (Auto) (3-14) % Eos % (Auto) (2-4) % Baso % (Auto) (0-2) % Neut # (Auto) (7857-8329) /uL Lymph # (Auto) (1413-9292) /uL [place] # (Auto) (0-900) /uL Eos # (Auto) (0-450) /uL Baso # (Auto) (0-100) /uL PT (10.1-12.7) SECONDS INR (0.9-1.3) APTT (26.4-36.2) SECONDS ABG pH 7.27 L* (7.35-7.45) ABG pCO2 62.0 H* (35-45) mmHg ABG pO2 130 H (80-100) mmHg ABG HCO3 29 H (22-26) mmol/L ABG Total CO2 31 (21-31) mmol/L ABG O2 Saturation 98 (95-100) % ABG Base Excess 2.0 (-2-2) mmol/L FiO2 40 Sodium (137-145) mmol/L Potassium (3.4-5.1) mmol/L Chloride (98-107) mmol/L Carbon Dioxide (22-32) mmol/L BUN (9-20) mg/dL Creatinine (0.66-1.25) mg/dL Estimated GFR (>60) mL/min BUN/Creatinine Ratio (6-22) Glucose (80-110) mg/dL Calcium (8.4-10.2) mg/dL Total Bilirubin (0.2-1.3) mg/dL AST (17-59) IU/L ALT (<50) IU/L Alkaline Phosphatase (38-126) U/L Total Creatine Kinase (55-170) U/L CK-MB (CK-2) CK-MB (CK-2) Rel Index Troponin I 0.035 H (0.01-0.034) ng/mL NT-Pro-B Natriuret Pep (<450) pg/mL Total Protein (6.3-8.2) g/dL Albumin (3.5-5.0) g/dL Globulin (1.7-4.1) g/dL Albumin/Globulin Ratio (1.0-2.8) Lipase (23-300) U/L Procalcitonin (<0.5) ng/mL Chlamy pneumoniae PCR Not detected (Not Detect) Adenovirus (PCR) Not detected (Not Detect) B. pertussis DNA (PCR) Not detected (Not Detecte) B.parapertussis DNA PCR Not detected (Not Detecte) Coronavirus OC43 (PCR) Not detected (Not Detect) Coronavirus HKU1 (PCR) Not detected (Not Detect) Coronavirus 229E (PCR) Not detected (Not Detect) SARS-CoV-2 (PCR) Detected H (Not Detecte) Coronavirus NL63 (PCR) Not detected (Not Detect) Human Metapneumovir PCR Not detected (Not Detect) Influenza Type A (PCR) Not detected (Not Detect) Influenza Type B (PCR) Not detected (Not Detect) M. pneumoniae (PCR) Not detected (Not Detect) Parainfluenza 1 (PCR) Not detected (Not Detect) Parainfluenza 2 (PCR) Not detected (Not Detect) Parainfluenza 3 (PCR) Not detected (Not Detect) Parainfluenza 4 (PCR) Not detected (Not Detect) RSV (PCR) Not detected (Not Detect) Entero/Rhino (PCR) Not detected (Not Detect) 05/11/22 Range/Units 16:45 WBC (4.5-11.0) X10^3/uL RBC (4.5-5.9) X10^6/uL Hgb (13.5-17.5) g/dL Hct (41-53) % MCV (80-100) fL MCH (26-34) PG MCHC (30-36) % RDW (11.6-14.8) % Plt Count (150-400) X10^3/uL Neut % (Auto) (50-75) % Lymph % (Auto) (25-40) % [place] % (Auto) (3-14) % Eos % (Auto) (2-4) % Baso % (Auto) (0-2) % Neut # (Auto) (0090-6630) /uL Lymph # (Auto) (0593-7607) /uL [place] # (Auto) (0-900) /uL Eos # (Auto) (0-450) /uL Baso # (Auto) (0-100) /uL PT (10.1-12.7) SECONDS INR (0.9-1.3) APTT (26.4-36.2) SECONDS ABG pH 7.35 (7.35-7.45) ABG pCO2 46.2 H (35-45) mmHg ABG pO2 87 (80-100) mmHg ABG HCO3 26 (22-26) mmol/L ABG Total CO2 27 (21-31) mmol/L ABG O2 Saturation 96 (95-100) % ABG Base Excess 0.0 (-2-2) mmol/L FiO2 28 Sodium (137-145) mmol/L Potassium (3.4-5.1) mmol/L Chloride (98-107) mmol/L Carbon Dioxide (22-32) mmol/L BUN (9-20) mg/dL Creatinine (0.66-1.25) mg/dL Estimated GFR (>60) mL/min BUN/Creatinine Ratio (6-22) Glucose (80-110) mg/dL Calcium (8.4-10.2) mg/dL Total Bilirubin (0.2-1.3) mg/dL AST (17-59) IU/L ALT (<50) IU/L Alkaline Phosphatase (38-126) U/L Total Creatine Kinase (55-170) U/L CK-MB (CK-2) CK-MB (CK-2) Rel Index Troponin I (0.01-0.034) ng/mL NT-Pro-B Natriuret Pep (<450) pg/mL Total Protein (6.3-8.2) g/dL Albumin (3.5-5.0) g/dL Globulin (1.7-4.1) g/dL Albumin/Globulin Ratio (1.0-2.8) Lipase (23-300) U/L Procalcitonin (<0.5) ng/mL Chlamy pneumoniae PCR (Not Detect) Adenovirus (PCR) (Not Detect) B. pertussis DNA (PCR) (Not Detecte) B.parapertussis DNA PCR (Not Detecte) Coronavirus OC43 (PCR) (Not Detect) Coronavirus HKU1 (PCR) (Not Detect) Coronavirus 229E (PCR) (Not Detect) SARS-CoV-2 (PCR) (Not Detecte) Coronavirus NL63 (PCR) (Not Detect) Human Metapneumovir PCR (Not Detect) Influenza Type A (PCR) (Not Detect) Influenza Type B (PCR) (Not Detect) M. pneumoniae (PCR) (Not Detect) Parainfluenza 1 (PCR) (Not Detect) Parainfluenza 2 (PCR) (Not Detect) Parainfluenza 3 (PCR) (Not Detect) Parainfluenza 4 (PCR) (Not Detect) RSV (PCR) (Not Detect) Entero/Rhino (PCR) (Not Detect) MDM Narrative Medical decision making narrative: This is an 81-year-old male with known end-stage renal disease on dialysis patient comes in with complaint of cough, shortness of breath and was sent from dialysis had partial dialysis but does not believe he is able to complete the entire portion he arrived on 10 L nasal cannula had 2 DuoNebs EN route. Patient was here with either asthma/reactive airway and or pulmonary edema on May 07 boarded for approximately 24-48 hours and discharged directly to dialysis suspected to be more fluid overloaded. At that time he was not requiring oxygen. He states that he did have dialysis on the 09 of May. Labs, EKG, chest x-ray and ABG show [2044] (Dominguez) Patient received in sign out from [Harvey]. I have reviewed the clinical course and performed an independent history and physical exam. Patient continues to do quite well, he has been off oxygen for many hours. CT angiogram obtained and there is no evidence of any pulmonary embolism or other ominous finding. Patient able to ambulate through the department without supplemental oxygen while maintaining sats in the mid 90s. He is appropriate for discharge, however does not require BLS transport and his is sleeping, we will have to wait until she wakes up to get him a ride home Discharge Plan Departure Patient Disposition: Home Clinical Impression: Acute dyspnea Instructions: DI for Shortness of Breath Activity Restrictions/Additional Instructions: *You have been diagnosed with [acute on chronic dyspnea with no evidence of pulmonary embolism, fluid around her heart, pneumonia or other bothersome findings that would require a specific treatment *What to do: *Please continue to take your regular medications as directed. [ ] New medication prescriptions sent to your pharmacy: [ ] [ ] New medication written as a paper prescription [ x] No new medications given *Please follow up with your primary care provider in 2-3 days, call for an appointment. Let them know you were seen in the Emergency Department and that we ask that you be seen in follow up. We will electronically transmit a record of today's note if your PCP is in our system *If you do not have a primary care provider please contact the Resource line at [phone]. They will ask some questions about your medical history and help get you set up with a doctor in the community. *Return to Emergency Department if you should have any new, worsening or concerning symptoms, such as [fever greater than 101 F, shaking chills, worsening pain, persistent vomiting or other bothersome symptoms] Prescriptions: No Action aspirin [Aspir-81] 81 mg Tablet,Delayed Release (Dr/Ec) 81 mg PO BEDTIME Qty: 0 allopurinol 100 MG tablet 100 mg PO PRN PRN (Reason: Gout) Qty: 0 Label Comments: not taken in a while rosuvastatin [Crestor] 5 MG tablet 5 mg PO BEDTIME Qty: 0 amlodipine 5 mg tablet 5 mg DAILY alprazolam 0.25 mg Tablet 0.25 mg PO Q OTHER DAY Label Comments: taken only at dialysis bicalutamide [Casodex] 50 MG tablet 50 mg PO DAILY Qty: 90 3RF sertraline 100 mg Tablet 100 mg PO DAILY benzonatate 100 mg Capsule 100 mg PO TID codeine-guaifenesin 10-100 mg/5 mL Syrup 10 ml PO Q4-6H PRN (Reason: Cough) terazosin 1 MG capsule 1 mg PO BID Label Comments: takes 1 mg in am, 2 mg in PM glipizide 10 mg tablet 10 mg PO QAM Label Comments: TK 1 T PO BID Levemir U-100 Insulin 100 unit/mL solution 20 units subcut QAM Label Comments: INJECT 20 UNITS QAM carvedilol 6.25 mg tablet 6.25 mg PO BID Label Comments: TAKE 1 TABLET BY MOUTH TWICE DAILY albuterol sulfate 90 mcg/actuation HFA aerosol inhaler 90 mcg INHALATION PRN PRN (Reason: Shortness Of Breath Or Wheezing) Label Comments: INHALE 1 TO 2 PUFFS INTO THE LUNGS EVERY 4 HOURS WHILE AWAKE Referrals: Emmett Escalera MD [Primary Care Provider] - Visit Report Forms: Patient Portal/API
[2022-05-11] MEDS: ONDANSETRON 4 MG/2 ML INJ IV (12:34)
[2022-05-11] MEDS: methylPREDNISolone 125 MG/2 ML VIAL IV (12:34)
[2022-05-11 12:44] LABS: Add Manual Diff / Slide Review NO; Basophils Absolute Auto 0 /uL (0-100); Basophils Percent Auto 0.4 % (0-2); Eosinophils Absolute Auto 1400 /uL (0-450); Eosinophils Percent Auto 16.1 % (2-4); Hematocrit 36.4 % (41-53); Hemoglobin 12.1 g/dL (13.5-17.5); Lymphocytes Absolute Auto 800 /uL (1100-4500); Mean Corpuscular HGB Conc 33.3 % (30-36); Mean Corpuscular Hemoglobin 31.1 PG (26-34); Mean Corpuscular Volume 93.4 fL (80-100); Monocytes Absolute Auto 400 /uL (0-900); Monocytes Percent Auto 4.2 % (3-14); Neutrophils Absolute Auto 6300 /uL (1500-7000); Neutrophils Percent Auto 70.3 % (50-75); Platelet Count 115 X10^3/uL (150-400); White Blood Cell Count 8.9 X10^3/uL (4.5-11.0)
[2022-05-11 12:49] LABS: Fractionated Inspired Oxygen 40; HCO3 ABG 29 mmol/L (22-26); Oxygen Saturation ABG 98 % (95-100); PO2 ABG 130 mmHg (80-100); TCO2 ABG 31 mmol/L (21-31); pH ABG 7.27 (7.35-7.45)
[2022-05-11 12:51] LABS: INR 1.1 (0.9-1.3); Prothrombin Time 11.9 SECONDS (10.1-12.7)
[2022-05-11 12:54] LABS: PTT Partial Thromboplastin Tim 32 SECONDS (26.4-36.2)
[2022-05-11 12:55] LABS: Alanine Aminotransferase 13 IU/L (<50); Albumin 4.6 g/dL (3.5-5.0); Albumin Globulin Ratio 1.5 (1.0-2.8); Alkaline Phosphatase 108 U/L (38-126); Aspartate Aminotransferase 21 IU/L (17-59); BUN Creatinine Ratio 5.1 (6-22); Bilirubin Total 0.9 mg/dL (0.2-1.3); Blood Urea Nitrogen 15 mg/dL (9-20); Calcium 8.2 mg/dL (8.4-10.2); Carbon Dioxide 30 mmol/L (22-32); Chloride 97 mmol/L (98-107); Creatine Kinase 29 U/L (55-170); Estimated Glomerular Filt Rate 20 mL/min (>60); Globulin 3.1 g/dL (1.7-4.1); Glucose 150 mg/dL (80-110); HEMOLYSIS < 15 (0-50); Lipase 73 U/L (23-300); Potassium 3.2 mmol/L (3.4-5.1); Sodium 137 mmol/L (137-145); Total Protein 7.7 g/dL (6.3-8.2)
[2022-05-11] MEDS: ALBUTEROL/IPRATROPIUM 3 ML AMPUL INH (13:01)
[2022-05-11] MEDS: ALBUTEROL 2.5 MG/3 ML NEB (ADULT) 20 MG INH (13:01)
[2022-05-11 13:07] LABS: Troponin I 0.036 ng/mL (0.01-0.034)
--- NOTE | 2022-05-11 13:10 | PC.NURSE ---
spoke with [facility] [phone] ok to remove white clamps from fistula on left upper arm. clamps removed, no bleeding noted to site.
[2022-05-11 13:11] LABS: Procalcitonin 0.26 ng/mL (<0.5)
[2022-05-11 13:23] LABS: NT-proBNP (BNP-Adult 18+) 37100 pg/mL (<450)
[2022-05-11 13:36] LABS: Adenovirus Not Detected (Not Detect); B. parapertussis Not Detected (Not Detecte); Bordetella pertussis Not Detected (Not Detecte); Chlamydophila pneumoniae Not Detected (Not Detect); Coronavirus 229E Not Detected (Not Detect); Coronavirus HKU1 Not Detected (Not Detect); Coronavirus NL 63 Not Detected (Not Detect); Coronavirus OC43 Not Detected (Not Detect); Human Metapneumovirus Not Detected (Not Detect); Human Rhinovirus/Enterovirus Not Detected (Not Detect); Influenza A Not Detected (Not Detect); Influenza B Not Detected (Not Detect); Mycoplasma pneumoniae Not Detected (Not Detect); Parainfluenza Virus 1 Not Detected (Not Detect); Parainfluenza Virus 2 Not Detected (Not Detect); Parainfluenza Virus 3 Not Detected (Not Detect); Parainfluenza Virus 4 Not Detected (Not Detect); Respiratory Syncytial Virus Not Detected (Not Detect)
[2022-05-11 13:37] LABS: SARS- CoV-2 Detected (Not Detecte)
[2022-05-11 14:52] LABS: Troponin I 0.035 ng/mL (0.01-0.034)
[2022-05-11 16:57] LABS: Fractionated Inspired Oxygen 28; HCO3 ABG 26 mmol/L (22-26); Oxygen Saturation ABG 96 % (95-100); PCO2 ABG 46.2 mmHg (35-45); PO2 ABG 87 mmHg (80-100); TCO2 ABG 27 mmol/L (21-31); pH ABG 7.35 (7.35-7.45)
[2022-05-11] MEDS: diphenhydrAMINE 50 MG/ML VIAL 25 MG IV (18:38)
[2022-05-11] MEDS: FAMOTIDINE 20 MG/2 ML VIAL IV (18:38)
--- NOTE | 2022-05-11 18:48 | DI.CT.S_ITS ---
PROCEDURE: CT ANGIO CHEST PE PROTOCOL INDICATIONS: SOB, hypoxemia TECHNIQUE: After the administration of intravenous contrast, 2 mm thick sections acquired from the pulmonary apices to the posterior costophrenic angles. 3-dimensional maximum intensity projection (MIP) coronal and sagittal reformats were then acquired through the thorax. For radiation dose reduction, the following was used: automated exposure control, adjustment of mA and/or kV according to patient size. COMPARISON: None. FINDINGS: Image quality: Excellent. Pulmonary arteries: Pulmonary arteries are normal in size, and demonstrate no intraluminal filling defects to suggest central pulmonary embolism. Lungs and pleura: Lungs are clear. No pleural effusions or pneumothorax. Central and peripheral airways are patent. Mediastinum: Normal heart size. No pericardial effusion. Heavy four-vessel coronary calcification. Bones and chest wall: No suspicious lytic or blastic osseous lesion. Abdomen: Visualized upper abdominal solid organs appear normal in the early arterial phase of enhancement. IMPRESSION: No findings of pulmonary embolism or other acute finding in the chest. Dictated by: Yuval Rogers M.D. on 05/11/2022 at 20:33 Approved by: Yuval Rogers M.D. on 05/11/2022 at 20:35
[2022-05-11] MEDS: AZITHROMYCIN 500 MG in DEXTROSE 5% IN WATER 250 ML 250 MG IV (20:04)
[2022-05-12] VITALS (20 sets, daily range): BP systolic 133–189; BP diastolic 63–81; PULSE 64–84; RESP 17; O2SAT 88–100
--- NOTE | 2022-05-12 04:13 | PC.NURSE ---
Pt ambulated 2 times around nurses station with this RN standing by. Ambulatory pulse ox never dropped below 95% on RA. Pt reported feeling well, denies lightheadedness or dizziness. Pt had small amount of coughing after returning to room, but sats on RA remained above 96%.
== END 2022-05-12 08:36 | disposition home or self-care (01) ==
PROVIDERS: Emergency Medicine; Emergency Provider Emergency Medicine; PCP Family Medicine
DX: R06.00 Dyspnea, unspecified (principal); N18.6 End stage renal disease; Z99.2 Dependence on renal dialysis; Z86.16 Personal history of COVID-19; Z20.822 Contact with and (suspected) exposure to COVID-19
CPT/HCPCS: 36415; 36600; 71045; 71275; 80053; 82550; 82805; 83690; 83880; 84145; 84484; 85025; 85610; 85730; 87633; 93005; 96365; 96366; 96375; 99285; J1200; J2405; J2930; J7613

== ENCOUNTER → 2022-11-10 11:05 | Outpatient (CLI) | payer MEDICARE, OTHER, SELFPAY ==
[2022-03-08 14:55] VITALS: BMI 31.0
[2022-05-11 16:55] VITALS: PULSE 74; RESP 17; O2SAT 98
[2022-11-10 11:57] LABS: Add Manual Diff / Slide Review NO; Basophils Absolute Auto 100 /uL (0-100); Basophils Percent Auto 1.1 % (0-2); Eosinophils Absolute Auto 200 /uL (0-450); Eosinophils Percent Auto 2.7 % (2-4); Hematocrit 35.8 % (41-53); Hemoglobin 12.2 g/dL (13.5-17.5); Lymphocytes Absolute Auto 600 /uL (1100-4500); Lymphocytes Percent Auto 8.9 % (25-40); Mean Corpuscular HGB Conc 33.9 % (30-36); Mean Corpuscular Hemoglobin 32.5 PG (26-34); Mean Corpuscular Volume 95.9 fL (80-100); Monocytes Absolute Auto 300 /uL (0-900); Monocytes Percent Auto 4.9 % (3-14); Neutrophils Absolute Auto 5900 /uL (1500-7000); Neutrophils Percent Auto 82.4 % (50-75); Platelet Count 130 X10^3/uL (150-400); Red Blood Cell Count 3.73 X10^6/uL (4.5-5.9); Red Cell Distribution Width 14.4 % (11.6-14.8); White Blood Cell Count 7.1 X10^3/uL (4.5-11.0)
[2022-11-10 12:09] LABS: Alanine Aminotransferase 19 IU/L (<50); Albumin 4.5 g/dL (3.5-5.0); Albumin Globulin Ratio 1.3 (1.0-2.8); Alkaline Phosphatase 103 U/L (38-126); Aspartate Aminotransferase 22 IU/L (17-59); BUN Creatinine Ratio 6.8 (6-22); Bilirubin Total 0.7 mg/dL (0.2-1.3); Blood Urea Nitrogen 40 mg/dL (9-20); Calcium 8.3 mg/dL (8.4-10.2); Carbon Dioxide 26 mmol/L (22-32); Chloride 96 mmol/L (98-107); Estimated Glomerular Filt Rate 9 mL/min (>60); Globulin 3.6 g/dL (1.7-4.1); Glucose 141 mg/dL (80-110); Potassium 4.3 mmol/L (3.4-5.1); Sodium 138 mmol/L (137-145); Total Protein 8.1 g/dL (6.3-8.2)
[2022-11-10 12:40] LABS: Carcinoembryonic Antigen 2.3 ng/mL (0.1-3.0)
[2022-11-10 12:41] LABS: HEMOLYSIS 18 (0-50); Prostate Specific Antigen 0.509 ng/mL (0.10-4.00)
[2022-11-10 12:42] LABS: Testosterone 16.3 ng/dL (71.8-623)
== END ==
PROVIDERS: Internal Medicine Hematology & Oncology; PCP Family Medicine; Referring Provider Internal Medicine Nephrology; Visit Provider Internal Medicine Nephrology
DX: K55.9 Vascular disorder of intestine, unspecified (principal); C20 Malignant neoplasm of rectum; C61 Malignant neoplasm of prostate; C79.9 Secondary malignant neoplasm of unspecified site
CPT/HCPCS: 36415; 80053; 82378; 84153; 84403; 85025

== ENCOUNTER → 2022-11-13 09:27 | Outpatient (CLI) | payer MEDICARE, OTHER, SELFPAY ==
[2022-03-08 14:55] VITALS: BMI 31.0
[2022-05-11 16:55] VITALS: PULSE 74; RESP 17; O2SAT 98
--- NOTE | 2022-11-13 | DI.CT.S_ITS ---
PROCEDURE: CT ANGIO ABDOMEN PELVIS INDICATIONS: VASCULAR DISORDER OF INTESTINE TECHNIQUE: After the administration of intravenous contrast, 2.5 mm sections acquired from the diaphragm to the iliac crests. 10 mm maximum intensity projection (MIP) coronal and sagittal reformats were then performed. For radiation dose reduction, the following was used: automated exposure control. COMPARISON: [facility], CT, CT ANGIO ABDOMEN PELVIS, 12/02/2020, 9:57. FINDINGS: Image quality: Excellent. Extravascular tissues: Lung bases are clear. Heart size is normal. Calcification of the coronary vasculature. Liver is normal in size and enhancement. Gallbladder is within normal limits . Biliary system is non dilated. Pancreas enhances normally. Spleen is normal in size and enhancement. No adrenal nodules. Severe bilateral renal atrophy is present, as before. Small hiatal hernia. Non-opacified bowel loops demonstrate normal wall thickness and caliber. No free fluid or air. No retroperitoneal or mesenteric adenopathy. Urinary bladder is decompressed and appears moderately thickened No ventral hernias. No suspicious bony abnormalities. No vertebral body compression fractures. Abdominal aorta: Moderate diffuse plaque causes mild diffuse stenosis. There is an infrarenal abdominal aortic aneurysm, as before, measuring roughly 37 mm short axis. Mesenteric arteries: Moderate celiac artery origin stenosis is present, as before. Mild calcific origin stenosis of the superior mesenteric artery is present, as before. High-grade calcific origin stenosis of the inferior mesenteric artery is present, as before. Renal arteries: 3 left renal arteries are present, as before, the superior 2 of which demonstrate moderate to high-grade calcific origin stenosis. Inferior left renal artery demonstrates a moderate calcific origin stenosis. 3 right renal arteries are present, as before, each of which demonstrate high-grade calcific origin stenoses, as before. IMPRESSION: 1. No significant change in mesenteric and renal artery stenosis as described above. 2. Small hiatal hernia. 3. Infrarenal abdominal aortic aneurysm. 4. Coronary artery disease. 5. Severe bilateral renal atrophy. 6. Urinary bladder thickening, suggestive of infection or inflammation. Dictated by: Kindra Ramirez M.D. on 11/13/2022 at 11:28 Transcribed by: TAWANNA on 11/13/2022 at 11:32 Approved by: Kindra Ramirez M.D. on 11/13/2022 at 16:30
== END ==
PROVIDERS: PCP Family Medicine; Referring Provider Internal Medicine Nephrology; Visit Provider Internal Medicine Nephrology
DX: I70.1 Atherosclerosis of renal artery (principal); K55.1 Chronic vascular disorders of intestine; I71.40 Abdominal aortic aneurysm, without rupture, unspecified; K44.9 Diaphragmatic hernia without obstruction or gangrene; N26.1 Atrophy of kidney (terminal); I70.0 Atherosclerosis of aorta; I77.1 Stricture of artery; I25.10 Atherosclerotic heart disease of native coronary artery without angina pectoris
CPT/HCPCS: 74174; Q9967

== ENCOUNTER → 2023-05-18 08:14 | Outpatient (CLI) | payer MEDICARE, OTHER, SELFPAY ==
[2022-03-08 14:55] VITALS: BMI 31.0
[2022-05-11 16:55] VITALS: PULSE 74; RESP 17; O2SAT 98
[2023-05-18 10:42] LABS: Cholesterol 133 mg/dL (140-199); HDL Cholesterol 25 mg/dL (40-60); LDL Cholesterol Calculated 81 mg/dL (<100); Triglycerides 133 mg/dL (35-150)
== END ==
PROVIDERS: PCP Family Medicine; Referring Provider Nurse Practitioner Acute Care; Visit Provider Nurse Practitioner Acute Care
DX: E78.5 Hyperlipidemia, unspecified (principal); I25.10 Atherosclerotic heart disease of native coronary artery without angina pectoris
CPT/HCPCS: 36415; 80061

== ENCOUNTER 2023-07-17 20:09 | Emergency (ER) | payer MEDICARE, OTHER, SELFPAY ==
[2022-03-08 14:55] VITALS: BMI 31.0
[2022-05-11 16:55] VITALS: PULSE 74; RESP 17; O2SAT 98
--- NOTE | 2023-07-17 20:13 | DI.RAD.S_ITS ---
PROCEDURE: XR ACUTE ABDOMEN SERIES INDICATIONS: N/V TECHNIQUE: One view chest and two views of the abdomen were acquired. COMPARISON: None. FINDINGS: Surgical changes and devices: None. Chest: Cardiomegaly. Low lung volumes. There may be mild lung disease. Cardiac metallic device. Abdomen: Nonspecific bowel gas pattern. Prominent overlying soft tissues limit evaluation. Bones: Degenerative changes. IMPRESSION: No definite acute radiographic abnormality. Low lung volumes and prominent overlying soft tissues however limit evaluation. A CT is pending. Low lung volumes with mildly prominent interstitium, possibly edema or atypical infection. Cardiomegaly. Osseous degenerative changes. Dictated by: Cristian Sharp M.D. on 07/17/2023 at 21:34 Approved by: Cristian Sharp M.D. on 07/17/2023 at 21:36
[2023-07-17 20:14] VITALS: BP 163/77; PULSE 70; RESP 18; TEMP 36.1; O2SAT 97; BMI 31.1
--- NOTE | 2023-07-17 20:15 | ED.GENADULT ---
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 He states that he had been fine unwell and in his normal state of health until today. He does admit that he has been going about an hour short on his dialysis for upwards of 2 weeks because he develops midepigastric pain during the course. He is not actively having pain. He did start some tramadol today but states his last dose was 7:00 a.m. and he continues to vomit. He is not dizzy nor weak or lightheaded. He denies any chest pain or shortness of breath. He is had no cough. He denies runny nose, sore throat or fever. He has no change in bowel habits. He no longer makes urine. He denies any lower extremity swelling. He denies other change in medications or diet. Related Data Home Medications Medication Instructions Recorded Confirmed aspirin 81 mg tablet,delayed 81 mg PO BEDTIME ##0 12/11/10 03/05/23 release (Aspir-) allopurinol 100 mg tablet 100 mg PO PRN PRN Gout ##0 07/10/17 03/05/23 rosuvastatin 5 mg tablet (Crestor) 5 mg PO BEDTIME ##0 01/08/18 03/05/23 terazosin 1 mg capsule 1 mg PO BID 08/31/18 03/05/23 glipizide 10 mg tablet 10 mg PO QAM 11/11/18 03/05/23 insulin detemir U-100 100 unit/mL 20 units SUBCUT QAM 11/11/18 03/05/23 subcutaneous solution amlodipine 5 mg tablet 5 mg DAILY 10/28/20 03/05/23 alprazolam 0.25 mg tablet 0.25 mg PO Q OTHER DAY 07/07/21 03/05/23 albuterol sulfate 90 mcg/actuation 90 mcg inhalation PRN PRN 03/14/22 03/05/23 aerosol inhaler Shortness Of Breath Or Wheezing carvedilol 6.25 mg tablet 6.25 mg PO BID 03/14/22 03/05/23 benzonatate 100 mg capsule 100 mg PO TID 04/10/22 03/05/23 codeine 10 mg-guaifenesin 100 mg/5 10 ml PO Q4-6H PRN Cough 04/10/22 03/05/23 mL Syrup sertraline 100 mg tablet 100 mg PO DAILY 04/10/22 03/05/23 Previous Rx's Medication Instructions Recorded bicalutamide 50 mg tablet (Casodex) 50 mg PO DAILY prostate cancer #90 10/06/21 tabs ondansetron 4 mg disintegrating 4 mg PO TID-QID PRN nausea and 07/18/23 tablet vomiting #10 tabs Allergies Allergy/AdvReac Type Severity Reaction Status Date / Time codeine Allergy Unknown NAUSEA Verified 03/14/22 15:21 Iodine and Iodide Containing Allergy Unknown Verified 03/14/22 15:21 Produc [IODINE AND IODIDE CONTAINING PRODUC] iohexol Allergy Unknown Verified 03/14/22 15:21 Review of Systems Review of Systems Narrative: GENERAL: Denies chills, fatigue, malaise, fever, sweats. HEENT: Denies sinus pain, ear pain, sore throat, difficulty swallowing, dizziness. RESPIRATORY: Denies dyspnea, cough, wheezing, hemoptysis, sputum. CARDIOVASCULAR: Denies chest pain, palpitations, orthopnea, edema, GASTROINTESTINAL: See HPI : Denies dysuria, frequency, incontinence, hematuria, urinary retention. MUSCULOSKELETAL: denies weakness, joint pain, or bony pain SKIN: Denies rash, skin lesions, or other NEUROLOGIC: Denies weakness, headache, numbness, change in speech, confusion, seizures, incoordination. PSYCHIATRIC: No concerning psychosocial issues. 12 point review of systems is negative except for those stated above Patient History Medical History Anticoagulation adequate with anticoagulant therapy Atrial fibrillation 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, severely decreased glomerular filtration rate (GFR) between 15-29 mL/min/1.73 square meter and albuminuria creatinine ratio less than 30 mg/g Complex sleep apnea syndrome Diabetes Edema leg Excessive daytime sleepiness Gout Hyperlipidemia Hypertension Obesity Obstructive sleep apnea of adult Prostate cancer Surgical History S/P ureteral stent placement Social History household members: spouse Smoking Status: Never smoker alcohol intake: never substance use type: does not use Smoking Status: Never smoker alcohol intake frequency: 0-2 drinks per day Substance Use Type: does not use Exam Initial Vital Signs Initial Vital Signs: Vital Signs Temperature 97 F L 07/17/23 20:14 Pulse Rate 70 07/17/23 20:14 Respiratory Rate 18 07/17/23 20:14 Blood Pressure 163/77 H 07/17/23 20:14 Pulse Oximetry 97 07/17/23 20:14 Oxygen Delivery Method Room Air 07/17/23 20:14 GENERAL: [83] year old patient appears stated age. Well-developed patient, in mild distress. HEAD: Atraumatic. Normocephalic. EYES: Pupils equal round and reactive. Extraocular motions intact. No scleral icterus. No injection or drainage. ENT: Nose without bleeding, purulent drainage. Throat without erythema, tonsillar hypertrophy or exudate. Airway patent. NECK: Trachea midline. Non tender CARDIOVASCULAR: Regular rate and rhythm without murmurs, gallops, or rubs. RESPIRATORY: Clear to auscultation. Breath sounds equal bilaterally. No wheezes, rales, or rhonchi. GASTROINTESTINAL: Abdomen soft, non-tender, nondistended. EXTREMITIES: No edema or joint tenderness. BACK: Nontender without deformity or crepitance. No flank tenderness. NEURO: AOx3. SKIN: No rash or erythema of visible areas Course Orders Ordered: ED Orders 07/17/23 20:13 XR acute abdomen series Stat 07/17/23 20:42 Complete Blood Count AUTO DIFF Stat Comprehensive Metabolic Panel Stat Lipase Stat Magnesium Stat NT-proBNP (BNP-Adult 18+) Stat Troponin & CK Cardiac Panel Stat 07/17/23 21:14 CT abdomen pelvis wo con Stat 07/17/23 21:15 Covid-19 + FLU A/B + RSV - PCR Stat Discontinued Medications Sodium Chloride (Normal Saline 0.9%) 500 mls @ 1,000 mls/hr IV BOLUS ONE Stop: 07/17/23 20:38 Last Infusion: 07/17/23 23:00 Dose: 0 mls/hr Documented By: Admin: 07/17/23 20:23 Dose: 1,000 mls/hr Documented By: KENNEDY Lorazepam (Lorazepam 2 Mg/Ml Inj) 0.5 mg IV NOW ONE Stop: 07/17/23 21:15 Last Admin: 07/17/23 21:19 Dose: 0.5 mg Documented By: KENNEDY Metoclopramide HCl (Metoclopramide 10 Mg/2 Ml Inj) 10 mg IV NOW ONE Stop: 07/17/23 20:14 Last Admin: 07/17/23 20:23 Dose: 10 mg Documented By: KENNEDY Ondansetron HCl (Ondansetron 4 Mg/2 Ml Inj) 4 mg IV NOW ONE Stop: 07/17/23 20:10 Last Admin: 07/17/23 21:16 Dose: Not Given Documented By: KENNEDY Pantoprazole Sodium (Pantoprazole 40 Mg Vial) 40 mg IV NOW ONE Stop: 07/17/23 20:10 Last Admin: 07/17/23 20:23 Dose: 40 mg Documented By: KENNEDY Vital Signs Vital signs: Vital Signs - 8 hr 07/17/23 20:14 07/17/23 20:26 07/17/23 20:30 Temperature 97 F L Pulse Rate 70 70 Respiratory Rate 18 Blood Pressure 163/77 H 175/75 H Pulse Oximetry 97 96 Oxygen Delivery Method Room Air 07/17/23 20:30 07/17/23 21:30 07/18/23 00:00 Temperature Pulse Rate 63 70 65 Respiratory Rate 18 18 18 Blood Pressure 174/76 H 168/74 H Pulse Oximetry 91 98 95 Oxygen Delivery Method Medical Decision Making Lab Data 07/17/23 20:42 07/17/23 20:42 Labs: Lab Results 07/17/23 07/17/23 07/17/23 Range/Units 20:42 20:42 20:42 WBC 9.2 (4.5-11.0) X10^3/uL RBC 3.62 L (4.5-5.9) X10^6/uL Hgb 11.6 L (13.5-17.5) g/dL Hct 34.9 L (41-53) % MCV 96.3 (80-100) fL MCH 31.9 (26-34) PG MCHC 33.2 (30-36) % RDW 17.6 H (11.6-14.8) % Plt Count 143 L (150-400) X10^3/uL Neut % (Auto) 86.0 H (50-75) % Lymph % (Auto) 6.5 L (25-40) % [place] % (Auto) 5.2 (3-14) % Eos % (Auto) 1.6 L (2-4) % Baso % (Auto) 0.7 (0-2) % Neut # (Auto) 7900 H (8363-2856) /uL Lymph # (Auto) 600 L (3446-9551) /uL [place] # (Auto) 500 (0-900) /uL Eos # (Auto) 100 (0-450) /uL Baso # (Auto) 100 (0-100) /uL Sodium 138 (137-145) mmol/L Potassium 4.9 (3.4-5.1) mmol/L Chloride 96 L (98-107) mmol/L Carbon Dioxide 25 (22-32) mmol/L BUN 47 H (9-20) mg/dL Creatinine 6.59 H (0.66-1.25) mg/dL Estimated GFR 8 L (>60) mL/min BUN/Creatinine Ratio 7.1 (6-22) Glucose 142 H (80-110) mg/dL Calcium 8.4 (8.4-10.2) mg/dL Magnesium 1.7 (1.6-2.3) mg/dL Total Bilirubin 0.6 (0.2-1.3) mg/dL AST 18 (17-59) IU/L ALT 17 (<50) IU/L Alkaline Phosphatase 93 (38-126) U/L Total Creatine Kinase 63 (55-170) U/L Troponin I 0.019 (0.01-0.034) ng/mL NT-Pro-B Natriuret Pep 02971 H (<450) pg/mL Total Protein 7.7 (6.3-8.2) g/dL Albumin 4.4 (3.5-5.0) g/dL Globulin 3.3 (1.7-4.1) g/dL Albumin/Globulin Ratio 1.3 (1.0-2.8) Lipase 104 (23-300) U/L SARS-CoV-2 (PCR) (Negative) Influenza A (RT-PCR) (NEGATIVE) Influenza B (RT-PCR) (NEGATIVE) RSV (PCR) (Negative) 07/17/23 Range/Units 21:15 WBC (4.5-11.0) X10^3/uL RBC (4.5-5.9) X10^6/uL Hgb (13.5-17.5) g/dL Hct (41-53) % MCV (80-100) fL MCH (26-34) PG MCHC (30-36) % RDW (11.6-14.8) % Plt Count (150-400) X10^3/uL Neut % (Auto) (50-75) % Lymph % (Auto) (25-40) % [place] % (Auto) (3-14) % Eos % (Auto) (2-4) % Baso % (Auto) (0-2) % Neut # (Auto) (2952-6904) /uL Lymph # (Auto) (1447-8661) /uL [place] # (Auto) (0-900) /uL Eos # (Auto) (0-450) /uL Baso # (Auto) (0-100) /uL Sodium (137-145) mmol/L Potassium (3.4-5.1) mmol/L Chloride (98-107) mmol/L Carbon Dioxide (22-32) mmol/L BUN (9-20) mg/dL Creatinine (0.66-1.25) mg/dL Estimated GFR (>60) mL/min BUN/Creatinine Ratio (6-22) Glucose (80-110) mg/dL Calcium (8.4-10.2) mg/dL Magnesium (1.6-2.3) mg/dL Total Bilirubin (0.2-1.3) mg/dL AST (17-59) IU/L ALT (<50) IU/L Alkaline Phosphatase (38-126) U/L Total Creatine Kinase (55-170) U/L Troponin I (0.01-0.034) ng/mL NT-Pro-B Natriuret Pep (<450) pg/mL Total Protein (6.3-8.2) g/dL Albumin (3.5-5.0) g/dL Globulin (1.7-4.1) g/dL Albumin/Globulin Ratio (1.0-2.8) Lipase (23-300) U/L SARS-CoV-2 (PCR) Negative (Negative) Influenza A (RT-PCR) Flu a negative (NEGATIVE) Influenza B (RT-PCR) Flu b negative (NEGATIVE) RSV (PCR) Negative (Negative) MDM Narrative Medical decision making narrative: CC: 83-year-old male Complicating co-morbidities: Age, dialysis, hypertension Data collected from: Patient Medical records reviewed: Prior notes reviewed in our EMR Differential considered, but not limited to: Viral versus medication reaction versus bowel obstruction versus other Exam documented above, pertinent findings include: Heart rate regular, lungs clear, abdomen soft and nontender Lab Test results independently reviewed as above. Pertinent findings: No leukocytosis or left shift, no signs of anemia, electrolytes and renal function at his baseline Independently reviewed EKG as above Imaging studies independently reviewed: Acute abdominal series without definite acute radiographic abnormality. CT of abdomen without evidence of bowel obstruction Treatments: Gentle fluids, Zofran, Protonix, Reglan and Ativan Re-evaluations: Patient no longer vomiting, tolerating oral challenge Discussion: 83-year-old male presents with nausea and vomiting over the course of the day. He denies any pain nor fever or chills. He did start a new medication today (tramadol) and vomiting started after which. He states he is never taken opioids before which raises the question of this being a possible medication reaction, certainly the temporal relationship between this new medication and his symptoms can not be ignored. Multiple other diagnoses considered as noted above. Respiratory panel negative. No obstructive process on imaging, electrolytes and labs otherwise at his relative baseline. Patient's nausea and vomiting controlled, tolerating orals, appropriate for discharge. Sent with a Zofran prepack and encouraged to avoid taking further tramadol. Disposition: see below, along with detailed discharge instructions that have been reviewed with patient as well as indications for ED re-evaluation and additional outpatient follow up Discharge Plan Departure Patient Disposition: Home Clinical Impression: Vomiting, Medication adverse effect Instructions: DI for Vomiting -- Adult Activity Restrictions/Additional Instructions: *You have been diagnosed with [ vomiting, likely a medication reaction from your new pain medicine. As we discussed your history and physical exam, labs, imaging as well as response to therapies are all very reassuring.] *What to do: *Please avoid further use of Tramadol as it may be what caused your vomiting. Otherwise, please continue to take your regular medications as directed. [ x] New medication prescriptions sent to your pharmacy: [[facility] ] [ ] New medication written as a paper prescription [ ] No new medications given *Please follow up with your primary care provider in 2-3 days, call for an appointment. Let them know you were seen in the Emergency Department and that we ask that you be seen in follow up. We will electronically transmit a record of today's note if your PCP is in our system *Return to Emergency Department if you should have any new, worsening or concerning symptoms, such as [fever greater than 101 F, shaking chills, worsening pain, persistent vomiting or other bothersome symptoms] Prescriptions: New ondansetron 4 mg tablet,disintegrating 4 mg PO TID-QID PRN (Reason: nausea and vomiting) Qty: 10 0RF No Action aspirin [Aspir-81] 81 mg Tablet,Delayed Release (Dr/Ec) 81 mg PO BEDTIME Qty: 0 allopurinol 100 MG tablet 100 mg PO PRN PRN (Reason: Gout) Qty: 0 Patient Comments: not taken in a while rosuvastatin [Crestor] 5 MG tablet 5 mg PO BEDTIME Qty: 0 amlodipine 5 mg tablet 5 mg DAILY alprazolam 0.25 mg Tablet 0.25 mg PO Q OTHER DAY Patient Comments: taken only at dialysis bicalutamide [Casodex] 50 MG tablet 50 mg PO DAILY Qty: 90 3RF sertraline 100 mg Tablet 100 mg PO DAILY benzonatate 100 mg Capsule 100 mg PO TID codeine-guaifenesin 10-100 mg/5 mL Syrup 10 ml PO Q4-6H PRN (Reason: Cough) terazosin 1 MG capsule 1 mg PO BID Patient Comments: takes 1 mg in am, 2 mg in PM glipizide 10 mg tablet 10 mg PO QAM Patient Comments: TK 1 T PO BID Levemir U-100 Insulin 100 unit/mL solution 20 units subcut QAM Patient Comments: INJECT 20 UNITS QAM carvedilol 6.25 mg tablet 6.25 mg PO BID Patient Comments: TAKE 1 TABLET BY MOUTH TWICE DAILY albuterol sulfate 90 mcg/actuation HFA aerosol inhaler 90 mcg INHALATION PRN PRN (Reason: Shortness Of Breath Or Wheezing) Patient Comments: INHALE 1 TO 2 PUFFS INTO THE LUNGS EVERY 4 HOURS WHILE AWAKE Referrals: Emmett Escalera MD [Primary Care Provider] - Stand Alone Forms: Patient Portal/API
[2023-07-17] MEDS: METOCLOPRAMIDE 10 MG/2 ML INJ IV (20:23)
[2023-07-17] MEDS: SODIUM CHLORIDE 0.9% 500 ML 1000 ML IV (20:23)
[2023-07-17] MEDS: PANTOPRAZOLE 40 MG VIAL IV (20:23)
[2023-07-17 20:26] VITALS: PULSE 70; O2SAT 96
[2023-07-17 20:30] VITALS: BP 175/75; PULSE 63; RESP 18; O2SAT 91
[2023-07-17 20:52] LABS: Add Manual Diff / Slide Review NO; Basophils Absolute Auto 100 /uL (0-100); Basophils Percent Auto 0.7 % (0-2); Eosinophils Absolute Auto 100 /uL (0-450); Eosinophils Percent Auto 1.6 % (2-4); Hematocrit 34.9 % (41-53); Hemoglobin 11.6 g/dL (13.5-17.5); Lymphocytes Absolute Auto 600 /uL (1100-4500); Lymphocytes Percent Auto 6.5 % (25-40); Mean Corpuscular HGB Conc 33.2 % (30-36); Mean Corpuscular Hemoglobin 31.9 PG (26-34); Mean Corpuscular Volume 96.3 fL (80-100); Monocytes Absolute Auto 500 /uL (0-900); Monocytes Percent Auto 5.2 % (3-14); Neutrophils Absolute Auto 7900 /uL (1500-7000); Platelet Count 143 X10^3/uL (150-400); Red Blood Cell Count 3.62 X10^6/uL (4.5-5.9); Red Cell Distribution Width 17.6 % (11.6-14.8); White Blood Cell Count 9.2 X10^3/uL (4.5-11.0)
[2023-07-17 21:04] LABS: Creatine Kinase 63 U/L (55-170); Lipase 104 U/L (23-300); Magnesium 1.7 mg/dL (1.6-2.3)
[2023-07-17 21:05] LABS: Alanine Aminotransferase 17 IU/L (<50); Albumin 4.4 g/dL (3.5-5.0); Albumin Globulin Ratio 1.3 (1.0-2.8); Alkaline Phosphatase 93 U/L (38-126); Aspartate Aminotransferase 18 IU/L (17-59); BUN Creatinine Ratio 7.1 (6-22); Bilirubin Total 0.6 mg/dL (0.2-1.3); Blood Urea Nitrogen 47 mg/dL (9-20); Calcium 8.4 mg/dL (8.4-10.2); Carbon Dioxide 25 mmol/L (22-32); Chloride 96 mmol/L (98-107); Estimated Glomerular Filt Rate 8 mL/min (>60); Globulin 3.3 g/dL (1.7-4.1); Glucose 142 mg/dL (80-110); HEMOLYSIS < 15 (0-50); Potassium 4.9 mmol/L (3.4-5.1); Sodium 138 mmol/L (137-145); Total Protein 7.7 g/dL (6.3-8.2)
--- NOTE | 2023-07-17 21:14 | DI.CT.S_ITS ---
PROCEDURE: CT ABDOMEN PELVIS WO CON INDICATIONS: persistent vomiting TECHNIQUE: Noncontrast 5 mm thick sections acquired from the diaphragms to the symphysis. 5 mm coronal and sagittal reformats were then performed. For radiation dose reduction, the following was used: automated exposure control, adjustment of mA and/or kV according to patient size. COMPARISON: [facility], CT, CT KIDNEY URETER BLADDER (KUB), 03/21/2022, 15:42. [facility], CT, CT ANGIO ABDOMEN PELVIS, 11/13/2022, 9:45. FINDINGS: Image quality: Good Lower chest: Basal atelectasis/scarring. There is cardiomegaly. Partially seen cardiac electrode leads and coronary calcifications. Mildly patulous distal esophagus, nonspecific. There may be a trace sliding hernia. Solid organs: Not well evaluated without intravenous contrast. The liver is unremarkable. Possible small gallstones. Moderate atrophy of the pancreatic parenchyma. No pathologic biliary or pancreatic ductal dilation. No splenomegaly. No adrenal nodules. Atrophic bilateral kidneys there are multiple cysts. Some of them have indeterminate attenuation characteristics, for example in the right interpolar region, for example 2/40 measuring 1.9 cm. This is slightly enlargedFrom 2021 imaging. Vessels and lymph nodes: Atherosclerotic disease and unchanged abdominal aortic aneurysm. Limited evaluation on this noncontrast study however. No pathologic lymph nodes by size criteria. Bowel and peritoneum: No evidence of small bowel obstruction. Mild rectal wall thickening is present. Colonic diverticula. No pathologic ascites. Body wall: Unremarkable Pelvis: Mild presacral soft tissue edema. There is also bladder wall thickening, however difficult to evaluate due to under distension. Perivesicular fat stranding also present. Bones: Degenerative changes, no acute or suspicious osseous finding. There are nonacute appearing rib deformities. IMPRESSION: No evidence of small bowel obstruction. Mildly patulous distal esophagus and possible trace hiatal hernia are present, partially evaluated. Possible mild proctitis. Correlate with age-appropriate colonoscopy results as well. Possible bladder inflammation, correlate with urinalysis. Atrophic kidneys. Indeterminate density lesion in the right interpolar region is may be a complicated cyst however, this is slightly enlarged, consider sonographic correlation to determine if this is solid or cystic. Other findings as above, likely nonacute/unchanged from prior imaging. Dictated by: Cristian Sharp M.D. on 07/17/2023 at 22:08 Approved by: Cristian Sharp M.D. on 07/17/2023 at 22:14
[2023-07-17 21:15] LABS: NT-proBNP (BNP-Adult 18+) 27000 pg/mL (<450); Troponin I 0.019 ng/mL (0.01-0.034)
[2023-07-17] MEDS: LORazepam 2 MG/ML INJ 0.5 MG IV (21:19)
[2023-07-17 21:30] VITALS: BP 174/76; PULSE 70; RESP 18; O2SAT 98
[2023-07-17 22:10] LABS: Influenza A - CEPHEID Flu A NEGATIVE (NEGATIVE); Influenza B - CEPHEID Flu B NEGATIVE (NEGATIVE); Respiratory Syncytial Virus Negative (Negative)
[2023-07-17 22:28] LABS: COVID-19 CEPHEID 4-PLEX PCR Negative (Negative)
--- NOTE | 2023-07-17 23:10 | PC.NURSE ---
pt tolerating ice chips without further n/v
--- NOTE | 2023-07-17 23:45 | PC.NURSE ---
pt given cranberry juice drank all and tolerated well
[2023-07-18] VITALS: BP 168/74; PULSE 65; RESP 18; O2SAT 95
== END 2023-07-18 00:42 | disposition home or self-care (01) ==
PROVIDERS: Emergency Provider Emergency Medicine; PCP Family Medicine
DX: R11.2 Nausea with vomiting, unspecified (principal); T50.995A Adverse effect of other drugs, medicaments and biological substances, initial encounter; Z79.899 Other long term (current) drug therapy; Z20.822 Contact with and (suspected) exposure to COVID-19
CPT/HCPCS: 0241U; 74022; 74176; 80053; 82550; 83690; 83735; 83880; 84484; 85025; 96361; 96374; 96375; 99283; 99284; C9113; J2060; J2765

== ENCOUNTER 2023-08-23 12:30 | Emergency (ER) | payer MEDICARE, OTHER, SELFPAY ==
[2022-03-08 14:55] VITALS: BMI 31.0
[2022-05-11 16:55] VITALS: PULSE 74; RESP 17; O2SAT 98
[2023-08-23 12:32] VITALS: BP 155/84; PULSE 69; RESP 16; TEMP 35.7; O2SAT 91; BMI 31.1
[2023-08-23 12:45] VITALS: RESP 20; O2SAT 88
[2023-08-23 12:51] VITALS: RESP 20; O2SAT 96
[2023-08-23 12:57] LABS: INR 1.2 (0.9-1.3); Prothrombin Time 14.1 SECONDS (10.1-12.7)
[2023-08-23 12:58] LABS: Add Manual Diff / Slide Review NO; Basophils Absolute Auto 100 /uL (0-100); Basophils Percent Auto 0.6 % (0-2); Eosinophils Absolute Auto 200 /uL (0-450); Eosinophils Percent Auto 2.7 % (2-4); Hematocrit 30.4 % (41-53); Hemoglobin 10.2 g/dL (13.5-17.5); Lymphocytes Absolute Auto 1400 /uL (1100-4500); Lymphocytes Percent Auto 16.2 % (25-40); Mean Corpuscular HGB Conc 33.5 % (30-36); Mean Corpuscular Hemoglobin 31.8 PG (26-34); Mean Corpuscular Volume 95.1 fL (80-100); Monocytes Absolute Auto 700 /uL (0-900); Monocytes Percent Auto 8.5 % (3-14); Neutrophils Absolute Auto 6300 /uL (1500-7000); Platelet Count 251 X10^3/uL (150-400); Red Blood Cell Count 3.19 X10^6/uL (4.5-5.9); Red Cell Distribution Width 16.2 % (11.6-14.8); White Blood Cell Count 8.8 X10^3/uL (4.5-11.0)
[2023-08-23 13:03] LABS: Alanine Aminotransferase 15 IU/L (<50); Albumin 4.2 g/dL (3.5-5.0); Albumin Globulin Ratio 1.2 (1.0-2.8); Alkaline Phosphatase 88 U/L (38-126); Aspartate Aminotransferase 18 IU/L (17-59); Bilirubin Total 0.9 mg/dL (0.2-1.3); Blood Urea Nitrogen 20 mg/dL (9-20); Calcium 8.8 mg/dL (8.4-10.2); Carbon Dioxide 24 mmol/L (22-32); Chloride 96 mmol/L (98-107); Estimated Glomerular Filt Rate 14 mL/min (>60); Globulin 3.5 g/dL (1.7-4.1); Glucose 149 mg/dL (80-110); HEMOLYSIS < 15 (0-50); Lipase 87 U/L (23-300); Potassium 3.8 mmol/L (3.4-5.1); Sodium 137 mmol/L (137-145); Total Protein 7.7 g/dL (6.3-8.2)
--- NOTE | 2023-08-23 14:21 | ED_ITS ---
HPI - Nausea/Vomiting/Diarrhea General Chief complaint: Nausea/Vomiting/Diarrhea Stated complaint: n/v Time Seen by Provider: 08/23/23 13:26 Source: patient and EMS Mode of arrival: EMS History of Present Illness HPI Narrative: Patient brought in by ambulance from home for syncopal episode. He did have nausea and vomiting but that is not new according to patient and . is at bedside. Patient states has coughing fits that caused the vomiting. He is always had problems after dialysis with nausea and vomiting. He did have his full course of dialysis this morning. Without any symptoms or problems. He went home. At the dinner table he states he is not feeling well. He vomited and was coughing and then he passed out. He did not fall down. He remained on the table. No seizure activity. Duration was about 1 minute according to . This is never happened to him before. Patient denies nice any prevent headache chest pain abdominal pain dizziness palpitations or back pain. He does have a pacemaker. They state that it activates when heart rate is below 40. No known sick contacts. No recent illness otherwise. Related Data Home Medications Medication Instructions Recorded Confirmed aspirin 81 mg tablet,delayed 81 mg PO BEDTIME ##0 12/11/10 03/05/23 release (Aspir-) allopurinol 100 mg tablet 100 mg PO PRN PRN Gout ##0 07/10/17 03/05/23 rosuvastatin 5 mg tablet (Crestor) 5 mg PO BEDTIME ##0 01/08/18 03/05/23 terazosin 1 mg capsule 1 mg PO BID 08/31/18 03/05/23 glipizide 10 mg tablet 10 mg PO QAM 11/11/18 03/05/23 insulin detemir U-100 100 unit/mL 20 units SUBCUT QA 11/11/18 03/05/23 subcutaneous solution amlodipine 5 mg tablet 5 mg DAILY 10/28/20 03/05/23 alprazolam 0.25 mg tablet 0.25 mg PO Q OTHER DAY 07/07/21 03/05/23 albuterol sulfate 90 mcg/actuation 90 mcg inhalation PRN PRN 03/14/22 03/05/23 aerosol inhaler Shortness Of Breath Or Wheezing carvedilol 6.25 mg tablet 6.25 mg PO BID 03/14/22 03/05/23 benzonatate 100 mg capsule 100 mg PO TID 04/10/22 03/05/23 codeine 10 mg-guaifenesin 100 mg/5 10 ml PO Q4-6H PRN Cough 04/10/22 03/05/23 mL Syrup sertraline 100 mg tablet 100 mg PO DAILY 04/10/22 03/05/23 Previous Rx's Medication Instructions Recorded bicalutamide 50 mg tablet (Casodex) 50 mg PO DAILY prostate cancer #90 10/06/21 tabs ondansetron 4 mg disintegrating 4 mg PO TID-QID PRN nausea and 07/18/23 tablet vomiting #10 tabs Allergies Allergy/AdvReac Type Severity Reaction Status Date / Time codeine Allergy Unknown NAUSEA Verified 03/14/22 15:21 Iodine and Iodide Containing Allergy Unknown Verified 03/14/22 15:21 Produc [IODINE AND IODIDE CONTAINING PRODUC] iohexol Allergy Unknown Verified 03/14/22 15:21 Review of Systems Review of Systems Narrative: GENERAL: negative chills, fatigue, malaise, fever, sweats. 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 Hyperlipidemia Anticoagulation adequate with anticoagulant therapy Hypertension Gout Obesity Chronic kidney disease (CKD) stage G4/A1, severely decreased glomerular filtration rate (GFR) between 15-29 mL/min/1.73 square meter and albuminuria creatinine ratio less than 30 mg/g Atrial fibrillation Diabetes Prostate cancer Excessive daytime sleepiness Obstructive sleep apnea of adult Surgical History S/P ureteral stent placement Social History household members: spouse Smoking Status: Never smoker alcohol intake: never substance use type: does not use Smoking Status: Never smoker alcohol intake frequency: 0-2 drinks per day Substance Use Type: does not use Exam Narrative Exam Narrative: GENERAL: in no distress, not toxic not dyspneic HEAD: Normocephalic. EYES: Pupils equal round ENT: Mucous membranes moist. NECK: Trachea midline. CARDIOVASCULAR: Irregularly irregular rate and rhythm RESPIRATORY: Clear to auscultation. Breath sounds equal bilaterally. No wheezes, rales, or rhonchi. GASTROINTESTINAL: Abdomen soft, non-tender no epigastric tenderness, no peritoneal signs. Abdomen soft nontender, bowel sounds are present. EXTREMITIES: No gross deformities. BACK: No flank tenderness. NEURO: AOx4. Patient is awake alert oriented x4. Clear speech. No facial droop. 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 SKIN: Warm and dry PSYCH: Not anxious, is cooperative Initial Vital Signs Initial Vital Signs: Vital Signs Temperature 96.2 F L 08/23/23 12:32 Pulse Rate 69 08/23/23 12:32 Respiratory Rate 16 08/23/23 12:32 Blood Pressure 155/84 H 08/23/23 12:32 Pulse Oximetry 91 08/23/23 12:32 Oxygen Delivery Method Room Air 08/23/23 12:32 Course Orders Ordered: Discontinued Medications Azithromycin (Azithromycin 250 Mg Tablet) 500 mg PO NOW ONE Stop: 08/23/23 18:01 Ondansetron HCl (Ondansetron 4 Mg Odt) 4 mg PO NOW PRN PRN Reason: Nausea And Vomiting Ondansetron HCl (Ondansetron 4 Mg/2 Ml Inj) 4 mg IV NOW PRN PRN Reason: Nausea And Vomiting Vital Signs Vital signs: Vital Signs - 8 hr 08/23/23 12:32 08/23/23 12:45 08/23/23 12:51 Temperature 96.2 F L Pulse Rate 69 Respiratory Rate 16 20 20 Blood Pressure 155/84 H Pulse Oximetry 91 88 L 96 Oxygen Delivery Method Room Air Room Air Nasal Cannula Oxygen Flow Rate 2 08/23/23 17:00 08/23/23 17:44 Temperature Pulse Rate 74 81 Respiratory Rate 22 25 H Blood Pressure 147/68 H 147/67 H Pulse Oximetry 98 98 Oxygen Delivery Method Nasal Cannula Nasal Cannula Oxygen Flow Rate MDM - Nausea/Vomiting/Diarrhea Lab Data 08/23/23 12:30 08/23/23 12:30 Labs: Lab Results 08/23/23 08/23/23 08/23/23 Range/Units 12:30 15:40 16:20 WBC 8.8 (4.5-11.0) X10^3/uL RBC 3.19 L (4.5-5.9) X10^6/uL Hgb 10.2 L (13.5-17.5) g/dL Hct 30.4 L (41-53) % MCV 95.1 (80-100) fL MCH 31.8 (26-34) PG MCHC 33.5 (30-36) % RDW 16.2 H (11.6-14.8) % Plt Count 251 (150-400) X10^3/uL Neut % (Auto) 72.0 (50-75) % Lymph % (Auto) 16.2 L (25-40) % [place] % (Auto) 8.5 (3-14) % Eos % (Auto) 2.7 (2-4) % Baso % (Auto) 0.6 (0-2) % Neut # (Auto) 6300 (5797-5180) /uL Lymph # (Auto) 1400 (6702-5253) /uL [place] # (Auto) 700 (0-900) /uL Eos # (Auto) 200 (0-450) /uL Baso # (Auto) 100 (0-100) /uL PT 14.1 H (10.1-12.7) SECONDS INR 1.2 (0.9-1.3) Sodium 137 (137-145) mmol/L Potassium 3.8 (3.4-5.1) mmol/L Chloride 96 L (98-107) mmol/L Carbon Dioxide 24 (22-32) mmol/L BUN 20 (9-20) mg/dL Creatinine 3.99 H (0.66-1.25) mg/dL Estimated GFR 14 L (>60) mL/min BUN/Creatinine Ratio 5.0 L (6-22) Glucose 149 H (80-110) mg/dL Calcium 8.8 (8.4-10.2) mg/dL Total Bilirubin 0.9 (0.2-1.3) mg/dL AST 18 (17-59) IU/L ALT 15 (<50) IU/L Alkaline Phosphatase 88 (38-126) U/L Total Creatine Kinase 78 58 (55-170) U/L Troponin I 0.030 0.024 (0.01-0.034) ng/mL Total Protein 7.7 (6.3-8.2) g/dL Albumin 4.2 (3.5-5.0) g/dL Globulin 3.5 (1.7-4.1) g/dL Albumin/Globulin Ratio 1.2 (1.0-2.8) Lipase 87 (23-300) U/L Chlamy pneumoniae PCR Not detected (Not Detect) Adenovirus (PCR) Not detected (Not Detect) B.parapertussis DNA PCR Not detected (Not Detecte) Coronavirus OC43 (PCR) Not detected (Not Detect) Coronavirus HKU1 (PCR) Not detected (Not Detect) Coronavirus 229E (PCR) Not detected (Not Detect) SARS-CoV-2 (PCR) Not detected (Not Detecte) Coronavirus NL63 (PCR) Not detected (Not Detect) Human Metapneumovir PCR Not detected (Not Detect) Influenza Type A (PCR) Not detected (Not Detect) Influenza Type B (PCR) Not detected (Not Detect) M. pneumoniae (PCR) Not detected (Not Detect) Parainfluenza 1 (PCR) Not detected (Not Detect) Parainfluenza 2 (PCR) Not detected (Not Detect) Parainfluenza 3 (PCR) Not detected (Not Detect) Parainfluenza 4 (PCR) Not detected (Not Detect) RSV (PCR) Not detected (Not Detect) Entero/Rhino (PCR) Not detected (Not Detect) Imaging Data CT chest abdomen pelvis: Radiologist's Impression: [place] [address] CT Scan Report Signed Patient: Noel Allen MR#: [id number] : 1940 Acct:[id number] Age/Sex: 83 / M Date of Service: 08/23/23 Loc: ED Accession Number: [id number] Procedure: CT chest abd pel wo con Ordering Provider: Ori Clements MD PROCEDURE: CT CHEST ABD PEL WO CON INDICATIONS: Chest and abdominal pain TECHNIQUE: After the administration of oral contrast, 5 mm thick sections acquired from the lung apices to the symphysis pubis. 5 mm thick coronal and sagittal reformats acquired, with additional 7 mm coronal MIP reformats through the lungs. For radiation dose reduction, the following was used: automated exposure control, adjustment of mA and/or kV according to patient size. COMPARISON: [facility], CT, CT ANGIO ABDOMEN PELVIS, 07/20/2023, 5:26. FINDINGS: Image quality: Excellent. CHEST: Lungs and pleura: Mild dependent atelectasis. Mild patchy ground-glass and nodular opacities are seen throughout the bilateral lung wilde, may be infectious in etiology. No pleural effusions or pneumothorax. Central and peripheral airways are patent are normal in caliber. Mediastinum: Heart size is enlarged. Severe multivessel coronary artery calcifications.. No pericardial effusion. No mediastinal adenopathy by CT size criteria. Thoracic aorta is normal in size. Dilated main pulmonary artery measuring 3.5 centimeters, suggestive of pulmonary hypertension.. Atherosclerotic vascular calcifications. Esophagus is normal in caliber. No hiatal hernia. Chest wall: No axillary or supraclavicular adenopathy by size criteria. Thyroid gland is unremarkable . Bilateral gynecomastia. ABDOMEN: Solid organs: Liver is normal in size. Gallbladder is normal . Pancreas is normal in contours. Spleen is normal in size. No adrenal nodules. Both kidneys are atrophic. Peritoneum and bowel: Small and large bowel loops are normal in caliber and wall thickness. Scattered diverticula without evidence of acute diverticulitis. Mild presacral edema. No free fluid or air. Nodes and vessels: No retroperitoneal or mesenteric adenopathy by size criteria. Atherosclerotic vascular calcifications. Focal dilatation of the infrarenal abdominal aorta measuring up to 3.7 x 3.1 centimeters. Miscellaneous: No ventral hernias. PELVIS: Genitourinary: Bladder is decompressed, unable to evaluate. Miscellaneous: No inguinal hernias or adenopathy. Bones: No suspicious bony lesions. No vertebral body compression fractures. Degenerative changes of the spine. Diffusely decreased osseous mineralization. Chronic appearing left lower lateral rib fractures. IMPRESSION: 1. Patchy ground-glass and nodular opacities are seen throughout the bilateral lung wilde, likely infectious in etiology. 2. Severe atherosclerotic vascular calcifications including severe coronary artery calcifications. Focal dilatation of the infrarenal abdominal aorta is similar in appearance to prior. 3. Diverticulosis without evidence of acute diverticulitis. 4. Dilated main pulmonary artery, suggestive of pulmonary hypertension. 5. Atrophic kidneys. Dictated by: Jonah Barillas M.D. on 08/23/2023 at 14:47 Approved by: Jonah Barillas M.D. on 08/23/2023 at 14:56 [facility] Narrative Medical decision making narrative: Patient brought in by ambulance from home for syncopal episode. He did have nausea and vomiting but that is not new according to patient and . is at bedside. Patient states has coughing fits that caused the vomiting. He is always had problems after dialysis with nausea and vomiting. He did have his full course of dialysis this morning. Without any symptoms or problems. He went home. At the dinner table he states he is not feeling well. He vomited and was coughing and then he passed out. He did not fall down. He remained on the table. No seizure activity. Duration was about 1 minute according to . This is never happened to him before. Patient denies nice any prevent headache chest pain abdominal pain dizziness palpitations or back pain. He does have a pacemaker. They state that it activates when heart rate is below 40. No known sick contacts. No recent illness otherwise. After history and exam CBC CMP troponin urinalysis CT chest abdomen pelvis and chest EKG [facility] CC: Syncope Complicating co-morbidities: Patient with dialysis and cardiac history Data collected from: Patient and Medical records reviewed: No recent visit for this complaint Differential considered: Includes but not limited to STEMI non STEMI gastritis vasovagal syncope, seizure, aortic dissection, hypoglycemia Exam documented above, pertinent findings include: Nontender abdomen Lab Test results independently reviewed as above. Pertinent findings: WBC 8.8 hemoglobin 8.2 INR 1.2 sodium 137 potassium 3.8 BUN 20 creatinine 3.99, this is below the patient's baseline GFR 14 which is above patient's baseline glucose 149 Troponin 0.030, repeat troponin 0.024 Independently reviewed EKG atrial fibrillation rate 68 Imaging studies independently reviewed: CT chest abdomen pelvis no acute finding. Clinically not pneumonia or infectious process in the lungs. Patient has not had any respiratory symptoms prior to today. Consultations: 5:47 p.m. primary care physician is on-call and is actually in the emergency department now, Dr Stone, he will see patient in the office. No indication to admit at this time. He does agree for Zithromax given CT scan findings on the lungs. Antibiotic to be given on the days of his dialysis. Treatments: Zofran Re-evaluations: 5:23 p.m.. Reviewed results with patient. They are reassuring at this time. Patient has been asymptomatic during course of stay here. No nausea or vomiting. No abdominal discomfort. No chest pain. He has been resting comfortably. I have reviewed with them likely patient had vasovagal episode. Given that he just finished dialysis and has lower volume then presyncope episode. Patient likely had a coughing fit and nausea and vomiting which is not new to him however given his lower volume status after dialysis may have gotten low heart rate, vagal stimulation, decreased blood flow to the brain and passed out. There was no seizure activity. Does not appear to be cardiac or neurological event otherwise. Workup and laboratory studies and imaging are reassuring. He does desire discharge home. Return precautions reviewed with him and . They desire discharge home Discussion: Appropriate for discharge home. Exam and laboratory studies are reassuring. Patient likely had vasovagal episode. Please see above notes discussion with family for rationale. Not toxic at discharge. Return precautions reviewed with them. They desire discharge home. Nausea vomiting coughing fits not new for patient however given lower volume status just after dialysis may have triggered a vasovagal syncopal episode. Patient is on oxygen during dialysis because he falls asleep and desats according to patient and . He is on oxygen here while he is resting. He uses CPAP at night. Diagnosis: Syncope Patient had left before Zithromax was given. We are calling for him to come back to get today's dose of Zithromax. Prescription for the remaining doses has been sent to the pharmacy. 6:30 p.m.. Spoke with primary care dr stone, he will call patient tomorrow to inform about the Zithromax that he did not receive today. Discharge Plan Departure Patient Disposition: Home Clinical Impression: Vasovagal syncope Instructions: DI for Syncope in Adults (Fainting) Activity Restrictions/Additional Instructions: See family doctor this week for re-evaluation. Return if worse if any questions or concerns. You may continue home medications. The fainting episode today may be due to the effect of lower body fluid after dialysis and with the coughing and vomiting episode may have triggered a vasovagal syndrome, heart rate may have lowered decreasing blood flow to the brain causing to pass out. Exam and laboratory studies and radiographs today are reassuring. Return if worse if any questions or concerns. Be careful about eating right away after your dialysis days. This can trigger this episode again. Take a little time after dialysis day before eating as you have a history of vomiting frequently Prescriptions: No Action aspirin [Aspir-81] 81 mg Tablet,Delayed Release (Dr/Ec) 81 mg PO BEDTIME Qty: 0 allopurinol 100 MG tablet 100 mg PO PRN PRN (Reason: Gout) Qty: 0 Patient Comments: not taken in a while rosuvastatin [Crestor] 5 MG tablet 5 mg PO BEDTIME Qty: 0 amlodipine 5 mg tablet 5 mg DAILY alprazolam 0.25 mg Tablet 0.25 mg PO Q OTHER DAY Patient Comments: taken only at dialysis bicalutamide [Casodex] 50 MG tablet 50 mg PO DAILY Qty: 90 3RF sertraline 100 mg Tablet 100 mg PO DAILY benzonatate 100 mg Capsule 100 mg PO TID codeine-guaifenesin 10-100 mg/5 mL Syrup 10 ml PO Q4-6H PRN (Reason: Cough) terazosin 1 MG capsule 1 mg PO BID Patient Comments: takes 1 mg in am, 2 mg in PM ondansetron 4 mg tablet,disintegrating 4 mg PO TID-QID PRN (Reason: nausea and vomiting) Qty: 10 0RF glipizide 10 mg tablet 10 mg PO QAM Patient Comments: TK 1 T PO BID Levemir U-100 Insulin 100 unit/mL solution 20 units subcut QAM Patient Comments: INJECT 20 UNITS QAM carvedilol 6.25 mg tablet 6.25 mg PO BID Patient Comments: TAKE 1 TABLET BY MOUTH TWICE DAILY albuterol sulfate 90 mcg/actuation HFA aerosol inhaler 90 mcg INHALATION PRN PRN (Reason: Shortness Of Breath Or Wheezing) Patient Comments: INHALE 1 TO 2 PUFFS INTO THE LUNGS EVERY 4 HOURS WHILE AWAKE Referrals: Emmett Stone MD [Primary Care Provider] - Stand Alone Forms: Patient Portal/API
[2023-08-23 14:39] LABS: Creatine Kinase 78 U/L (55-170)
[2023-08-23 16:40] LABS: Adenovirus Not Detected (Not Detect); B. parapertussis Not Detected (Not Detecte); Bordetella pertussis Not Detected (Not Detect); Chlamydophila pneumoniae Not Detected (Not Detect); Coronavirus 229E Not Detected (Not Detect); Coronavirus HKU1 Not Detected (Not Detect); Coronavirus NL 63 Not Detected (Not Detect); Coronavirus OC43 Not Detected (Not Detect); Human Metapneumovirus Not Detected (Not Detect); Human Rhinovirus/Enterovirus Not Detected (Not Detect); Influenza A Not Detected (Not Detect); Influenza B Not Detected (Not Detect); Mycoplasma pneumoniae Not Detected (Not Detect); Parainfluenza Virus 1 Not Detected (Not Detect); Parainfluenza Virus 2 Not Detected (Not Detect); Parainfluenza Virus 3 Not Detected (Not Detect); Parainfluenza Virus 4 Not Detected (Not Detect); Respiratory Syncytial Virus Not Detected (Not Detect); SARS- CoV-2 Not Detected (Not Detecte)
[2023-08-23 16:45] LABS: Creatine Kinase 58 U/L (55-170)
[2023-08-23 16:57] LABS: Troponin I 0.024 ng/mL (0.01-0.034)
[2023-08-23 17:00] VITALS: BP 147/68; PULSE 74; RESP 22; O2SAT 98
[2023-08-23 17:44] VITALS: BP 147/67; PULSE 81; RESP 25; O2SAT 98
== END 2023-08-23 18:05 | disposition home or self-care (01) ==
PROVIDERS: Emergency Provider Emergency Medicine; PCP Family Medicine
DX: R55 Syncope and collapse (principal); R07.9 Chest pain, unspecified; R10.9 Unspecified abdominal pain; R11.2 Nausea with vomiting, unspecified; Z79.899 Other long term (current) drug therapy
CPT/HCPCS: 36415; 71250; 74176; 80053; 82550; 83690; 84484; 85025; 85610; 87633; 93005; 99284

== ENCOUNTER 2023-09-03 11:51 | Emergency (ER) | payer MEDICARE, OTHER, SELFPAY ==
[2022-03-08 14:55] VITALS: BMI 31.0
[2022-05-11 16:55] VITALS: PULSE 74; RESP 17; O2SAT 98
[2023-09-03] VITALS (22 sets, daily range): BP systolic 155–191; BP diastolic 61–130; PULSE 60–90; RESP 18–29; TEMP 36.5–37; O2SAT 96–100; BMI 31.1
--- NOTE | 2023-09-03 12:14 | PC.NURSE ---
Pt has history of colon cancer, radiation last done 1 year ago. Pt states cancer is cleared up. Pt goes to dialysis sunday/sun/sunday. He received his full dialysis treatment today, then went home and thought he had to poop. Patient then had gross hematochezia, he is on eliquis 2x weeks ago for his atrial fibrillation.
--- NOTE | 2023-09-03 12:35 | ED_ITS ---
HPI - GI Bleed General Chief complaint: GI Bleed Stated complaint: bleeding badly out of rectum came from dialysis Time Seen by Provider: 09/03/23 12:21 Source: patient and family Mode of arrival: Wheelchair History of Present Illness HPI Narrative: Patient is on Eliquis for history of atrial fibrillation. He restarted this with his [facility] [address] Tsang. Patient had nonpainful bright red blood per rectum after his dialysis today. He did complete his full 3 hour dialysis. Patient has history of rectal cancer which he finished radiation therapy last year with [facility], Dr. Kelly. Patient and states he is no longer a candidate for resection or chemo or radiation. Patient uncertain history of diverticulosis. However, CT scan done August 23, 2023, patient CT does show diverticulosis. Patient seen by me at that time for vasovagal syncope, he was discharged home. Exam and laboratory studies and imaging workup at that time was reassuring. He is not had any further syncopal episodes or dizziness since then. Patient had CT chest abdomen pelvis at that time. Primary care is Dr Escalera. I did contact primary care on that day. I did prescribe Zithromax for pneumonia. Blood soiled garment/brief was brought by . It is at bedside. I am able to inspect it. It is bright red blood Related Data Home Medications Medication Instructions Recorded Confirmed aspirin 81 mg tablet,delayed 81 mg PO BEDTIME ##0 12/11/10 03/05/23 release (Aspir-) allopurinol 100 mg tablet 100 mg PO PRN PRN Gout ##0 07/10/17 03/05/23 rosuvastatin 5 mg tablet (Crestor) 5 mg PO BEDTIME ##0 01/08/18 03/05/23 terazosin 1 mg capsule 1 mg PO BID 08/31/18 03/05/23 glipizide 10 mg tablet 10 mg PO QAM 11/11/18 03/05/23 insulin detemir U-100 100 unit/mL 20 units SUBCUT QAM 11/11/18 03/05/23 subcutaneous solution amlodipine 5 mg tablet 5 mg DAILY 10/28/20 03/05/23 alprazolam 0.25 mg tablet 0.25 mg PO Q OTHER DAY 07/07/21 03/05/23 albuterol sulfate 90 mcg/actuation 90 mcg inhalation PRN PRN 03/14/22 03/05/23 aerosol inhaler Shortness Of Breath Or Wheezing carvedilol 6.25 mg tablet 6.25 mg PO BID 03/14/22 03/05/23 benzonatate 100 mg capsule 100 mg PO TID 04/10/22 03/05/23 codeine 10 mg-guaifenesin 100 mg/5 10 ml PO Q4-6H PRN Cough 04/10/22 03/05/23 mL Syrup sertraline 100 mg tablet 100 mg PO DAILY 04/10/22 03/05/23 Previous Rx's Medication Instructions Recorded bicalutamide 50 mg tablet (Casodex) 50 mg PO DAILY prostate cancer #90 10/06/21 tabs ondansetron 4 mg disintegrating 4 mg PO TID-QID PRN nausea and 07/18/23 tablet vomiting #10 tabs Allergies Allergy/AdvReac Type Severity Reaction Status Date / Time codeine Allergy Unknown NAUSEA Verified 03/14/22 15:21 Iodine and Iodide Containing Allergy Unknown Verified 03/14/22 15:21 Produc [IODINE AND IODIDE CONTAINING PRODUC] iohexol Allergy Unknown Verified 03/14/22 15:21 Review of Systems Review of Systems Narrative: GENERAL: negative chills, fatigue, malaise, fever, sweats. 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 Hyperlipidemia Anticoagulation adequate with anticoagulant therapy Hypertension Gout Obesity Chronic kidney disease (CKD) stage G4/A1, severely decreased glomerular filtration rate (GFR) between 15-29 mL/min/1.73 square meter and albuminuria creatinine ratio less than 30 mg/g Atrial fibrillation Diabetes Prostate cancer Excessive daytime sleepiness Obstructive sleep apnea of adult Surgical History S/P ureteral stent placement Social History household members: spouse Smoking Status: Never smoker alcohol intake: never substance use type: does not use Smoking Status: Never smoker alcohol intake frequency: 0-2 drinks per day Substance Use Type: does not use Exam Initial Vital Signs Initial Vital Signs: Vital Signs Temperature 97.7 F 09/03/23 12:00 Pulse Rate 73 09/03/23 12:00 Respiratory Rate 21 09/03/23 12:00 Blood Pressure 172/73 H 09/03/23 12:00 Pulse Oximetry 99 09/03/23 12:00 Oxygen Delivery Method Room Air 09/03/23 12:00 Course Orders Ordered: ED Orders 09/03/23 12:03 CBC Auto Diff [Complete Blood Count AUTO DIFF] Stat Type and Screen Stat transfuse [Packed Cells] Stat 09/03/23 12:28 BMP [Basic Metabolic Panel] Stat 09/03/23 12:32 CMP [Comprehensive Metabolic Panel] Stat PT [Prothrombin Time INR] Stat PTT Partial Thromboplastin Lon Stat 09/03/23 12:33 EKG-12 Lead Stat 09/03/23 12:34 CT abdomen pelvis wo con Stat Discontinued Medications Metoprolol Succinate (Metoprolol Er 25 Mg Tablet) 25 mg PO NOW ONE Stop: 09/03/23 15:59 Last Admin: 09/03/23 16:29 Dose: 25 mg Documented By: SYED Vital Signs Vital signs: Vital Signs - 8 hr 09/03/23 12:00 09/03/23 12:17 09/03/23 12:30 Temperature 97.7 F Pulse Rate 73 64 83 Respiratory Rate 21 20 26 H Blood Pressure 172/73 H Pulse Oximetry 99 98 97 Oxygen Delivery Method Room Air 09/03/23 12:54 09/03/23 12:54 09/03/23 13:00 Temperature Pulse Rate 70 60 Respiratory Rate 21 20 Blood Pressure 191/78 H Pulse Oximetry 100 100 Oxygen Delivery Method Room Air 09/03/23 13:01 09/03/23 13:01 09/03/23 13:30 Temperature Pulse Rate 66 64 Respiratory Rate 21 20 Blood Pressure 186/74 H Pulse Oximetry 100 100 Oxygen Delivery Method Room Air 09/03/23 13:31 09/03/23 13:31 09/03/23 14:00 Temperature Pulse Rate 63 60 Respiratory Rate 22 22 Blood Pressure 174/130 H Pulse Oximetry 100 97 Oxygen Delivery Method Room Air 09/03/23 14:01 09/03/23 14:01 09/03/23 14:30 Temperature Pulse Rate 65 67 Respiratory Rate 22 20 Blood Pressure 186/77 H Pulse Oximetry 97 96 Oxygen Delivery Method Room Air 09/03/23 14:31 09/03/23 14:31 09/03/23 15:00 Temperature Pulse Rate 66 68 Respiratory Rate 22 23 Blood Pressure 182/79 H Pulse Oximetry 96 96 Oxygen Delivery Method Room Air 09/03/23 15:01 09/03/23 15:15 09/03/23 15:15 Temperature Pulse Rate 65 68 Respiratory Rate 18 24 Blood Pressure 155/67 H Pulse Oximetry 96 96 Oxygen Delivery Method Room Air 09/03/23 15:30 09/03/23 15:30 09/03/23 16:00 Temperature Pulse Rate 81 84 Respiratory Rate 25 H 29 H Blood Pressure 157/69 H Pulse Oximetry 98 100 Oxygen Delivery Method Room Air 09/03/23 16:09 09/03/23 16:09 09/03/23 16:12 Temperature 97.9 F Pulse Rate 82 81 Respiratory Rate 22 20 Blood Pressure 179/76 H 179/76 H Pulse Oximetry 98 Oxygen Delivery Method 09/03/23 16:15 09/03/23 16:15 09/03/23 16:29 Temperature Pulse Rate 90 83 Respiratory Rate 28 H Blood Pressure 181/77 H 181/77 H Pulse Oximetry 98 Oxygen Delivery Method 09/03/23 16:30 Temperature 98.6 F Pulse Rate 89 Respiratory Rate 20 Blood Pressure 168/61 H Pulse Oximetry Oxygen Delivery Method MDM - GI Bleed Lab Data 09/03/23 12:03 09/03/23 12:32 Labs: Lab Results 09/03/23 09/03/23 Range/Units 12:03 12:32 WBC 7.1 (4.5-11.0) X10^3/uL RBC 2.80 L (4.5-5.9) X10^6/uL Hgb 8.9 L (13.5-17.5) g/dL Hct 26.3 L (41-53) % MCV 94.0 (80-100) fL MCH 31.8 (26-34) PG MCHC 33.8 (30-36) % RDW 15.6 H (11.6-14.8) % Plt Count 226 (150-400) X10^3/uL Neut % (Auto) 77.3 H (50-75) % Lymph % (Auto) 9.9 L (25-40) % [place] % (Auto) 6.7 (3-14) % Eos % (Auto) 5.4 H (2-4) % Baso % (Auto) 0.7 (0-2) % Neut # (Auto) 5500 (0891-5447) /uL Lymph # (Auto) 700 L (4679-4855) /uL [place] # (Auto) 500 (0-900) /uL Eos # (Auto) 400 (0-450) /uL Baso # (Auto) 0 (0-100) /uL PT 14.8 H (10.1-12.7) SECONDS INR 1.3 (0.9-1.3) APTT 30 (26-36) SECONDS Sodium 135 L (137-145) mmol/L Potassium 3.9 (3.4-5.1) mmol/L Chloride 96 L (98-107) mmol/L Carbon Dioxide 27 (22-32) mmol/L BUN 21 H (9-20) mg/dL Creatinine 4.18 H (0.66-1.25) mg/dL Estimated GFR 13 L (>60) mL/min BUN/Creatinine Ratio 5.0 L (6-22) Glucose 155 H (80-110) mg/dL Calcium 8.8 (8.4-10.2) mg/dL Total Bilirubin 0.6 (0.2-1.3) mg/dL AST 16 L (17-59) IU/L ALT 13 (<50) IU/L Alkaline Phosphatase 80 (38-126) U/L Total Protein 7.2 (6.3-8.2) g/dL Albumin 3.9 (3.5-5.0) g/dL Globulin 3.3 (1.7-4.1) g/dL Albumin/Globulin Ratio 1.2 (1.0-2.8) Blood Type A Positive Antibody Screen Negative Crossmatch See Detail Point of Care Testing Glucose POC [address] scan - abdomen/pelvis: Radiologist's Impression: [address] [address] [address] Scan Report Signed Patient: Noel Allen MR#: [id number] : 1940 Acct:[id number] Age/Sex: 83 / M Date of Service: 09/03/23 Loc: ED Accession Number: [id number] Procedure: CT abdomen pelvis wo con Ordering Provider: Ori Clements MD PROCEDURE: CT ABDOMEN PELVIS WO CON INDICATIONS: GI bleed TECHNIQUE: Noncontrast 5 mm thick sections acquired from the diaphragms to the symphysis. 5 mm coronal and sagittal reformats were then performed. For radiation dose reduction, the following was used: automated exposure control, adjustment of mA and/or kV according to patient size. COMPARISON: [facility], CT, CT ANGIO ABDOMEN PELVIS, 12/02/2020, 9:57. [facility], CT, CT ANGIO ABDOMEN PELVIS, 11/13/2022, 9:45. [facility], CT, CT CHEST ABDOMEN PELVIS WITH CONTRAST, 04/21/2022, 14:38. [facility], CT, CT ABDOMEN PELVIS WO CON, 07/17/2023, 21:26. FINDINGS: Image quality: Excellent. ABDOMEN: Lung bases: Lung bases are clear. Heart size is normal. Solid organs: Liver is normal in size. Punctate gallstones are layered in the gallbladder fundus. No gallbladder wall thickening or pericholecystic fluid. Pancreas is normal in contours. Spleen is normal in size. No adrenal nodules. There is severe atrophy of the bilateral kidneys. No hydronephrosis or nephrolithiasis. There is a questionable intermediate density mass within the upper pole of the right kidney which measures 1.6 cm in diameter. However, this may represent a small region of relatively normal renal parenchyma in the setting of severe renal atrophy (series 4/image 44). This was likely present on the study dated December 02, 2020 but appears more conspicuous in the setting of increased renal atrophy. Peritoneum and bowel: Unenhanced bowel loops demonstrate overall normal wall thickness and caliber. Circumferential wall thickening is noted in the rectosigmoid. There are scattered sigmoid diverticula. No evidence for diverticulitis. The appendix is thin walled. No free fluid or air. Nodes and vessels: No retroperitoneal or mesenteric adenopathy by size criteria. The aorta measures up to 3.7 cm in axial diameter. Circumferential wall calcifications are noted throughout the abdominal aorta. Miscellaneous: No ventral hernias. PELVIS: Genitourinary: Bladder wall thickness is normal. Miscellaneous: No inguinal hernias or adenopathy. Bones: No suspicious bony lesions. No vertebral body compression fractures. IMPRESSION: 1. No acute intra-abdominal findings. Normal appendix. Diverticulosis. No acute diverticulitis. 2. Circumferential wall thickening of the rectosigmoid which is a nonspecific finding but can be associated with neoplasm. Of note, this is likely similar to the CT dated December 02, 2020. 3. Severe renal atrophy and questionable right upper pole renal mass versus normal parenchyma in the setting of atrophy. 4. Cholelithiasis. No findings to suggest choledocholithiasis or acute cholecystitis. 5. Abdominal aortic aneurysm. Annual sonographic surveillance recommended. Dictated by: Emily Montemayor M.D. on 09/03/2023 at 13:22 Approved by: Emily Montemayor M.D. on 09/03/2023 at 13:31 [facility] Narrative Medical decision making narrative: bashir is on Eliquis for history of atrial fibrillation. He restarted this with his [facility] home healthcare [address] Tsang. Patient had nonpainful bright red blood per rectum after his dialysis today. He did complete his full 3 hour dialysis. Patient has history of rectal cancer which he finished radiation therapy last year with [facility], Dr. Kelly. Patient and states he is no longer a candidate for resection or chemo or radiation. Patient uncertain history of diverticulosis. However, CT scan done August 23, 2023, patient CT does show diverticulosis. Patient seen by me at that time for vasovagal syncope, he was discharged home. Exam and laboratory studies and imaging workup at that time was reassuring. He is not had any further syncopal episodes or dizziness since then. Patient had CT chest abdomen pelvis at that time. Primary care is Dr Escalera. I did contact primary care on that day. I did prescribe Zithromax for pneumonia. Blood soiled garment/brief was brought by . It is at bedside. I am able to inspect it. It is bright red blood After history and exam CBC CMP PT INR PTT type and screen CT abdomen pelvis EKG [facility] CC: GI bleed Complicating co-morbidities: Diverticulosis/Eliquis Data collected from: Patient and Medical records reviewed: ER notes here August 23, [address] chest abdomen and pelvis results Differential considered: Includes but not limited to Eliquis toxicity, diverticulosis, upper GI bleed Exam documented above, pertinent findings include: Nontender abdomen. Bright red blood in soiled garment Lab Test results independently reviewed as above. Pertinent findings: WBC 7.1 hemoglobin 8.9 which is lower than baseline. Platelets 226 PT 14.8 INR 1.3 PTT 30 Sodium 135 potassium 3.9 chloride 96 BUN 21 creatinine 4.18 GFR 13, these appear to be baseline Independently reviewed EKG atrial fibrillation rate [address] elevation or depression Imaging studies independently reviewed: CT abdomen pelvis without contrast no acute intra-abdominal findings. Diverticulosis without diverticulitis. There is circumferential wall thickening of the rectosigmoid colon. Similar finding December 02, 2020 Consultations: 1:00 p.m.. Spoke with General surgery, Dr. Cueto, he will follow in consult, possible endoscopy tomorrow 2:00 p.m.. Spoke with primary care provider, Dr. Escalera, would like patient transferred as he is on dialysis and does not want to risk prolonged stay and we do not have dialysis capabilities here. 3:33 p.m.. Spoke with [facility], hospitalist, Dr. Beltran, she will accept patient. She would like 1 unit PRBC to be transfused now Treatments: Normal saline/1 unit PRBC Re-evaluations: 2:10 p.m.. Updated patient and results and my discussion with his doctor, we will have to transfer due to dialysis needs. Discussion: Appropriate for transfer as we do not have dialysis capabilities here and workup may extend past his dialysis day. Not requiring transfusion at this time. Diagnosis: GI bleed Discharge Plan Departure Patient Disposition: [facility] Clinical Impression: Lower gastrointestinal bleed Prescriptions: No Action aspirin [Aspir-81] 81 mg Tablet,Delayed Release (Dr/Ec) 81 mg PO BEDTIME Qty: 0 allopurinol 100 MG tablet 100 mg PO PRN PRN (Reason: Gout) Qty: 0 Patient Comments: not taken in a while rosuvastatin [Crestor] 5 MG tablet 5 mg PO BEDTIME Qty: 0 amlodipine 5 mg tablet 5 mg DAILY alprazolam 0.25 mg Tablet 0.25 mg PO Q OTHER DAY Patient Comments: taken only at dialysis bicalutamide [Casodex] 50 MG tablet 50 mg PO DAILY Qty: 90 3RF sertraline 100 mg Tablet 100 mg PO DAILY benzonatate 100 mg Capsule 100 mg PO TID codeine-guaifenesin 10-100 mg/5 mL Syrup 10 ml PO Q4-6H PRN (Reason: Cough) terazosin 1 MG capsule 1 mg PO BID Patient Comments: takes 1 mg in am, 2 mg in PM ondansetron 4 mg tablet,disintegrating 4 mg PO TID-QID PRN (Reason: nausea and vomiting) Qty: 10 0RF glipizide 10 mg tablet 10 mg PO QAM Patient Comments: TK 1 T PO BID Levemir U-100 Insulin 100 unit/mL solution 20 units subcut QAM Patient Comments: INJECT 20 UNITS QAM carvedilol 6.25 mg tablet 6.25 mg PO BID Patient Comments: TAKE 1 TABLET BY MOUTH TWICE DAILY albuterol sulfate 90 mcg/actuation HFA aerosol inhaler 90 mcg INHALATION PRN PRN (Reason: Shortness Of Breath Or Wheezing) Patient Comments: INHALE 1 TO 2 PUFFS INTO THE LUNGS EVERY 4 HOURS WHILE AWAKE Referrals: Emmett Escalera MD [Primary Care Provider] -
[2023-09-03 12:38] LABS: Add Manual Diff / Slide Review NO; Basophils Absolute Auto 0 /uL (0-100); Basophils Percent Auto 0.7 % (0-2); Eosinophils Absolute Auto 400 /uL (0-450); Eosinophils Percent Auto 5.4 % (2-4); Hematocrit 26.3 % (41-53); Hemoglobin 8.9 g/dL (13.5-17.5); Lymphocytes Absolute Auto 700 /uL (1100-4500); Lymphocytes Percent Auto 9.9 % (25-40); Mean Corpuscular HGB Conc 33.8 % (30-36); Mean Corpuscular Hemoglobin 31.8 PG (26-34); Monocytes Absolute Auto 500 /uL (0-900); Monocytes Percent Auto 6.7 % (3-14); Neutrophils Absolute Auto 5500 /uL (1500-7000); Neutrophils Percent Auto 77.3 % (50-75); Platelet Count 226 X10^3/uL (150-400); Red Cell Distribution Width 15.6 % (11.6-14.8); White Blood Cell Count 7.1 X10^3/uL (4.5-11.0)
[2023-09-03 12:56] LABS: Alanine Aminotransferase 13 IU/L (<50); Albumin 3.9 g/dL (3.5-5.0); Albumin Globulin Ratio 1.2 (1.0-2.8); Alkaline Phosphatase 80 U/L (38-126); Aspartate Aminotransferase 16 IU/L (17-59); Bilirubin Total 0.6 mg/dL (0.2-1.3); Blood Urea Nitrogen 21 mg/dL (9-20); Calcium 8.8 mg/dL (8.4-10.2); Carbon Dioxide 27 mmol/L (22-32); Chloride 96 mmol/L (98-107); Estimated Glomerular Filt Rate 13 mL/min (>60); Globulin 3.3 g/dL (1.7-4.1); Glucose 155 mg/dL (80-110); HEMOLYSIS < 15 (0-50); Potassium 3.9 mmol/L (3.4-5.1); Sodium 135 mmol/L (137-145); Total Protein 7.2 g/dL (6.3-8.2)
[2023-09-03 13:02] LABS: INR 1.3 (0.9-1.3); Prothrombin Time 14.8 SECONDS (10.1-12.7)
[2023-09-03 13:05] LABS: PTT Partial Thromboplastin Tim 30 SECONDS (26-36)
--- NOTE | 2023-09-03 16:15 | PC.NURSE ---
CLIENT DEVELOPMENT MANAGER NOTE: spoke to Martha from [facility] @ 140 who states they don't have beds at the moment spoke to Milana from [facility] @ [phone] Milana states she'll start working on the case spoke to Consuelo @ [facility] @ 1430 and she stated it might be a 24 hour wait time spoke to Renetta at [facility] @ [phone] who states she will get her GI doc to give us a call back. Pt has been accepted by [facility]; accepting doctor is Dr. Beltarn and is now being transferred called with ETA
[2023-09-03] MEDS: METOPROLOL ER 25 MG TABLET PO (16:29)
--- NOTE | 2023-09-03 16:39 | PC.NURSE ---
Pt continued to receive blood products by [facility] ambulance upon transfer.
== END 2023-09-03 16:39 | disposition short-term general hospital (02) ==
PROVIDERS: Emergency Provider Emergency Medicine; PCP Family Medicine
DX: K92.2 Gastrointestinal hemorrhage, unspecified (principal); I48.91 Unspecified atrial fibrillation
CPT/HCPCS: 36415; 36430; 74176; 80053; 82962; 85025; 85610; 85730; 86850; 86900; 86901; 93005; 93010; 99285; P9016

== ENCOUNTER 2023-11-20 13:35 | Emergency (ER) | payer MEDICARE, OTHER, SELFPAY ==
[2022-03-08 14:55] VITALS: BMI 31.0
[2022-05-11 16:55] VITALS: PULSE 74; RESP 17; O2SAT 98
[2023-11-20] VITALS (30 sets, daily range): BP systolic 148–183; BP diastolic 64–76; PULSE 54–78; RESP 18–39; TEMP 36.6; O2SAT 94–97; BMI 30.7
[2023-11-20 14:06] LABS: Add Manual Diff / Slide Review NO; Basophils Absolute Auto 100 /uL (0-100); Basophils Percent Auto 0.7 % (0-2); Eosinophils Absolute Auto 300 /uL (0-450); Hematocrit 31.2 % (41-53); Hemoglobin 10.4 g/dL (13.5-17.5); Lymphocytes Absolute Auto 800 /uL (1100-4500); Lymphocytes Percent Auto 10.5 % (25-40); Mean Corpuscular HGB Conc 33.3 % (30-36); Mean Corpuscular Hemoglobin 32.4 PG (26-34); Mean Corpuscular Volume 97.1 fL (80-100); Monocytes Absolute Auto 400 /uL (0-900); Monocytes Percent Auto 5.3 % (3-14); Neutrophils Absolute Auto 5800 /uL (1500-7000); Neutrophils Percent Auto 79.5 % (50-75); Platelet Count 135 X10^3/uL (150-400); Red Blood Cell Count 3.21 X10^6/uL (4.5-5.9); Red Cell Distribution Width 17.5 % (11.6-14.8); White Blood Cell Count 7.2 X10^3/uL (4.5-11.0)
[2023-11-20 14:14] LABS: INR 1.1 (0.9-1.3); Prothrombin Time 12.6 SECONDS (9.4-12.5)
[2023-11-20 14:16] LABS: PTT Partial Thromboplastin Tim 30 SECONDS (25.1-36.5)
[2023-11-20 14:19] LABS: Alanine Aminotransferase 13 IU/L (<50); Albumin 3.8 g/dL (3.5-5.0); Albumin Globulin Ratio 1.4 (1.0-2.8); Alkaline Phosphatase 72 U/L (38-126); Aspartate Aminotransferase 20 IU/L (17-59); Bilirubin Total 0.7 mg/dL (0.2-1.3); Blood Urea Nitrogen 23 mg/dL (9-20); Calcium 8.4 mg/dL (8.4-10.2); Carbon Dioxide 27 mmol/L (22-32); Chloride 100 mmol/L (98-107); Estimated Glomerular Filt Rate 12 mL/min (>60); Globulin 2.8 g/dL (1.7-4.1); Glucose 169 mg/dL (80-110); HEMOLYSIS 17 (0-50); Potassium 3.9 mmol/L (3.4-5.1); Sodium 136 mmol/L (137-145); Total Protein 6.6 g/dL (6.3-8.2)
[2023-11-20] MEDS: PANTOPRAZOLE 40 MG VIAL 80 MG IV (16:00)
--- NOTE | 2023-11-20 18:23 | ED.GIBLEED ---
HPI - GI Bleed General Chief complaint: GI Bleed Stated complaint: bleeding out of rectum bad Time Seen by Provider: 11/20/23 17:04 Source: patient Mode of arrival: Wheelchair History of Present Illness HPI Narrative: Patient is a 83-year-old male history of hemodialysis Sunday, atrial fibrillation no longer on anticoagulation secondary to rectal bleeding. He was recently diagnosed with colon cancer in August. He has been receiving radiation at [facility] he has not currently on chemo for his colon Cancer. He presents today with bright red blood. He was at dialysis he went to the bathroom somebody else helped him wipe and they both saw bright red blood. He went home and had another episode. He has no abdominal cramping no dizziness no lightheadedness. Feels like he is continuing to incontinence Related Data Home Medications Medication Instructions Recorded Confirmed rosuvastatin 5 mg tablet (Crestor) 5 mg PO BEDTIME ##0 01/08/18 10/30/23 glipizide 10 mg tablet 10 mg PO QAM 11/11/18 03/05/23 amlodipine 5 mg tablet 5 mg DAILY 10/28/20 10/30/23 albuterol sulfate 90 mcg/actuation 90 mcg inhalation PRN PRN 03/14/22 10/30/23 aerosol inhaler Shortness Of Breath Or Wheezing glipizide 10 mg tablet 10 mg PO DAILY 10/30/23 10/30/23 sertraline 100 mg tablet 25 mg PO DAILY 10/30/23 10/30/23 Previous Rx's Medication Instructions Recorded bicalutamide 50 mg tablet (Casodex) 50 mg PO DAILY prostate cancer #90 10/06/21 tabs ipratropium 20 mcg-albuterol 100 1 puff inhalation Q6H PRN 10/30/23 mcg/actuation mist for inhalation shortness of breath or wheezing #4 (Combivent Respimat) grams Allergies Allergy/AdvReac Type Severity Reaction Status Date / Time codeine Allergy Unknown NAUSEA Verified 10/30/23 15:56 Iodine and Iodide Containing Allergy Unknown Verified 10/30/23 15:56 Produc [IODINE AND IODIDE CONTAINING PRODUC] iohexol Allergy Unknown Verified 10/30/23 15:56 Patient History Medical History Complex sleep apnea syndrome Edema leg BPH loc w urin obs/LUTS Hyperlipidemia Anticoagulation adequate with anticoagulant therapy Hypertension Gout Obesity Chronic kidney disease (CKD) stage G4/A1, severely decreased glomerular filtration rate (GFR) between 15-29 mL/min/1.73 square meter and albuminuria creatinine ratio less than 30 mg/g Atrial fibrillation Diabetes Prostate cancer Excessive daytime sleepiness Obstructive sleep apnea of adult Surgical History S/P ureteral stent placement Social History household members: spouse Smoking Status: Never smoker alcohol intake: never substance use type: does not use Smoking Status: Never smoker alcohol intake frequency: 0-2 drinks per day Substance Use Type: does not use Exam Initial Vital Signs Initial Vital Signs: Vital Signs Temperature 97.8 F 11/20/23 13:39 Pulse Rate 64 11/20/23 13:39 Respiratory Rate 18 11/20/23 13:39 Blood Pressure 173/76 H 11/20/23 13:39 Pulse Oximetry 97 11/20/23 13:39 Oxygen Delivery Method Room Air 11/20/23 13:39 GENERAL: Alert pleasant 83-year-old male HEENT: Head atraumatic,EOMI, pupils reactive, face symmetric, moist mucous membranes CARDIOVASCULAR: Regular rate and rhythm without murmurs, rubs or gallops. RESPIRATORY: Breath sounds equal bilaterally, no wheezes rales or rhonchi. ABDOMEN: Soft, nontender. Normoactive bowel sounds all 4 quadrants. No guarding or rebound. RECTAL: Grossly positive brick red very liquid stool non tender : No CVA tenderness EXTREMITIES: Normal range of motion, no clubbing or edema. Neurovascularly intact NEUROLOGICAL: Alert and oriented x4.Normal gait and speech. SKIN: Warm, dry, no laceration, no petechiae, no rashes or lesions. Course Orders Ordered: ED Orders 11/20/23 18:56 Hemoglobin and Hematocrit Stat Discontinued Medications Ondansetron HCl (Ondansetron 4 Mg/2 Ml Inj) 4 mg IV NOW PRN PRN Reason: Nausea And Vomiting Ondansetron HCl (Ondansetron 4 Mg Odt) 4 mg SL NOW PRN PRN Reason: Nausea And Vomiting Pantoprazole Sodium (Pantoprazole 40 Mg Vial) 80 mg IV NOW ONE Stop: 11/20/23 13:46 Last Admin: 11/20/23 16:00 Dose: 80 mg Documented By: MPO Vital Signs Vital signs: Vital Signs - 8 hr 11/20/23 17:10 11/20/23 17:15 11/20/23 17:26 Pulse Rate 78 61 61 Respiratory Rate 24 24 Blood Pressure Pulse Oximetry 97 95 97 11/20/23 17:26 11/20/23 17:30 11/20/23 17:33 Pulse Rate 57 L Respiratory Rate Blood Pressure 151/70 H 148/66 H Pulse Oximetry 96 11/20/23 17:33 11/20/23 17:45 11/20/23 18:00 Pulse Rate 66 59 L 59 L Respiratory Rate 27 H 26 H 26 H Blood Pressure Pulse Oximetry 96 96 95 11/20/23 18:05 11/20/23 18:05 11/20/23 18:15 Pulse Rate 59 L 56 L Respiratory Rate 25 H 24 Blood Pressure 160/65 H Pulse Oximetry 96 96 11/20/23 18:30 11/20/23 18:31 11/20/23 18:31 Pulse Rate 54 L 55 L Respiratory Rate 25 H 27 H Blood Pressure 170/65 H Pulse Oximetry 95 95 11/20/23 18:45 11/20/23 19:00 11/20/23 19:01 Pulse Rate 61 65 Respiratory Rate 32 H 23 Blood Pressure 154/64 H Pulse Oximetry 96 96 11/20/23 19:01 11/20/23 19:15 11/20/23 19:30 Pulse Rate 66 60 65 Respiratory Rate 23 22 21 Blood Pressure Pulse Oximetry 96 96 94 11/20/23 19:31 11/20/23 19:31 11/20/23 20:00 Pulse Rate 63 64 Respiratory Rate 21 28 H Blood Pressure 154/65 H Pulse Oximetry 95 94 11/20/23 20:01 11/20/23 20:01 11/20/23 20:15 Pulse Rate 65 67 Respiratory Rate 20 24 Blood Pressure 154/66 H Pulse Oximetry 94 95 11/20/23 20:30 11/20/23 20:31 11/20/23 20:31 Pulse Rate 66 66 Respiratory Rate 23 24 Blood Pressure 159/67 H Pulse Oximetry 96 96 11/20/23 20:45 11/20/23 21:01 11/20/23 21:01 Pulse Rate 64 68 Respiratory Rate 34 H 22 Blood Pressure 148/66 H Pulse Oximetry 95 95 11/20/23 21:15 11/20/23 21:30 11/20/23 21:45 Pulse Rate 64 63 62 Respiratory Rate 39 H 27 H 27 H Blood Pressure Pulse Oximetry 95 94 95 11/20/23 22:00 11/20/23 22:44 Pulse Rate 68 67 Respiratory Rate 26 H 18 Blood Pressure 183/71 H Pulse Oximetry 95 95 MDM - GI Bleed Lab Data 11/20/23 18:56 11/20/23 14:00 Labs: Lab Results 11/20/23 11/20/23 Range/Units 14:00 18:56 WBC 7.2 (4.5-11.0) X10^3/uL RBC 3.21 L (4.5-5.9) X10^6/uL Hgb 10.4 L 9.9 L (13.5-17.5) g/dL Hct 31.2 L 29.9 L (41-53) % MCV 97.1 (80-100) fL MCH 32.4 (26-34) PG MCHC 33.3 (30-36) % RDW 17.5 H (11.6-14.8) % Plt Count 135 L (150-400) X10^3/uL Neut % (Auto) 79.5 H (50-75) % Lymph % (Auto) 10.5 L (25-40) % [place] % (Auto) 5.3 (3-14) % Eos % (Auto) 4.0 (2-4) % Baso % (Auto) 0.7 (0-2) % Neut # (Auto) 5800 (4569-3434) /uL Lymph # (Auto) 800 L (2702-8180) /uL [place] # (Auto) 400 (0-900) /uL Eos # (Auto) 300 (0-450) /uL Baso # (Auto) 100 (0-100) /uL PT 12.6 H (9.4-12.5) SECONDS INR 1.1 (0.9-1.3) APTT 30 (25.1-36.5) SECONDS Sodium 136 L (137-145) mmol/L Potassium 3.9 (3.4-5.1) mmol/L Chloride 100 (98-107) mmol/L Carbon Dioxide 27 (22-32) mmol/L BUN 23 H (9-20) mg/dL Creatinine 4.62 H (0.66-1.25) mg/dL Estimated GFR 12 L (>60) mL/min BUN/Creatinine Ratio 5.0 L (6-22) Glucose 169 H (80-110) mg/dL Calcium 8.4 (8.4-10.2) mg/dL Total Bilirubin 0.7 (0.2-1.3) mg/dL AST 20 (17-59) IU/L ALT 13 (<50) IU/L Alkaline Phosphatase 72 (38-126) U/L Total Protein 6.6 (6.3-8.2) g/dL Albumin 3.8 (3.5-5.0) g/dL Globulin 2.8 (1.7-4.1) g/dL Albumin/Globulin Ratio 1.4 (1.0-2.8) Blood Type A Positive Antibody Screen Negative MDM Narrative Medical decision making narrative: Patient 83-year-old male newly diagnosed colon cancer was patient now states is 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 Previous history of GI bleeding requiring blood transfusions, hemodialysis presenting today with at least 2 episodes of rectal bleeding. On exam he has gross liquid bloody stool. Blood work has been reviewed hemoglobin 10.4 hematocrit 31.2 with repeat 4 hours later 9.9 and 29.9, sodium 136 potassium 3.9, chloride 100, carbon dioxide 27, BUN 23, creatinine 4.62 which is baseline PT 12.6 INR 1.1 APTT 30 Patient has had rectal bleeding previously requiring blood transfusions he still is having some active incontinence of stool but no large bowel movements in the ED. He is hemodynamically stable without hypotension or tachycardia. 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 GI doctor at [facility] updated patient's symptoms test results reports that there is no emergent need for intervention he is happy to consult. Dr. Carranza on-call hospitalist updated on symptoms and test results agrees patient needs to be transferred for observation and monitoring recommends talking to nephrology Dr. Bay updated on patient's symptoms and test results agrees no need for emergent dialysis but happy to follow once a [place] Patient needs to be transferred due to hemodialysis continuity of care. He does continue to have some stool incontinence but again no large bowel movements. His hemoglobin dropped slightly but no need for blood transfusion at this time. Has been accepted over at [facility]. Discharge Plan Departure Patient Disposition: General Acute Hospital Clinical Impression: Acute GI bleeding, Acute hemodialysis patient Prescriptions: No Action rosuvastatin [Crestor] 5 MG tablet 5 mg PO BEDTIME Qty: 0 amlodipine 5 mg tablet 5 mg DAILY bicalutamide [Casodex] 50 MG tablet 50 mg PO DAILY Qty: 90 3RF sertraline 100 mg tablet 25 mg PO DAILY glipizide 10 mg tablet 10 mg PO QAM Patient Comments: TK 1 T PO BID albuterol sulfate 90 mcg/actuation HFA aerosol inhaler 90 mcg INHALATION PRN PRN (Reason: Shortness Of Breath Or Wheezing) Patient Comments: INHALE 1 TO 2 PUFFS INTO THE LUNGS EVERY 4 HOURS WHILE AWAKE glipizide 10 mg tablet 10 mg PO DAILY Combivent Respimat 20-100 mcg/actuation mist 1 puff inhalation Q6H PRN (Reason: shortness of breath or wheezing) Qty: 4 2RF Referrals: Emmett Escalera MD [Primary Care Provider] -
[2023-11-20 19:04] LABS: Hematocrit 29.9 % (41-53); Hemoglobin 9.9 g/dL (13.5-17.5)
== END 2023-11-20 22:49 | disposition short-term general hospital (02) ==
PROVIDERS: Emergency Medicine; Emergency Provider Emergency Medicine; PCP Family Medicine
DX: K92.2 Gastrointestinal hemorrhage, unspecified (principal); Z99.2 Dependence on renal dialysis
CPT/HCPCS: 36415; 80053; 85014; 85018; 85025; 85610; 85730; 86850; 86900; 86901; 96374; 99284; C9113